=== PATIENT | female | born 1955 ===

== ENCOUNTER 2016-12-07 18:32 | Inpatient (IN) | payer MEDICAID ==
[2016-12-07 18:40] VITALS: BMI 22.6
--- NOTE | 2016-12-07 19:23 | ED PDOC ---
Arrival/HPI - General Historian: Patient - History of Present Illness Time/Duration: 24 hours Symptom Onset: Gradual Symptom Course: Unchanged Context: Home - General Time Seen by Provider: 12/07/16 18:38 - History of Present Illness Narrative History of Present Illness (Text): 12/07/16 19:23 61 yo female with PMH of HTN presents with hemoptysis. Patient states that last night she started cough up blood with sputum. She also reports fever of 105, for which she took Tylenol. Patient states that she was treated for pneumonia about 1 month ago, however she continued to have cough. She states that this has never happened before. 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 She denies any recent travel, or sick contacts. She denies weight loss, chest pain, abd pain, n/v. PMD: Ren (Eulalia Moore) Past Medical History - Provider Review Nursing Documentation Reviewed: Yes - Infectious Disease Hx of Infectious Diseases: None - Cardiac Hx Hypertension: Yes Hx Pacemaker: No - Pulmonary Hx Asthma: Yes Hx Pneumonia: Yes - Neurological Hx Paralysis: No - HEENT Hx Epistaxis: Yes - Hematological/Oncological Hx Blood Transfusions: No Hx Blood Transfusion Reaction: No - Musculoskeletal/Rheumatological Hx Musculoskeletal Disorders: Yes (OSTEOPENIA) - Gastrointestinal Hx Gastrointestinal Ulcer: Yes Other/Comment: inflammation of intestine - Psychiatric Hx Emotional Abuse: No Hx Physical Abuse: No Hx Substance Use: No - Anesthesia Hx Anesthesia: Yes Hx Anesthesia Reactions: No Hx Malignant Hyperthermia: No - Suicidal Assessment Feels Threatened In Home Enviroment: No Family/Social History - Physician Review Nursing Documentation Reviewed: Yes Family/Social History: No Known Family HX Smoking Status: Never Smoked Hx Alcohol Use: No Hx Substance Use: No Allergies/Home Meds Allergies/Adverse Reactions: Allergies EGG Allergy (Verified 11/16/15 12:32) RASH gluten Allergy (Verified 12/07/16 18:40) VOMITING Home Medications: Home Meds Medication Instructions Recorded Confirmed Acetaminophen [Tylenol Extra 500 mg PO Q6H PRN 11/16/15 12/07/16 Strength] Albuterol HFA [Ventolin HFA 90 2 puff IH Q6H PRN 11/16/15 12/07/16 mcg/actuation (8 g)] Lisinopril/Hydrochlorothiazide 1 tab PO DAILY 11/16/15 12/07/16 [Lisinopril-Hydrochlorothiazide 25 mg-20 mg] Polyethylene Glycol 3350 17 gm PO DAILY 11/16/15 12/07/16 [Polyethylene Glycol] Ranitidine HCl [Zantac] 1 tab PO BID 12/07/16 12/07/16 Review of Systems - Review of Systems Constitutional: Fevers. absent: Weight Change Eyes: Normal. absent: Vision Changes ENT: Normal. absent: Sore Throat, Rhinorrhea, Sinus Congestion Respiratory: SOB, Cough, Sputum, Other (hemoptysis ) Cardiovascular: Normal. absent: Chest Pain, Palpitations, Edema, Syncope Gastrointestinal: Normal. absent: Abdominal Pain, Constipation, Diarrhea, Nausea, Vomiting Genitourinary Female: Normal. absent: Dysuria, Frequency, Hematuria Musculoskeletal: Normal. absent: Arthralgias, Myalgias Skin: Normal. absent: Rash, Pruritis Neurological: Normal. absent: Headache, Dizziness Endocrine: Normal. absent: Diaphoresis Hemo/Lymphatic: Normal Psychiatric: Normal Physical Exam Vital Signs Reviewed: Yes Temperature: Febrile Blood Pressure: Normal Pulse: Tachycardic Respiratory Rate: Normal Appearance: Positive for: Non-Toxic, Comfortable Pain Distress: None Mental Status: Positive for: Alert and Oriented X 3 - Systems Exam Head: Present: Atraumatic, Normocephalic Pupils: Present: PERRL. No: Pinpoint Extroacular Muscles: Present: EOMI Conjunctiva: Present: Normal Mouth: Present: Moist Mucous Membranes Neck: Present: Normal Range of Motion Respiratory/Chest: Present: Good Air Exchange, Rhonchi (upper right lobe). No: Respiratory Distress, Accessory Muscle Use, Wheezes, Tachypneic Cardiovascular: Present: Regular Rate and Rhythm, Normal S1, S2. No: Murmurs Abdomen: Present: Normal Bowel Sounds. No: Tenderness, Distention, Peritoneal Signs Back: Present: Normal Inspection Upper Extremity: Present: Normal Inspection. No: Cyanosis, Edema Lower Extremity: Present: Normal Inspection. No: Edema Neurological: Present: GCS=15, CN II-XII Intact, Speech Normal Skin: Present: Warm, Dry, Normal Color. No: Rashes Psychiatric: Present: Alert, Oriented x 3, Normal Insight, Normal Concentration Medical Decision Making ED Course and Treatment: 12/07/16 19:31 Impression: 61 yo female with PMH of HTN presents with hemoptysis. Differential diagnoses includes but not limited to: - Pneumonia, TB Plan: - placed in isolation precautions - CBC, CMP - PT, PTT - cardiac iso - CXR - blood and urine cultures - VBG with lactate progress: 12/07/16 20:05 - CXR showed cavitary lesion of the right upper lobe. - Will give zosyn and vanco 12/07/16 20:56 - Dr. Mcclure called, she requested patient be admitted under hospitalist service. - Night doctor was called, agreed for admission to hospitalist service. (Eulalia Moore) Patient Seen With Resident: In agreement with resident note. Patient was seen and evaluated with resident, came up with plan and treatment together. (Donnie Pritchett) - Lab Interpretations Microbiology Results: Microbiology Results 12/07/16 20:15 Blood Blood Culture - Final NO GROWTH AFTER 5 DAYS 12/07/16 20:15 Blood Gram Stain - Final TEST NOT PERFORMED 12/07/16 19:45 Blood Blood Culture - Final NO GROWTH AFTER 5 DAYS 12/07/16 19:45 Blood Gram Stain - Final TEST NOT PERFORMED Lab Results: 12/07/16 19:45 12/07/16 19:45 Lab Results 12/07/16 19:45: Sodium 135, Chloride 96 L, Potassium 3.6, Carbon Dioxide 29, Anion Gap 14, BUN 10, Creatinine 0.7, Est GFR ( Amer) > 60, Est GFR (Non- Af Amer) > 60, Random Glucose 106, Calcium 9.1, Magnesium 2.0, Total Bilirubin 0.5, AST 32, ALT 23, Alkaline Phosphatase 92, Lactate Dehydrogenase 393, Total Creatine Kinase 48, Troponin I < 0.01, Total Protein 7.6, Albumin 3.9, Globulin 3.7, Albumin/Globulin Ratio 1.1 12/07/16 19:45: PT 12.5 H, INR 1.16 H, APTT 31.7 H 12/07/16 19:45: WBC 6.9, RBC 3.71, Hgb 10.0 L, Hct 31.1 L, MCV 83.8, MCH 27.0, MCHC 32.2, RDW 15.6 H, Plt Count 439, MPV 9.2, Gran % 73.8 H, Lymph % (Auto) 16.3 L, [place] % (Auto) 9.5 H, Eos % (Auto) 0.1 L, Baso % (Auto) 0.3, Gran # 5.10 , Lymph # 1.1 L, [place] # 0.7 H, Eos # 0.0, Baso # 0.02 12/07/16 19:45: pO2 31, VBG pH 7.42, VBG pCO2 48.0, VBG HCO3 31.1 H, VBG Total CO2 32.6 H, VBG O2 Sat (Calc) 63.9, VBG Base Excess 5.5 H, VBG Potassium 3.7, Sodium 136.0, Chloride 99.0, Glucose 109 H, Lactate 1.0, FiO2 21.0, Venous Blood Potassium 3.7 - RAD Interpretation Radiology Orders: 12/07/16 19:24 CHEST PORTABLE [RAD] Stat 12/07/16 20:52 CHEST W/CONTRAST [CT] Stat - Medication Orders Current Medication Orders: Albuterol Sulfate (Albuterol 0.083% Inhal Megan (2.5 Mg/3 Ml) Ud) 2.5 mg IH [id number] PRN PRN Reason: Cough and congestion Ethambutol HCl (Myambutol) 800 mg PO DAILY [facility] Last Admin: 12/13/16 09:50 Dose: 800 mg Hydrochlorothiazide (Hydrodiuril) 25 mg PO DAILY [facility] Last Admin: 12/13/16 09:51 Dose: 25 mg Ceftriaxone Sodium (Rocephin 1 Gram Ivpb) 1 gm in 100 mls @ 100 mls/hr IVPB DAILY [facility] PRN Reason: Protocol Last Admin: 12/12/16 10:30 Dose: 100 mls/hr Isoniazid (Niazid) 300 mg PO DAILY [facility] PRN Reason: Protocol Last Admin: 12/13/16 09:51 Dose: 300 mg Lisinopril (Zestril) 20 mg PO DAILY [facility] Last Admin: 12/13/16 09:52 Dose: 20 mg Pantoprazole Sodium (Protonix Ec Tab) 40 mg PO 0600 [facility] Last Admin: 12/13/16 05:44 Dose: 40 mg Polyethylene Glycol (Miralax) 17 gm PO BID [facility] Last Admin: 12/13/16 09:50 Dose: 17 gm Polysaccharide Iron Complex (Ferrex-150) 300 mg PO BID [facility] Last Admin: 12/13/16 09:51 Dose: 300 mg Prednisone (Prednisone Tab) 10 mg PO DAILY [facility] Last Admin: 12/13/16 09:51 Dose: 10 mg Pyrazinamide (Pyrazinamide) 1,000 mg PO DAILY [facility] Last Admin: 12/13/16 09:50 Dose: 1,000 mg Pyridoxine HCl (Vitamin B6 50 Mg Tab) 50 mg PO DAILY [facility] Last Admin: 12/13/16 09:50 Dose: 50 mg Rifampin (Rifampin Cap) 300 mg PO 0700 [facility] PRN Reason: Protocol Last Admin: 12/13/16 08:28 Dose: 300 mg Discontinued Medications Acetaminophen (Tylenol 325mg Tab) 975 mg PO STAT STA Stop: 12/07/16 19:26 Last Admin: 12/07/16 20:05 Dose: 975 mg Re-Assess: CANDIDA Pain/Vitals Document 12/07/16 21:05 JOHANNA (Rec: 12/07/16 21:18 JOHANNA [id number]) Pain Reassessment Is This A Pain ReAssessment? No Sleep Is patient sleeping during reassessment? No Presence of Pain Presence of Pain No Acetaminophen (Tylenol 325mg Tab) Confirm Administered Dose 650 mg .ROUTE .STK- MED ONE Stop: 12/08/16 15:14 Sodium Chloride (Sodium Chloride 0.9%) 1,000 mls @ 999 mls/hr IV .Q1H1M STA Stop: 12/07/16 20:25 Last Admin: 12/07/16 20:05 Dose: 999 mls/hr Vancomycin HCl (Vancomycin 1gm) 1 gm in 250 mls @ 167 mls/hr IVPB STAT STA PRN Reason: Protocol Stop: 12/07/16 21:10 Last Admin: 12/07/16 20:14 Dose: 167 mls/hr Piperacillin Sod/Tazobactam Sod (Zosyn 3.375 In Ns 100ml) 100 mls @ 200 mls/hr IVPB STAT STA PRN Reason: Protocol Stop: 12/07/16 20:10 Last Admin: 12/07/16 20:13 Dose: 200 mls/hr Ceftriaxone Sodium (Rocephin 1 Gram Ivpb) 1 gm in 100 mls @ 100 mls/hr IVPB DAILY [facility] PRN Reason: Protocol Last Admin: 12/08/16 09:07 Dose: 100 mls/hr Vancomycin HCl (Vancomycin 1gm) 1 gm in 250 mls @ 167 mls/hr IVPB Q12H [facility] PRN Reason: Protocol Last Admin: 12/08/16 10:43 Dose: Iohexol (Omnipaque 350 100 Ml) Confirm Administered Dose 350 mg .ROUTE .STK-MED ONE Stop: 12/07/16 21:15 Methylprednisolone (Solu-Medrol) 40 mg IVP Q8 [facility] Last Admin: 12/09/16 21:30 Dose: 40 mg Methylprednisolone (Solu-Medrol) 20 mg IVP Q8 [facility] Last Admin: 12/10/16 13:05 Dose: 20 mg Methylprednisolone (Solu-Medrol) 20 mg IVP Q12 [facility] Last Admin: 12/11/16 10:40 Dose: 20 mg Pantoprazole Sodium (Protonix Inj) 40 mg IVP DAILY [facility] Last Admin: 12/09/16 11:03 Dose: 40 mg Polyethylene Glycol (Miralax) 17 gm PO DAILY [facility] Last Admin: 12/12/16 10:30 Dose: 17 gm Polysaccharide Iron Complex (Ferrex-150) 150 mg PO DAILY [facility] Polysaccharide Iron Complex (Ferrex-150) 375 mg PO BID [facility] Potassium Chloride (K-Dur 20 Meq Er Tab) 40 meq PO BID ONE Stop: 12/09/16 08:44 Last Admin: 12/09/16 11:11 Dose: 40 meq Potassium Chloride (K-Dur 20 Meq Er Tab) 40 meq PO ONCE ONE Stop: 12/09/16 13:46 Last Admin: 12/09/16 14:21 Dose: 40 meq Disposition/Present on Arrival - Present on Arrival Any Indicators Present on Arrival: No History of DVT/PE: No History of Uncontrolled Diabetes: No Urinary Catheter: No History of Decub. Ulcer: No History Surgical Site Infection Following: None - Disposition Have Diagnosis and Disposition been Completed?: Yes Disposition Time: 20:53 Patient Plan: Admission - Disposition Diagnosis: Hemoptysis Disposition: HOSPITALIZED Patient Problems: Current Active Problems Problem Status Onset Asthma Acute Cavitary lesion of lung Acute Hemoptysis Acute Pneumonia Acute Condition: FAIR
[2016-12-07] MEDS ORDERED: Sodium Chloride 0.9% 1,000 ML IV STA (19:25)
[2016-12-07] MEDS ORDERED: Piperacillin/Tazobact 3.375 gm 100 ML IVPB STA (19:41)
[2016-12-07] MEDS ORDERED: Vancomycin 1gm in NS 250ml 1 GM/250 ML BAG IVPB STA (19:41)
[2016-12-07 20:18] LABS: VENOUS BLOOD GAS BASE EXCESS 5.5 mmol/L (0.0-2.0); VENOUS BLOOD GAS PO2 31 mm/Hg (30-55); VENOUS BLOOD PH 7.42 (7.32-7.43)
[2016-12-07 20:21] LABS: BASO # 0.02 K/mm3 (0.0-2.0); BASO % 0.3 % (0.0-3.0); EOS % 0.1 % (1.5-5.0); GRAN % 73.8 % (50.0-68.0); LYMPH # 1.1 (1.2-3.4); LYMPH % 16.3 % (22.0-35.0); MEAN CELL VOLUME 83.8 fL (80.0-105.0); MEAN CORPUSCULAR HGB CONC 32.2 g/dl (31.0-37.0); MEAN PLATELET VOLUME 9.2 fl (7.0-11.0); MONO # 0.7 (0.1-0.6); MONO % 9.5 % (1.0-6.0); PLATELET COUNT 439 10^3/uL (120.0-450.0); RBC 3.71 10^6/uL (3.5-6.1); RED CELL DISTRIBUTION WIDTH 15.6 % (11.5-14.5); WHITE BLOOD COUNT 6.9 10^3/ul (4.5-11.0)
[2016-12-07 20:22] LABS: ALB/GLOB RATIO 1.1 (1.1-1.8); ALBUMIN 3.9 g/dL (3.0-4.8); ALT/SGPT 23 U/L (7-56); AST/SGOT 32 U/L (15-39); BLOOD UREA NITROGEN 10 mg/dL (7-21); CALCIUM 9.1 mg/dL (8.4-10.5); GFR AFRICAN-AMERICAN > 60; GFR NON-AFRICAN AMERICAN > 60
[2016-12-07 20:26] LABS: INR 1.16 (0.93-1.08); PARTIAL THROMBOPLASTIN TIME 31.7 Seconds (23.7-30.8); PROTHROMBIN TIME 12.5 Seconds (9.9-11.8)
[2016-12-07 20:34] LABS: TROPONIN I < 0.01 ng/mL
[2016-12-07] MEDS ORDERED: Albuterol HFA 90 mcg/actuation (8 g) IH PRN (21:13)
[2016-12-07] MEDS ORDERED: Iohexol 350 MG/100 ML VIAL ONE (21:14)
[2016-12-07] MEDS ORDERED: Albuterol 0.083% Inhal Sol (2.5 mg/3 mL) UD IH PRN (21:24)
[2016-12-07] MEDS: Vancomycin 1gm in NS 250ml 1 GM/250 ML BAG IVPB SCH (22:05)
--- NOTE | 2016-12-07 22:38 | CP.PCM.HP ---
<Hector Domínguez - Last Filed: 12/08/16 03:23> History of Present Illness - History of Present Illness History of Present Illness: cc: hemoptysis HPI: Patient is a 61yo female with past medical history of hypertension, asthma , gastric ulcer, esophagitis that presents c/o hemoptysis. Patient reports that she began coughing up bright red blood yesterday. She stated that she has had a productive cough with white phlegm for the last 2 months for which she saw her PMD and was prescribed antibiotics. She reported that the cough persisted and was associated with fevers and chills. She took tylenol with moderate relief of her fevers. Her daughter noted that she has lost at least 5 pounds in the last month. Patient is from the [place] and immig[place] to the [place] 30 years ago. She reports having visited for several months approximately 2 yrs ago. She also reported having had a prior positive PPD for which she had a CXR done and was given some medications that she does not recall the names of. She denies sick contacts, night sweats, chest pain, palpitations, abdominal pain, nausea, vomiting, focal weakness, numbness, tingling. 12 point ROS as per HPI above, otherwise negative PMHx: see above PSHx: hernia repair Allergies: egg, gluten Family Hx: Mother: Hypertension; Father: Alzheimer's; Brother: Brain Ca Social Hx: Denies tobacco, alcohol and illicit drug use; homemaker PMD: Dr. Mcclure Present on Admission - Present on Admission Any Indicators Present on Admission: No Past Patient History - Infectious Disease Hx of Infectious Diseases: None - Past Social History Smoking Status: Never Smoked - CARDIAC Hx Hypertension: Yes Hx Pacemaker: No - PULMONARY Hx Asthma: Yes Hx Pneumonia: Yes - NEUROLOGICAL Hx Paralysis: No - HEENT Hx Epistaxis: Yes - HEMATOLOGICAL/ONCOLOGICAL Hx Blood Transfusions: No Hx Blood Transfusion Reaction: No - MUSCULOSKELETAL/RHEUMATOLOGICAL Hx Musculoskeletal Disorders: Yes (OSTEOPENIA) - GASTROINTESTINAL Other/Comment: inflammation of intestine - PSYCHIATRIC Hx Emotional Abuse: No Hx Physical Abuse: No Hx Substance Use: No - SURGICAL HISTORY Hx Surgeries: Yes Hx Herniorrhaphy: Yes (inguinal hernia) - ANESTHESIA Hx Anesthesia: Yes Hx Anesthesia Reactions: No Hx Malignant Hyperthermia: No Meds Allergies/Adverse Reactions: Allergies Allergy/AdvReac Type Severity Reaction Status Date / Time EGG Allergy RASH Verified 11/16/15 12:32 gluten Allergy VOMITING Verified 12/07/16 18:40 Physical Exam - Constitutional Appears: No Acute Distress - Head Exam Head Exam: ATRAUMATIC, NORMAL INSPECTION, NORMOCEPHALIC - Eye Exam Eye Exam: EOMI, PERRL. absent: Conjunctival injection, Scleral icterus - ENT Exam ENT Exam: Mucous Membranes Moist - Neck Exam Neck exam: Positive for: Normal Inspection. Negative for: Lymphadenopathy, Tenderness, Thyromegaly - Respiratory Exam Respiratory Exam: Rhonchi (ronchi audible in the RUL). absent: Clear to Auscultation Bilateral, Rales, Wheezes - Cardiovascular Exam Cardiovascular Exam: RRR, +S1, +S2. absent: Gallop, JVD, Rubs, Systolic Murmur - GI/Abdominal Exam GI & Abdominal Exam: Soft. absent: Distended, Firm, Guarding, Rebound, Tenderness - Extremities Exam Extremities exam: Positive for: normal inspection, pedal pulses present. Negative for: calf tenderness, pedal edema, tenderness - Neurological Exam Neurological exam: Alert, CN II-XII Intact, Oriented x3 - Psychiatric Exam Psychiatric exam: Normal Affect, Normal Mood - Skin Skin Exam: Dry, Intact, Normal Color, Warm Results - Vital Signs Recent Vital Signs: Last Vital Signs Temp 101.1 F H 12/07/16 18:47 Pulse 106 H 12/07/16 18:47 Resp 18 12/07/16 18:47 BP 125/83 12/07/16 18:47 Pulse Ox 96 12/07/16 18:47 - Labs Result Diagrams: 12/07/16 19:45 12/07/16 19:45 Labs: Laboratory Results - last 24 hr 12/07/16 12/07/16 12/07/16 19:45 19:45 19:45 WBC 6.9 RBC 3.71 Hgb 10.0 L Hct 31.1 L MCV 83.8 MCH 27.0 MCHC 32.2 RDW 15.6 H Plt Count 439 MPV 9.2 Gran % 73.8 H Lymph % (Auto) 16.3 L [place] % (Auto) 9.5 H Eos % (Auto) 0.1 L Baso % (Auto) 0.3 Gran # 5.10 Lymph # 1.1 L [place] # 0.7 H Eos # 0.0 Baso # 0.02 PT 12.5 H INR 1.16 H APTT 31.7 H pO2 31 VBG pH 7.42 VBG pCO2 48.0 VBG HCO3 31.1 H VBG Total CO2 32.6 H VBG O2 Sat (Calc) 63.9 VBG Base Excess 5.5 H VBG Potassium 3.7 Sodium 136.0 Chloride 99.0 Glucose 109 H Lactate 1.0 FiO2 21.0 Potassium Carbon Dioxide Anion Gap BUN Creatinine Est GFR ( Amer) Est GFR (Non-Af Amer) Random Glucose Calcium Magnesium Total Bilirubin AST ALT Alkaline Phosphatase Lactate Dehydrogenase Total Creatine Kinase Troponin I Total Protein Albumin Globulin Albumin/Globulin Ratio Venous Blood Potassium 3.7 12/07/16 19:45 WBC RBC Hgb Hct MCV MCH MCHC RDW Plt Count MPV Gran % Lymph % (Auto) [place] % (Auto) Eos % (Auto) Baso % (Auto) Gran # Lymph # [place] # Eos # Baso # PT INR APTT pO2 VBG pH VBG pCO2 VBG HCO3 VBG Total CO2 VBG O2 Sat (Calc) VBG Base Excess VBG Potassium Sodium 135 Chloride 96 L Glucose Lactate FiO2 Potassium 3.6 Carbon Dioxide 29 Anion Gap 14 BUN 10 Creatinine 0.7 Est GFR ( Amer) > 60 Est GFR (Non-Af Amer) > 60 Random Glucose 106 Calcium 9.1 Magnesium 2.0 Total Bilirubin 0.5 AST 32 ALT 23 Alkaline Phosphatase 92 Lactate Dehydrogenase 393 Total Creatine Kinase 48 Troponin I < 0.01 Total Protein 7.6 Albumin 3.9 Globulin 3.7 Albumin/Globulin Ratio 1.1 Venous Blood Potassium Assessment & Plan - Assessment and Plan (Free Text) Plan: 61yo female with past medical history of hypertension, asthma, gastric ulcer, esophagitis presents c/o hemoptysis associated with weight loss, fevers and chills 1. Cavitary lesion r/o TB -CXR revealed right upper lobe cavitary lesion suspicious for granulomatous diseases such as TB -Patient was placed on airborne isolation with negative room pressure -Chest CT revealed RUL scarring and volume loss; small RUL cavitary lesion with adjacent nodular opacities; large RLL cavitary lesion with interstitial and airspace disease; active TB could not be excluded -AFB/Sputum cultures were ordered -Quantiferon pending -Patient given a dose of zosyn and vancomycin in the ED; Continue rocephin and vancomycin pending results of further studies per attending recommendations -HIV Ab pending -Blood/urine cultures pending; procalcitonin pending -ID consulted - Dr. Mcghee -Pulmonology consulted - Dr. Paige 2. Anemia -Anemia workup is pending: Iron, Ferritin, TIBC, Folate, B12, reticulocyte count 3. Hypertension -Continue home lisinopril and HCTZ 4. Asthma -Continue home albuterol PRN 5. GI/DVT Prophlaxis -Protonix/SCD's Patient seen, examined and case reviewed with attending, Dr. Waters - Date & Time Date: 12/07/16 Time: 23:09 <Kevin Waters - Last Filed: 12/08/16 23:08> Results - Vital Signs Recent Vital Signs: Last Vital Signs Temp 98.4 F 12/08/16 05:59 Pulse 90 12/08/16 09:16 Resp 18 12/08/16 09:00 BP 134/78 12/08/16 09:16 Pulse Ox 98 12/08/16 09:00 - Labs Result Diagrams: 12/08/16 06:30 12/08/16 06:30 Labs: Laboratory Results - last 24 hr 12/08/16 12/08/16 12/08/16 06:30 06:30 07:00 WBC 5.5 D RBC 3.90 Hgb 10.2 L Hct 32.7 L MCV 83.8 MCH 26.2 MCHC 31.2 RDW 15.9 H Plt Count 384 MPV 9.2 Gran % 69.3 H Lymph % (Auto) 19.1 L [place] % (Auto) 9.2 H Eos % (Auto) 1.8 Baso % (Auto) 0.6 Gran # 3.78 Lymph # 1.0 L [place] # 0.5 Eos # 0.1 Baso # 0.03 Retic Count 1.13 Sodium 138 Potassium 3.2 L Chloride 103 Carbon Dioxide 25 Anion Gap 13 BUN 8 Creatinine 0.6 Est GFR ( Amer) > 60 Est GFR (Non-Af Amer) > 60 Random Glucose 84 Calcium 8.9 Iron 16 L TIBC 305 % Saturation 5 L Ferritin Total Bilirubin 0.5 AST 23 ALT 26 Alkaline Phosphatase 93 Troponin I Total Protein 7.5 Albumin 3.7 Globulin 3.8 Albumin/Globulin Ratio 1.0 L Vitamin B12 Folate Procalcitonin 12/08/16 12/08/16 12/08/16 07:00 07:00 10:50 WBC RBC Hgb Hct MCV MCH MCHC RDW Plt Count MPV Gran % Lymph % (Auto) [place] % (Auto) Eos % (Auto) Baso % (Auto) Gran # Lymph # [place] # Eos # Baso # Retic Count Sodium Potassium Chloride Carbon Dioxide Anion Gap BUN Creatinine Est GFR ( Amer) Est GFR (Non-Af Amer) Random Glucose Calcium Iron TIBC % Saturation Ferritin 67.6 Total Bilirubin AST ALT Alkaline Phosphatase Troponin I < 0.01 Total Protein Albumin Globulin Albumin/Globulin Ratio Vitamin B12 336 Folate 12.5 Procalcitonin 0.11 L 12/08/16 20:50 WBC RBC Hgb Hct MCV MCH MCHC RDW Plt Count MPV Gran % Lymph % (Auto) [place] % (Auto) Eos % (Auto) Baso % (Auto) Gran # Lymph # [place] # Eos # Baso # Retic Count Sodium Potassium Chloride Carbon Dioxide Anion Gap BUN Creatinine Est GFR ( Amer) Est GFR (Non-Af Amer) Random Glucose Calcium Iron TIBC % Saturation Ferritin Total Bilirubin AST ALT Alkaline Phosphatase Troponin I < 0.01 Total Protein Albumin Globulin Albumin/Globulin Ratio Vitamin B12 Folate Procalcitonin Attending/Attestation - Attestation I have personally seen and examined this patient.: Yes I have fully participated in the care of the patient.: Yes I have reviewed all pertinent clinical information: Yes
--- NOTE | 2016-12-07 23:17 | CT ---
EXAM: CT Chest With Intravenous Contrast CLINICAL HISTORY: 61 years old, female; Signs and symptoms; Cough; Cough with hemorrhage; Additional info: Cough possible abscess vs cavitary lesion; history of positive PPD TECHNIQUE: Axial computed tomography images of the chest with intravenous contrast. This CT exam was performed using one or more of the following dose reduction techniques: automated exposure control, adjustment of the mA and/or kV according to patient size, and/or use of iterative reconstruction technique. MIP reconstructed images were created and reviewed. Coronal and sagittal reformatted images were created and reviewed. CONTRAST: 100 mL of omni 350 administered intravenously. EXAM DATE/TIME: 12/07/2016 8:52 PM COMPARISON: DX - CHEST PORTABLE 12/07/2016 7:28:54 PM FINDINGS: Lungs: Trachea and main bronchi are patent. There is interstitial and alveolar disease in the right upper lobe. There is right upper lobe volume loss with elevation of the fissure. There is upper lobe bronchiectasis. There is a 1.2 x 1.4 x 1.2 cm walled cavitary lesion in the right upper lobe. There are multiple additional nodular opacities in the right upper lobe. There is a 3.5 x 3.8 x 3.1 cm thick walled cavitary lesions superior segment right lower lobe. There are multiple small adjacent nodular opacities in the superior segment of the right lower lobe. There are interstitial nodular opacities in the inferior portion right lower lobe. There is medial right lower lobe infrahilar airspace disease. Right middle lobe is clear. Left lung is well inflated and clear. Pleural space: There are no effusions Heart and vasculature: Heart size is normal. There is no pericardial effusion.Aorta and main pulmonary artery are normal in caliber. Thyroid: Thyroid is unremarkable Bones/joints: There are degenerative changes in the osseus structures. Upper abdomen:There are no acute abnormalities in the visualized portion of the abdomen. Soft tissues: unremarkable Mediastinum There is shotty middle mediastinal nodes. Parenchymal disease limits evaluation of the right hilum. Adenopathy is suspected.: Esophagus is not optimally evaluated. IMPRESSION: Right upper lobe scarring and volume loss; small right upper lobe cavitary lesion with adjacent nodular opacities; large right lower lobe cavitary lesion with interstitial and airspace disease, active tuberculosis cannot be excluded Additional findings as described above.
[2016-12-08 06:52] LABS: BASO # 0.03 K/mm3 (0.0-2.0); BASO % 0.6 % (0.0-3.0); EOS # 0.1 (0.0-0.7); EOS % 1.8 % (1.5-5.0); GRAN # 3.78 (1.4-6.5); GRAN % 69.3 % (50.0-68.0); HEMOGLOBIN 10.2 gm/dL (12.0-16.0); LYMPH % 19.1 % (22.0-35.0); MEAN CELL VOLUME 83.8 fL (80.0-105.0); MEAN CORPUSCULAR HEMOGLOBIN 26.2 pg (25.0-35.0); MEAN CORPUSCULAR HGB CONC 31.2 g/dl (31.0-37.0); MEAN PLATELET VOLUME 9.2 fl (7.0-11.0); MONO # 0.5 (0.1-0.6); MONO % 9.2 % (1.0-6.0); PLATELET COUNT 384 10^3/uL (120.0-450.0); RED CELL DISTRIBUTION WIDTH 15.9 % (11.5-14.5); WHITE BLOOD COUNT 5.5 10^3/ul (4.5-11.0)
[2016-12-08 07:02] LABS: ALBUMIN 3.7 g/dL (3.0-4.8); ALT/SGPT 26 U/L (7-56); AST/SGOT 23 U/L (15-39); BLOOD UREA NITROGEN 8 mg/dL (7-21); CALCIUM 8.9 mg/dL (8.4-10.5); GFR AFRICAN-AMERICAN > 60; GFR NON-AFRICAN AMERICAN > 60
--- NOTE | 2016-12-08 08:53 | CP.PCM.PN ---
<David Mahmood - Last Filed: 12/08/16 08:50> Subjective - Date & Time of Evaluation Date of Evaluation: 12/08/16 Time of Evaluation: 08:50 - Subjective Subjective: Patient seen and examined. NO acute events overnight. Patient c/o productive sputum with jamal color. She is afebrile. Denies fever, chills. NO n/v/d. Airborne precautions are in place. Objective - Vital Signs/Intake and Output Vital Signs (last 24 hours): Temp Pulse Resp BP Pulse Ox 98.4 F 86 22 133/82 98 12/08/16 05:59 12/08/16 05:59 12/08/16 05:59 12/08/16 05:59 12/08/16 05:59 Intake and Output: 12/08/16 12/08/16 06:59 18:59 Intake Total 240 Balance 240 - Medications Medications: Current Medications Albuterol Sulfate (Albuterol 0.083% Inhal Megan (2.5 Mg/3 Ml) Ud) 2.5 mg IH [id number] PRN PRN Reason: Cough and congestion Hydrochlorothiazide (Hydrodiuril) 25 mg PO DAILY [facility] Ceftriaxone Sodium (Rocephin 1 Gram Ivpb) 1 gm in 100 mls @ 100 mls/hr IVPB DAILY [facility] PRN Reason: Protocol Vancomycin HCl (Vancomycin 1gm) 1 gm in 250 mls @ 167 mls/hr IVPB Q12H [facility] PRN Reason: Protocol Last Admin: 12/07/16 22:05 Dose: Not Given Lisinopril (Zestril) 20 mg PO DAILY [facility] Pantoprazole Sodium (Protonix Inj) 40 mg IVP DAILY [facility] - Labs Labs: 12/08/16 06:30 12/08/16 06:30 PT 12.5 Seconds (9.9-11.8) H 12/07/16 19:45 INR 1.16 (0.93-1.08) H 12/07/16 19:45 APTT 31.7 Seconds (23.7-30.8) H 12/07/16 19:45 - Constitutional Appears: Non-toxic, No Acute Distress - Head Exam Head Exam: ATRAUMATIC, NORMOCEPHALIC - Eye Exam Eye Exam: EOMI, PERRL - ENT Exam ENT Exam: Mucous Membranes Moist - Neck Exam Neck Exam: Full ROM, Normal Inspection - Respiratory Exam Respiratory Exam: Rhonchi. absent: Clear to Ausculation Bilateral, Wheezes Additional comments: right middle lobe - Cardiovascular Exam Cardiovascular Exam: REGULAR RHYTHM, +S1, +S2 - GI/Abdominal Exam GI & Abdominal Exam: Soft, Normal Bowel Sounds. absent: Tenderness - Extremities Exam Extremities Exam: Full ROM. absent: Calf Tenderness - Neurological Exam Neurological Exam: Alert, Awake, Oriented x3 - Psychiatric Exam Psychiatric exam: Normal Affect, Normal Mood - Skin Skin Exam: Dry, Warm Assessment and Plan - Assessment and Plan (Free Text) Assessment: 61yo female with past medical history of hypertension, asthma, gastric ulcer, esophagitis presents c/o hemoptysis associated with weight loss, fevers and chills Cavitary lesion r/o TB -CXR revealed right upper lobe cavitary lesion suspicious for granulomatous diseases such as TB -Patient was placed on airborne isolation with negative room pressure -Chest CT revealed RUL scarring and volume loss; small RUL cavitary lesion with adjacent nodular opacities; large RLL cavitary lesion with interstitial and airspace disease; active TB could not be excluded -AFB/Sputum cultures were ordered -Quantiferon pending -Patient given a dose of zosyn and vancomycin in the ED; Continue rocephin and vancomycin pending results of further studies per attending recommendations -HIV Ab pending -Blood/urine cultures pending; procalcitonin pending -ID consulted - Dr. Mcghee -Pulmonology consulted - Dr. Paige Anemia -Anemia workup is pending: Iron, Ferritin, TIBC, Folate, B12, reticulocyte count Hypertension -Continue home lisinopril and HCTZ Asthma -Continue home albuterol PRN GI/DVT Prophlaxis -Protonix/SCD's <Jaiden Holden - Last Filed: 12/08/16 22:51> Objective - Vital Signs/Intake and Output Vital Signs (last 24 hours): Temp Pulse Resp BP Pulse Ox 98.4 F 90 18 134/78 98 12/08/16 05:59 12/08/16 09:16 12/08/16 09:00 12/08/16 09:16 12/08/16 09:00 - Medications Medications: Current Medications Albuterol Sulfate (Albuterol 0.083% Inhal Megan (2.5 Mg/3 Ml) Ud) 2.5 mg IH [id number] PRN PRN Reason: Cough and congestion Hydrochlorothiazide (Hydrodiuril) 25 mg PO DAILY [facility] Last Admin: 12/08/16 09:17 Dose: 25 mg Lisinopril (Zestril) 20 mg PO DAILY [facility] Last Admin: 12/08/16 09:16 Dose: 20 mg Pantoprazole Sodium (Protonix Inj) 40 mg IVP DAILY [facility] Last Admin: 12/08/16 09:06 Dose: 40 mg - Labs Labs: 12/08/16 06:30 12/08/16 06:30 PT 12.5 Seconds (9.9-11.8) H 12/07/16 19:45 INR 1.16 (0.93-1.08) H 12/07/16 19:45 APTT 31.7 Seconds (23.7-30.8) H 12/07/16 19:45 Attending/Attestation - Attestation I have personally seen and examined this patient.: Yes I have fully participated in the care of the patient.: Yes I have reviewed all pertinent clinical information, including history, physical exam and plan: Yes Notes (Text): 12/08/16 22:50 Patient seen and examined at bedside. No new complaints. Continue droplet precautions and negative pressure environment. ID consult appreciated. Agree with the plan of care outlined by the resident.
[2016-12-08 08:54] LABS: % IRON SATURATION 5 % (20-55); IRON 16 ug/dL (45-180); TOTAL IRON BINDING CAPACITY 305 ug/dL (265-497)
[2016-12-08] MEDS ORDERED: cefTRIAXone 1 gm 1 GM/100 ML BAG IVPB SCH (10:00)
--- NOTE | 2016-12-08 10:17 | RAD ---
HISTORY: cough COMPARISON: 10/17/2016. Two-view chest. December 07, 2016. CT thorax is FINDINGS: LUNGS: Roseanne cavitary mass right upper lobe. Persistent consolidative and nodular changes right upper lobe. PLEURA: No significant pleural effusion identified, no pneumothorax apparent. CARDIOVASCULAR: Normal. OSSEOUS STRUCTURES: No significant abnormalities. VISUALIZED UPPER ABDOMEN: Normal. OTHER FINDINGS: None. IMPRESSION: Cavitary mass which is decreased in size compared to the prior chest x-ray. The overall findings in the right upper lobe likely reflect granulomatous disease. Fungal etiologies should also be considered.
[2016-12-08] MEDS: Vancomycin 1gm in NS 250ml 1 GM/250 ML BAG IVPB SCH (10:43)
[2016-12-08 12:47] LABS: FERRITIN 67.6 ng/mL
[2016-12-08 13:18] LABS: FOLATE 12.5 ng/mL
--- NOTE | 2016-12-08 20:15 | CARD ---
APPROVED REPORT EKG Measurement Heart [id number] DC [id number] [id number] <Conclusion> Normal sinus rhythm Normal ECG
--- NOTE | 2016-12-08 23:41 | CP.PCM.CON ---
History of Present Illness - History of Present Illness History of Present Illness: Infectious Disease Consultation: December 08, 2016 61 yo female with cough and bright red blood in sputum starting yesterday. The patient complains of persistent cough for the past 2 months without improvement. The patient placed on isolation and respiratory precautions at this time. Supportive care. Rule out TB. 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 Patient did have BCG vaccine in the past as a child. Patient was born in the [place] but moved to the [facility] [address] chest showed either abscess or cavitary lesion. The patient does complain of subjective fevers and chills. Fever of 101.1 F in ER. PMHx: hypertension, asthma, gastric ulcer, esophagitis PSHx: Hernia repair Allergies: EGGs, Gluten Social Hx: No tobacco, EtOH, or illicit drug use Active Medications Albuterol Sulfate (Albuterol 0.083% Inhal Megan (2.5 Mg/3 Ml) Ud) 2.5 mg IH [id number] PRN PRN Reason: Cough and congestion Hydrochlorothiazide (Hydrodiuril) 25 mg PO DAILY [facility] Last Admin: 12/08/16 09:17 Dose: 25 mg Lisinopril (Zestril) 20 mg PO DAILY [facility] Last Admin: 12/08/16 09:16 Dose: 20 mg Pantoprazole Sodium (Protonix Inj) 40 mg IVP DAILY [facility] Last Admin: 12/08/16 09:06 Dose: 40 mg Family Hx: Father: Alzheimer Mother: Hypertension Brother: Brain Cancer ROS: Hemoptysis, cough, weakness. Fevers, Chills. No hematuria, hematemesis, hematochezia, depression, anxiety, diarrhea, headaches, dizziness, chest pain, abdominal pain, loss of consciousness. Past Patient History - Infectious Disease Hx of Infectious Diseases: None - Past Social History Smoking Status: Never Smoked - CARDIAC Hx Hypertension: Yes Hx Pacemaker: No - PULMONARY Hx Asthma: Yes Hx Pneumonia: Yes - NEUROLOGICAL Hx Paralysis: No - HEENT Hx Epistaxis: Yes - RENAL Hx Chronic Kidney Disease: No - ENDOCRINE/METABOLIC Hx Endocrine Disorders: No - HEMATOLOGICAL/ONCOLOGICAL Hx Blood Transfusions: No Hx Blood Transfusion Reaction: No - INTEGUMENTARY Hx Dermatological Problems: No - MUSCULOSKELETAL/RHEUMATOLOGICAL Hx Musculoskeletal Disorders: Yes (OSTEOPENIA) - GASTROINTESTINAL Other/Comment: inflammation of intestine - PSYCHIATRIC Hx Emotional Abuse: No Hx Physical Abuse: No Hx Substance Use: No - SURGICAL HISTORY Hx Surgeries: Yes Hx Herniorrhaphy: Yes (inguinal hernia) - ANESTHESIA Hx Anesthesia: Yes Hx Anesthesia Reactions: No Hx Malignant Hyperthermia: No Meds Allergies/Adverse Reactions: Allergies Allergy/AdvReac Type Severity Reaction Status Date / Time EGG Allergy RASH Verified 11/16/15 12:32 gluten Allergy VOMITING Verified 12/07/16 18:40 - Medications Medications: Current Medications Albuterol Sulfate (Albuterol 0.083% Inhal Megan (2.5 Mg/3 Ml) Ud) 2.5 mg IH [id number] PRN PRN Reason: Cough and congestion Hydrochlorothiazide (Hydrodiuril) 25 mg PO DAILY [facility] Last Admin: 12/08/16 09:17 Dose: 25 mg Lisinopril (Zestril) 20 mg PO DAILY [facility] Last Admin: 12/08/16 09:16 Dose: 20 mg Pantoprazole Sodium (Protonix Inj) 40 mg IVP DAILY [facility] Last Admin: 12/08/16 09:06 Dose: 40 mg Physical Exam - Constitutional Appears: Non-toxic, No Acute Distress, Chronically Ill - Head Exam Head Exam: ATRAUMATIC, NORMOCEPHALIC - Eye Exam Eye Exam: EOMI, PERRL Pupil Exam: NORMAL ACCOMODATION, PERRL - ENT Exam ENT Exam: Mucous Membranes Moist, Normal External Ear Exam, TM's Normal Bilaterally - Neck Exam Neck exam: Positive for: Full Rom, Normal Inspection - Respiratory Exam Respiratory Exam: Decreased Breath Sounds, Rhonchi. absent: Wheezes, Respiratory Distress - Cardiovascular Exam Cardiovascular Exam: REGULAR RHYTHM, RRR, +S1, +S2 - GI/Abdominal Exam GI & Abdominal Exam: Normal Bowel Sounds, Soft. absent: Distended, Tenderness - Extremities Exam Extremities exam: Positive for: full ROM, normal inspection - Neurological Exam Neurological exam: Alert, CN II-XII Intact, Oriented x3 - Psychiatric Exam Psychiatric exam: Normal Affect, Normal Mood - Skin Skin Exam: Intact, Normal Color Results - Vital Signs Recent Vital Signs: Last Vital Signs Temp 98.4 F 12/08/16 05:59 Pulse 90 12/08/16 09:16 Resp 18 12/08/16 09:00 BP 134/78 12/08/16 09:16 Pulse Ox 98 12/08/16 09:00 - Labs Result Diagrams: 12/08/16 06:30 12/08/16 06:30 Labs: Laboratory Results - last 24 hr 12/08/16 12/08/16 12/08/16 06:30 06:30 07:00 WBC 5.5 D RBC 3.90 Hgb 10.2 L Hct 32.7 L MCV 83.8 MCH 26.2 MCHC 31.2 RDW 15.9 H Plt Count 384 MPV 9.2 Gran % 69.3 H Lymph % (Auto) 19.1 L [place] % (Auto) 9.2 H Eos % (Auto) 1.8 Baso % (Auto) 0.6 Gran # 3.78 Lymph # 1.0 L [place] # 0.5 Eos # 0.1 Baso # 0.03 Retic Count 1.13 Sodium 138 Potassium 3.2 L Chloride 103 Carbon Dioxide 25 Anion Gap 13 BUN 8 Creatinine 0.6 Est GFR ( Amer) > 60 Est GFR (Non-Af Amer) > 60 Random Glucose 84 Calcium 8.9 Iron 16 L TIBC 305 % Saturation 5 L Ferritin Total Bilirubin 0.5 AST 23 ALT 26 Alkaline Phosphatase 93 Troponin I Total Protein 7.5 Albumin 3.7 Globulin 3.8 Albumin/Globulin Ratio 1.0 L Vitamin B12 Folate Procalcitonin 12/08/16 12/08/16 12/08/16 07:00 07:00 10:50 WBC RBC Hgb Hct MCV MCH MCHC RDW Plt Count MPV Gran % Lymph % (Auto) [place] % (Auto) Eos % (Auto) Baso % (Auto) Gran # Lymph # [place] # Eos # Baso # Retic Count Sodium Potassium Chloride Carbon Dioxide Anion Gap BUN Creatinine Est GFR ( Amer) Est GFR (Non-Af Amer) Random Glucose Calcium Iron TIBC % Saturation Ferritin 67.6 Total Bilirubin AST ALT Alkaline Phosphatase Troponin I < 0.01 Total Protein Albumin Globulin Albumin/Globulin Ratio Vitamin B12 336 Folate 12.5 Procalcitonin 0.11 L 12/08/16 20:50 WBC RBC Hgb Hct MCV MCH MCHC RDW Plt Count MPV Gran % Lymph % (Auto) [place] % (Auto) Eos % (Auto) Baso % (Auto) Gran # Lymph # [place] # Eos # Baso # Retic Count Sodium Potassium Chloride Carbon Dioxide Anion Gap BUN Creatinine Est GFR ( Amer) Est GFR (Non-Af Amer) Random Glucose Calcium Iron TIBC % Saturation Ferritin Total Bilirubin AST ALT Alkaline Phosphatase Troponin I < 0.01 Total Protein Albumin Globulin Albumin/Globulin Ratio Vitamin B12 Folate Procalcitonin Assessment & Plan - Assessment and Plan (Free Text) Assessment: 61 yo female with prolonged cough for over 2 months with no improvement on antibiotics. The patient with known positive PPD. Cannot rule out tuberculosis at this point. Must also consider infections such as Staph Aureus and other acid-fast positive organisms. Start Rocephin for antibiotic coverage. [place] cultures. Obtain Acid-Fast stains and studies of sputum x 3. Patient had hemoptysis. Repeating PPD and Quantiferon will not yield additional data (both tests only show potential exposure of patient to tuberculosis during lifetime and cannot denote active disease. Maintain isolation. Supportive care. Thank you for allowing me to participate in the care of the patient, we will follow with you.
--- NOTE | 2016-12-09 00:41 | CP.PCM.CON ---
History of Present Illness - History of Present Illness History of Present Illness: 61 yo female with PMH of HTN presents with hemoptysis. Patient states that last night she started cough up blood with sputum. She also reports fever of 105, for which she took Tylenol. Patient states that she was treated for pneumonia about 1 month ago, however she continued to have cough. She states that this has never happened before. 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 She denies any recent travel, or sick contacts. She denies weight loss, chest pain, abd pain, n/v. Review of Systems - Constitutional Constitutional: Fatigue, Fever, Weight Loss. absent: Night Sweats - EENT Nose/Mouth/Throat: absent: Nasal Congestion, Nasal Discharge - Cardiovascular Cardiovascular: Dyspnea, Orthopnea - Respiratory Respiratory: Cough, Dyspnea, Hemoptysis, Wheezing - Gastrointestinal Gastrointestinal: absent: Belching, Bloating, Change in Bowel Habits, Cramping, Diarrhea, Dyspepsia - Genitourinary Genitourinary: absent: Difficulty Urinating, Dysuria, Hematuria - Musculoskeletal Musculoskeletal: absent: Atrophy, Back Pain - Neurological Neurological: absent: Behavioral Changes, Confusion, Dizziness, Numbness - Psychiatric Psychiatric: absent: Behavioral Changes - Hematologic/Lymphatic Hematologic: absent: Easy Bleeding, Easy Bruising Past Patient History - Infectious Disease Hx of Infectious Diseases: None - Past Social History Smoking Status: Never Smoked - CARDIAC Hx Hypertension: Yes Hx Pacemaker: No - PULMONARY Hx Asthma: Yes Hx Pneumonia: Yes - NEUROLOGICAL Hx Paralysis: No - HEENT Hx Epistaxis: Yes - RENAL Hx Chronic Kidney Disease: No - ENDOCRINE/METABOLIC Hx Endocrine Disorders: No - HEMATOLOGICAL/ONCOLOGICAL Hx Blood Transfusions: No Hx Blood Transfusion Reaction: No - INTEGUMENTARY Hx Dermatological Problems: No - MUSCULOSKELETAL/RHEUMATOLOGICAL Hx Musculoskeletal Disorders: Yes (OSTEOPENIA) - GASTROINTESTINAL Other/Comment: inflammation of intestine - PSYCHIATRIC Hx Emotional Abuse: No Hx Physical Abuse: No Hx Substance Use: No - SURGICAL HISTORY Hx Surgeries: Yes Hx Herniorrhaphy: Yes (inguinal hernia) - ANESTHESIA Hx Anesthesia: Yes Hx Anesthesia Reactions: No Hx Malignant Hyperthermia: No Meds Allergies/Adverse Reactions: Allergies Allergy/AdvReac Type Severity Reaction Status Date / Time EGG Allergy RASH Verified 11/16/15 12:32 gluten Allergy VOMITING Verified 12/07/16 18:40 - Medications Medications: Current Medications Albuterol Sulfate (Albuterol 0.083% Inhal Megan (2.5 Mg/3 Ml) Ud) 2.5 mg IH [id number] PRN PRN Reason: Cough and congestion Hydrochlorothiazide (Hydrodiuril) 25 mg PO DAILY [facility] Last Admin: 12/08/16 09:17 Dose: 25 mg Ceftriaxone Sodium (Rocephin 1 Gram Ivpb) 1 gm in 100 mls @ 100 mls/hr IVPB DAILY [facility] PRN Reason: Protocol Lisinopril (Zestril) 20 mg PO DAILY [facility] Last Admin: 12/08/16 09:16 Dose: 20 mg Pantoprazole Sodium (Protonix Inj) 40 mg IVP DAILY [facility] Last Admin: 12/08/16 09:06 Dose: 40 mg Physical Exam - Constitutional Appears: Chronically Ill - Head Exam Head Exam: ATRAUMATIC, NORMAL INSPECTION, NORMOCEPHALIC - Eye Exam Eye Exam: EOMI, Normal appearance, PERRL Pupil Exam: NORMAL ACCOMODATION, PERRL - ENT Exam ENT Exam: Mucous Membranes Moist, Normal Exam - Neck Exam Neck exam: Positive for: Normal Inspection - Respiratory Exam Respiratory Exam: Rales, Wheezes - Cardiovascular Exam Cardiovascular Exam: REGULAR RHYTHM - GI/Abdominal Exam GI & Abdominal Exam: Normal Bowel Sounds, Soft. absent: Tenderness - Neurological Exam Neurological exam: Alert, CN II-XII Intact, Normal Gait, Oriented x3, Reflexes Normal Results - Vital Signs Recent Vital Signs: Last Vital Signs Temp 98.4 F 12/08/16 05:59 Pulse 90 12/08/16 09:16 Resp 18 12/08/16 09:00 BP 134/78 12/08/16 09:16 Pulse Ox 98 12/08/16 09:00 - Labs Result Diagrams: 12/08/16 06:30 12/08/16 06:30 Labs: Laboratory Results - last 24 hr 12/08/16 12/08/16 12/08/16 06:30 06:30 07:00 WBC 5.5 D RBC 3.90 Hgb 10.2 L Hct 32.7 L MCV 83.8 MCH 26.2 MCHC 31.2 RDW 15.9 H Plt Count 384 MPV 9.2 Gran % 69.3 H Lymph % (Auto) 19.1 L [place] % (Auto) 9.2 H Eos % (Auto) 1.8 Baso % (Auto) 0.6 Gran # 3.78 Lymph # 1.0 L [place] # 0.5 Eos # 0.1 Baso # 0.03 Retic Count 1.13 Sodium 138 Potassium 3.2 L Chloride 103 Carbon Dioxide 25 Anion Gap 13 BUN 8 Creatinine 0.6 Est GFR ( Amer) > 60 Est GFR (Non-Af Amer) > 60 Random Glucose 84 Calcium 8.9 Iron 16 L TIBC 305 % Saturation 5 L Ferritin Total Bilirubin 0.5 AST 23 ALT 26 Alkaline Phosphatase 93 Troponin I Total Protein 7.5 Albumin 3.7 Globulin 3.8 Albumin/Globulin Ratio 1.0 L Vitamin B12 Folate Procalcitonin 12/08/16 12/08/16 12/08/16 07:00 07:00 10:50 WBC RBC Hgb Hct MCV MCH MCHC RDW Plt Count MPV Gran % Lymph % (Auto) [place] % (Auto) Eos % (Auto) Baso % (Auto) Gran # Lymph # [place] # Eos # Baso # Retic Count Sodium Potassium Chloride Carbon Dioxide Anion Gap BUN Creatinine Est GFR ( Amer) Est GFR (Non-Af Amer) Random Glucose Calcium Iron TIBC % Saturation Ferritin 67.6 Total Bilirubin AST ALT Alkaline Phosphatase Troponin I < 0.01 Total Protein Albumin Globulin Albumin/Globulin Ratio Vitamin B12 336 Folate 12.5 Procalcitonin 0.11 L 12/08/16 20:50 WBC RBC Hgb Hct MCV MCH MCHC RDW Plt Count MPV Gran % Lymph % (Auto) [place] % (Auto) Eos % (Auto) Baso % (Auto) Gran # Lymph # [place] # Eos # Baso # Retic Count Sodium Potassium Chloride Carbon Dioxide Anion Gap BUN Creatinine Est GFR ( Amer) Est GFR (Non-Af Amer) Random Glucose Calcium Iron TIBC % Saturation Ferritin Total Bilirubin AST ALT Alkaline Phosphatase Troponin I < 0.01 Total Protein Albumin Globulin Albumin/Globulin Ratio Vitamin B12 Folate Procalcitonin - Imaging and Cardiology CT scan - chest Additional comment: reviewed Assessment & Plan (1) Asthma Assessment and Plan: iv and inhale broncho dilators Status: Acute (2) Cavitary lesion of lung Assessment and Plan: anti biotics, isolated, sputum for afb being sent, TB gold test Status: Acute (3) Pneumonia Status: Acute
[2016-12-09] MEDS: MethylPREDNISolone 40 mg Vial IVP SCH ×3 (07:38→21:30)
[2016-12-09 07:47] LABS: ALBUMIN 3.6 g/dL (3.0-4.8); ALT/SGPT 20 U/L (7-56); AST/SGOT 28 U/L (15-39); BLOOD UREA NITROGEN 8 mg/dL (7-21); CALCIUM 8.9 mg/dL (8.4-10.5); GFR AFRICAN-AMERICAN > 60; GFR NON-AFRICAN AMERICAN > 60
[2016-12-09 07:51] LABS: BASO # 0.02 K/mm3 (0.0-2.0); BASO % 0.3 % (0.0-3.0); EOS # 0.1 (0.0-0.7); EOS % 1.3 % (1.5-5.0); GRAN # 4.75 (1.4-6.5); GRAN % 69.1 % (50.0-68.0); HEMOGLOBIN 9.7 gm/dL (12.0-16.0); LYMPH # 1.3 (1.2-3.4); LYMPH % 19.5 % (22.0-35.0); MEAN CELL VOLUME 82.6 fL (80.0-105.0); MEAN CORPUSCULAR HEMOGLOBIN 26.7 pg (25.0-35.0); MEAN CORPUSCULAR HGB CONC 32.3 g/dl (31.0-37.0); MEAN PLATELET VOLUME 9.2 fl (7.0-11.0); MONO # 0.7 (0.1-0.6); MONO % 9.8 % (1.0-6.0); PLATELET COUNT 417 10^3/uL (120.0-450.0); RBC 3.63 10^6/uL (3.5-6.1); RED CELL DISTRIBUTION WIDTH 15.6 % (11.5-14.5); WHITE BLOOD COUNT 6.9 10^3/ul (4.5-11.0)
[2016-12-09] MEDS ORDERED: Potassium Chloride 20 mEq ER Tab PO ONE ×2 (08:43→13:45)
--- NOTE | 2016-12-09 08:58 | CP.PCM.PN ---
<David Mahmood - Last Filed: 12/09/16 08:54> Subjective - Date & Time of Evaluation Date of Evaluation: 12/09/16 Time of Evaluation: 08:54 - Subjective Subjective: Patient seen and examined. No acute events overnight. Patient is afebrile. Airborne precautions in place. AFB x2 sent. Patient with mild productive cough. Denies shortness of breath, chills, chest pain. Objective - Vital Signs/Intake and Output Vital Signs (last 24 hours): Temp Pulse Resp BP Pulse Ox 98.4 F 90 18 134/78 98 12/08/16 05:59 12/08/16 09:16 12/08/16 09:00 12/08/16 09:16 12/08/16 09:00 Intake and Output: 12/09/16 12/09/16 06:59 18:59 Intake Total 180 Balance 180 - Medications Medications: Current Medications Albuterol Sulfate (Albuterol 0.083% Inhal Megan (2.5 Mg/3 Ml) Ud) 2.5 mg IH [id number] PRN PRN Reason: Cough and congestion Hydrochlorothiazide (Hydrodiuril) 25 mg PO DAILY [facility] Last Admin: 12/08/16 09:17 Dose: 25 mg Ceftriaxone Sodium (Rocephin 1 Gram Ivpb) 1 gm in 100 mls @ 100 mls/hr IVPB DAILY [facility] PRN Reason: Protocol Lisinopril (Zestril) 20 mg PO DAILY [facility] Last Admin: 12/08/16 09:16 Dose: 20 mg Methylprednisolone (Solu-Medrol) 40 mg IVP Q8 [facility] Last Admin: 12/09/16 07:38 Dose: 40 mg Pantoprazole Sodium (Protonix Inj) 40 mg IVP DAILY [facility] Last Admin: 12/08/16 09:06 Dose: 40 mg - Labs Labs: 12/09/16 07:00 12/09/16 07:00 PT 12.5 Seconds (9.9-11.8) H 12/07/16 19:45 INR 1.16 (0.93-1.08) H 12/07/16 19:45 APTT 31.7 Seconds (23.7-30.8) H 12/07/16 19:45 - Constitutional Appears: Non-toxic, No Acute Distress - Head Exam Head Exam: ATRAUMATIC, NORMOCEPHALIC - Eye Exam Eye Exam: EOMI, PERRL - ENT Exam ENT Exam: Mucous Membranes Moist - Neck Exam Neck Exam: Full ROM, Normal Inspection - Respiratory Exam Respiratory Exam: Clear to Ausculation Bilateral. absent: Accessory Muscle Use , Rales, Rhonchi, Respiratory Distress - Cardiovascular Exam Cardiovascular Exam: REGULAR RHYTHM, +S1, +S2 - GI/Abdominal Exam GI & Abdominal Exam: Soft, Normal Bowel Sounds. absent: Tenderness - Neurological Exam Neurological Exam: Alert, Awake, Oriented x3 - Psychiatric Exam Psychiatric exam: Normal Affect, Normal Mood - Skin Skin Exam: Dry, Warm Assessment and Plan - Assessment and Plan (Free Text) Assessment: 61yo female with past medical history of hypertension, asthma, gastric ulcer, esophagitis presents c/o hemoptysis associated with weight loss, fevers and chills. Found to have cavitary lung lesions. TB cannot be ruled out. AFB x2 pending. Cavitary lesion r/o TB -CXR revealed right upper lobe cavitary lesion suspicious for granulomatous diseases such as TB -Patient was placed on airborne isolation with negative room pressure -Chest CT revealed RUL scarring and volume loss; small RUL cavitary lesion with adjacent nodular opacities; large RLL cavitary lesion with interstitial and airspace disease; active TB could not be excluded -HIV Ab pending -Blood/urine cultures pending -ID consulted - Dr. Mcghee - recommends repeat PPD. - continue with Rocephin -Pulmonology consulted - Dr. Paige who is following. Continue current management. Anemia -Anemia workup is pending: Iron, Ferritin, TIBC, Folate, B12, reticulocyte count Hypertension -Continue home lisinopril and HCTZ Asthma -Continue home albuterol PRN GI/DVT Prophlaxis -Protonix/SCD's <Jaiden Holden - Last Filed: 12/09/16 18:29> Objective - Vital Signs/Intake and Output Vital Signs (last 24 hours): Temp Pulse Resp BP Pulse Ox 98.2 F 66 18 102/70 100 12/09/16 16:13 12/09/16 16:13 12/09/16 16:13 12/09/16 16:13 12/09/16 16:13 Intake and Output: 12/09/16 12/09/16 06:59 18:59 Intake Total 180 Balance 180 - Medications Medications: Current Medications Albuterol Sulfate (Albuterol 0.083% Inhal Megan (2.5 Mg/3 Ml) Ud) 2.5 mg IH [id number] PRN PRN Reason: Cough and congestion Ethambutol HCl (Myambutol) 800 mg PO DAILY [facility] Hydrochlorothiazide (Hydrodiuril) 25 mg PO DAILY [facility] Last Admin: 12/09/16 11:06 Dose: 25 mg Ceftriaxone Sodium (Rocephin 1 Gram Ivpb) 1 gm in 100 mls @ 100 mls/hr IVPB DAILY [facility] PRN Reason: Protocol Last Admin: 12/09/16 11:03 Dose: 100 mls/hr Isoniazid (Niazid) 300 mg PO DAILY [facility] PRN Reason: Protocol Lisinopril (Zestril) 20 mg PO DAILY [facility] Last Admin: 12/09/16 11:05 Dose: 20 mg Methylprednisolone (Solu-Medrol) 40 mg IVP Q8 [facility] Last Admin: 12/09/16 14:21 Dose: 40 mg Pantoprazole Sodium (Protonix Inj) 40 mg IVP DAILY [facility] Last Admin: 12/09/16 11:03 Dose: 40 mg Polysaccharide Iron Complex (Ferrex-150) 300 mg PO BID [facility] Last Admin: 12/09/16 18:02 Dose: 300 mg Pyrazinamide (Pyrazinamide) 1,000 mg PO DAILY [facility] Pyridoxine HCl (Vitamin B6 50 Mg Tab) 50 mg PO DAILY [facility] Rifampin (Rifampin Cap) 300 mg PO DAILY [facility] PRN Reason: Protocol - Labs Labs: 12/09/16 07:00 12/09/16 07:00 PT 12.5 Seconds (9.9-11.8) H 12/07/16 19:45 INR 1.16 (0.93-1.08) H 12/07/16 19:45 APTT 31.7 Seconds (23.7-30.8) H 12/07/16 19:45 Attending/Attestation - Attestation I have personally seen and examined this patient.: Yes I have fully participated in the care of the patient.: Yes I have reviewed all pertinent clinical information, including history, physical exam and plan: Yes Notes (Text): 12/09/16 18:27 Patient seen and examined at bedside. She remains under isolation precautions. Vitals stable, afebrile. She denies any new complaints and actually feels better with improvement in her symptoms. Pulmonary and ID follow up ongoing. Less likely TB and index of suspicion high for chronic and untreated consolidative process, low dose steroid added to her regimen. Agree with the plan outlined above by the resident.
[2016-12-09] MEDS: cefTRIAXone 1 gm 1 GM/100 ML BAG IVPB SCH (11:03)
[2016-12-09] MEDS ORDERED: Iron Complex Polysacch 150mg Cap PO SCH ×2 (14:00→18:00)
[2016-12-09] MEDS: Iron Complex Polysacch 150mg Cap PO SCH (18:02)
--- NOTE | 2016-12-09 18:26 | CP.PCM.PN ---
Subjective - Date & Time of Evaluation Date of Evaluation: 12/09/16 Time of Evaluation: 17:00 - Subjective Subjective: Infectious Disease Follow Up: December 09, 2016 61 yo female with cough and bright red blood in sputum starting yesterday. The patient complains of persistent cough for the past 2 months without improvement. The patient placed on isolation and respiratory precautions at this time. Supportive care. Rule out TB. 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 Patient did have BCG vaccine in the past as a child. Patient was [place] in the [place] but moved to the [facility] [address] chest showed either abscess or cavitary lesion. The patient does complain of subjective fevers and chills. Fever of 101.1 F in ER. Acid-fast stain was positive. Starting treatment for tuberculosis. Objective - Vital Signs/Intake and Output Vital Signs (last 24 hours): Temp Pulse Resp BP Pulse Ox 98.2 F 66 18 102/70 100 12/09/16 16:13 12/09/16 16:13 12/09/16 16:13 12/09/16 16:13 12/09/16 16:13 Intake and Output: 12/09/16 12/09/16 06:59 18:59 Intake Total 180 Balance 180 - Medications Medications: Current Medications Albuterol Sulfate (Albuterol 0.083% Inhal Megan (2.5 Mg/3 Ml) Ud) 2.5 mg IH [id number] PRN PRN Reason: Cough and congestion Hydrochlorothiazide (Hydrodiuril) 25 mg PO DAILY [facility] Last Admin: 12/09/16 11:06 Dose: 25 mg Ceftriaxone Sodium (Rocephin 1 Gram Ivpb) 1 gm in 100 mls @ 100 mls/hr IVPB DAILY [facility] PRN Reason: Protocol Last Admin: 12/09/16 11:03 Dose: 100 mls/hr Lisinopril (Zestril) 20 mg PO DAILY [facility] Last Admin: 12/09/16 11:05 Dose: 20 mg Methylprednisolone (Solu-Medrol) 40 mg IVP Q8 [facility] Last Admin: 12/09/16 14:21 Dose: 40 mg Pantoprazole Sodium (Protonix Inj) 40 mg IVP DAILY [facility] Last Admin: 12/09/16 11:03 Dose: 40 mg Polysaccharide Iron Complex (Ferrex-150) 300 mg PO BID [facility] Last Admin: 12/09/16 18:02 Dose: 300 mg - Labs Labs: 12/09/16 07:00 12/09/16 07:00 PT 12.5 Seconds (9.9-11.8) H 12/07/16 19:45 INR 1.16 (0.93-1.08) H 12/07/16 19:45 APTT 31.7 Seconds (23.7-30.8) H 12/07/16 19:45 - Constitutional Appears: Non-toxic, No Acute Distress, Chronically Ill - Head Exam Head Exam: ATRAUMATIC, NORMOCEPHALIC - Eye Exam Eye Exam: EOMI, PERRL Pupil Exam: NORMAL ACCOMODATION, PERRL - ENT Exam ENT Exam: Mucous Membranes Moist, Normal External Ear Exam, TM's Normal Bilaterally - Neck Exam Neck Exam: Full ROM, Normal Inspection - Respiratory Exam Respiratory Exam: Decreased Breath Sounds, Rhonchi. absent: Rales, Wheezes - Cardiovascular Exam Cardiovascular Exam: REGULAR RHYTHM, RRR, +S1, +S2 - GI/Abdominal Exam GI & Abdominal Exam: Soft, Normal Bowel Sounds. absent: Distended, Tenderness - Extremities Exam Extremities Exam: Full ROM, Normal Inspection - Neurological Exam Neurological Exam: Alert, Awake, CN II-XII Intact, Oriented x3 - Psychiatric Exam Psychiatric exam: Normal Affect, Normal Mood - Skin Skin Exam: Intact, Normal Color Assessment and Plan - Assessment and Plan (Free Text) Assessment: 61 yo female with prolonged cough for over 2 months with no improvement on antibiotics. The patient with known positive PPD. Cannot rule out tuberculosis at this point. Must also consider infections such as Staph Aureus and other acid-fast positive organisms. Start Rocephin for antibiotic coverage. Larson cultures. Obtain Acid-Fast stains and studies of sputum x 3. Patient had hemoptysis. Repeating PPD and Quantiferon will not yield additional data (both tests only show potential exposure of patient to tuberculosis during lifetime and cannot denote active disease). Await Acid- Fast stains and sputum culture results. Maintain isolation. Acid-Fast stain positive from sputum. Will start treatment for tuberculosis as other tests return. Start Isoniazid, Rifampin, Pyrazinamide, and ethambutol. Start Vitamin B6 as well. Await PCR for identification of tuberculous strain and cultures. Supportive care. Awaiting HIV test results. Thank you for allowing me to participate in the care of the patient, we will follow with you.
--- NOTE | 2016-12-09 23:13 | CP.PCM.PN ---
Subjective - Date & Time of Evaluation Date of Evaluation: 12/09/16 Time of Evaluation: 11:00 - Subjective Subjective: 61 yo female with PMH of HTN presents with hemoptysis. Patient states that last night she started cough up blood with sputum. She also reports fever of 105, for which she took Tylenol. Patient states that she was treated for pneumonia about 1 month ago, however she continued to have cough. She states that this has never happened before. 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 She denies any recent travel, or sick contacts. She denies weight loss, chest pain, abd pain, n/v sputum AFB smeer is positive Objective - Vital Signs/Intake and Output Vital Signs (last 24 hours): Temp Pulse Resp BP Pulse Ox 98.2 F 66 18 102/70 100 12/09/16 16:13 12/09/16 16:13 12/09/16 16:13 12/09/16 16:13 12/09/16 16:13 Intake and Output: 12/09/16 12/10/16 18:59 06:59 Intake Total 1200 Balance 1200 - Medications Medications: Current Medications Albuterol Sulfate (Albuterol 0.083% Inhal Megan (2.5 Mg/3 Ml) Ud) 2.5 mg IH [id number] PRN PRN Reason: Cough and congestion Ethambutol HCl (Myambutol) 800 mg PO DAILY [facility] Hydrochlorothiazide (Hydrodiuril) 25 mg PO DAILY [facility] Last Admin: 12/09/16 11:06 Dose: 25 mg Ceftriaxone Sodium (Rocephin 1 Gram Ivpb) 1 gm in 100 mls @ 100 mls/hr IVPB DAILY [facility] PRN Reason: Protocol Last Admin: 12/09/16 11:03 Dose: 100 mls/hr Isoniazid (Niazid) 300 mg PO DAILY [facility] PRN Reason: Protocol Lisinopril (Zestril) 20 mg PO DAILY [facility] Last Admin: 12/09/16 11:05 Dose: 20 mg Methylprednisolone (Solu-Medrol) 40 mg IVP Q8 [facility] Last Admin: 12/09/16 21:30 Dose: 40 mg Pantoprazole Sodium (Protonix Inj) 40 mg IVP DAILY [facility] Last Admin: 12/09/16 11:03 Dose: 40 mg Polysaccharide Iron Complex (Ferrex-150) 300 mg PO BID [facility] Last Admin: 12/09/16 18:02 Dose: 300 mg Pyrazinamide (Pyrazinamide) 1,000 mg PO DAILY [facility] Pyridoxine HCl (Vitamin B6 50 Mg Tab) 50 mg PO DAILY [facility] Rifampin (Rifampin Cap) 300 mg PO 0700 [facility] PRN Reason: Protocol - Labs Labs: 12/09/16 07:00 12/09/16 07:00 PT 12.5 Seconds (9.9-11.8) H 12/07/16 19:45 INR 1.16 (0.93-1.08) H 12/07/16 19:45 APTT 31.7 Seconds (23.7-30.8) H 12/07/16 19:45 Assessment and Plan (1) Asthma Assessment & Plan: better, decrease steroids Status: Acute (2) Cavitary lesion of lung Assessment & Plan: AFB smeer is positive Status: Acute (3) Pneumonia Assessment & Plan: continue antibiotics Status: Acute
[2016-12-10] MEDS: MethylPREDNISolone 40 mg Vial IVP SCH ×3 (06:57→22:08)
[2016-12-10] MEDS: Pantoprazole 40 mg EC Tab PO SCH (06:57)
[2016-12-10 07:41] LABS: GRAN # 5.01 (1.4-6.5); GRAN % 80.9 % (50.0-68.0); HEMOGLOBIN 10.1 gm/dL (12.0-16.0); LYMPH # 0.9 (1.2-3.4); LYMPH % 14.1 % (22.0-35.0); MEAN CELL VOLUME 82.7 fL (80.0-105.0); MEAN CORPUSCULAR HEMOGLOBIN 26.5 pg (25.0-35.0); MEAN CORPUSCULAR HGB CONC 32.1 g/dl (31.0-37.0); MEAN PLATELET VOLUME 9.2 fl (7.0-11.0); MONO # 0.3 (0.1-0.6); PLATELET COUNT 450 10^3/uL (120.0-450.0); RBC 3.81 10^6/uL (3.5-6.1); RED CELL DISTRIBUTION WIDTH 15.4 % (11.5-14.5); WHITE BLOOD COUNT 6.2 10^3/ul (4.5-11.0)
[2016-12-10 08:08] LABS: ALBUMIN 3.8 g/dL (3.0-4.8); ALT/SGPT 20 U/L (7-56); AST/SGOT 23 U/L (15-39); BLOOD UREA NITROGEN 15 mg/dL (7-21); CALCIUM 9.9 mg/dL (8.4-10.5); GFR AFRICAN-AMERICAN > 60; GFR NON-AFRICAN AMERICAN > 60
[2016-12-10] MEDS: cefTRIAXone 1 gm 1 GM/100 ML BAG IVPB SCH (09:10)
[2016-12-10] MEDS: Iron Complex Polysacch 150mg Cap PO SCH ×2 (09:10→17:57)
--- NOTE | 2016-12-10 15:28 | CP.PCM.PN ---
<JAY HERRERA - Last Filed: 12/10/16 15:12> Subjective - Date & Time of Evaluation Date of Evaluation: 12/10/16 Time of Evaluation: 12:55 - Subjective Subjective: Medicine progress note: Pt was seen and examined at bedside. Patient stated that her cough has improved but that she is refusing to take the recommended RIPE therapy at this time. Pt denies headache, dizziness, fever, chills, worsening cough, dyspnea, chest pain, nausea/vomiting or abdominal pain. Objective - Vital Signs/Intake and Output Vital Signs (last 24 hours): Temp Pulse Resp BP Pulse Ox 98.0 F 75 20 117/79 98 12/10/16 07:30 12/10/16 07:30 12/10/16 07:30 12/10/16 07:30 12/10/16 07:30 Intake and Output: 12/10/16 12/10/16 06:59 18:59 Intake Total 1440 600 Balance 1440 600 - Medications Medications: Current Medications Albuterol Sulfate (Albuterol 0.083% Inhal Megan (2.5 Mg/3 Ml) Ud) 2.5 mg IH [id number] PRN PRN Reason: Cough and congestion Ethambutol HCl (Myambutol) [address] [facility] Last Admin: 12/10/16 09:10 Dose: Not Given Hydrochlorothiazide (Hydrodiuril) [address] [facility] Last Admin: 12/10/16 09:10 Dose: Not Given Ceftriaxone Sodium (Rocephin 1 Gram Ivpb) 1 gm in 100 mls @ 100 mls/hr IVPB DAILY [facility] PRN Reason: Protocol Last Admin: 12/10/16 09:10 Dose: 100 mls/hr Isoniazid (Niazid) 300 mg PO DAILY [facility] PRN Reason: Protocol Last Admin: 12/10/16 09:10 Dose: Not Given Lisinopril (Zestril) [address] [facility] Last Admin: 12/10/16 09:10 Dose: Not Given Methylprednisolone (Solu-Medrol) [address] [facility] Last Admin: 12/10/16 13:05 Dose: 20 mg Pantoprazole Sodium (Protonix Ec Tab) [address] [facility] Last Admin: 12/10/16 06:57 Dose: 40 mg Polysaccharide Iron Complex (Ferrex-150) 300 mg PO BID [facility] Last Admin: 12/10/16 09:10 Dose: Not Given Pyrazinamide (Pyrazinamide) 1,[address] [facility] Last Admin: 12/10/16 09:10 Dose: Not Given Pyridoxine HCl (Vitamin B6 50 Mg Tab) [address] [facility] Last Admin: 12/10/16 09:10 Dose: Not Given Rifampin (Rifampin Cap) [address] [facility] PRN Reason: Protocol Last Admin: 12/10/16 09:10 Dose: Not Given - Labs Labs: 12/10/16 07:15 12/10/16 07:15 PT 12.5 Seconds (9.9-11.8) H 12/07/16 19:45 INR 1.16 (0.93-1.08) H 12/07/16 19:45 APTT 31.7 Seconds (23.7-30.8) H 12/07/16 19:45 - Constitutional Appears: No Acute Distress - Head Exam Head Exam: ATRAUMATIC, NORMAL INSPECTION, NORMOCEPHALIC - Eye Exam Eye Exam: EOMI, Normal appearance Pupil Exam: PERRL - Neck Exam Neck Exam: Full ROM, Normal Inspection. absent: Lymphadenopathy - Respiratory Exam Respiratory Exam: Clear to Ausculation Bilateral. absent: Rales, Wheezes - Cardiovascular Exam Cardiovascular Exam: REGULAR RHYTHM, RRR, +S1, +S2 - GI/Abdominal Exam GI & Abdominal Exam: Soft, Normal Bowel Sounds. absent: Distended, Tenderness - Extremities Exam Extremities Exam: Full ROM, Normal Capillary Refill, Normal Inspection. absent : Calf Tenderness, Joint Swelling, Pedal Edema - Neurological Exam Neurological Exam: Alert, Awake, Oriented x3 - Psychiatric Exam Psychiatric exam: Normal Affect, Normal Mood - Skin Skin Exam: Dry, Intact, Normal Color, Warm Assessment and Plan - Assessment and Plan (Free Text) Assessment: 61 yo female with history of positive ppd and cavitary lesions on CT scan presents with hemoptysis found to have positive sputum AFB smear. 1. Cavitary lesion of lung -preliminary AFB stain positive for rare(+1) acid fast bacilli -awaiting final mycobacterial culture -RIPE therapy prescribed but refused by patient at this time 2. Asthma -no complaints at this time -continue scheduled solu-medrol and albuterol PRN 3. Pneumonia -continue rocephin <John Gillette - Last Filed: 12/11/16 07:47> Objective - Vital Signs/Intake and Output Vital Signs (last 24 hours): Temp Pulse Resp BP Pulse Ox 97.8 F 63 20 125/78 100 12/10/16 16:52 12/10/16 16:52 12/10/16 16:52 12/10/16 16:52 12/10/16 16:52 Intake and Output: 12/11/16 12/11/16 06:59 18:59 Intake Total 300 Balance 300 - Medications Medications: Current Medications Albuterol Sulfate (Albuterol 0.083% Inhal Megan (2.5 Mg/3 Ml) Ud) 2.5 mg IH [id number] PRN PRN Reason: Cough and congestion Ethambutol HCl (Myambutol) [address] [facility] Last Admin: 12/10/16 09:10 Dose: Not Given Hydrochlorothiazide (Hydrodiuril) [address] [facility] Last Admin: 12/10/16 09:10 Dose: Not Given Ceftriaxone Sodium (Rocephin 1 Gram Ivpb) 1 gm in 100 mls @ 100 mls/hr IVPB DAILY [facility] PRN Reason: Protocol Last Admin: 12/10/16 09:10 Dose: 100 mls/hr Isoniazid (Niazid) 300 mg PO DAILY [facility] PRN Reason: Protocol Last Admin: 12/10/16 09:10 Dose: Not Given Lisinopril (Zestril) [address] [facility] Last Admin: 12/10/16 09:10 Dose: Not Given Methylprednisolone (Solu-Medrol) 20 mg IVP Q12 [facility] Last Admin: 12/10/16 22:08 Dose: 20 mg Pantoprazole Sodium (Protonix Ec Tab) 40 mg PO 0600 [facility] Last Admin: 12/11/16 06:01 Dose: 40 mg Polysaccharide Iron Complex (Ferrex-150) [address] [facility] Last Admin: 12/10/16 17:57 Dose: Not Given Pyrazinamide (Pyrazinamide) 1,[address] [facility] Last Admin: 12/10/16 09:10 Dose: Not Given Pyridoxine HCl (Vitamin B6 50 Mg Tab) [address] [facility] Last Admin: 12/10/16 09:10 Dose: Not Given Rifampin (Rifampin Cap) 300 mg PO 0700 [facility] PRN Reason: Protocol Last Admin: 12/10/16 09:10 Dose: Not Given - Labs Labs: 12/10/16 07:15 12/10/16 07:15 PT 12.5 Seconds (9.9-11.8) H 12/07/16 19:45 INR 1.16 (0.93-1.08) H 12/07/16 19:45 APTT 31.7 Seconds (23.7-30.8) H 12/07/16 19:45 Attending/Attestation - Attestation I have personally seen and examined this patient.: Yes I have fully participated in the care of the patient.: Yes I have reviewed all pertinent clinical information, including history, physical exam and plan: Yes Notes (Text): 12/10/16 61 year old female with history of asthma and positive PPD who presented with complaint of cough and hemoptysis. She was found to have cavitary lesion on CT chest. She is also found to have +AFB. She is on iv steroids and antibiotics. She was also started RIPE therapy by ID. This morning she has refused her medications. I did discuss with her her positive AFB findings but she states she needs to talk to her other physicians first before starting treatment. Will discuss with ID. John Gillette MD Hospitalist.
--- NOTE | 2016-12-10 17:57 | CP.PCM.PN ---
Subjective - Date & Time of Evaluation Date of Evaluation: 12/10/16 Time of Evaluation: 17:00 - Subjective Subjective: Infectious Disease Follow Up: December 10, 2016 61 yo female with cough and bright red blood in sputum starting yesterday. The patient complains of persistent cough for the past 2 months without improvement. The patient placed on isolation and respiratory precautions at this time. Supportive care. Rule out TB. 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 Patient did have BCG vaccine in the past as a child. Patient was born [place] the [place] but moved to the [facility] [address] chest showed either abscess or cavitary lesion. The patient does complain of subjective fevers and chills. Fever of 101.1 F in ER. Acid-fast stain was positive. Starting treatment for tuberculosis. Noted patient refusing TB meds stating that another doctor told her she does not need them. At this point, the patient has two positive acid-fast stains from the sputum. Objective - Vital Signs/Intake and Output Vital Signs (last 24 hours): Temp Pulse Resp BP Pulse Ox 97.8 F 63 20 125/78 100 12/10/16 16:52 12/10/16 16:52 12/10/16 16:52 12/10/16 16:52 12/10/16 16:52 Intake and Output: 12/10/16 12/10/16 06:59 18:59 Intake Total 1440 600 Balance 1440 600 - Medications Medications: Current Medications Albuterol Sulfate (Albuterol 0.083% Inhal Megan (2.5 Mg/3 Ml) Ud) 2.5 mg IH [id number] PRN PRN Reason: Cough and congestion Ethambutol HCl (Myambutol) 800 mg PO DAILY [facility] Last Admin: 12/10/16 09:10 Dose: Not Given Hydrochlorothiazide (Hydrodiuril) 25 mg PO DAILY [facility] Last Admin: 12/10/16 09:10 Dose: Not Given Ceftriaxone Sodium (Rocephin 1 Gram Ivpb) 1 gm in 100 mls @ 100 mls/hr IVPB DAILY [facility] PRN Reason: Protocol Last Admin: 12/10/16 09:10 Dose: 100 mls/hr Isoniazid (Niazid) 300 mg PO DAILY [facility] PRN Reason: Protocol Last Admin: 12/10/16 09:10 Dose: Not Given Lisinopril (Zestril) 20 mg PO DAILY [facility] Last Admin: 12/10/16 09:10 Dose: Not Given Methylprednisolone (Solu-Medrol) 20 mg IVP Q8 [facility] Last Admin: 12/10/16 13:05 Dose: 20 mg Pantoprazole Sodium (Protonix Ec Tab) 40 mg PO 0600 [facility] Last Admin: 12/10/16 06:57 Dose: 40 mg Polysaccharide Iron Complex (Ferrex-150) 300 mg PO BID [facility] Last Admin: 12/10/16 09:10 Dose: Not Given Pyrazinamide (Pyrazinamide) 1,000 mg PO DAILY [facility] Last Admin: 12/10/16 09:10 Dose: Not Given Pyridoxine HCl (Vitamin B6 50 Mg Tab) 50 mg PO DAILY [facility] Last Admin: 12/10/16 09:10 Dose: Not Given Rifampin (Rifampin Cap) 300 mg PO 0700 [facility] PRN Reason: Protocol Last Admin: 12/10/16 09:10 Dose: Not Given - Labs Labs: 12/10/16 07:15 12/10/16 07:15 PT 12.5 Seconds (9.9-11.8) H 12/07/16 19:45 INR 1.16 (0.93-1.08) H 12/07/16 19:45 APTT 31.7 Seconds (23.7-30.8) H 12/07/16 19:45 - Constitutional Appears: Non-toxic, No Acute Distress, Chronically Ill - Head Exam Head Exam: ATRAUMATIC, NORMOCEPHALIC - Eye Exam Eye Exam: EOMI, PERRL Pupil Exam: NORMAL ACCOMODATION, PERRL - ENT Exam ENT Exam: Mucous Membranes Moist, Normal External Ear Exam, TM's Normal Bilaterally - Neck Exam Neck Exam: Full ROM, Normal Inspection - Respiratory Exam Respiratory Exam: Decreased Breath Sounds, NORMAL BREATHING PATTERN. absent: Rales, Rhonchi, Wheezes - Cardiovascular Exam Cardiovascular Exam: REGULAR RHYTHM, RRR, +S1, +S2 - GI/Abdominal Exam GI & Abdominal Exam: Soft, Normal Bowel Sounds. absent: Distended, Tenderness - Extremities Exam Extremities Exam: Full ROM, Normal Inspection - Neurological Exam Neurological Exam: Alert, Awake, CN II-XII Intact, Oriented x3 - Psychiatric Exam Psychiatric exam: Normal Affect, Normal Mood - Skin Skin Exam: Intact, Normal Color Assessment and Plan - Assessment and Plan (Free Text) Assessment: 61 yo female with prolonged cough for over 2 months with no improvement on antibiotics. The patient with known positive PPD. Cannot rule out tuberculosis at this point. Must also consider infections such as Staph Aureus and other acid-fast positive organisms. Start Rocephin for antibiotic coverage. Larson cultures. Obtain Acid-Fast stains and studies of sputum x 3. Patient had hemoptysis. Repeating PPD and Quantiferon will not yield additional data (both tests only show potential exposure of patient to tuberculosis during lifetime and cannot denote active disease). Await Acid- Fast stains and sputum culture results. Maintain isolation. Acid-Fast stain positive from sputum x 2. Will start treatment for tuberculosis as other tests return. Start Isoniazid, Rifampin, Pyrazinamide, and ethambutol. Start Vitamin B6 as well. Await PCR for identification of tuberculous strain and cultures. Supportive care. HIV test results are negative. Thank you for allowing me to participate in the care of the patient, we will follow with you.
--- NOTE | 2016-12-10 18:51 | CP.PCM.PN ---
Subjective - Date & Time of Evaluation Date of Evaluation: 12/10/16 Time of Evaluation: 16:00 - Subjective Subjective: 61 yo female with PMH of HTN presents with hemoptysis. Patient states that last night she started cough up blood with sputum. She also reports fever of 105, for which she took Tylenol. Patient states that she was treated for pneumonia about 1 month ago, however she continued to have cough. She states that this has never happened before. 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 She denies any recent travel, or sick contacts. She denies weight loss, chest pain, abd pain, n/v sputum AFB smeer is positive cough is now much better, no more hemoptosis Objective - Vital Signs/Intake and Output Vital Signs (last 24 hours): Temp Pulse Resp BP Pulse Ox 97.8 F 63 20 125/78 100 12/10/16 16:52 12/10/16 16:52 12/10/16 16:52 12/10/16 16:52 12/10/16 16:52 Intake and Output: 12/10/16 12/10/16 06:59 18:59 Intake Total 1440 600 Balance 1440 600 - Medications Medications: Current Medications Albuterol Sulfate (Albuterol 0.083% Inhal Megan (2.5 Mg/3 Ml) Ud) 2.5 mg IH [id number] PRN PRN Reason: Cough and congestion Ethambutol HCl (Myambutol) 800 mg PO DAILY [facility] Last Admin: 12/10/16 09:10 Dose: Not Given Hydrochlorothiazide (Hydrodiuril) 25 mg PO DAILY [facility] Last Admin: 12/10/16 09:10 Dose: Not Given Ceftriaxone Sodium (Rocephin 1 Gram Ivpb) 1 gm in 100 mls @ 100 mls/hr IVPB DAILY [facility] PRN Reason: Protocol Last Admin: 12/10/16 09:10 Dose: 100 mls/hr Isoniazid (Niazid) 300 mg PO DAILY [facility] PRN Reason: Protocol Last Admin: 12/10/16 09:10 Dose: Not Given Lisinopril (Zestril) 20 mg PO DAILY [facility] Last Admin: 12/10/16 09:10 Dose: Not Given Methylprednisolone (Solu-Medrol) 20 mg IVP Q8 [facility] Last Admin: 12/10/16 13:05 Dose: 20 mg Pantoprazole Sodium (Protonix Ec Tab) 40 mg PO 0600 [facility] Last Admin: 12/10/16 06:57 Dose: 40 mg Polysaccharide Iron Complex (Ferrex-150) 300 mg PO BID [facility] Last Admin: 12/10/16 17:57 Dose: Not Given Pyrazinamide (Pyrazinamide) 1,000 mg PO DAILY [facility] Last Admin: 12/10/16 09:10 Dose: Not Given Pyridoxine HCl (Vitamin B6 50 Mg Tab) 50 mg PO DAILY [facility] Last Admin: 12/10/16 09:10 Dose: Not Given Rifampin (Rifampin Cap) 300 mg PO 0700 [facility] PRN Reason: Protocol Last Admin: 12/10/16 09:10 Dose: Not Given - Labs Labs: 12/10/16 07:15 12/10/16 07:15 PT 12.5 Seconds (9.9-11.8) H 12/07/16 19:45 INR 1.16 (0.93-1.08) H 12/07/16 19:45 APTT 31.7 Seconds (23.7-30.8) H 12/07/16 19:45 - Constitutional Appears: No Acute Distress - Head Exam Head Exam: ATRAUMATIC, NORMAL INSPECTION, NORMOCEPHALIC - ENT Exam ENT Exam: Mucous Membranes Moist, Normal Exam - Neck Exam Neck Exam: Full ROM, Normal Inspection. absent: Lymphadenopathy - Respiratory Exam Respiratory Exam: Clear to Ausculation Bilateral, Rhonchi, NORMAL BREATHING PATTERN - Cardiovascular Exam Cardiovascular Exam: REGULAR RHYTHM, +S1, +S2. absent: Murmur - GI/Abdominal Exam GI & Abdominal Exam: Soft, Normal Bowel Sounds. absent: Tenderness - Extremities Exam Extremities Exam: Full ROM, Normal Capillary Refill, Normal Inspection. absent : Joint Swelling, Pedal Edema - Neurological Exam Neurological Exam: Alert, Awake, CN II-XII Intact, Normal Gait, Oriented x3 - Psychiatric Exam Psychiatric exam: Flat Affect - Skin Skin Exam: Dry, Intact, Normal Color, Warm Assessment and Plan (1) Asthma Assessment & Plan: decrease in solumedrole Status: Acute (2) Cavitary lesion of lung Assessment & Plan: MTB vs MELINA, continue tx for naw Status: Acute (3) Pneumonia Assessment & Plan: anti biotics Status: Acute
[2016-12-11] MEDS: Pantoprazole 40 mg EC Tab PO SCH (06:01)
[2016-12-11 08:12] LABS: BASO # 0.01 K/mm3 (0.0-2.0); BASO % 0.1 % (0.0-3.0); GRAN # 7.01 (1.4-6.5); HEMOGLOBIN 10.3 gm/dL (12.0-16.0); LYMPH # 1.2 (1.2-3.4); LYMPH % 13.2 % (22.0-35.0); MEAN CELL VOLUME 82.2 fL (80.0-105.0); MEAN CORPUSCULAR HEMOGLOBIN 26.5 pg (25.0-35.0); MEAN CORPUSCULAR HGB CONC 32.3 g/dl (31.0-37.0); MEAN PLATELET VOLUME 9.4 fl (7.0-11.0); MONO # 0.8 (0.1-0.6); MONO % 8.7 % (1.0-6.0); PLATELET COUNT 471 10^3/uL (120.0-450.0); RBC 3.88 10^6/uL (3.5-6.1); RED CELL DISTRIBUTION WIDTH 15.5 % (11.5-14.5)
[2016-12-11 08:31] LABS: ALBUMIN 3.5 g/dL (3.0-4.8); ALT/SGPT 24 U/L (7-56); AST/SGOT 21 U/L (15-39); BLOOD UREA NITROGEN 18 mg/dL (7-21); CALCIUM 9.1 mg/dL (8.4-10.5); GFR AFRICAN-AMERICAN > 60; GFR NON-AFRICAN AMERICAN > 60
[2016-12-11] MEDS: Iron Complex Polysacch 150mg Cap PO SCH ×2 (10:40→17:37)
[2016-12-11] MEDS: MethylPREDNISolone 40 mg Vial IVP SCH (10:40)
[2016-12-11] MEDS: POLYETHYLENE GLYCOL 3350 17 GM/Dose PACKET PO SCH (10:40)
[2016-12-11] MEDS: cefTRIAXone 1 gm 1 GM/100 ML BAG IVPB SCH (14:45)
--- NOTE | 2016-12-11 14:57 | CP.PCM.PN ---
<JAY HERRERA - Last Filed: 12/11/16 17:34> Subjective - Date & Time of Evaluation Date of Evaluation: 12/11/16 Time of Evaluation: 11:15 - Subjective Subjective: Medicine Progress Note: Pt seen and examined at bedside. After initially refusing, pt ultimately agreed to comply with RIPE therapy. Pt denied hemoptysis, cough, chest pain, fever, headache and abdominal pain. Objective - Vital Signs/Intake and Output Vital Signs (last 24 hours): Temp Pulse Resp BP Pulse Ox 98.2 F 59 L 18 135/85 97 12/11/16 08:08 12/11/16 14:46 12/11/16 08:08 12/11/16 14:46 12/11/16 08:08 Intake and Output: 12/11/16 12/11/16 06:59 18:59 Intake Total 300 760 Balance 300 760 - Medications Medications: Current Medications Albuterol Sulfate (Albuterol 0.083% Inhal Megan (2.5 Mg/3 Ml) Ud) 2.5 mg IH [id number] PRN PRN Reason: Cough and congestion Ethambutol HCl (Myambutol) 800 mg PO DAILY [facility] Last Admin: 12/10/16 09:10 Dose: Not Given Hydrochlorothiazide (Hydrodiuril) 25 mg PO DAILY [facility] Last Admin: 12/11/16 14:45 Dose: 25 mg Ceftriaxone Sodium (Rocephin 1 Gram Ivpb) 1 gm in 100 mls @ 100 mls/hr IVPB DAILY [facility] PRN Reason: Protocol Last Admin: 12/11/16 14:45 Dose: 100 mls/hr Isoniazid (Niazid) 300 mg PO DAILY [facility] PRN Reason: Protocol Last Admin: 12/10/16 09:10 Dose: Not Given Lisinopril (Zestril) 20 mg PO DAILY [facility] Last Admin: 12/11/16 14:46 Dose: 20 mg Methylprednisolone (Solu-Medrol) 20 mg IVP Q12 [facility] Last Admin: 12/11/16 14:46 Dose: 20 mg Pantoprazole Sodium (Protonix Ec Tab) 40 mg PO 0600 [facility] Last Admin: 12/11/16 06:01 Dose: 40 mg Polyethylene Glycol (Miralax) 17 gm PO DAILY [facility] Last Admin: 12/11/16 14:45 Dose: 17 gm Polysaccharide Iron Complex (Ferrex-150) 300 mg PO BID [facility] Last Admin: 12/11/16 14:45 Dose: 300 mg Pyrazinamide (Pyrazinamide) 1,000 mg PO DAILY [facility] Last Admin: 12/10/16 09:10 Dose: Not Given Pyridoxine HCl (Vitamin B6 50 Mg Tab) 50 mg PO DAILY [facility] Last Admin: 12/11/16 14:46 Dose: 50 mg Rifampin (Rifampin Cap) 300 mg PO 0700 [facility] PRN Reason: Protocol Last Admin: 12/10/16 09:10 Dose: Not Given - Labs Labs: 12/11/16 08:05 12/11/16 08:05 PT 12.5 Seconds (9.9-11.8) H 12/07/16 19:45 INR 1.16 (0.93-1.08) H 12/07/16 19:45 APTT 31.7 Seconds (23.7-30.8) H 12/07/16 19:45 - Constitutional Appears: No Acute Distress - Head Exam Head Exam: ATRAUMATIC, NORMAL INSPECTION - Eye Exam Eye Exam: EOMI, Normal appearance - ENT Exam ENT Exam: Mucous Membranes Moist, Normal Exam - Neck Exam Neck Exam: Full ROM - Respiratory Exam Respiratory Exam: Clear to Ausculation Bilateral, NORMAL BREATHING PATTERN. absent: Rales, Rhonchi, Wheezes - Cardiovascular Exam Cardiovascular Exam: REGULAR RHYTHM, +S1, +S2. absent: Murmur - GI/Abdominal Exam GI & Abdominal Exam: absent: Distended, Guarding - Extremities Exam Extremities Exam: absent: Calf Tenderness, Pedal Edema - Neurological Exam Neurological Exam: Alert, Awake, Oriented x3 - Psychiatric Exam Psychiatric exam: Normal Affect, Normal Mood - Skin Skin Exam: Dry, Intact, Normal Color, Warm Assessment and Plan - Assessment and Plan (Free Text) Assessment: 61 yo female with history of positive ppd and cavitary lesions on CT scan presents with hemoptysis found to have positive sputum AFB smear. 1. Cavitary lesion of lung -Started RIPE therapy and ordered PCR as recommended by ID -preliminary AFB stain positive for rare(+1) acid fast bacilli -awaiting final mycobacterial culture - all CDC notifications will be done by system already in place, per ID -Recommended all visitors wore proper isolation masks 2. Asthma -no complaints at this time -Solu-medrol from Q8 to Q12 per pulmonology -continue scheduled solu-medrol and albuterol PRN 3. Pneumonia -continue rocephin 4. HTN -Continue lisinopril and HCTZ 5. GI/DVT prophylaxis -protonix/scd's Patient seen and case discussed with attending physician, Dr. Gillette. <John Gillette - Last Filed: 12/12/16 06:48> Objective - Vital Signs/Intake and Output Vital Signs (last 24 hours): Temp Pulse Resp BP Pulse Ox 98.2 F 59 L 18 135/85 97 12/11/16 08:08 12/11/16 10:40 12/11/16 08:08 12/11/16 10:40 12/11/16 08:08 Intake and Output: 12/11/16 12/12/16 18:59 06:59 Intake Total 760 300 Balance 760 300 - Medications Medications: Current Medications Albuterol Sulfate (Albuterol 0.083% Inhal Megan (2.5 Mg/3 Ml) Ud) 2.5 mg IH [id number] PRN PRN Reason: Cough and congestion Ethambutol HCl (Myambutol) 800 mg PO DAILY [facility] Last Admin: 12/11/16 14:47 Dose: 800 mg Hydrochlorothiazide (Hydrodiuril) 25 mg PO DAILY [facility] Last Admin: 12/11/16 10:40 Dose: 25 mg Ceftriaxone Sodium (Rocephin 1 Gram Ivpb) 1 gm in 100 mls @ 100 mls/hr IVPB DAILY [facility] PRN Reason: Protocol Last Admin: 12/11/16 14:45 Dose: 100 mls/hr Isoniazid (Niazid) 300 mg PO DAILY [facility] PRN Reason: Protocol Last Admin: 12/11/16 14:47 Dose: 300 mg Lisinopril (Zestril) 20 mg PO DAILY [facility] Last Admin: 12/11/16 10:40 Dose: 20 mg Pantoprazole Sodium (Protonix Ec Tab) 40 mg PO 0600 [facility] Last Admin: 12/12/16 05:26 Dose: 40 mg Polyethylene Glycol (Miralax) 17 gm PO DAILY [facility] Last Admin: 12/11/16 10:40 Dose: 17 gm Polysaccharide Iron Complex (Ferrex-150) 300 mg PO BID [facility] Last Admin: 12/11/16 17:37 Dose: 300 mg Prednisone (Prednisone Tab) 10 mg PO DAILY [facility] Pyrazinamide (Pyrazinamide) 1,000 mg PO DAILY [facility] Last Admin: 12/11/16 14:47 Dose: 1,000 mg Pyridoxine HCl (Vitamin B6 50 Mg Tab) 50 mg PO DAILY [facility] Last Admin: 12/11/16 10:40 Dose: 50 mg Rifampin (Rifampin Cap) 300 mg PO 0700 [facility] PRN Reason: Protocol Last Admin: 12/11/16 17:37 Dose: Not Given - Labs Labs: 12/11/16 08:05 12/11/16 08:05 PT 12.5 Seconds (9.9-11.8) H 12/07/16 19:45 INR 1.16 (0.93-1.08) H 12/07/16 19:45 APTT 31.7 Seconds (23.7-30.8) H 12/07/16 19:45 Attending/Attestation - Attestation I have personally seen and examined this patient.: Yes I have fully participated in the care of the patient.: Yes I have reviewed all pertinent clinical information, including history, physical exam and plan: Yes Notes (Text): 12/11/16 61 year old female with history of asthma and positive PPD who presented with complaint of cough and hemoptysis. She was found to have cavitary lesion on CT chest. She is also found to have +AFB. She was initially refusing RIPE therapy but today after extensive conversation with different attendings, consultants, daughter and aid of food cart attendant she is agreeable to therapy. Continue with iv antibiotics as per ID and steroids taper as per pulmonary. John Gillette MD Hospitalist.
--- NOTE | 2016-12-11 16:36 | CP.PCM.PN ---
Subjective - Date & Time of Evaluation Date of Evaluation: 12/11/16 Time of Evaluation: 15:45 - Subjective Subjective: Infectious Disease Follow Up: December 11, 2016 61 yo female with cough and bright red blood in sputum starting yesterday. The patient complains of persistent cough for the past 2 months without improvement. The patient placed on isolation and respiratory precautions at this time. Supportive care. Rule out TB. 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 Patient did have BCG vaccine in the past as a child. Patient was born in the [place] but moved to the [facility] [address] chest showed either abscess or cavitary lesion. The patient does complain of subjective fevers and chills. Fever of 101.1 F in ER. Acid-fast stain was positive. Starting treatment for tuberculosis. Noted patient refusing TB meds stating that another doctor told her she does not need them. At this point, the patient has two positive acid-fast stains from the sputum. Issues with the patient not believing her diagnosis. Multiple doctors have explained to her and she finally started taking the anti-TB medications. However, question remain whether she would continue to take medications when she is cleared for discharge. No further AFB until the patient has had at least one week of anti-TB medications. Objective - Vital Signs/Intake and Output Vital Signs (last 24 hours): Temp Pulse Resp BP Pulse Ox 98.2 F 59 L 18 135/85 97 12/11/16 08:08 12/11/16 10:40 12/11/16 08:08 12/11/16 10:40 12/11/16 08:08 Intake and Output: 12/11/16 12/11/16 06:59 18:59 Intake Total 300 760 Balance 300 760 - Medications Medications: Current Medications Albuterol Sulfate (Albuterol 0.083% Inhal Megan (2.5 Mg/3 Ml) Ud) 2.5 mg IH [id number] PRN PRN Reason: Cough and congestion Ethambutol HCl (Myambutol) 800 mg PO DAILY [facility] Last Admin: 12/11/16 14:47 Dose: 800 mg Hydrochlorothiazide (Hydrodiuril) 25 mg PO DAILY [facility] Last Admin: 12/11/16 10:40 Dose: 25 mg Ceftriaxone Sodium (Rocephin 1 Gram Ivpb) 1 gm in 100 mls @ 100 mls/hr IVPB DAILY [facility] PRN Reason: Protocol Last Admin: 12/11/16 14:45 Dose: 100 mls/hr Isoniazid (Niazid) 300 mg PO DAILY [facility] PRN Reason: Protocol Last Admin: 12/11/16 14:47 Dose: 300 mg Lisinopril (Zestril) 20 mg PO DAILY [facility] Last Admin: 12/11/16 10:40 Dose: 20 mg Methylprednisolone (Solu-Medrol) 20 mg IVP Q12 [facility] Last Admin: 12/11/16 10:40 Dose: 20 mg Pantoprazole Sodium (Protonix Ec Tab) 40 mg PO 0600 [facility] Last Admin: 12/11/16 06:01 Dose: 40 mg Polyethylene Glycol (Miralax) 17 gm PO DAILY [facility] Last Admin: 12/11/16 10:40 Dose: 17 gm Polysaccharide Iron Complex (Ferrex-150) 300 mg PO BID [facility] Last Admin: 12/11/16 10:40 Dose: 300 mg Pyrazinamide (Pyrazinamide) 1,000 mg PO DAILY [facility] Last Admin: 12/11/16 14:47 Dose: 1,000 mg Pyridoxine HCl (Vitamin B6 50 Mg Tab) 50 mg PO DAILY [facility] Last Admin: 12/11/16 10:40 Dose: 50 mg Rifampin (Rifampin Cap) 300 mg PO 0700 [facility] PRN Reason: Protocol Last Admin: 12/10/16 09:10 Dose: Not Given - Labs Labs: 12/11/16 08:05 12/11/16 08:05 PT 12.5 Seconds (9.9-11.8) H 12/07/16 19:45 INR 1.16 (0.93-1.08) H 12/07/16 19:45 APTT 31.7 Seconds (23.7-30.8) H 12/07/16 19:45 - Constitutional Appears: Non-toxic, No Acute Distress, Chronically Ill - Head Exam Head Exam: ATRAUMATIC, NORMOCEPHALIC - Eye Exam Eye Exam: EOMI, PERRL Pupil Exam: NORMAL ACCOMODATION, PERRL - ENT Exam ENT Exam: Mucous Membranes Moist, Normal External Ear Exam, TM's Normal Bilaterally - Neck Exam Neck Exam: Full ROM, Normal Inspection - Respiratory Exam Respiratory Exam: Decreased Breath Sounds. absent: Rales, Rhonchi, Wheezes - Cardiovascular Exam Cardiovascular Exam: REGULAR RHYTHM, RRR, +S1, +S2 - GI/Abdominal Exam GI & Abdominal Exam: Soft, Normal Bowel Sounds. absent: Distended, Tenderness - Extremities Exam Extremities Exam: Full ROM, Normal Inspection - Neurological Exam Neurological Exam: Alert, Awake, CN II-XII Intact, Oriented x3 - Psychiatric Exam Psychiatric exam: Normal Affect, Normal Mood - Skin Skin Exam: Intact, Normal Color Assessment and Plan - Assessment and Plan (Free Text) Assessment: 61 yo female with prolonged cough for over 2 months with no improvement on antibiotics. The patient with known positive PPD. Cannot rule out tuberculosis at this point. Must also consider infections such as Staph Aureus and other acid-fast positive organisms. Start Rocephin for antibiotic coverage. Larson cultures. Obtain Acid-Fast stains and studies of sputum x 3. Patient had hemoptysis. Repeating PPD and Quantiferon will not yield additional data (both tests only show potential exposure of patient to tuberculosis during lifetime and cannot denote active disease). Await Acid- Fast stains and sputum culture results. Maintain isolation. Acid-Fast stain positive from sputum x 2. Continue treatment for tuberculosis as other tests return. Start Isoniazid, Rifampin, Pyrazinamide, and ethambutol. Start Vitamin B6 as well. Await PCR for identification of tuberculous strain and cultures. Supportive care. HIV test results are negative. No further AFB until patient has taken one week of anti-TB meds. Thank you for allowing me to participate in the care of the patient, we will follow with you.
--- NOTE | 2016-12-11 17:17 | CP.PCM.PN ---
Subjective - Date & Time of Evaluation Date of Evaluation: 12/11/16 Time of Evaluation: 15:00 - Subjective Subjective: 61 yo female with PMH of HTN presents with hemoptysis. Patient states that last night she started cough up blood with sputum. She also reports fever of 105, for which she took Tylenol. Patient states that she was treated for pneumonia about 1 month ago, however she continued to have cough. She states that this has never happened before. 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 She denies any recent travel, or sick contacts. She denies weight loss, chest pain, abd pain, n/v sputum AFB smeer is positive cough is now much better, no more hemoptosis, has multiple question about positive AFB Objective - Vital Signs/Intake and Output Vital Signs (last 24 hours): Temp Pulse Resp BP Pulse Ox 98.2 F 59 L 18 135/85 97 12/11/16 08:08 12/11/16 10:40 12/11/16 08:08 12/11/16 10:40 12/11/16 08:08 Intake and Output: 12/11/16 12/11/16 06:59 18:59 Intake Total 300 760 Balance 300 760 - Medications Medications: Current Medications Albuterol Sulfate (Albuterol 0.083% Inhal Megan (2.5 Mg/3 Ml) Ud) 2.5 mg IH [id number] PRN PRN Reason: Cough and congestion Ethambutol HCl (Myambutol) 800 mg PO DAILY [facility] Last Admin: 12/11/16 14:47 Dose: 800 mg Hydrochlorothiazide (Hydrodiuril) 25 mg PO DAILY [facility] Last Admin: 12/11/16 10:40 Dose: 25 mg Ceftriaxone Sodium (Rocephin 1 Gram Ivpb) 1 gm in 100 mls @ 100 mls/hr IVPB DAILY [facility] PRN Reason: Protocol Last Admin: 12/11/16 14:45 Dose: 100 mls/hr Isoniazid (Niazid) 300 mg PO DAILY [facility] PRN Reason: Protocol Last Admin: 12/11/16 14:47 Dose: 300 mg Lisinopril (Zestril) 20 mg PO DAILY [facility] Last Admin: 12/11/16 10:40 Dose: 20 mg Methylprednisolone (Solu-Medrol) 20 mg IVP Q12 [facility] Last Admin: 12/11/16 10:40 Dose: 20 mg Pantoprazole Sodium (Protonix Ec Tab) 40 mg PO 0600 [facility] Last Admin: 12/11/16 06:01 Dose: 40 mg Polyethylene Glycol (Miralax) 17 gm PO DAILY [facility] Last Admin: 12/11/16 10:40 Dose: 17 gm Polysaccharide Iron Complex (Ferrex-150) 300 mg PO BID [facility] Last Admin: 12/11/16 10:40 Dose: 300 mg Pyrazinamide (Pyrazinamide) 1,000 mg PO DAILY [facility] Last Admin: 12/11/16 14:47 Dose: 1,000 mg Pyridoxine HCl (Vitamin B6 50 Mg Tab) 50 mg PO DAILY [facility] Last Admin: 12/11/16 10:40 Dose: 50 mg Rifampin (Rifampin Cap) 300 mg PO 0700 [facility] PRN Reason: Protocol Last Admin: 12/10/16 09:10 Dose: Not Given - Labs Labs: 12/11/16 08:05 12/11/16 08:05 PT 12.5 Seconds (9.9-11.8) H 12/07/16 19:45 INR 1.16 (0.93-1.08) H 12/07/16 19:45 APTT 31.7 Seconds (23.7-30.8) H 12/07/16 19:45 - Constitutional Appears: No Acute Distress - Head Exam Head Exam: ATRAUMATIC, NORMAL INSPECTION, NORMOCEPHALIC - Neck Exam Neck Exam: Full ROM, Normal Inspection. absent: Lymphadenopathy - Respiratory Exam Respiratory Exam: Clear to Ausculation Bilateral, NORMAL BREATHING PATTERN - Cardiovascular Exam Cardiovascular Exam: REGULAR RHYTHM, +S1, +S2. absent: Murmur - GI/Abdominal Exam GI & Abdominal Exam: Soft, Normal Bowel Sounds. absent: Tenderness - Extremities Exam Extremities Exam: Full ROM, Normal Capillary Refill, Normal Inspection. absent : Joint Swelling, Pedal Edema - Psychiatric Exam Psychiatric exam: Normal Affect, Normal Mood - Skin Skin Exam: Dry, Intact, Normal Color, Warm Assessment and Plan (1) Asthma Assessment & Plan: d/c solumedrole and start taper prednison Status: Acute (2) Cavitary lesion of lung Assessment & Plan: MTB vs atypical Status: Acute (3) Pneumonia Assessment & Plan: on antibiotics Status: Acute
[2016-12-12] MEDS: Pantoprazole 40 mg EC Tab PO SCH (05:26)
[2016-12-12 10:08] LABS: BASO # 0.01 K/mm3 (0.0-2.0); BASO % 0.1 % (0.0-3.0); EOS % 0.5 % (1.5-5.0); GRAN # 5.22 (1.4-6.5); GRAN % 65.7 % (50.0-68.0); HEMOGLOBIN 10.4 gm/dL (12.0-16.0); LYMPH # 1.9 (1.2-3.4); LYMPH % 24.1 % (22.0-35.0); MEAN CELL VOLUME 83.7 fL (80.0-105.0); MEAN CORPUSCULAR HEMOGLOBIN 26.9 pg (25.0-35.0); MEAN CORPUSCULAR HGB CONC 32.1 g/dl (31.0-37.0); MONO # 0.8 (0.1-0.6); MONO % 9.6 % (1.0-6.0); PLATELET COUNT 469 10^3/uL (120.0-450.0); RBC 3.87 10^6/uL (3.5-6.1); RED CELL DISTRIBUTION WIDTH 15.7 % (11.5-14.5); WHITE BLOOD COUNT 7.9 10^3/ul (4.5-11.0)
[2016-12-12 10:18] LABS: ALB/GLOB RATIO 1.1 (1.1-1.8); ALBUMIN 3.6 g/dL (3.0-4.8); ALT/SGPT 20 U/L (7-56); AST/SGOT 21 U/L (15-39); BLOOD UREA NITROGEN 17 mg/dL (7-21); CALCIUM 9.2 mg/dL (8.4-10.5); GFR AFRICAN-AMERICAN > 60; GFR NON-AFRICAN AMERICAN > 60
[2016-12-12] MEDS: Iron Complex Polysacch 150mg Cap PO SCH ×2 (10:30→18:45)
[2016-12-12] MEDS: POLYETHYLENE GLYCOL 3350 17 GM/Dose PACKET PO SCH ×2 (10:30→20:16)
[2016-12-12] MEDS: cefTRIAXone 1 gm 1 GM/100 ML BAG IVPB SCH (10:30)
--- NOTE | 2016-12-12 12:43 | CP.PCM.PN ---
Subjective - Date & Time of Evaluation Date of Evaluation: 12/12/16 Time of Evaluation: 12:00 - Subjective Subjective: 61 yo female with PMH of HTN presents with hemoptysis. Patient states that last night she started cough up blood with sputum. She also reports fever of 105, for which she took Tylenol. Patient states that she was treated for pneumonia about 1 month ago, however she continued to have cough. She states that this has never happened before. 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 She denies any recent travel, or sick contacts. She denies weight loss, chest pain, abd pain, n/v sputum AFB smeer is positive cough is now much better, no more hemoptosis,spoke to Nain Matute Objective - Vital Signs/Intake and Output Vital Signs (last 24 hours): Temp Pulse Resp BP Pulse Ox 98.2 F 59 L 18 135/85 97 12/11/16 08:08 12/11/16 10:40 12/11/16 08:08 12/11/16 10:40 12/11/16 08:08 Intake and Output: 12/12/16 12/12/16 06:59 18:59 Intake Total 300 Balance 300 - Medications Medications: Current Medications Albuterol Sulfate (Albuterol 0.083% Inhal Megan (2.5 Mg/3 Ml) Ud) 2.5 mg IH [id number] PRN PRN Reason: Cough and congestion Ethambutol HCl (Myambutol) 800 mg PO DAILY [facility] Last Admin: 12/11/16 14:47 Dose: 800 mg Hydrochlorothiazide (Hydrodiuril) 25 mg PO DAILY [facility] Last Admin: 12/11/16 10:40 Dose: 25 mg Ceftriaxone Sodium (Rocephin 1 Gram Ivpb) 1 gm in 100 mls @ 100 mls/hr IVPB DAILY [facility] PRN Reason: Protocol Last Admin: 12/11/16 14:45 Dose: 100 mls/hr Isoniazid (Niazid) 300 mg PO DAILY [facility] PRN Reason: Protocol Last Admin: 12/11/16 14:47 Dose: 300 mg Lisinopril (Zestril) 20 mg PO DAILY [facility] Last Admin: 12/11/16 10:40 Dose: 20 mg Pantoprazole Sodium (Protonix Ec Tab) 40 mg PO 0600 [facility] Last Admin: 12/12/16 05:26 Dose: 40 mg Polyethylene Glycol (Miralax) 17 gm PO DAILY [facility] Last Admin: 12/11/16 10:40 Dose: 17 gm Polysaccharide Iron Complex (Ferrex-150) 300 mg PO BID [facility] Last Admin: 12/11/16 17:37 Dose: 300 mg Prednisone (Prednisone Tab) 10 mg PO DAILY [facility] Pyrazinamide (Pyrazinamide) 1,000 mg PO DAILY [facility] Last Admin: 12/11/16 14:47 Dose: 1,000 mg Pyridoxine HCl (Vitamin B6 50 Mg Tab) 50 mg PO DAILY [facility] Last Admin: 12/11/16 10:40 Dose: 50 mg Rifampin (Rifampin Cap) 300 mg PO 0700 [facility] PRN Reason: Protocol Last Admin: 12/12/16 08:29 Dose: 300 mg - Labs Labs: 12/12/16 09:45 12/12/16 09:45 PT 12.5 Seconds (9.9-11.8) H 12/07/16 19:45 INR 1.16 (0.93-1.08) H 12/07/16 19:45 APTT 31.7 Seconds (23.7-30.8) H 12/07/16 19:45 - Constitutional Appears: No Acute Distress - Head Exam Head Exam: ATRAUMATIC, NORMAL INSPECTION, NORMOCEPHALIC - Neck Exam Neck Exam: Full ROM, Normal Inspection. absent: Lymphadenopathy - Respiratory Exam Respiratory Exam: Clear to Ausculation Bilateral, NORMAL BREATHING PATTERN - Cardiovascular Exam Cardiovascular Exam: REGULAR RHYTHM, +S1, +S2. absent: Murmur - GI/Abdominal Exam GI & Abdominal Exam: Soft, Normal Bowel Sounds. absent: Tenderness - Back Exam Back Exam: NORMAL INSPECTION - Psychiatric Exam Psychiatric exam: Normal Affect - Skin Skin Exam: Dry, Intact, Normal Color, Warm Assessment and Plan (1) Asthma Assessment & Plan: taper dose prednisone, inhale bronchodilators Status: Acute (2) Cavitary lesion of lung Assessment & Plan: AFB positive, on meds, awaiting for ID or onganism Status: Acute (3) Pneumonia Assessment & Plan: on anti biotics Status: Acute
--- NOTE | 2016-12-12 17:14 | CP.PCM.PN ---
Subjective - Date & Time of Evaluation Date of Evaluation: 12/12/16 Time of Evaluation: 15:45 - Subjective Subjective: Infectious Disease Follow Up: December 12, 2016 61 yo female with cough and bright red blood in sputum starting yesterday. The patient complains of persistent cough for the past 2 months without improvement. The patient placed on isolation and respiratory precautions at this time. Supportive care. Rule out TB. 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 Patient did have BCG vaccine in the past as a child. Patient was born in the [place] but moved to the [facility] [address] chest showed either abscess or cavitary lesion. The patient does complain of subjective fevers and chills. Fever of 101.1 F in ER. Acid-fast stain was positive. Starting treatment for tuberculosis. Noted patient refusing TB meds stating that another doctor told her she does not need them. At this point, the patient has two positive acid-fast stains from the sputum. Issues with the patient not believing her diagnosis. Multiple doctors have explained to her and she finally started taking the anti-TB medications. However, question remain whether she would continue to take medications when she is cleared for discharge. The patient still has not said that she accepts the diagnosis that she has a lung infection. No further AFB until the patient has had at least one week of anti-TB medications. She has shown improvement to hemopytsis and cough compared to admission. Objective - Vital Signs/Intake and Output Vital Signs (last 24 hours): Temp Pulse Resp BP Pulse Ox 97.9 F 72 18 101/68 97 12/12/16 16:31 12/12/16 16:31 12/12/16 16:31 12/12/16 16:31 12/12/16 16:31 Intake and Output: 12/12/16 12/12/16 06:59 18:59 Intake Total 300 640 Balance 300 640 - Medications Medications: Current Medications Albuterol Sulfate (Albuterol 0.083% Inhal Megan (2.5 Mg/3 Ml) Ud) 2.5 mg IH [id number] PRN PRN Reason: Cough and congestion Ethambutol HCl (Myambutol) 800 mg PO DAILY [facility] Last Admin: 12/11/16 14:47 Dose: 800 mg Hydrochlorothiazide (Hydrodiuril) 25 mg PO DAILY [facility] Last Admin: 12/11/16 10:40 Dose: 25 mg Ceftriaxone Sodium (Rocephin 1 Gram Ivpb) 1 gm in 100 mls @ 100 mls/hr IVPB DAILY [facility] PRN Reason: Protocol Last Admin: 12/11/16 14:45 Dose: 100 mls/hr Isoniazid (Niazid) 300 mg PO DAILY [facility] PRN Reason: Protocol Last Admin: 12/11/16 14:47 Dose: 300 mg Lisinopril (Zestril) 20 mg PO DAILY [facility] Last Admin: 12/11/16 10:40 Dose: 20 mg Pantoprazole Sodium (Protonix Ec Tab) 40 mg PO 0600 [facility] Last Admin: 12/12/16 05:26 Dose: 40 mg Polyethylene Glycol (Miralax) 17 gm PO DAILY [facility] Last Admin: 12/11/16 10:40 Dose: 17 gm Polysaccharide Iron Complex (Ferrex-150) 300 mg PO BID [facility] Last Admin: 12/11/16 17:37 Dose: 300 mg Prednisone (Prednisone Tab) 10 mg PO DAILY [facility] Pyrazinamide (Pyrazinamide) 1,000 mg PO DAILY [facility] Last Admin: 12/11/16 14:47 Dose: 1,000 mg Pyridoxine HCl (Vitamin B6 50 Mg Tab) 50 mg PO DAILY [facility] Last Admin: 12/11/16 10:40 Dose: 50 mg Rifampin (Rifampin Cap) 300 mg PO 0700 [facility] PRN Reason: Protocol Last Admin: 12/12/16 08:29 Dose: 300 mg - Labs Labs: 12/12/16 09:45 12/12/16 09:45 PT 12.5 Seconds (9.9-11.8) H 12/07/16 19:45 INR 1.16 (0.93-1.08) H 12/07/16 19:45 APTT 31.7 Seconds (23.7-30.8) H 12/07/16 19:45 - Constitutional Appears: Non-toxic, No Acute Distress - Head Exam Head Exam: ATRAUMATIC, NORMOCEPHALIC - Eye Exam Eye Exam: EOMI, PERRL Pupil Exam: NORMAL ACCOMODATION, PERRL - ENT Exam ENT Exam: Mucous Membranes Moist, Normal External Ear Exam, TM's Normal Bilaterally - Neck Exam Neck Exam: Full ROM, Normal Inspection - Respiratory Exam Respiratory Exam: Decreased Breath Sounds, NORMAL BREATHING PATTERN. absent: Rales, Rhonchi, Wheezes - Cardiovascular Exam Cardiovascular Exam: REGULAR RHYTHM, RRR, +S1, +S2 - GI/Abdominal Exam GI & Abdominal Exam: Soft, Normal Bowel Sounds. absent: Distended, Tenderness - Extremities Exam Extremities Exam: Full ROM, Normal Inspection - Neurological Exam Neurological Exam: Alert, Awake, CN II-XII Intact, Oriented x3 - Psychiatric Exam Psychiatric exam: Normal Affect, Normal Mood - Skin Skin Exam: Intact, Normal Color Assessment and Plan - Assessment and Plan (Free Text) Assessment: 61 yo female with prolonged cough for over 2 months with no improvement on antibiotics. The patient with known positive PPD. Cannot rule out tuberculosis at this point. Must also consider infections such as Staph Aureus and other acid-fast positive organisms. Start Rocephin for antibiotic coverage. Larson cultures. Obtain Acid-Fast stains and studies of sputum x 3. Patient had hemoptysis. Repeating PPD and Quantiferon will not yield additional data (both tests only show potential exposure of patient to tuberculosis during lifetime and cannot denote active disease). Await Acid- Fast stains and sputum culture results. Maintain isolation. Acid-Fast stain positive from sputum x 2. Continue treatment for tuberculosis as other tests return. Start Isoniazid, Rifampin, Pyrazinamide, and ethambutol. Start Vitamin B6 as well. Await PCR for identification of tuberculous strain and cultures. Supportive care. HIV test results are negative. No further AFB until patient has taken one week of anti-TB meds. Cough and hemopytsis improved. Thank you for allowing me to participate in the care of the patient, we will follow with you.
--- NOTE | 2016-12-12 17:54 | CP.PCM.PN ---
<JAY HERRERA - Last Filed: 12/12/16 17:51> Subjective - Date & Time of Evaluation Date of Evaluation: 12/12/16 Time of Evaluation: 09:40 - Subjective Subjective: Medicine Progress Note: Pt seen and examined at bedside. Pt currently on RIPE therapy but remains skeptical of TB diagnosis. Pt has no new complaints. Pt denied fever, cough, hemoptysis, chest pain, headache and abdominal pain. Objective - Vital Signs/Intake and Output Vital Signs (last 24 hours): Temp Pulse Resp BP Pulse Ox 97.9 F 72 18 101/68 97 12/12/16 16:31 12/12/16 16:31 12/12/16 16:31 12/12/16 16:31 12/12/16 16:31 Intake and Output: 12/12/16 12/12/16 06:59 18:59 Intake Total 300 640 Balance 300 640 - Medications Medications: Current Medications Albuterol Sulfate (Albuterol 0.083% Inhal Megan (2.5 Mg/3 Ml) Ud) 2.5 mg IH [id number] PRN PRN Reason: Cough and congestion Ethambutol HCl (Myambutol) 800 mg PO DAILY [facility] Last Admin: 12/11/16 14:47 Dose: 800 mg Hydrochlorothiazide (Hydrodiuril) 25 mg PO DAILY [facility] Last Admin: 12/11/16 10:40 Dose: 25 mg Ceftriaxone Sodium (Rocephin 1 Gram Ivpb) 1 gm in 100 mls @ 100 mls/hr IVPB DAILY [facility] PRN Reason: Protocol Last Admin: 12/11/16 14:45 Dose: 100 mls/hr Isoniazid (Niazid) 300 mg PO DAILY [facility] PRN Reason: Protocol Last Admin: 12/11/16 14:47 Dose: 300 mg Lisinopril (Zestril) 20 mg PO DAILY [facility] Last Admin: 12/11/16 10:40 Dose: 20 mg Pantoprazole Sodium (Protonix Ec Tab) 40 mg PO 0600 [facility] Last Admin: 12/12/16 05:26 Dose: 40 mg Polyethylene Glycol (Miralax) 17 gm PO DAILY [facility] Last Admin: 12/11/16 10:40 Dose: 17 gm Polysaccharide Iron Complex (Ferrex-150) 300 mg PO BID [facility] Last Admin: 12/11/16 17:37 Dose: 300 mg Prednisone (Prednisone Tab) 10 mg PO DAILY [facility] Pyrazinamide (Pyrazinamide) 1,000 mg PO DAILY [facility] Last Admin: 12/11/16 14:47 Dose: 1,000 mg Pyridoxine HCl (Vitamin B6 50 Mg Tab) 50 mg PO DAILY [facility] Last Admin: 12/11/16 10:40 Dose: 50 mg Rifampin (Rifampin Cap) 300 mg PO 0700 [facility] PRN Reason: Protocol Last Admin: 12/12/16 08:29 Dose: 300 mg - Labs Labs: 12/12/16 09:45 12/12/16 09:45 PT 12.5 Seconds (9.9-11.8) H 12/07/16 19:45 INR 1.16 (0.93-1.08) H 12/07/16 19:45 APTT 31.7 Seconds (23.7-30.8) H 12/07/16 19:45 - Constitutional Appears: No Acute Distress - Head Exam Head Exam: NORMAL INSPECTION - Eye Exam Eye Exam: EOMI, Normal appearance - ENT Exam ENT Exam: Mucous Membranes Moist, Normal Exam - Neck Exam Neck Exam: Full ROM - Respiratory Exam Respiratory Exam: Clear to Ausculation Bilateral, NORMAL BREATHING PATTERN. absent: Rales, Rhonchi, Wheezes - Cardiovascular Exam Cardiovascular Exam: REGULAR RHYTHM, +S1, +S2. absent: Murmur - Extremities Exam Extremities Exam: absent: Calf Tenderness, Pedal Edema - Neurological Exam Neurological Exam: Alert, Awake, Oriented x3 - Psychiatric Exam Psychiatric exam: Normal Affect, Normal Mood - Skin Skin Exam: Dry, Intact, Normal Color, Warm Assessment and Plan - Assessment and Plan (Free Text) Assessment: 61 yo female with history of positive ppd and cavitary lesions on CT scan presents with hemoptysis found to have positive sputum AFB smear. 1. Cavitary lesion of lung -continue RIPE therapy -awaiting PCR -will order AFB stain after one week of RIPE therapy, per ID -awaiting final mycobacterial culture -Recommended all visitors wore proper isolation masks 2. Asthma -no complaints at this time -Solu-medrol discontinued -pulmonology started prednisone 10mg PO qd, will taper per note -continue albuterol PRN 3. Pneumonia -continue rocephin 4. HTN -Continue lisinopril and HCTZ 5. GI/DVT prophylaxis -protonix/scd's Patient seen and case discussed with attending physician, Dr. Gillette. <John Gillette - Last Filed: 12/13/16 07:03> Objective - Vital Signs/Intake and Output Vital Signs (last 24 hours): Temp Pulse Resp BP Pulse Ox 97.9 F 72 18 101/68 97 12/12/16 16:31 12/12/16 16:31 12/12/16 16:31 12/12/16 16:31 12/12/16 16:31 Intake and Output: 12/13/16 12/13/16 06:59 18:59 Intake Total 480 Balance 480 - Medications Medications: Current Medications Albuterol Sulfate (Albuterol 0.083% Inhal Megan (2.5 Mg/3 Ml) Ud) 2.5 mg IH [id number] PRN PRN Reason: Cough and congestion Ethambutol HCl (Myambutol) 800 mg PO DAILY [facility] Last Admin: 12/12/16 10:30 Dose: 800 mg Hydrochlorothiazide (Hydrodiuril) 25 mg PO DAILY [facility] Last Admin: 12/12/16 10:30 Dose: 25 mg Ceftriaxone Sodium (Rocephin 1 Gram Ivpb) 1 gm in 100 mls @ 100 mls/hr IVPB DAILY [facility] PRN Reason: Protocol Last Admin: 12/12/16 10:30 Dose: 100 mls/hr Isoniazid (Niazid) 300 mg PO DAILY [facility] PRN Reason: Protocol Last Admin: 12/12/16 10:30 Dose: 300 mg Lisinopril (Zestril) 20 mg PO DAILY [facility] Last Admin: 12/12/16 10:30 Dose: 20 mg Pantoprazole Sodium (Protonix Ec Tab) 40 mg PO 0600 [facility] Last Admin: 12/13/16 05:44 Dose: 40 mg Polyethylene Glycol (Miralax) 17 gm PO BID [facility] Last Admin: 12/12/16 20:16 Dose: 17 gm Polysaccharide Iron Complex (Ferrex-150) 300 mg PO BID [facility] Last Admin: 12/12/16 18:45 Dose: 300 mg Prednisone (Prednisone Tab) 10 mg PO DAILY [facility] Last Admin: 12/12/16 10:30 Dose: 10 mg Pyrazinamide (Pyrazinamide) 1,000 mg PO DAILY [facility] Last Admin: 12/12/16 10:30 Dose: 1,000 mg Pyridoxine HCl (Vitamin B6 50 Mg Tab) 50 mg PO DAILY [facility] Last Admin: 12/12/16 10:30 Dose: 50 mg Rifampin (Rifampin Cap) 300 mg PO 0700 [facility] PRN Reason: Protocol Last Admin: 12/12/16 08:29 Dose: 300 mg - Labs Labs: 12/12/16 09:45 12/12/16 09:45 PT 12.5 Seconds (9.9-11.8) H 12/07/16 19:45 INR 1.16 (0.93-1.08) H 12/07/16 19:45 APTT 31.7 Seconds (23.7-30.8) H 12/07/16 19:45 Attending/Attestation - Attestation I have personally seen and examined this patient.: Yes I have fully participated in the care of the patient.: Yes I have reviewed all pertinent clinical information, including history, physical exam and plan: Yes Notes (Text): 12/12/16 61 year old female with history of asthma and positive PPD who presented with complaint of cough and hemoptysis. She was found to have cavitary lesion on CT chest. She is also found to have +AFB. She is started on RIPE therapy. Continue with iv antibiotics as per ID and steroids taper as per pulmonary. Patient is on HCTZ and lisinopril for hypertension. John Gillette MD Hospitalist.
[2016-12-12 18:49] LABS: TB ANTIGEN MINUS NIL 2.43 IU/mL
[2016-12-13] MEDS: Pantoprazole 40 mg EC Tab PO SCH (05:44)
[2016-12-13 07:39] LABS: BASO # 0.01 K/mm3 (0.0-2.0); BASO % 0.1 % (0.0-3.0); EOS # 0.2 (0.0-0.7); EOS % 1.6 % (1.5-5.0); GRAN # 6.72 (1.4-6.5); GRAN % 67.1 % (50.0-68.0); HEMOGLOBIN 10.2 gm/dL (12.0-16.0); LYMPH % 20.4 % (22.0-35.0); MEAN CORPUSCULAR HEMOGLOBIN 26.6 pg (25.0-35.0); MEAN CORPUSCULAR HGB CONC 32.1 g/dl (31.0-37.0); MEAN PLATELET VOLUME 9.1 fl (7.0-11.0); MONO # 1.1 (0.1-0.6); MONO % 10.8 % (1.0-6.0); PLATELET COUNT 475 10^3/uL (120.0-450.0); RBC 3.83 10^6/uL (3.5-6.1); RED CELL DISTRIBUTION WIDTH 15.5 % (11.5-14.5)
[2016-12-13 08:02] LABS: ALB/GLOB RATIO 1.1 (1.1-1.8); ALBUMIN 3.6 g/dL (3.0-4.8); ALT/SGPT 25 U/L (7-56); AST/SGOT 22 U/L (15-39); BLOOD UREA NITROGEN 18 mg/dL (7-21); CALCIUM 9.2 mg/dL (8.4-10.5); GFR AFRICAN-AMERICAN > 60; GFR NON-AFRICAN AMERICAN > 60
[2016-12-13] MEDS: POLYETHYLENE GLYCOL 3350 17 GM/Dose PACKET PO SCH ×2 (09:50→20:47)
[2016-12-13] MEDS: Iron Complex Polysacch 150mg Cap PO SCH ×2 (09:51→20:47)
[2016-12-13] MEDS: cefTRIAXone 1 gm 1 GM/100 ML BAG IVPB SCH (11:29)
--- NOTE | 2016-12-13 16:34 | CP.PCM.PN ---
<JAY HERRERA - Last Filed: 12/13/16 18:11> Subjective - Date & Time of Evaluation Date of Evaluation: 12/13/16 Time of Evaluation: 12:55 - Subjective Subjective: Medicine Progress Note: Pt seen and examined at bedside. Pt has no new complaints this morning but did report constipation overnight that has since resolved. Pt denied fever, night sweats, cough, hemoptysis, chest pain, headache, nausea, vomiting and abdominal pain. Objective - Vital Signs/Intake and Output Vital Signs (last 24 hours): Temp Pulse Resp BP Pulse Ox 98 F 70 20 110/72 96 12/13/16 07:44 12/13/16 09:52 12/13/16 07:44 12/13/16 09:52 12/13/16 07:44 Intake and Output: 12/13/16 12/13/16 06:59 18:59 Intake Total 480 Balance 480 - Medications Medications: Current Medications Albuterol Sulfate (Albuterol 0.083% Inhal Megan (2.5 Mg/3 Ml) Ud) 2.5 mg IH [id number] PRN PRN Reason: Cough and congestion Ethambutol HCl (Myambutol) 800 mg PO DAILY [facility] Last Admin: 12/13/16 09:50 Dose: 800 mg Hydrochlorothiazide (Hydrodiuril) 25 mg PO DAILY [facility] Last Admin: 12/13/16 09:51 Dose: 25 mg Ceftriaxone Sodium (Rocephin 1 Gram Ivpb) 1 gm in 100 mls @ 100 mls/hr IVPB DAILY [facility] PRN Reason: Protocol Last Admin: 12/13/16 11:29 Dose: 100 mls/hr Isoniazid (Niazid) 300 mg PO DAILY [facility] PRN Reason: Protocol Last Admin: 12/13/16 09:51 Dose: 300 mg Lisinopril (Zestril) 20 mg PO DAILY [facility] Last Admin: 12/13/16 09:52 Dose: 20 mg Pantoprazole Sodium (Protonix Ec Tab) 40 mg PO 0600 [facility] Last Admin: 12/13/16 05:44 Dose: 40 mg Polyethylene Glycol (Miralax) 17 gm PO BID [facility] Last Admin: 12/13/16 09:50 Dose: 17 gm Polysaccharide Iron Complex (Ferrex-150) 300 mg PO BID [facility] Last Admin: 12/13/16 09:51 Dose: 300 mg Prednisone (Prednisone Tab) 10 mg PO DAILY [facility] Last Admin: 12/13/16 09:51 Dose: 10 mg Pyrazinamide (Pyrazinamide) 1,000 mg PO DAILY [facility] Last Admin: 12/13/16 09:50 Dose: 1,000 mg Pyridoxine HCl (Vitamin B6 50 Mg Tab) 50 mg PO DAILY [facility] Last Admin: 12/13/16 09:50 Dose: 50 mg Rifampin (Rifampin Cap) 300 mg PO BID [facility] PRN Reason: Protocol - Labs Labs: 12/13/16 07:00 12/13/16 07:00 PT 12.5 Seconds (9.9-11.8) H 12/07/16 19:45 INR 1.16 (0.93-1.08) H 12/07/16 19:45 APTT 31.7 Seconds (23.7-30.8) H 12/07/16 19:45 - Constitutional Appears: No Acute Distress - Head Exam Head Exam: ATRAUMATIC, NORMAL INSPECTION - Eye Exam Eye Exam: EOMI, Normal appearance - ENT Exam ENT Exam: Mucous Membranes Moist, Normal Exam - Neck Exam Neck Exam: Full ROM - Respiratory Exam Respiratory Exam: Clear to Ausculation Bilateral, NORMAL BREATHING PATTERN. absent: Rales, Rhonchi, Wheezes - Cardiovascular Exam Cardiovascular Exam: REGULAR RHYTHM, RRR, +S1, +S2 - GI/Abdominal Exam GI & Abdominal Exam: absent: Distended, Tenderness - Extremities Exam Extremities Exam: absent: Calf Tenderness, Pedal Edema - Neurological Exam Neurological Exam: Alert, Awake - Psychiatric Exam Psychiatric exam: Normal Affect, Normal Mood - Skin Skin Exam: Dry, Intact, Normal Color, Warm Assessment and Plan - Assessment and Plan (Free Text) Assessment: 61 yo female with history of positive ppd and cavitary lesions on CT scan presents with hemoptysis found to have positive sputum AFB smear. 1. Cavitary lesion of lung -continue RIPE therapy -awaiting PCR -TB (QFT) was positive (12/13) -Changed Rifampin from 300mg/day to 600mg/day (300mg BID), per infection control -will order AFB stain after one week of RIPE therapy, per ID -awaiting final mycobacterial culture -Recommended all visitors wore proper isolation masks 2. Asthma -no complaints at this time -Solu-medrol discontinued (12/12) -prednisone 10mg PO qd, will taper per pulm note -continue albuterol PRN 3. Pneumonia -continue rocephin 4. HTN -Continue lisinopril and HCTZ 5. Constipation -increased miralax from once a day to twice a day 6. GI/DVT prophylaxis -protonix/scd's Patient seen and case discussed with attending physician, Dr. Gillette. <John Gillette - Last Filed: 12/14/16 07:27> Objective - Vital Signs/Intake and Output Vital Signs (last 24 hours): Temp Pulse Resp BP Pulse Ox 97.9 F 72 20 105/72 98 12/13/16 17:46 12/13/16 17:46 12/13/16 17:46 12/13/16 17:46 12/13/16 17:46 Intake and Output: 12/14/16 12/14/16 06:59 18:59 Intake Total 900 Balance 900 - Medications Medications: Current Medications Albuterol Sulfate (Albuterol 0.083% Inhal Megan (2.5 Mg/3 Ml) Ud) 2.5 mg IH [id number] PRN PRN Reason: Cough and congestion Ethambutol HCl (Myambutol) 800 mg PO DAILY [facility] Last Admin: 12/13/16 09:50 Dose: 800 mg Hydrochlorothiazide (Hydrodiuril) 25 mg PO DAILY [facility] Last Admin: 12/13/16 09:51 Dose: 25 mg Ceftriaxone Sodium (Rocephin 1 Gram Ivpb) 1 gm in 100 mls @ 100 mls/hr IVPB DAILY [facility] PRN Reason: Protocol Last Admin: 12/13/16 11:29 Dose: 100 mls/hr Isoniazid (Niazid) 300 mg PO DAILY [facility] PRN Reason: Protocol Last Admin: 12/13/16 09:51 Dose: 300 mg Lisinopril (Zestril) 20 mg PO DAILY [facility] Last Admin: 12/13/16 09:52 Dose: 20 mg Pantoprazole Sodium (Protonix Ec Tab) 40 mg PO 0600 [facility] Last Admin: 12/14/16 06:01 Dose: 40 mg Polyethylene Glycol (Miralax) 17 gm PO BID [facility] Last Admin: 12/13/16 20:47 Dose: 17 gm Polysaccharide Iron Complex (Ferrex-150) 300 mg PO BID [facility] Last Admin: 12/13/16 20:47 Dose: 300 mg Pyrazinamide (Pyrazinamide) 1,000 mg PO DAILY [facility] Last Admin: 12/13/16 09:50 Dose: 1,000 mg Pyridoxine HCl (Vitamin B6 50 Mg Tab) 50 mg PO DAILY [facility] Last Admin: 12/13/16 09:50 Dose: 50 mg Rifampin (Rifampin Cap) 300 mg PO BID [facility] PRN Reason: Protocol Last Admin: 12/13/16 20:47 Dose: 300 mg - Labs Labs: 12/14/16 06:10 12/13/16 07:00 PT 12.5 Seconds (9.9-11.8) H 12/07/16 19:45 INR 1.16 (0.93-1.08) H 12/07/16 19:45 APTT 31.7 Seconds (23.7-30.8) H 12/07/16 19:45 Attending/Attestation - Attestation I have personally seen and examined this patient.: Yes I have fully participated in the care of the patient.: Yes I have reviewed all pertinent clinical information, including history, physical exam and plan: Yes Notes (Text): 12/13/16 61 year old female with history of asthma and positive PPD who presented with complaint of cough and hemoptysis. She was found to have cavitary lesion on CT chest and +AFB. She is started on RIPE therapy. She is also on iv ceftriaxone as per ID and tapering steroids as per pulmonary. Patient is on HCTZ and lisinopril for hypertension and miralax for constipation. John Gillette MD Hospitalist.
--- NOTE | 2016-12-13 19:36 | CP.PCM.PN ---
Subjective - Date & Time of Evaluation Date of Evaluation: 12/13/16 Time of Evaluation: 18:30 - Subjective Subjective: Infectious Disease Follow Up: December 13, 2016 61 yo female with cough and bright red blood in sputum starting yesterday. The patient complains of persistent cough for the past 2 months without improvement. The patient placed on isolation and respiratory precautions at this time. Supportive care. Rule out TB. 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 Patient did have BCG vaccine in the past as a child. Patient was born in the [place] but moved to the [facility] [address] chest showed either abscess or cavitary lesion. The patient does complain of subjective fevers and chills. Fever of 101.1 F in ER. Acid-fast stain was positive. Starting treatment for tuberculosis. Noted patient refusing TB meds stating that another doctor told her she does not need them. At this point, the patient has two positive acid-fast stains from the sputum. Issues with the patient not believing her diagnosis. Multiple doctors have explained to her and she finally started taking the anti-TB medications. However, question remain whether she would continue to take medications when she is cleared for discharge. The patient still has not said that she accepts the diagnosis that she has a lung infection. No further AFB until the patient has had at least one week of anti-TB medications. She has shown improvement to hemopytsis and cough compared to admission. On discussions with the patient, the patient does not believe the diagnosis of potential tuberculosis. Objective - Vital Signs/Intake and Output Vital Signs (last 24 hours): Temp Pulse Resp BP Pulse Ox 97.9 F 72 20 105/72 98 12/13/16 17:46 12/13/16 17:46 12/13/16 17:46 12/13/16 17:46 12/13/16 17:46 - Medications Medications: Current Medications Albuterol Sulfate (Albuterol 0.083% Inhal Megan (2.5 Mg/3 Ml) Ud) 2.5 mg IH [id number] PRN PRN Reason: Cough and congestion Ethambutol HCl (Myambutol) 800 mg PO DAILY [facility] Last Admin: 12/13/16 09:50 Dose: 800 mg Hydrochlorothiazide (Hydrodiuril) 25 mg PO DAILY [facility] Last Admin: 12/13/16 09:51 Dose: 25 mg Ceftriaxone Sodium (Rocephin 1 Gram Ivpb) 1 gm in 100 mls @ 100 mls/hr IVPB DAILY [facility] PRN Reason: Protocol Last Admin: 12/13/16 11:29 Dose: 100 mls/hr Isoniazid (Niazid) 300 mg PO DAILY [facility] PRN Reason: Protocol Last Admin: 12/13/16 09:51 Dose: 300 mg Lisinopril (Zestril) 20 mg PO DAILY [facility] Last Admin: 12/13/16 09:52 Dose: 20 mg Pantoprazole Sodium (Protonix Ec Tab) 40 mg PO 0600 [facility] Last Admin: 12/13/16 05:44 Dose: 40 mg Polyethylene Glycol (Miralax) 17 gm PO BID [facility] Last Admin: 12/13/16 09:50 Dose: 17 gm Polysaccharide Iron Complex (Ferrex-150) 300 mg PO BID [facility] Last Admin: 12/13/16 09:51 Dose: 300 mg Prednisone (Prednisone Tab) 10 mg PO DAILY [facility] Last Admin: 12/13/16 09:51 Dose: 10 mg Pyrazinamide (Pyrazinamide) 1,000 mg PO DAILY [facility] Last Admin: 12/13/16 09:50 Dose: 1,000 mg Pyridoxine HCl (Vitamin B6 50 Mg Tab) 50 mg PO DAILY [facility] Last Admin: 12/13/16 09:50 Dose: 50 mg Rifampin (Rifampin Cap) 300 mg PO BID [facility] PRN Reason: Protocol - Labs Labs: 12/13/16 07:00 12/13/16 07:00 PT 12.5 Seconds (9.9-11.8) H 12/07/16 19:45 INR 1.16 (0.93-1.08) H 12/07/16 19:45 APTT 31.7 Seconds (23.7-30.8) H 12/07/16 19:45 - Constitutional Appears: Non-toxic, No Acute Distress - Head Exam Head Exam: ATRAUMATIC, NORMOCEPHALIC - Eye Exam Eye Exam: EOMI, PERRL Pupil Exam: NORMAL ACCOMODATION, PERRL - ENT Exam ENT Exam: Mucous Membranes Moist, Normal External Ear Exam, TM's Normal Bilaterally - Neck Exam Neck Exam: Full ROM, Normal Inspection - Respiratory Exam Respiratory Exam: Decreased Breath Sounds, NORMAL BREATHING PATTERN. absent: Rales, Rhonchi, Wheezes - Cardiovascular Exam Cardiovascular Exam: REGULAR RHYTHM, RRR, +S1, +S2 - GI/Abdominal Exam GI & Abdominal Exam: Soft, Normal Bowel Sounds. absent: Distended, Tenderness - Extremities Exam Extremities Exam: Full ROM, Normal Inspection - Neurological Exam Neurological Exam: Alert, Awake, CN II-XII Intact, Oriented x3 - Psychiatric Exam Psychiatric exam: Normal Affect, Normal Mood - Skin Skin Exam: Intact, Normal Color Assessment and Plan - Assessment and Plan (Free Text) Assessment: 61 yo female with prolonged cough for over 2 months with no improvement on antibiotics. The patient with known positive PPD. Cannot rule out tuberculosis at this point. Must also consider infections such as Staph Aureus and other acid-fast positive organisms. Start Rocephin for antibiotic coverage. Larson cultures. Obtain Acid-Fast stains and studies of sputum x 3. Patient had hemoptysis. Repeating PPD and Quantiferon will not yield additional data (both tests only show potential exposure of patient to tuberculosis during lifetime and cannot denote active disease). Await Acid- Fast stains and sputum culture results. Maintain isolation. Acid-Fast stain positive from sputum x 2. Continue treatment for tuberculosis as other tests return. Start Isoniazid, Rifampin, Pyrazinamide, and ethambutol. Start Vitamin B6 as well. Await PCR for identification of tuberculous strain and cultures. Supportive care. HIV test results are negative. No further AFB until patient has taken one week of anti-TB meds. Cough and hemopytsis improved. Thank you for allowing me to participate in the care of the patient, we will follow with you. 61 yo female with prolonged cough for over 2 months with no improvement on antibiotics. The patient with known positive PPD. Cannot rule out tuberculosis at this point. Must also consider infections such as Staph Aureus and other acid-fast positive organisms. Start Rocephin for antibiotic coverage. Larson cultures. Obtain Acid-Fast stains and studies of sputum x 3. Patient had hemoptysis. Repeating PPD and Quantiferon will not yield additional data (both tests only show potential exposure of patient to tuberculosis during lifetime and cannot denote active disease). Await Acid- Fast stains and sputum culture results. Maintain isolation. Acid-Fast stain positive from sputum x 2. Continue treatment for tuberculosis as other tests return. Start Isoniazid, Rifampin, Pyrazinamide, and ethambutol. Start Vitamin B6 as well. Await PCR for identification of tuberculous strain and cultures. Supportive care. HIV test results are negative. No further AFB until patient has taken one week of anti-TB meds. Cough and hemopytsis improved. Thank you for allowing me to participate in the care of the patient, we will follow with you.
--- NOTE | 2016-12-13 20:17 | CP.PCM.PN ---
Subjective - Date & Time of Evaluation Date of Evaluation: 12/13/16 Time of Evaluation: 16:00 - Subjective Subjective: 61 yo female with PMH of HTN presents with hemoptysis. Patient states that last night she started cough up blood with sputum. She also reports fever of 105, for which she took Tylenol. Patient states that she was treated for pneumonia about 1 month ago, however she continued to have cough. She states that this has never happened before. 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 She denies any recent travel, or sick contacts. She denies weight loss, chest pain, abd pain, n/v sputum AFB smeer is positive cough is now much better, no more hemoptosis Objective - Vital Signs/Intake and Output Vital Signs (last 24 hours): Temp Pulse Resp BP Pulse Ox 97.9 F 72 20 105/72 98 12/13/16 17:46 12/13/16 17:46 12/13/16 17:46 12/13/16 17:46 12/13/16 17:46 - Medications Medications: Current Medications Albuterol Sulfate (Albuterol 0.083% Inhal Megan (2.5 Mg/3 Ml) Ud) 2.5 mg IH [id number] PRN PRN Reason: Cough and congestion Ethambutol HCl (Myambutol) 800 mg PO DAILY [facility] Last Admin: 12/13/16 09:50 Dose: 800 mg Hydrochlorothiazide (Hydrodiuril) 25 mg PO DAILY [facility] Last Admin: 12/13/16 09:51 Dose: 25 mg Ceftriaxone Sodium (Rocephin 1 Gram Ivpb) 1 gm in 100 mls @ 100 mls/hr IVPB DAILY [facility] PRN Reason: Protocol Last Admin: 12/13/16 11:29 Dose: 100 mls/hr Isoniazid (Niazid) 300 mg PO DAILY [facility] PRN Reason: Protocol Last Admin: 12/13/16 09:51 Dose: 300 mg Lisinopril (Zestril) 20 mg PO DAILY [facility] Last Admin: 12/13/16 09:52 Dose: 20 mg Pantoprazole Sodium (Protonix Ec Tab) 40 mg PO 0600 [facility] Last Admin: 12/13/16 05:44 Dose: 40 mg Polyethylene Glycol (Miralax) 17 gm PO BID [facility] Last Admin: 12/13/16 09:50 Dose: 17 gm Polysaccharide Iron Complex (Ferrex-150) 300 mg PO BID [facility] Last Admin: 12/13/16 09:51 Dose: 300 mg Prednisone (Prednisone Tab) 10 mg PO DAILY [facility] Last Admin: 12/13/16 09:51 Dose: 10 mg Pyrazinamide (Pyrazinamide) 1,000 mg PO DAILY [facility] Last Admin: 12/13/16 09:50 Dose: 1,000 mg Pyridoxine HCl (Vitamin B6 50 Mg Tab) 50 mg PO DAILY [facility] Last Admin: 12/13/16 09:50 Dose: 50 mg Rifampin (Rifampin Cap) 300 mg PO BID [facility] PRN Reason: Protocol - Labs Labs: 12/13/16 07:00 12/13/16 07:00 PT 12.5 Seconds (9.9-11.8) H 12/07/16 19:45 INR 1.16 (0.93-1.08) H 12/07/16 19:45 APTT 31.7 Seconds (23.7-30.8) H 12/07/16 19:45 - Constitutional Appears: No Acute Distress - Head Exam Head Exam: ATRAUMATIC, NORMAL INSPECTION, NORMOCEPHALIC - ENT Exam ENT Exam: Mucous Membranes Moist, Normal Exam - Neck Exam Neck Exam: Full ROM, Normal Inspection. absent: Lymphadenopathy - Respiratory Exam Respiratory Exam: Clear to Ausculation Bilateral, Rhonchi, NORMAL BREATHING PATTERN - Cardiovascular Exam Cardiovascular Exam: REGULAR RHYTHM, +S1, +S2. absent: Murmur - GI/Abdominal Exam GI & Abdominal Exam: Soft, Normal Bowel Sounds. absent: Tenderness - Extremities Exam Extremities Exam: Full ROM, Normal Capillary Refill, Normal Inspection. absent : Joint Swelling, Pedal Edema - Neurological Exam Neurological Exam: Alert, Awake, CN II-XII Intact, Normal Gait, Oriented x3 - Psychiatric Exam Psychiatric exam: Normal Affect, Normal Mood Assessment and Plan (1) Asthma Assessment & Plan: taper off steroids, continue inhale bronchodilators Status: Acute (2) Cavitary lesion of lung Assessment & Plan: afb smeer positive, PCR pending Status: Acute (3) Pneumonia Assessment & Plan: on antibiotics Status: Acute
[2016-12-14] MEDS: Pantoprazole 40 mg EC Tab PO SCH (06:01)
[2016-12-14 07:09] LABS: BASO # 0.01 K/mm3 (0.0-2.0); BASO % 0.1 % (0.0-3.0); EOS # 0.3 (0.0-0.7); EOS % 2.4 % (1.5-5.0); GRAN # 7.13 (1.4-6.5); GRAN % 66.2 % (50.0-68.0); HEMOGLOBIN 9.9 gm/dL (12.0-16.0); LYMPH # 2.3 (1.2-3.4); LYMPH % 21.5 % (22.0-35.0); MEAN CELL VOLUME 83.3 fL (80.0-105.0); MEAN CORPUSCULAR HEMOGLOBIN 26.7 pg (25.0-35.0); MONO # 1.1 (0.1-0.6); MONO % 9.8 % (1.0-6.0); PLATELET COUNT 454 10^3/uL (120.0-450.0); RBC 3.71 10^6/uL (3.5-6.1); RED CELL DISTRIBUTION WIDTH 15.9 % (11.5-14.5); WHITE BLOOD COUNT 10.8 10^3/ul (4.5-11.0)
[2016-12-14 07:12] LABS: ALBUMIN 3.4 g/dL (3.0-4.8); ALT/SGPT 24 U/L (7-56); AST/SGOT 21 U/L (15-39); BLOOD UREA NITROGEN 20 mg/dL (7-21); CALCIUM 8.9 mg/dL (8.4-10.5); GFR AFRICAN-AMERICAN > 60; GFR NON-AFRICAN AMERICAN > 60
[2016-12-14] MEDS: Iron Complex Polysacch 150mg Cap PO SCH ×2 (10:49→17:53)
[2016-12-14] MEDS: POLYETHYLENE GLYCOL 3350 17 GM/Dose PACKET PO SCH ×2 (10:50→17:53)
[2016-12-14] MEDS: cefTRIAXone 1 gm 1 GM/100 ML BAG IVPB SCH (12:14)
--- NOTE | 2016-12-14 14:32 | CP.PCM.PN ---
<JAY HERRERA - Last Filed: 12/14/16 16:59> Subjective - Date & Time of Evaluation Date of Evaluation: 12/14/16 Time of Evaluation: 08:40 - Subjective Subjective: Medicine Progress Note: Pt was seen and assessed at bedside. Pt had an episode of R sided rib pain along the midaxillary line overnight that was determined to be of musculoskeletal etiology. Pt was given Flexeril, which relieved her pain, and is currently not experiencing any pain. Pt denies cough, hemoptysis, dyspnea, chest pain, headache, changes in vision or abdominal pain. Objective - Vital Signs/Intake and Output Vital Signs (last 24 hours): Temp Pulse Resp BP Pulse Ox 98.5 F 90 20 97/63 L 97 12/14/16 07:55 12/14/16 10:56 12/14/16 07:55 12/14/16 10:56 12/14/16 07:55 Intake and Output: 12/14/16 12/14/16 06:59 18:59 Intake Total 900 Balance 900 - Medications Medications: Current Medications Albuterol Sulfate (Albuterol 0.083% Inhal Megan (2.5 Mg/3 Ml) Ud) 2.5 mg IH [id number] PRN PRN Reason: Cough and congestion Cyclobenzaprine HCl (Flexeril) 5 mg PO TID PRN PRN Reason: Pain, severe (8-10) Last Admin: 12/14/16 12:16 Dose: 5 mg Ethambutol HCl (Myambutol) 800 mg PO DAILY [facility] Last Admin: 12/14/16 10:54 Dose: 800 mg Hydrochlorothiazide (Hydrodiuril) 25 mg PO DAILY [facility] Last Admin: 12/14/16 10:50 Dose: Not Given Ceftriaxone Sodium (Rocephin 1 Gram Ivpb) 1 gm in 100 mls @ 100 mls/hr IVPB DAILY [facility] PRN Reason: Protocol Last Admin: 12/14/16 12:14 Dose: 100 mls/hr Isoniazid (Niazid) 300 mg PO DAILY [facility] PRN Reason: Protocol Last Admin: 12/14/16 10:55 Dose: 300 mg Lisinopril (Zestril) 20 mg PO DAILY [facility] Last Admin: 12/14/16 10:56 Dose: Not Given Pantoprazole Sodium (Protonix Ec Tab) 40 mg PO 0600 [facility] Last Admin: 12/14/16 06:01 Dose: 40 mg Polyethylene Glycol (Miralax) 17 gm PO BID [facility] Last Admin: 12/14/16 10:50 Dose: 17 gm Polysaccharide Iron Complex (Ferrex-150) 300 mg PO BID [facility] Last Admin: 12/14/16 10:49 Dose: 300 mg Pyrazinamide (Pyrazinamide) 1,000 mg PO DAILY [facility] Last Admin: 12/14/16 10:55 Dose: 1,000 mg Pyridoxine HCl (Vitamin B6 50 Mg Tab) 50 mg PO DAILY [facility] Last Admin: 12/14/16 10:55 Dose: 50 mg Rifampin (Rifampin Cap) 300 mg PO BID [facility] PRN Reason: Protocol Last Admin: 12/14/16 10:55 Dose: 300 mg - Labs Labs: 12/14/16 06:10 12/14/16 06:10 PT 12.5 Seconds (9.9-11.8) H 12/07/16 19:45 INR 1.16 (0.93-1.08) H 12/07/16 19:45 APTT 31.7 Seconds (23.7-30.8) H 12/07/16 19:45 - Constitutional Appears: No Acute Distress - Head Exam Head Exam: NORMAL INSPECTION, NORMOCEPHALIC - Eye Exam Eye Exam: EOMI, Normal appearance - ENT Exam ENT Exam: Mucous Membranes Moist, Normal Exam - Neck Exam Neck Exam: Full ROM - Respiratory Exam Respiratory Exam: Clear to Ausculation Bilateral, NORMAL BREATHING PATTERN. absent: Rales, Rhonchi, Wheezes - Cardiovascular Exam Cardiovascular Exam: REGULAR RHYTHM, +S1, +S2. absent: Murmur - GI/Abdominal Exam GI & Abdominal Exam: absent: Distended, Tenderness - Extremities Exam Extremities Exam: absent: Calf Tenderness, Tenderness - Neurological Exam Neurological Exam: Alert, Awake, Oriented x3 - Psychiatric Exam Psychiatric exam: Normal Affect, Normal Mood - Skin Skin Exam: Dry, Intact, Normal Color, Warm Assessment and Plan - Assessment and Plan (Free Text) Assessment: 61 yo female with history of positive ppd and cavitary lesions on CT scan presents with hemoptysis found to have positive sputum AFB smear. 1. Cavitary lesion of lung -continue RIPE therapy -TB (QFT) was positive (12/13) -will order AFB stain after one week of RIPE therapy, per ID -Recommended all visitors wore proper isolation masks 2. Asthma -no complaints at this time -Solu-medrol discontinued (12/12) -prednisone discontinued (12/13) -continue albuterol PRN 3. Pneumonia -continue rocephin 4. HTN -Continue lisinopril and HCTZ 5. Constipation -increased miralax from once a day to twice a day (12/13) 6. Rib pain -started flexeril 5mg TID PRN 7. GI/DVT prophylaxis -protonix/scd's Patient seen and case discussed with attending physician, Dr. Gillette. <John Gillette - Last Filed: 12/15/16 06:53> Objective - Vital Signs/Intake and Output Vital Signs (last 24 hours): Temp Pulse Resp BP Pulse Ox 98.1 F 77 20 94/64 L 98 12/14/16 16:14 12/14/16 16:14 12/14/16 16:14 12/14/16 16:14 12/14/16 16:14 Intake and Output: 12/14/16 12/15/16 18:59 06:59 Intake Total 900 Output Total 0 Balance 900 - Medications Medications: Current Medications Albuterol Sulfate (Albuterol 0.083% Inhal Megan (2.5 Mg/3 Ml) Ud) 2.5 mg IH [id number] PRN PRN Reason: Cough and congestion Cyclobenzaprine HCl (Flexeril) 5 mg PO TID PRN PRN Reason: Pain, severe (8-10) Last Admin: 12/15/16 02:38 Dose: 5 mg Ethambutol HCl (Myambutol) 800 mg PO DAILY [facility] Last Admin: 12/14/16 10:54 Dose: 800 mg Hydrochlorothiazide (Hydrodiuril) 25 mg PO DAILY [facility] Last Admin: 12/14/16 10:50 Dose: Not Given Ceftriaxone Sodium (Rocephin 1 Gram Ivpb) 1 gm in 100 mls @ 100 mls/hr IVPB DAILY [facility] PRN Reason: Protocol Last Admin: 12/14/16 12:14 Dose: 100 mls/hr Isoniazid (Niazid) 300 mg PO DAILY [facility] PRN Reason: Protocol Last Admin: 12/14/16 10:55 Dose: 300 mg Lisinopril (Zestril) 20 mg PO DAILY [facility] Last Admin: 12/14/16 10:56 Dose: Not Given Pantoprazole Sodium (Protonix Ec Tab) 40 mg PO 0600 [facility] Last Admin: 12/15/16 05:13 Dose: 40 mg Polyethylene Glycol (Miralax) 17 gm PO BID [facility] Last Admin: 12/14/16 17:53 Dose: 17 gm Polysaccharide Iron Complex (Ferrex-150) 300 mg PO BID [facility] Last Admin: 12/14/16 17:53 Dose: 300 mg Pyrazinamide (Pyrazinamide) 1,000 mg PO DAILY [facility] Last Admin: 12/14/16 10:55 Dose: 1,000 mg Pyridoxine HCl (Vitamin B6 50 Mg Tab) 50 mg PO DAILY [facility] Last Admin: 12/14/16 10:55 Dose: 50 mg Rifampin (Rifampin Cap) 300 mg PO BID [facility] PRN Reason: Protocol Last Admin: 12/14/16 17:53 Dose: 300 mg - Labs Labs: 12/14/16 06:10 12/14/16 06:10 PT 12.5 Seconds (9.9-11.8) H 12/07/16 19:45 INR 1.16 (0.93-1.08) H 12/07/16 19:45 APTT 31.7 Seconds (23.7-30.8) H 12/07/16 19:45 Attending/Attestation - Attestation I have personally seen and examined this patient.: Yes I have fully participated in the care of the patient.: Yes I have reviewed all pertinent clinical information, including history, physical exam and plan: Yes Notes (Text): 12/14/16 61 year old female with history of asthma and positive PPD who presented with complaint of cough and hemoptysis. She was found to have cavitary lesion on CT chest and +AFB. She is started on RIPE therapy. She is also on iv ceftriaxone as per ID and tapering steroids as per pulmonary. She complained of right sided chest wall tenderness last night for which she was started on flexeril prn. Patient is on HCTZ and lisinopril for hypertension. She is on miralax for constipation. John Gillette MD Hospitalist.
--- NOTE | 2016-12-14 16:51 | CP.PCM.PN ---
Subjective - Date & Time of Evaluation Date of Evaluation: 12/14/16 Time of Evaluation: 16:00 - Subjective Subjective: Infectious Disease Follow Up: December 14, 2016 61 yo female with cough and bright red blood in sputum starting yesterday. The patient complains of persistent cough for the past 2 months without improvement. The patient placed on isolation and respiratory precautions at this time. Supportive care. Rule out TB. 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 Patient did have BCG vaccine in the past as a child. Patient was born in the [place] but moved to the [facility] [address] chest showed either abscess or cavitary lesion. The patient does complain of subjective fevers and chills. Fever of 101.1 F in ER. Acid-fast stain was positive. Starting treatment for tuberculosis. Noted patient refusing TB meds stating that another doctor told her she does not need them. At this point, the patient has two positive acid-fast stains from the sputum. Issues with the patient not believing her diagnosis. Multiple doctors have explained to her and she finally started taking the anti-TB medications. However, question remain whether she would continue to take medications when she is cleared for discharge. The patient still has not said that she accepts the diagnosis that she has a lung infection. No further AFB until the patient has had at least one week of anti-TB medications. She has shown improvement to hemopytsis and cough compared to admission. On discussions with the patient, the patient does not believe the diagnosis of potential tuberculosis. Objective - Vital Signs/Intake and Output Vital Signs (last 24 hours): Temp Pulse Resp BP Pulse Ox 98.1 F 77 20 94/64 L 98 12/14/16 16:14 12/14/16 16:14 12/14/16 16:14 12/14/16 16:14 12/14/16 16:14 Intake and Output: 12/14/16 12/14/16 06:59 18:59 Intake Total 900 Balance 900 - Medications Medications: Current Medications Albuterol Sulfate (Albuterol 0.083% Inhal Megan (2.5 Mg/3 Ml) Ud) 2.5 mg IH [id number] PRN PRN Reason: Cough and congestion Cyclobenzaprine HCl (Flexeril) 5 mg PO TID PRN PRN Reason: Pain, severe (8-10) Last Admin: 12/14/16 12:16 Dose: 5 mg Ethambutol HCl (Myambutol) 800 mg PO DAILY [facility] Last Admin: 12/14/16 10:54 Dose: 800 mg Hydrochlorothiazide (Hydrodiuril) 25 mg PO DAILY [facility] Last Admin: 12/14/16 10:50 Dose: Not Given Ceftriaxone Sodium (Rocephin 1 Gram Ivpb) 1 gm in 100 mls @ 100 mls/hr IVPB DAILY [facility] PRN Reason: Protocol Last Admin: 12/14/16 12:14 Dose: 100 mls/hr Isoniazid (Niazid) 300 mg PO DAILY [facility] PRN Reason: Protocol Last Admin: 12/14/16 10:55 Dose: 300 mg Lisinopril (Zestril) 20 mg PO DAILY [facility] Last Admin: 12/14/16 10:56 Dose: Not Given Pantoprazole Sodium (Protonix Ec Tab) 40 mg PO 0600 [facility] Last Admin: 12/14/16 06:01 Dose: 40 mg Polyethylene Glycol (Miralax) 17 gm PO BID [facility] Last Admin: 12/14/16 10:50 Dose: 17 gm Polysaccharide Iron Complex (Ferrex-150) 300 mg PO BID [facility] Last Admin: 12/14/16 10:49 Dose: 300 mg Pyrazinamide (Pyrazinamide) 1,000 mg PO DAILY [facility] Last Admin: 12/14/16 10:55 Dose: 1,000 mg Pyridoxine HCl (Vitamin B6 50 Mg Tab) 50 mg PO DAILY [facility] Last Admin: 12/14/16 10:55 Dose: 50 mg Rifampin (Rifampin Cap) 300 mg PO BID [facility] PRN Reason: Protocol Last Admin: 12/14/16 10:55 Dose: 300 mg - Labs Labs: 12/14/16 06:10 12/14/16 06:10 PT 12.5 Seconds (9.9-11.8) H 12/07/16 19:45 INR 1.16 (0.93-1.08) H 12/07/16 19:45 APTT 31.7 Seconds (23.7-30.8) H 12/07/16 19:45 - Constitutional Appears: Non-toxic, No Acute Distress - Head Exam Head Exam: ATRAUMATIC, NORMOCEPHALIC - Eye Exam Eye Exam: EOMI, PERRL Pupil Exam: NORMAL ACCOMODATION, PERRL - ENT Exam ENT Exam: Mucous Membranes Moist, Normal External Ear Exam, TM's Normal Bilaterally - Neck Exam Neck Exam: Full ROM, Normal Inspection - Respiratory Exam Respiratory Exam: Clear to Ausculation Bilateral, NORMAL BREATHING PATTERN. absent: Rales, Rhonchi, Wheezes - Cardiovascular Exam Cardiovascular Exam: REGULAR RHYTHM, RRR, +S1, +S2 - GI/Abdominal Exam GI & Abdominal Exam: Soft, Normal Bowel Sounds. absent: Distended, Tenderness - Extremities Exam Extremities Exam: Full ROM, Normal Inspection - Neurological Exam Neurological Exam: Alert, Awake, CN II-XII Intact, Oriented x3 - Psychiatric Exam Psychiatric exam: Normal Affect, Normal Mood - Skin Skin Exam: Intact, Normal Color Assessment and Plan - Assessment and Plan (Free Text) Assessment: 61 yo female with prolonged cough for over 2 months with no improvement on antibiotics. The patient with known positive PPD. Cannot rule out tuberculosis at this point. Must also consider infections such as Staph Aureus and other acid-fast positive organisms. Start Rocephin for antibiotic coverage. Larson cultures. Obtain Acid-Fast stains and studies of sputum x 3. Patient had hemoptysis. Repeating PPD and Quantiferon will not yield additional data (both tests only show potential exposure of patient to tuberculosis during lifetime and cannot denote active disease). Await Acid- Fast stains and sputum culture results. Maintain isolation. Acid-Fast stain positive from sputum x 2. Continue treatment for tuberculosis as other tests return. Start Isoniazid, Rifampin, Pyrazinamide, and ethambutol. Start Vitamin B6 as well. Await PCR for identification of tuberculous strain and cultures. Supportive care. HIV test results are negative. No further AFB until patient has taken one week of anti-TB meds. Cough and hemopytsis improved. Patient does not believe her diagnosis of potential TB. Thank you for allowing me to participate in the care of the patient, we will follow with you.
[2016-12-15] MEDS: Pantoprazole 40 mg EC Tab PO SCH (05:13)
[2016-12-15 07:17] LABS: BASO # 0.03 K/mm3 (0.0-2.0); BASO % 0.4 % (0.0-3.0); EOS # 0.4 (0.0-0.7); EOS % 4.4 % (1.5-5.0); GRAN # 5.14 (1.4-6.5); GRAN % 62.8 % (50.0-68.0); HEMOGLOBIN 9.8 gm/dL (12.0-16.0); LYMPH # 1.9 (1.2-3.4); LYMPH % 22.8 % (22.0-35.0); MEAN CELL VOLUME 83.6 fL (80.0-105.0); MEAN CORPUSCULAR HEMOGLOBIN 26.4 pg (25.0-35.0); MEAN CORPUSCULAR HGB CONC 31.6 g/dl (31.0-37.0); MONO # 0.8 (0.1-0.6); MONO % 9.6 % (1.0-6.0); PLATELET COUNT 451 10^3/uL (120.0-450.0); RBC 3.71 10^6/uL (3.5-6.1); WHITE BLOOD COUNT 8.2 10^3/ul (4.5-11.0)
[2016-12-15 07:24] LABS: ALB/GLOB RATIO 1.1 (1.1-1.8); ALBUMIN 3.3 g/dL (3.0-4.8); ALT/SGPT 27 U/L (7-56); AST/SGOT 24 U/L (15-39); BLOOD UREA NITROGEN 13 mg/dL (7-21); CALCIUM 8.8 mg/dL (8.4-10.5); GFR AFRICAN-AMERICAN > 60; GFR NON-AFRICAN AMERICAN > 60
[2016-12-15] MEDS: Iron Complex Polysacch 150mg Cap PO SCH ×2 (10:48→18:23)
[2016-12-15] MEDS: POLYETHYLENE GLYCOL 3350 17 GM/Dose PACKET PO SCH ×2 (10:49→18:24)
--- NOTE | 2016-12-15 11:27 | CP.PCM.PN ---
<Hugo Nunez - Last Filed: 12/15/16 11:52> Subjective - Date & Time of Evaluation Date of Evaluation: 12/15/16 Time of Evaluation: 10:40 - Subjective Subjective: Patient seen and examined bedside. No acute overnight events. Patient seen ambulating without overt difficultly. Complains of baseline right sided rib discomfort. Denies fever, chills, chest pain, SOB. Objective - Vital Signs/Intake and Output Vital Signs (last 24 hours): Temp Pulse Resp BP Pulse Ox 98.1 F 74 18 99/67 L 97 12/15/16 08:00 12/15/16 08:00 12/15/16 08:00 12/15/16 08:00 12/15/16 08:00 Intake and Output: 12/15/16 12/15/16 06:59 18:59 Intake Total 900 Output Total 0 Balance 900 - Medications Medications: Current Medications Albuterol Sulfate (Albuterol 0.083% Inhal Megan (2.5 Mg/3 Ml) Ud) 2.5 mg IH [id number] PRN PRN Reason: Cough and congestion Ethambutol HCl (Myambutol) 800 mg PO DAILY [facility] Last Admin: 12/15/16 10:49 Dose: 800 mg Hydrochlorothiazide (Hydrodiuril) 25 mg PO DAILY [facility] Last Admin: 12/15/16 10:49 Dose: Not Given Ibuprofen (Motrin Tab) 600 mg PO Q6H PRN PRN Reason: Pain, moderate (4-7) Isoniazid (Niazid) 300 mg PO DAILY [facility] PRN Reason: Protocol Last Admin: 12/15/16 10:51 Dose: 300 mg Lisinopril (Zestril) 20 mg PO DAILY [facility] Last Admin: 12/15/16 10:55 Dose: Not Given Pantoprazole Sodium (Protonix Ec Tab) 40 mg PO 0600 [facility] Last Admin: 12/15/16 05:13 Dose: 40 mg Polyethylene Glycol (Miralax) 17 gm PO BID [facility] Last Admin: 12/15/16 10:49 Dose: 17 gm Polysaccharide Iron Complex (Ferrex-150) 300 mg PO BID [facility] Last Admin: 12/15/16 10:48 Dose: 300 mg Pyrazinamide (Pyrazinamide) 1,000 mg PO DAILY [facility] Last Admin: 12/15/16 10:51 Dose: 1,000 mg Pyridoxine HCl (Vitamin B6 50 Mg Tab) 50 mg PO DAILY [facility] Last Admin: 12/15/16 10:52 Dose: 50 mg Rifampin (Rifampin Cap) 300 mg PO BID [facility] PRN Reason: Protocol Last Admin: 12/15/16 10:52 Dose: 300 mg - Labs Labs: 12/15/16 06:30 12/15/16 06:30 PT 12.5 Seconds (9.9-11.8) H 12/07/16 19:45 INR 1.16 (0.93-1.08) H 12/07/16 19:45 APTT 31.7 Seconds (23.7-30.8) H 12/07/16 19:45 - Additional Findings Additional findings: - Constitutional Appears: No Acute Distress - Head Exam Head Exam: NORMAL INSPECTION, NORMOCEPHALIC - Eye Exam Eye Exam: EOMI, Normal appearance - ENT Exam ENT Exam: Mucous Membranes Moist, Normal Exam - Neck Exam Neck Exam: Full ROM - Respiratory Exam Respiratory Exam: Clear to Ausculation Bilateral, NORMAL BREATHING PATTERN. absent: Rales, Rhonchi, Wheezes - Cardiovascular Exam Cardiovascular Exam: REGULAR RHYTHM, +S1, +S2. absent: Murmur - GI/Abdominal Exam GI & Abdominal Exam: absent: Distended, Tenderness - Extremities Exam Extremities Exam: absent: Calf Tenderness, Tenderness - Neurological Exam Neurological Exam: Alert, Awake, Oriented x3; patient is awake, alert, responds to verbal stimuli, and moves extremities past midline - Psychiatric Exam Psychiatric exam: Normal Affect, Normal Mood - Skin Skin Exam: Dry, Intact, Normal Color, Warm Assessment and Plan - Assessment and Plan (Free Text) Assessment: Pt is a 61 yo female with a past medical history of htn, asthma, gastric ulcer, esophagitis who is admitted for evaluation and treatment of a positive ppd, cavitary lesions on CT scan, and positive sputum AFB smear. Plan: 1. Cavitary lesion of lung -continue RIPE therapy as per ID -TB (QFT) was positive (12/13) -will order AFB stain after one week of RIPE therapy, per ID -Recommended all visitors wore proper isolation masks 2. Asthma -no complaints at this time -Solu-medrol discontinued (12/12) -prednisone discontinued (12/13) -continue albuterol PRN 3. Pneumonia - monitor clincial symptoms, continue antibiotic regiment as per ID 4. HTN -Continue lisinopril and HCTZ 5. Constipation -increased miralax from once a day to twice a day (12/13) 6. Rib pain -discontinued flexeril secondary to low normal BP - started patient on ibprofen PRN pain 7. GI/DVT prophylaxis -protonix/scd's Patient seen and case discussed with attending physician, Dr. Gillette. <John Gillette - Last Filed: 12/15/16 13:09> Objective - Vital Signs/Intake and Output Vital Signs (last 24 hours): Temp Pulse Resp BP Pulse Ox 98.1 F 74 18 99/67 L 97 12/15/16 08:00 12/15/16 08:00 12/15/16 08:00 12/15/16 08:00 12/15/16 08:00 Intake and Output: 12/15/16 12/15/16 06:59 18:59 Intake Total 900 Output Total 0 Balance 900 - Medications Medications: Current Medications Albuterol Sulfate (Albuterol 0.083% Inhal Megan (2.5 Mg/3 Ml) Ud) 2.5 mg IH [id number] PRN PRN Reason: Cough and congestion Ethambutol HCl (Myambutol) 800 mg PO DAILY [facility] Last Admin: 12/15/16 10:49 Dose: 800 mg Hydrochlorothiazide (Hydrodiuril) 25 mg PO DAILY [facility] Last Admin: 12/15/16 10:49 Dose: Not Given Ibuprofen (Motrin Tab) 600 mg PO Q6H PRN PRN Reason: Pain, moderate (4-7) Isoniazid (Niazid) 300 mg PO DAILY [facility] PRN Reason: Protocol Last Admin: 12/15/16 10:51 Dose: 300 mg Lisinopril (Zestril) 20 mg PO DAILY [facility] Last Admin: 12/15/16 10:55 Dose: Not Given Pantoprazole Sodium (Protonix Ec Tab) 40 mg PO 0600 [facility] Last Admin: 12/15/16 05:13 Dose: 40 mg Polyethylene Glycol (Miralax) 17 gm PO BID [facility] Last Admin: 12/15/16 10:49 Dose: 17 gm Polysaccharide Iron Complex (Ferrex-150) 300 mg PO BID [facility] Last Admin: 12/15/16 10:48 Dose: 300 mg Pyrazinamide (Pyrazinamide) 1,000 mg PO DAILY [facility] Last Admin: 12/15/16 10:51 Dose: 1,000 mg Pyridoxine HCl (Vitamin B6 50 Mg Tab) 50 mg PO DAILY [facility] Last Admin: 12/15/16 10:52 Dose: 50 mg Rifampin (Rifampin Cap) 300 mg PO BID [facility] PRN Reason: Protocol Last Admin: 12/15/16 10:52 Dose: 300 mg - Labs Labs: 12/15/16 06:30 12/15/16 06:30 PT 12.5 Seconds (9.9-11.8) H 12/07/16 19:45 INR 1.16 (0.93-1.08) H 12/07/16 19:45 APTT 31.7 Seconds (23.7-30.8) H 12/07/16 19:45 Attending/Attestation - Attestation I have personally seen and examined this patient.: Yes I have fully participated in the care of the patient.: Yes I have reviewed all pertinent clinical information, including history, physical exam and plan: Yes Notes (Text): 12/15/16 13:07 61 year old female with history of asthma and positive PPD who presented with complaint of cough and hemoptysis. She was found to have cavitary lesion on CT chest and +AFB. She is started on RIPE therapy. She is also on iv ceftriaxone as per ID and her steroids have been tapered off by pulmonary. Will switch her flexerir to motrin for right chest wall / rib pain as she has low normal pressure. She is on HCTZ and lisinopril for hypertension which were held today. Will monitor her blood pressure and adjust her medications accordingly. She is on miralax for constipation. John Gillette MD Hospitalist.
[2016-12-15] MEDS: cefTRIAXone 1 gm 1 GM/100 ML BAG IVPB SCH (11:49)
--- NOTE | 2016-12-15 16:49 | CP.PCM.PN ---
Subjective - Date & Time of Evaluation Date of Evaluation: 12/15/16 Time of Evaluation: 15:45 - Subjective Subjective: Infectious Disease Follow Up: December 15, 2016 61 yo female with cough and bright red blood in sputum starting yesterday. The patient complains of persistent cough for the past 2 months without improvement. The patient placed on isolation and respiratory precautions at this time. Supportive care. Rule out TB. 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 Patient did have BCG vaccine in the past as a child. Patient was born in the [place] but moved to the [facility] [address] chest showed either abscess or cavitary lesion. The patient does complain of subjective fevers and chills. Fever of 101.1 F in ER. Acid-fast stain was positive. Starting treatment for tuberculosis. Noted patient refusing TB meds stating that another doctor told her she does not need them. At this point, the patient has two positive acid-fast stains from the sputum. Issues with the patient not believing her diagnosis. Multiple doctors have explained to her and she finally started taking the anti-TB medications. However, question remain whether she would continue to take medications when she is cleared for discharge. The patient still has not said that she accepts the diagnosis that she has a lung infection. No further AFB until the patient has had at least one week of anti-TB medications. The patient's daughter apparently was treated for active tuberculosis and the patient given treatment for latent infection. [facility] chest clinic was apparently here and spoke to the patient today. The patient cannot leave the hospital until three consecutive sputums are AFB negative one week after starting RIPE therapy as she is a public health risk due to potential tuberculosis. Objective - Vital Signs/Intake and Output Vital Signs (last 24 hours): Temp Pulse Resp BP Pulse Ox 98.1 F 74 18 99/67 L 97 12/15/16 08:00 12/15/16 08:00 12/15/16 08:00 12/15/16 08:00 12/15/16 08:00 Intake and Output: 12/15/16 12/15/16 06:59 18:59 Intake Total 900 720 Output Total 0 Balance 900 720 - Medications Medications: Current Medications Albuterol Sulfate (Albuterol 0.083% Inhal Megan (2.5 Mg/3 Ml) Ud) 2.5 mg IH [id number] PRN PRN Reason: Cough and congestion Ethambutol HCl (Myambutol) 800 mg PO DAILY [facility] Last Admin: 12/15/16 10:49 Dose: 800 mg Hydrochlorothiazide (Hydrodiuril) 25 mg PO DAILY [facility] Last Admin: 12/15/16 10:49 Dose: Not Given Ibuprofen (Motrin Tab) 600 mg PO Q6H PRN PRN Reason: Pain, moderate (4-7) Last Admin: 12/15/16 13:19 Dose: 600 mg Isoniazid (Niazid) 300 mg PO DAILY [facility] PRN Reason: Protocol Last Admin: 12/15/16 10:51 Dose: 300 mg Lisinopril (Zestril) 20 mg PO DAILY [facility] Last Admin: 12/15/16 10:55 Dose: Not Given Pantoprazole Sodium (Protonix Ec Tab) 40 mg PO 0600 [facility] Last Admin: 12/15/16 05:13 Dose: 40 mg Polyethylene Glycol (Miralax) 17 gm PO BID [facility] Last Admin: 12/15/16 10:49 Dose: 17 gm Polysaccharide Iron Complex (Ferrex-150) 300 mg PO BID [facility] Last Admin: 12/15/16 10:48 Dose: 300 mg Pyrazinamide (Pyrazinamide) 1,000 mg PO DAILY [facility] Last Admin: 12/15/16 10:51 Dose: 1,000 mg Pyridoxine HCl (Vitamin B6 50 Mg Tab) 50 mg PO DAILY [facility] [place] Last Admin: 12/15/16 10:52 Dose: 50 mg Rifampin (Rifampin Cap) 300 mg PO BID [facility] PRN Reason: Protocol Last Admin: 12/15/16 10:52 Dose: 300 mg - Labs Labs: 12/15/16 06:30 12/15/16 06:30 PT 12.5 Seconds (9.9-11.8) H 12/07/16 19:45 INR 1.16 (0.93-1.08) H 12/07/16 19:45 APTT 31.7 Seconds (23.7-30.8) H 12/07/16 19:45 - Constitutional Appears: Non-toxic, No Acute Distress - Head Exam Head Exam: ATRAUMATIC, NORMOCEPHALIC - Eye Exam Eye Exam: EOMI, PERRL Pupil Exam: NORMAL ACCOMODATION, PERRL - ENT Exam ENT Exam: Mucous Membranes Moist, Normal External Ear Exam, TM's Normal Bilaterally - Neck Exam Neck Exam: Full ROM, Normal Inspection - Respiratory Exam Respiratory Exam: Clear to Ausculation Bilateral, NORMAL BREATHING PATTERN. absent: Rales, Rhonchi, Wheezes - Cardiovascular Exam Cardiovascular Exam: REGULAR RHYTHM, RRR, +S1, +S2 - GI/Abdominal Exam GI & Abdominal Exam: Soft, Normal Bowel Sounds. absent: Distended, Tenderness - Extremities Exam Extremities Exam: Full ROM, Normal Inspection - Neurological Exam Neurological Exam: Alert, Awake, CN II-XII Intact, Oriented x3 - Psychiatric Exam Psychiatric exam: Normal Affect, Normal Mood - Skin Skin Exam: Intact, Normal Color Assessment and Plan - Assessment and Plan (Free Text) Assessment: 61 yo female with prolonged cough for over 2 months with no improvement on antibiotics. The patient with known positive PPD. Cannot rule out tuberculosis at this point. Must also consider infections such as Staph Aureus and other acid-fast positive organisms. Start Rocephin for antibiotic coverage. Larson cultures. Obtain Acid-Fast stains and studies of sputum x 3. Patient had hemoptysis. Repeating PPD and Quantiferon will not yield additional data (both tests only show potential exposure of patient to tuberculosis during lifetime and cannot denote active disease). Await Acid- Fast stains and sputum culture results. Maintain isolation. Acid-Fast stain positive from sputum x 2. Continue treatment for tuberculosis as other tests return. Continue on Isoniazid, Rifampin, Pyrazinamide, and ethambutol. Start Vitamin B6 as well. Await PCR for identification of tuberculous strain and cultures. Supportive care. HIV test results are negative. No further AFB until patient has taken one week of anti-TB meds. Cough and hemopytsis improved. Patient does not believe her diagnosis of potential TB. Thank you for allowing me to participate in the care of the patient, we will follow with you.
[2016-12-16] MEDS: Pantoprazole 40 mg EC Tab PO SCH (05:33)
[2016-12-16 07:24] LABS: BASO # 0.03 K/mm3 (0.0-2.0); BASO % 0.5 % (0.0-3.0); EOS # 0.4 (0.0-0.7); EOS % 6.9 % (1.5-5.0); GRAN # 3.95 (1.4-6.5); GRAN % 61.6 % (50.0-68.0); HEMOGLOBIN 9.5 gm/dL (12.0-16.0); LYMPH # 1.4 (1.2-3.4); LYMPH % 21.9 % (22.0-35.0); MEAN CELL VOLUME 84.7 fL (80.0-105.0); MEAN CORPUSCULAR HEMOGLOBIN 26.4 pg (25.0-35.0); MEAN CORPUSCULAR HGB CONC 31.1 g/dl (31.0-37.0); MONO # 0.6 (0.1-0.6); MONO % 9.1 % (1.0-6.0); PLATELET COUNT 499 10^3/uL (120.0-450.0); WHITE BLOOD COUNT 6.4 10^3/ul (4.5-11.0)
[2016-12-16 07:27] LABS: ALBUMIN 3.4 g/dL (3.0-4.8); ALT/SGPT 30 U/L (7-56); AST/SGOT 23 U/L (15-39); BLOOD UREA NITROGEN 12 mg/dL (7-21); GFR AFRICAN-AMERICAN > 60; GFR NON-AFRICAN AMERICAN > 60
[2016-12-16] MEDS: Iron Complex Polysacch 150mg Cap PO SCH ×2 (11:50→17:12)
[2016-12-16] MEDS: POLYETHYLENE GLYCOL 3350 17 GM/Dose PACKET PO SCH ×2 (11:51→17:12)
--- NOTE | 2016-12-16 13:08 | CP.PCM.PN ---
<EnriqueHugo - Last Filed: 12/16/16 13:04> Subjective - Date & Time of Evaluation Date of Evaluation: 12/16/16 Time of Evaluation: 11:00 - Subjective Subjective: Patient seen and examined bedside. No acute overnight events. Patient seen ambulating without overt difficultly. States that her anterior chest wall pain has improved. Denies fever, chills, dizzniess, chest pain, SOB. abdominal pain, and N/V. Objective - Vital Signs/Intake and Output Vital Signs (last 24 hours): Temp Pulse Resp BP Pulse Ox 97.6 F 87 20 143/98 H 96 12/16/16 08:09 12/16/16 08:09 12/16/16 08:09 12/16/16 08:09 12/16/16 08:09 Intake and Output: 12/16/16 12/16/16 06:59 18:59 Intake Total 1060 Balance 1060 - Medications Medications: Current Medications Albuterol Sulfate (Albuterol 0.083% Inhal Megan (2.5 Mg/3 Ml) Ud) 2.5 mg IH [id number] PRN PRN Reason: Cough and congestion Ethambutol HCl (Myambutol) 800 mg PO DAILY [facility] Last Admin: 12/16/16 11:49 Dose: 800 mg Hydrochlorothiazide (Hydrodiuril) 25 mg PO DAILY [facility] Last Admin: 12/16/16 11:50 Dose: 25 mg Ibuprofen (Motrin Tab) 600 mg PO Q6H PRN PRN Reason: Pain, moderate (4-7) Last Admin: 12/15/16 13:19 Dose: 600 mg Isoniazid (Niazid) 300 mg PO DAILY [facility] PRN Reason: Protocol Last Admin: 12/16/16 11:49 Dose: 300 mg Lisinopril (Zestril) 20 mg PO DAILY [facility] Last Admin: 12/16/16 11:50 Dose: 20 mg Pantoprazole Sodium (Protonix Ec Tab) 40 mg PO 0600 [facility] Last Admin: 12/16/16 05:33 Dose: 40 mg Polyethylene Glycol (Miralax) 17 gm PO BID [facility] Last Admin: 12/16/16 11:51 Dose: 17 gm Polysaccharide Iron Complex (Ferrex-150) 300 mg PO BID [facility] Last Admin: 12/16/16 11:50 Dose: 300 mg Pyrazinamide (Pyrazinamide) 1,000 mg PO DAILY [facility] Last Admin: 12/16/16 11:50 Dose: 1,000 mg Pyridoxine HCl (Vitamin B6 50 Mg Tab) 50 mg PO DAILY [facility] Last Admin: 12/16/16 11:50 Dose: 50 mg Rifampin (Rifampin Cap) 300 mg PO BID [facility] PRN Reason: Protocol Last Admin: 12/16/16 11:50 Dose: 300 mg - Labs Labs: 12/16/16 06:50 12/16/16 06:50 PT 12.5 Seconds (9.9-11.8) H 12/07/16 19:45 INR 1.16 (0.93-1.08) H 12/07/16 19:45 APTT 31.7 Seconds (23.7-30.8) H 12/07/16 19:45 - Additional Findings Additional findings: - Constitutional Appears: No Acute Distress - Head Exam Head Exam: NORMAL INSPECTION, NORMOCEPHALIC - Eye Exam Eye Exam: EOMI, Normal appearance - ENT Exam ENT Exam: Mucous Membranes Moist, Normal Exam - Neck Exam Neck Exam: Full ROM - Respiratory Exam Respiratory Exam: Clear to Ausculation Bilateral, NORMAL BREATHING PATTERN. absent: Rales, Rhonchi, Wheezes - Cardiovascular Exam Cardiovascular Exam: REGULAR RHYTHM, +S1, +S2. absent: Murmur - GI/Abdominal Exam GI & Abdominal Exam: absent: Distended, Tenderness - Extremities Exam Extremities Exam: absent: Calf Tenderness, Tenderness - Neurological Exam Neurological Exam: Alert, Awake, Oriented x3; patient is awake, alert, responds to verbal stimuli, and moves extremities past midline - Psychiatric Exam Psychiatric exam: Normal Affect, Normal Mood - Skin Skin Exam: Dry, Intact, Normal Color, Warm Assessment and Plan - Assessment and Plan (Free Text) Assessment: Pt is a 61 yo female with a past medical history of htn, asthma, gastric ulcer, esophagitis who is admitted for evaluation and treatment of a positive ppd, cavitary lesions on CT scan, and positive sputum AFB smear. Plan: 1. Cavitary lesion of lung -continue RIPE therapy as per ID - patient cannot leave the hospital until three consecutive sputums are AFB negative one week after starting RIPE therapy due to her currently being a public health risk -TB (QFT) was positive (12/13) - Isolation precautions -Recommended all visitors wear proper isolation masks -will order AFB stain after one week of RIPE therapy, per ID 2. Asthma -no complaints at this time -Solu-medrol discontinued (12/12) -prednisone discontinued (12/13) -continue albuterol PRN 3. Pneumonia - monitor clincial symptoms, continue antibiotic regiment as per ID 4. HTN -Continue lisinopril and HCTZ 5. Constipation -increased miralax from once a day to twice a day (12/13) 6. Rib pain -discontinued flexeril secondary to low normal BP, rechecked this AM and BP has elevated - continue patient on ibprofen PRN pain 7. GI/DVT prophylaxis -protonix/scd's Patient seen and case discussed with attending physician, Dr. Gillette. <John Gillette - Last Filed: 12/16/16 13:53> Objective - Vital Signs/Intake and Output Vital Signs (last 24 hours): Temp Pulse Resp BP Pulse Ox 97.6 F 87 20 143/98 H 96 12/16/16 08:09 12/16/16 08:09 12/16/16 08:09 12/16/16 08:09 12/16/16 08:09 Intake and Output: 12/16/16 12/16/16 06:59 18:59 Intake Total 1060 Balance 1060 - Medications Medications: Current Medications Albuterol Sulfate (Albuterol 0.083% Inhal Megan (2.5 Mg/3 Ml) Ud) 2.5 mg IH [id number] PRN PRN Reason: Cough and congestion Ethambutol HCl (Myambutol) 800 mg PO DAILY [facility] Last Admin: 12/16/16 11:49 Dose: 800 mg Hydrochlorothiazide (Hydrodiuril) 25 mg PO DAILY [facility] Last Admin: 12/16/16 11:50 Dose: 25 mg Ibuprofen (Motrin Tab) 600 mg PO Q6H PRN PRN Reason: Pain, moderate (4-7) Last Admin: 12/15/16 13:19 Dose: 600 mg Isoniazid (Niazid) 300 mg PO DAILY [facility] PRN Reason: Protocol Last Admin: 12/16/16 11:49 Dose: 300 mg Lisinopril (Zestril) 20 mg PO DAILY [facility] Last Admin: 12/16/16 11:50 Dose: 20 mg Pantoprazole Sodium (Protonix Ec Tab) 40 mg PO 0600 [facility] Last Admin: 12/16/16 05:33 Dose: 40 mg Polyethylene Glycol (Miralax) 17 gm PO BID [facility] Last Admin: 12/16/16 11:51 Dose: 17 gm Polysaccharide Iron Complex (Ferrex-150) 300 mg PO BID [facility] Last Admin: 12/16/16 11:50 Dose: 300 mg Pyrazinamide (Pyrazinamide) 1,000 mg PO DAILY [facility] Last Admin: 12/16/16 11:50 Dose: 1,000 mg Pyridoxine HCl (Vitamin B6 50 Mg Tab) 50 mg PO DAILY [facility] Last Admin: 12/16/16 11:50 Dose: 50 mg Rifampin (Rifampin Cap) 300 mg PO BID [facility] PRN Reason: Protocol Last Admin: 12/16/16 11:50 Dose: 300 mg - Labs Labs: 12/16/16 06:50 12/16/16 06:50 PT 12.5 Seconds (9.9-11.8) H 12/07/16 19:45 INR 1.16 (0.93-1.08) H 12/07/16 19:45 APTT 31.7 Seconds (23.7-30.8) H 12/07/16 19:45 Attending/Attestation - Attestation I have personally seen and examined this patient.: Yes I have fully participated in the care of the patient.: Yes I have reviewed all pertinent clinical information, including history, physical exam and plan: Yes Notes (Text): 12/16/16 13:50 61 year old female with history of asthma and positive PPD who presented with complaint of cough and hemoptysis. She was found to have cavitary lesion on CT chest and +AFB. She is started on RIPE therapy. She is s/p antibiotics and steroids therapy. Chest wall pain has improved on motrin. She is on HCTZ and lisinopril for hypertension. She is on miralax for constipation. John Gillette MD Hospitalist.
--- NOTE | 2016-12-16 15:41 | CP.PCM.PN ---
Subjective - Date & Time of Evaluation Date of Evaluation: 12/16/16 Time of Evaluation: 14:45 - Subjective Subjective: Infectious Disease Follow Up: December 16, 2016 61 yo female with cough and bright red blood in sputum starting yesterday. The patient complains of persistent cough for the past 2 months without improvement. The patient placed on isolation and respiratory precautions at this time. Supportive care. Rule out TB. 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 Patient did have BCG vaccine in the past as a child. Patient was born in the [place] but moved to the [facility] [address] chest showed either abscess or cavitary lesion. The patient does complain of subjective fevers and chills. Fever of 101.1 F in ER. Acid-fast stain was positive. Starting treatment for tuberculosis. Noted patient refusing TB meds stating that another doctor told her she does not need them. At this point, the patient has two positive acid-fast stains from the sputum. Issues with the patient not believing her diagnosis. Multiple doctors have explained to her and she finally started taking the anti-TB medications. However, question remain whether she would continue to take medications when she is cleared for discharge. The patient still has not said that she accepts the diagnosis that she has a lung infection. No further AFB until the patient has had at least one week of anti-TB medications. The patient's daughter apparently was treated for active tuberculosis and the patient given treatment for latent infection. [facility] chest clinic was apparently here and spoke to the patient today. The patient cannot leave the hospital until three consecutive sputums are AFB negative one week after starting RIPE therapy as she is a public health risk due to potential tuberculosis. AFB culture negative at one week... note that mycobacterium are slow growing organisms and that the results are NOT finalized until 6 weeks of incubation. This amount of time must pass for incubation before one can state/read the culture is negative. Objective - Vital Signs/Intake and Output Vital Signs (last 24 hours): Temp Pulse Resp BP Pulse Ox 97.6 F 87 20 143/98 H 96 12/16/16 08:09 12/16/16 08:09 12/16/16 08:09 12/16/16 08:09 12/16/16 08:09 Intake and Output: 12/16/16 12/16/16 06:59 18:59 Intake Total 1060 480 Balance 1060 480 - Medications Medications: Current Medications Albuterol Sulfate (Albuterol 0.083% Inhal Megan (2.5 Mg/3 Ml) Ud) 2.5 mg IH [id number] PRN PRN Reason: Cough and congestion Ethambutol HCl (Myambutol) 800 mg PO DAILY [facility] Last Admin: 12/16/16 11:49 Dose: 800 mg Hydrochlorothiazide (Hydrodiuril) 25 mg PO DAILY [facility] Last Admin: 12/16/16 11:50 Dose: 25 mg Ibuprofen (Motrin Tab) 600 mg PO Q6H PRN PRN Reason: Pain, moderate (4-7) Last Admin: 12/15/16 13:19 Dose: 600 mg Isoniazid (Niazid) 300 mg PO DAILY [facility] PRN Reason: Protocol Last Admin: 12/16/16 11:49 Dose: 300 mg Lisinopril (Zestril) 20 mg PO DAILY [facility] Last Admin: 12/16/16 11:50 Dose: 20 mg Pantoprazole Sodium (Protonix Ec Tab) 40 mg PO 0600 [facility] Last Admin: 12/16/16 05:33 Dose: 40 mg Polyethylene Glycol (Miralax) 17 gm PO BID [facility] Last Admin: 12/16/16 11:51 Dose: 17 gm Polysaccharide Iron Complex (Ferrex-150) 300 mg PO BID [facility] Last Admin: 12/16/16 11:50 Dose: 300 mg Pyrazinamide (Pyrazinamide) 1,000 mg PO DAILY [facility] Last Admin: 12/16/16 11:50 Dose: 1,000 mg Pyridoxine HCl (Vitamin B6 50 Mg Tab) 50 mg PO DAILY [facility] Last Admin: 12/16/16 11:50 Dose: 50 mg Rifampin (Rifampin Cap) 300 mg PO BID [facility] PRN Reason: Protocol Last Admin: 12/16/16 11:50 Dose: 300 mg - Labs Labs: 12/16/16 06:50 12/16/16 06:50 PT 12.5 Seconds (9.9-11.8) H 12/07/16 19:45 INR 1.16 (0.93-1.08) H 12/07/16 19:45 APTT 31.7 Seconds (23.7-30.8) H 12/07/16 19:45 - Constitutional Appears: Non-toxic, No Acute Distress - Head Exam Head Exam: ATRAUMATIC, NORMOCEPHALIC - Eye Exam Eye Exam: EOMI, PERRL Pupil Exam: NORMAL ACCOMODATION, PERRL - ENT Exam ENT Exam: Mucous Membranes Moist, Normal External Ear Exam, TM's Normal Bilaterally - Neck Exam Neck Exam: Full ROM, Normal Inspection - Respiratory Exam Respiratory Exam: Clear to Ausculation Bilateral, NORMAL BREATHING PATTERN. absent: Rales, Rhonchi, Wheezes - Cardiovascular Exam Cardiovascular Exam: REGULAR RHYTHM, RRR, +S1, +S2 - GI/Abdominal Exam GI & Abdominal Exam: Soft, Normal Bowel Sounds. absent: Distended, Tenderness - Extremities Exam Extremities Exam: Full ROM, Normal Inspection - Neurological Exam Neurological Exam: Alert, Awake, CN II-XII Intact, Oriented x3 - Psychiatric Exam Psychiatric exam: Normal Affect, Normal Mood - Skin Skin Exam: Intact, Normal Color Assessment and Plan - Assessment and Plan (Free Text) Assessment: 61 yo female with prolonged cough for over 2 months with no improvement on antibiotics. The patient with known positive PPD. Cannot rule out tuberculosis at this point. Must also consider infections such as Staph Aureus and other acid-fast positive organisms. Start Rocephin for antibiotic coverage. Larson cultures. Obtain Acid-Fast stains and studies of sputum x 3. Patient had hemoptysis. Repeating PPD and Quantiferon will not yield additional data (both tests only show potential exposure of patient to tuberculosis during lifetime and cannot denote active disease). Await Acid- Fast stains and sputum culture results. Maintain isolation. Acid-Fast stain positive from sputum x 2. Continue treatment for tuberculosis as other tests return. Continue on Isoniazid, Rifampin, Pyrazinamide, and ethambutol. Start Vitamin B6 as well. Await PCR for identification of tuberculous strain and cultures. Supportive care. HIV test results are negative. No further AFB until patient has taken one week of anti-TB meds. Cough and hemopytsis improved. Patient does not believe her diagnosis of potential TB. First AFB cultures read currently as negative at one week of incubation. Results are finalized after 6 weeks of incubation. Thank you for allowing me to participate in the care of the patient, we will follow with you.
[2016-12-17] MEDS: Iron Complex Polysacch 150mg Cap PO SCH ×2 (10:03→17:28)
[2016-12-17] MEDS: POLYETHYLENE GLYCOL 3350 17 GM/Dose PACKET PO SCH ×2 (10:03→17:28)
--- NOTE | 2016-12-17 15:51 | CP.PCM.PN ---
<JAY HERRERA - Last Filed: 12/17/16 15:44> Subjective - Date & Time of Evaluation Date of Evaluation: 12/17/16 Time of Evaluation: 10:20 - Subjective Subjective: Medicine Progress Note: Patient seen and examined bedside. Patient has no new complaints at this time. Denies fever, chills, dizzniess, chest pain, SOB, cough, wheezing, abdominal pain, and N/V. Objective - Vital Signs/Intake and Output Vital Signs (last 24 hours): Temp Pulse Resp BP Pulse Ox 98.4 F 84 20 114/76 97 12/16/16 16:55 12/17/16 10:04 12/16/16 16:55 12/17/16 10:04 12/16/16 16:55 Intake and Output: 12/17/16 12/17/16 06:59 18:59 Intake Total 600 Balance 600 - Medications Medications: Current Medications Albuterol Sulfate (Albuterol 0.083% Inhal Megan (2.5 Mg/3 Ml) Ud) 2.5 mg IH [id number] PRN PRN Reason: Cough and congestion Ethambutol HCl (Myambutol) 800 mg PO DAILY [facility] Last Admin: 12/17/16 10:03 Dose: 800 mg Hydrochlorothiazide (Hydrodiuril) 25 mg PO DAILY [facility] Last Admin: 12/17/16 10:03 Dose: 25 mg Ibuprofen (Motrin Tab) 600 mg PO Q6H PRN PRN Reason: Pain, moderate (4-7) Last Admin: 12/15/16 13:19 Dose: 600 mg Isoniazid (Niazid) 300 mg PO DAILY [facility] PRN Reason: Protocol Last Admin: 12/17/16 10:04 Dose: 300 mg Lisinopril (Zestril) 20 mg PO DAILY [facility] Last Admin: 12/17/16 10:04 Dose: 20 mg Pantoprazole Sodium (Protonix Ec Tab) 40 mg PO 0600 [facility] Last Admin: 12/16/16 05:33 Dose: 40 mg Polyethylene Glycol (Miralax) 17 gm PO BID [facility] Last Admin: 12/17/16 10:03 Dose: 17 gm Polysaccharide Iron Complex (Ferrex-150) 300 mg PO BID [facility] Last Admin: 12/17/16 10:03 Dose: 300 mg Pyrazinamide (Pyrazinamide) 1,000 mg PO DAILY [facility] Last Admin: 12/17/16 10:04 Dose: 1,000 mg Pyridoxine HCl (Vitamin B6 50 Mg Tab) 50 mg PO DAILY [facility] Last Admin: 12/17/16 10:04 Dose: 50 mg Rifampin (Rifampin Cap) 300 mg PO BID [facility] PRN Reason: Protocol Last Admin: 12/17/16 10:04 Dose: 300 mg - Labs Labs: 12/16/16 06:50 12/16/16 06:50 PT 12.5 Seconds (9.9-11.8) H 12/07/16 19:45 INR 1.16 (0.93-1.08) H 12/07/16 19:45 APTT 31.7 Seconds (23.7-30.8) H 12/07/16 19:45 - Constitutional Appears: No Acute Distress - Head Exam Head Exam: NORMAL INSPECTION, NORMOCEPHALIC - Eye Exam Eye Exam: EOMI, Normal appearance - ENT Exam ENT Exam: Mucous Membranes Moist, Normal Exam - Neck Exam Neck Exam: Full ROM. absent: Lymphadenopathy - Respiratory Exam Respiratory Exam: Clear to Ausculation Bilateral, NORMAL BREATHING PATTERN. absent: Rales, Rhonchi, Wheezes - Cardiovascular Exam Cardiovascular Exam: REGULAR RHYTHM, +S1, +S2. absent: Murmur - GI/Abdominal Exam GI & Abdominal Exam: Normal Bowel Sounds. absent: Tenderness - Extremities Exam Extremities Exam: absent: Calf Tenderness, Pedal Edema - Neurological Exam Neurological Exam: Alert, Awake, Oriented x3 - Psychiatric Exam Psychiatric exam: Normal Affect, Normal Mood - Skin Skin Exam: Dry, Intact, Normal Color, Warm Assessment and Plan - Assessment and Plan (Free Text) Assessment: Pt is a 61 yo female with a past medical history of htn, asthma, gastric ulcer, esophagitis who is admitted for evaluation and treatment of a positive ppd, cavitary lesions on CT scan, and positive sputum AFB smear. 1. Cavitary lesion of lung -continue RIPE therapy as per ID - patient cannot leave the hospital until three consecutive sputums are AFB negative one week after starting RIPE therapy due to her currently being a public health risk - Isolation precautions -Recommended all visitors wear proper isolation masks -will order first of three AFB stains one week after starting RIPE therapy on , per ID -will need to consult with Department of Health before discharge 2. Asthma -no complaints at this time -continue albuterol PRN 3. Pneumonia - monitor clincial symptoms, continue antibiotic regiment as per ID 4. HTN -Continue lisinopril and HCTZ 5. Constipation -increased miralax from once a day to twice a day (12/13) 6. Rib pain - continue patient on ibprofen PRN pain 7. GI/DVT prophylaxis -protonix/scd's Patient seen and case discussed with attending physician, Dr. Gillette. <John Gillette - Last Filed: 12/17/16 16:11> Objective - Vital Signs/Intake and Output Vital Signs (last 24 hours): Temp Pulse Resp BP Pulse Ox 98.7 F 98 H 98 H 109/76 20 L 12/17/16 15:47 12/17/16 15:47 12/17/16 15:47 12/17/16 15:47 12/17/16 15:47 Intake and Output: 12/17/16 12/17/16 06:59 18:59 Intake Total 600 Balance 600 - Medications Medications: Current Medications Albuterol Sulfate (Albuterol 0.083% Inhal Megan (2.5 Mg/3 Ml) Ud) 2.5 mg IH [id number] PRN PRN Reason: Cough and congestion Ethambutol HCl (Myambutol) 800 mg PO DAILY [facility] Last Admin: 12/17/16 10:03 Dose: 800 mg Hydrochlorothiazide (Hydrodiuril) 25 mg PO DAILY [facility] Last Admin: 12/17/16 10:03 Dose: 25 mg Ibuprofen (Motrin Tab) 600 mg PO Q6H PRN PRN Reason: Pain, moderate (4-7) Last Admin: 12/15/16 13:19 Dose: 600 mg Isoniazid (Niazid) 300 mg PO DAILY [facility] PRN Reason: Protocol Last Admin: 12/17/16 10:04 Dose: 300 mg Lisinopril (Zestril) 20 mg PO DAILY [facility] Last Admin: 12/17/16 10:04 Dose: 20 mg Pantoprazole Sodium (Protonix Ec Tab) 40 mg PO 0600 [facility] Last Admin: 12/16/16 05:33 Dose: 40 mg Polyethylene Glycol (Miralax) 17 gm PO BID [facility] Last Admin: 12/17/16 10:03 Dose: 17 gm Polysaccharide Iron Complex (Ferrex-150) 300 mg PO BID [facility] Last Admin: 12/17/16 10:03 Dose: 300 mg Pyrazinamide (Pyrazinamide) 1,000 mg PO DAILY [facility] Last Admin: 12/17/16 10:04 Dose: 1,000 mg Pyridoxine HCl (Vitamin B6 50 Mg Tab) 50 mg PO DAILY [facility] Last Admin: 12/17/16 10:04 Dose: 50 mg Rifampin (Rifampin Cap) 300 mg PO BID [facility] PRN Reason: Protocol Last Admin: 12/17/16 10:04 Dose: 300 mg - Labs Labs: 12/16/16 06:50 12/16/16 06:50 PT 12.5 Seconds (9.9-11.8) H 12/07/16 19:45 INR 1.16 (0.93-1.08) H 12/07/16 19:45 APTT 31.7 Seconds (23.7-30.8) H 12/07/16 19:45 Attending/Attestation - Attestation I have personally seen and examined this patient.: Yes I have fully participated in the care of the patient.: Yes I have reviewed all pertinent clinical information, including history, physical exam and plan: Yes Notes (Text): 12/17/16 16:08 61 year old female with history of asthma and positive PPD who presented with complaint of cough and hemoptysis. She was found to have cavitary lesion on CT chest and +AFB and started on RIPE therapy. She is s/p antibiotics and steroids therapy and being followed by ID and pulmonary. Will repeat AFB early this week, one week after when she started RIPE therapy. Chest wall pain has improved on motrin prn. She is on HCTZ and lisinopril for hypertension. She is on miralax for constipation. John Gillette MD Hospitalist.
--- NOTE | 2016-12-17 15:59 | CP.PCM.PN ---
Subjective - Date & Time of Evaluation Date of Evaluation: 12/17/16 Time of Evaluation: 15:00 - Subjective Subjective: Infectious Disease Follow Up: December 17, 2016 61 yo female with cough and bright red blood in sputum starting yesterday. The patient complains of persistent cough for the past 2 months without improvement. The patient placed on isolation and respiratory precautions at this time. Supportive care. Rule out TB. 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 Patient did have BCG vaccine in the past as a child. Patient was born in the [place] but moved to the [facility] [address] chest showed either abscess or cavitary lesion. The patient does complain of subjective fevers and chills. Fever of 101.1 F in ER. Acid-fast stain was positive. Starting treatment for tuberculosis. Noted patient refusing TB meds stating that another doctor told her she does not need them. At this point, the patient has two positive acid-fast stains from the sputum. Issues with the patient not believing her diagnosis. Multiple doctors have explained to her and she finally started taking the anti-TB medications. However, question remain whether she would continue to take medications when she is cleared for discharge. The patient still has not said that she accepts the diagnosis that she has a lung infection. No further AFB until the patient has had at least one week of anti-TB medications. The patient's daughter apparently was treated for active tuberculosis and the patient given treatment for latent infection. [facility] chest clinic was apparently here and spoke to the patient today. The patient cannot leave the hospital until three consecutive sputums are AFB negative one week after starting RIPE therapy as she is a public health risk due to potential tuberculosis. AFB culture negative at one week... note that mycobacterium are slow growing organisms and that the results are NOT finalized until 6 weeks of incubation. This amount of time must pass for incubation before one can state/read the culture is negative. Objective - Vital Signs/Intake and Output Vital Signs (last 24 hours): Temp Pulse Resp BP Pulse Ox 98.7 F 98 H 98 H 109/76 20 L 12/17/16 15:47 12/17/16 15:47 12/17/16 15:47 12/17/16 15:47 12/17/16 15:47 Intake and Output: 12/17/16 12/17/16 06:59 18:59 Intake Total 600 Balance 600 - Medications Medications: Current Medications Albuterol Sulfate (Albuterol 0.083% Inhal Megan (2.5 Mg/3 Ml) Ud) 2.5 mg IH [id number] PRN PRN Reason: Cough and congestion Ethambutol HCl (Myambutol) 800 mg PO DAILY [facility] Last Admin: 12/17/16 10:03 Dose: 800 mg Hydrochlorothiazide (Hydrodiuril) 25 mg PO DAILY [facility] Last Admin: 12/17/16 10:03 Dose: 25 mg Ibuprofen (Motrin Tab) 600 mg PO Q6H PRN PRN Reason: Pain, moderate (4-7) Last Admin: 12/15/16 13:19 Dose: 600 mg Isoniazid (Niazid) 300 mg PO DAILY [facility] PRN Reason: Protocol Last Admin: 12/17/16 10:04 Dose: 300 mg Lisinopril (Zestril) 20 mg PO DAILY [facility] Last Admin: 12/17/16 10:04 Dose: 20 mg Pantoprazole Sodium (Protonix Ec Tab) 40 mg PO 0600 [facility] Last Admin: 12/16/16 05:33 Dose: 40 mg Polyethylene Glycol (Miralax) 17 gm PO BID [facility] Last Admin: 12/17/16 10:03 Dose: 17 gm Polysaccharide Iron Complex (Ferrex-150) 300 mg PO BID [facility] Last Admin: 12/17/16 10:03 Dose: 300 mg Pyrazinamide (Pyrazinamide) 1,000 mg PO DAILY [facility] Last Admin: 12/17/16 10:04 Dose: 1,000 mg Pyridoxine HCl (Vitamin B6 50 Mg Tab) 50 mg PO DAILY [facility] Last Admin: 12/17/16 10:04 Dose: 50 mg Rifampin (Rifampin Cap) 300 mg PO BID [facility] PRN Reason: Protocol Last Admin: 12/17/16 10:04 Dose: 300 mg - Labs Labs: 12/16/16 06:50 12/16/16 06:50 PT 12.5 Seconds (9.9-11.8) H 12/07/16 19:45 INR 1.16 (0.93-1.08) H 12/07/16 19:45 APTT 31.7 Seconds (23.7-30.8) H 12/07/16 19:45 - Constitutional Appears: Non-toxic, No Acute Distress - Head Exam Head Exam: ATRAUMATIC, NORMOCEPHALIC - Eye Exam Eye Exam: EOMI, PERRL Pupil Exam: NORMAL ACCOMODATION, PERRL - ENT Exam ENT Exam: Mucous Membranes Moist, Normal External Ear Exam, TM's Normal Bilaterally - Neck Exam Neck Exam: Full ROM, Normal Inspection - Respiratory Exam Respiratory Exam: Clear to Ausculation Bilateral, NORMAL BREATHING PATTERN. absent: Rales, Rhonchi, Wheezes - Cardiovascular Exam Cardiovascular Exam: REGULAR RHYTHM, RRR, +S1, +S2 - GI/Abdominal Exam GI & Abdominal Exam: Soft, Normal Bowel Sounds. absent: Distended, Tenderness - Extremities Exam Extremities Exam: Full ROM, Normal Inspection - Neurological Exam Neurological Exam: Alert, Awake, CN II-XII Intact, Normal Gait, Oriented x3 - Psychiatric Exam Psychiatric exam: Normal Affect, Normal Mood - Skin Skin Exam: Intact, Normal Color Assessment and Plan - Assessment and Plan (Free Text) Assessment: 61 yo female with prolonged cough for over 2 months with no improvement on antibiotics. The patient with known positive PPD. Cannot rule out tuberculosis at this point. Must also consider infections such as Staph Aureus and other acid-fast positive organisms. Start Rocephin for antibiotic coverage. Larson cultures. Obtain Acid-Fast stains and studies of sputum x 3. Patient had hemoptysis. Repeating PPD and Quantiferon will not yield additional data (both tests only show potential exposure of patient to tuberculosis during lifetime and cannot denote active disease). Await Acid- Fast stains and sputum culture results. Maintain isolation. Acid-Fast stain positive from sputum x 2. Continue treatment for tuberculosis as other tests return. Continue on Isoniazid, Rifampin, Pyrazinamide, and ethambutol. Start Vitamin B6 as well. Await PCR for identification of tuberculous strain and cultures. Supportive care. HIV test results are negative. No further AFB until patient has taken one week of anti-TB meds. Cough and hemopytsis improved. Patient does not believe her diagnosis of potential TB. First AFB cultures read currently as negative at one week of incubation. Results are finalized after 6 weeks of incubation. Thank you for allowing me to participate in the care of the patient, we will follow with you.
--- NOTE | 2016-12-17 21:03 | CP.PCM.PN ---
Subjective - Date & Time of Evaluation Date of Evaluation: 12/17/16 Time of Evaluation: 16:00 - Subjective Subjective: 61 yo female with PMH of HTN presents with hemoptysis. Patient states that last night she started cough up blood with sputum. She also reports fever of 105, for which she took Tylenol. Patient states that she was treated for pneumonia about 1 month ago, however she continued to have cough. She states that this has never happened before. 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 She denies any recent travel, or sick contacts. She denies weight loss, chest pain, abd pain, n/v sputum AFB smeer is positive, so far no AFB grouth, final culture stile of course pending cough is now much better, no more hemoptosis Objective - Vital Signs/Intake and Output Vital Signs (last 24 hours): Temp Pulse Resp BP Pulse Ox 98.7 F 98 H 98 H 109/76 20 L 12/17/16 15:47 12/17/16 15:47 12/17/16 15:47 12/17/16 15:47 12/17/16 15:47 Intake and Output: 12/17/16 12/18/16 18:59 06:59 Intake Total 600 Balance 600 - Medications Medications: Current Medications Albuterol Sulfate (Albuterol 0.083% Inhal Megan (2.5 Mg/3 Ml) Ud) 2.5 mg IH [id number] PRN PRN Reason: Cough and congestion Ethambutol HCl (Myambutol) 800 mg PO DAILY [facility] Last Admin: 12/17/16 10:03 Dose: 800 mg Hydrochlorothiazide (Hydrodiuril) 25 mg PO DAILY [facility] Last Admin: 12/17/16 10:03 Dose: 25 mg Ibuprofen (Motrin Tab) 600 mg PO Q6H PRN PRN Reason: Pain, moderate (4-7) Last Admin: 12/17/16 19:03 Dose: 600 mg Isoniazid (Niazid) 300 mg PO DAILY [facility] PRN Reason: Protocol Last Admin: 12/17/16 10:04 Dose: 300 mg Lisinopril (Zestril) 20 mg PO DAILY [facility] Last Admin: 12/17/16 10:04 Dose: 20 mg Pantoprazole Sodium (Protonix Ec Tab) 40 mg PO 0600 [facility] Last Admin: 12/16/16 05:33 Dose: 40 mg Polyethylene Glycol (Miralax) 17 gm PO BID [facility] Last Admin: 12/17/16 17:28 Dose: 17 gm Polysaccharide Iron Complex (Ferrex-150) 300 mg PO BID [facility] Last Admin: 12/17/16 17:28 Dose: 300 mg Pyrazinamide (Pyrazinamide) 1,000 mg PO DAILY [facility] Last Admin: 12/17/16 10:04 Dose: 1,000 mg Pyridoxine HCl (Vitamin B6 50 Mg Tab) 50 mg PO DAILY [facility] Last Admin: 12/17/16 10:04 Dose: 50 mg Rifampin (Rifampin Cap) 300 mg PO BID [facility] PRN Reason: Protocol Last Admin: 12/17/16 17:28 Dose: 300 mg - Labs Labs: 12/16/16 06:50 12/16/16 06:50 PT 12.5 Seconds (9.9-11.8) H 12/07/16 19:45 INR 1.16 (0.93-1.08) H 12/07/16 19:45 APTT 31.7 Seconds (23.7-30.8) H 12/07/16 19:45 - Constitutional Appears: No Acute Distress - Head Exam Head Exam: ATRAUMATIC, NORMAL INSPECTION, NORMOCEPHALIC - ENT Exam ENT Exam: Mucous Membranes Moist, Normal Exam - Neck Exam Neck Exam: Full ROM, Normal Inspection. absent: Lymphadenopathy - Respiratory Exam Respiratory Exam: Clear to Ausculation Bilateral, Rhonchi, NORMAL BREATHING PATTERN - Cardiovascular Exam Cardiovascular Exam: REGULAR RHYTHM, +S1, +S2. absent: Murmur - GI/Abdominal Exam GI & Abdominal Exam: Soft, Normal Bowel Sounds. absent: Tenderness - Extremities Exam Extremities Exam: Full ROM, Normal Capillary Refill, Normal Inspection. absent : Joint Swelling, Pedal Edema - Neurological Exam Neurological Exam: Alert, Awake, CN II-XII Intact, Normal Gait, Oriented x3 - Psychiatric Exam Psychiatric exam: Flat Affect - Skin Skin Exam: Dry, Intact, Normal Color, Warm Assessment and Plan (1) Asthma Status: Resolved (2) Cavitary lesion of lung Status: Acute (3) Pneumonia Status: Acute (4) Acid fast bacillus Status: Acute - Assessment and Plan (Free Text) Assessment: on anti TB meds, tolerating well, final cultures are pending, repeat sputum for AFB, if smear is negative may d/c home, on TB meds, she has no more cough
[2016-12-18] MEDS: Pantoprazole 40 mg EC Tab PO SCH (05:47)
[2016-12-18] MEDS: POLYETHYLENE GLYCOL 3350 17 GM/Dose PACKET PO SCH ×2 (09:36→17:21)
[2016-12-18] MEDS: Iron Complex Polysacch 150mg Cap PO SCH ×2 (09:37→17:22)
--- NOTE | 2016-12-18 13:18 | CP.PCM.PN ---
<JAY HERRERA - Last Filed: 12/18/16 13:14> Subjective - Date & Time of Evaluation Date of Evaluation: 12/18/16 Time of Evaluation: 08:45 - Subjective Subjective: Medicine Progress Note: Pt was seen and assessed at bedside. Pt has no new complaints. Pt denies fever, chills, night sweats, cough, hemoptysis, chest pain, abdominal pain and N/V. Objective - Vital Signs/Intake and Output Vital Signs (last 24 hours): Temp Pulse Resp BP Pulse Ox 98.2 F 75 16 110/72 100 12/18/16 07:30 12/18/16 09:38 12/18/16 07:30 12/18/16 09:38 12/18/16 07:30 Intake and Output: 12/18/16 12/18/16 06:59 18:59 Intake Total 660 Balance 660 - Medications Medications: Current Medications Albuterol Sulfate (Albuterol 0.083% Inhal Megan (2.5 Mg/3 Ml) Ud) 2.5 mg IH [id number] PRN PRN Reason: Cough and congestion Ethambutol HCl (Myambutol) 800 mg PO DAILY [facility] Last Admin: 12/18/16 09:37 Dose: 800 mg Hydrochlorothiazide (Hydrodiuril) 25 mg PO DAILY [facility] Last Admin: 12/18/16 09:38 Dose: 25 mg Ibuprofen (Motrin Tab) 600 mg PO Q6H PRN PRN Reason: Pain, moderate (4-7) Last Admin: 12/17/16 19:03 Dose: 600 mg Isoniazid (Niazid) 300 mg PO DAILY [facility] PRN Reason: Protocol Last Admin: 12/18/16 09:39 Dose: 300 mg Lisinopril (Zestril) 20 mg PO DAILY [facility] Last Admin: 12/18/16 09:38 Dose: 20 mg Pantoprazole Sodium (Protonix Ec Tab) 40 mg PO 0600 [facility] Last Admin: 12/18/16 05:47 Dose: 40 mg Polyethylene Glycol (Miralax) 17 gm PO BID [facility] Last Admin: 12/18/16 09:36 Dose: 17 gm Polysaccharide Iron Complex (Ferrex-150) 300 mg PO BID [facility] Last Admin: 12/18/16 09:37 Dose: 300 mg Pyrazinamide (Pyrazinamide) 1,000 mg PO DAILY [facility] Last Admin: 12/18/16 09:37 Dose: 1,000 mg Pyridoxine HCl (Vitamin B6 50 Mg Tab) 50 mg PO DAILY [facility] Last Admin: 12/18/16 09:37 Dose: 50 mg Rifampin (Rifampin Cap) 300 mg PO BID [facility] PRN Reason: Protocol Last Admin: 12/18/16 09:36 Dose: 300 mg - Labs Labs: 12/16/16 06:50 12/16/16 06:50 PT 12.5 Seconds (9.9-11.8) H 12/07/16 19:45 INR 1.16 (0.93-1.08) H 12/07/16 19:45 APTT 31.7 Seconds (23.7-30.8) H 12/07/16 19:45 - Constitutional Appears: No Acute Distress - Head Exam Head Exam: NORMAL INSPECTION - Eye Exam Eye Exam: EOMI, Normal appearance - ENT Exam ENT Exam: Mucous Membranes Moist, Normal Exam - Neck Exam Neck Exam: Full ROM - Respiratory Exam Respiratory Exam: Clear to Ausculation Bilateral, NORMAL BREATHING PATTERN. absent: Rales, Rhonchi, Wheezes - Cardiovascular Exam Cardiovascular Exam: REGULAR RHYTHM, +S1, +S2. absent: Murmur - GI/Abdominal Exam GI & Abdominal Exam: Normal Bowel Sounds. absent: Tenderness - Extremities Exam Extremities Exam: absent: Calf Tenderness, Pedal Edema - Neurological Exam Neurological Exam: Alert, Awake, Normal Gait, Oriented x3 - Psychiatric Exam Psychiatric exam: Normal Affect, Normal Mood - Skin Skin Exam: Dry, Intact, Normal Color, Warm Assessment and Plan - Assessment and Plan (Free Text) Assessment: Pt is a 61 yo female with a past medical history of htn, asthma, gastric ulcer, esophagitis who is admitted for evaluation and treatment of a positive ppd, cavitary lesions on CT scan, and positive sputum AFB smear. Plan: 1. Cavitary lesion of lung -AFB stain post one week of RIPE therapy in the morning (12/19) -continue RIPE therapy as per ID -patient cannot leave the hospital until three consecutive sputums are AFB negative one week after starting RIPE therapy due to her currently being a public health risk -Isolation precautions -Recommended all visitors wear proper isolation masks -will need to consult with Department of Health before discharge 2. Asthma -no complaints at this time -continue albuterol PRN -pulmonology following 3. Pneumonia - monitor clincial symptoms -continue antibiotic regiment as per ID 4. HTN -Continue lisinopril and HCTZ 5. Constipation -continue miralax 6. Rib pain - continue on ibprofen PRN pain 7. GI/DVT prophylaxis -protonix/scd's Patient seen and case discussed with attending physician, Dr. Gillette. <Clifford Shoemaker - Last Filed: 12/18/16 17:53> Objective - Vital Signs/Intake and Output Vital Signs (last 24 hours): Temp Pulse Resp BP Pulse Ox 98.2 F 75 16 110/72 100 12/18/16 07:30 12/18/16 09:38 12/18/16 07:30 12/18/16 09:38 12/18/16 07:30 Intake and Output: 12/18/16 12/18/16 06:59 18:59 Intake Total 660 720 Balance 660 720 - Medications Medications: Current Medications Albuterol Sulfate (Albuterol 0.083% Inhal Megan (2.5 Mg/3 Ml) Ud) 2.5 mg IH [id number] PRN PRN Reason: Cough and congestion Ethambutol HCl (Myambutol) 800 mg PO DAILY [facility] Last Admin: 12/18/16 09:37 Dose: 800 mg Hydrochlorothiazide (Hydrodiuril) 25 mg PO DAILY [facility] Last Admin: 12/18/16 09:38 Dose: 25 mg Ibuprofen (Motrin Tab) 600 mg PO Q6H PRN PRN Reason: Pain, moderate (4-7) Last Admin: 12/17/16 19:03 Dose: 600 mg Isoniazid (Niazid) 300 mg PO DAILY [facility] PRN Reason: Protocol Last Admin: 12/18/16 09:39 Dose: 300 mg Lisinopril (Zestril) 20 mg PO DAILY [facility] Last Admin: 12/18/16 09:38 Dose: 20 mg Pantoprazole Sodium (Protonix Ec Tab) 40 mg PO 0600 [facility] Last Admin: 12/18/16 05:47 Dose: 40 mg Polyethylene Glycol (Miralax) 17 gm PO BID [facility] Last Admin: 12/18/16 17:21 Dose: 17 gm Polysaccharide Iron Complex (Ferrex-150) 300 mg PO BID [facility] Last Admin: 12/18/16 17:22 Dose: 300 mg Pyrazinamide (Pyrazinamide) 1,000 mg PO DAILY [facility] Last Admin: 12/18/16 09:37 Dose: 1,000 mg Pyridoxine HCl (Vitamin B6 50 Mg Tab) 50 mg PO DAILY [facility] Last Admin: 12/18/16 09:37 Dose: 50 mg Rifampin (Rifampin Cap) 300 mg PO BID [facility] PRN Reason: Protocol Last Admin: 12/18/16 17:22 Dose: 300 mg - Labs Labs: 12/16/16 06:50 12/16/16 06:50 PT 12.5 Seconds (9.9-11.8) H 12/07/16 19:45 INR 1.16 (0.93-1.08) H 12/07/16 19:45 APTT 31.7 Seconds (23.7-30.8) H 12/07/16 19:45 Attending/Attestation - Attestation I have personally seen and examined this patient.: Yes I have fully participated in the care of the patient.: Yes I have reviewed all pertinent clinical information, including history, physical exam and plan: Yes Notes (Text): 12/18/16 17:48 Attending note; Patient seen and examined with resident. The patient is a 61-year-old female with history of asthma and positive PPD who presented with complaint of cough and hemoptysis. She was found to have cavitary lesion on CT chest and +AFB and started on RIPE therapy. repeat AFB ordered for today. Chest wall pain has improved on motrin prn. She is on HCTZ and lisinopril for hypertension. She is on miralax for constipation. Case discussed with infectious disease specialist/ ID nurse in detail. The patient will follow up with chest clinic upon discharge. Also patient will have directly observed therapy. Upon discharge the patient will follow-up with PMD DR. Mcclure.
--- NOTE | 2016-12-18 18:33 | CP.PCM.PN ---
Subjective - Date & Time of Evaluation Date of Evaluation: 12/18/16 Time of Evaluation: 17:30 - Subjective Subjective: Infectious Disease Follow Up: December 18, 2016 61 yo female with cough and bright red blood in sputum starting yesterday. The patient complains of persistent cough for the past 2 months without improvement. The patient placed on isolation and respiratory precautions at this time. Supportive care. Rule out TB. 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 Patient did have BCG vaccine in the past as a child. Patient was born in the [place] but moved to the [facility] [address] chest showed either abscess or cavitary lesion. The patient does complain of subjective fevers and chills. Fever of 101.1 F in ER. Acid-fast stain was positive. Starting treatment for tuberculosis. Noted patient refusing TB meds stating that another doctor told her she does not need them. At this point, the patient has two positive acid-fast stains from the sputum. Issues with the patient not believing her diagnosis. Multiple doctors have explained to her and she finally started taking the anti-TB medications. However, question remain whether she would continue to take medications when she is cleared for discharge. The patient still has not said that she accepts the diagnosis that she has a lung infection. No further AFB until the patient has had at least one week of anti-TB medications. The patient's daughter apparently was treated for active tuberculosis and the patient given treatment for latent infection. [facility] chest clinic was apparently here and spoke to the patient today. The patient cannot leave the hospital until three consecutive sputums are AFB negative one week after starting RIPE therapy as she is a public health risk due to potential tuberculosis. AFB culture negative at one week... note that mycobacterium are slow growing organisms and that the results are NOT finalized until 6 weeks of incubation. This amount of time must pass for incubation before one can state/read the culture is negative. Objective - Vital Signs/Intake and Output Vital Signs (last 24 hours): Temp Pulse Resp BP Pulse Ox 98.2 F 75 16 110/72 100 12/18/16 07:30 12/18/16 09:38 12/18/16 07:30 12/18/16 09:38 12/18/16 07:30 Intake and Output: 12/18/16 12/18/16 06:59 18:59 Intake Total 660 720 Balance 660 720 - Medications Medications: Current Medications Albuterol Sulfate (Albuterol 0.083% Inhal Megan (2.5 Mg/3 Ml) Ud) 2.5 mg IH [id number] PRN PRN Reason: Cough and congestion Ethambutol HCl (Myambutol) 800 mg PO DAILY [facility] Last Admin: 12/18/16 09:37 Dose: 800 mg Hydrochlorothiazide (Hydrodiuril) 25 mg PO DAILY [facility] Last Admin: 12/18/16 09:38 Dose: 25 mg Ibuprofen (Motrin Tab) 600 mg PO Q6H PRN PRN Reason: Pain, moderate (4-7) Last Admin: 12/17/16 19:03 Dose: 600 mg Isoniazid (Niazid) 300 mg PO DAILY [facility] PRN Reason: Protocol Last Admin: 12/18/16 09:39 Dose: 300 mg Lisinopril (Zestril) 20 mg PO DAILY [facility] Last Admin: 12/18/16 09:38 Dose: 20 mg Pantoprazole Sodium (Protonix Ec Tab) 40 mg PO 0600 [facility] Last Admin: 12/18/16 05:47 Dose: 40 mg Polyethylene Glycol (Miralax) 17 gm PO BID [facility] Last Admin: 12/18/16 17:21 Dose: 17 gm Polysaccharide Iron Complex (Ferrex-150) 300 mg PO BID [facility] Last Admin: 12/18/16 17:22 Dose: 300 mg Pyrazinamide (Pyrazinamide) 1,000 mg PO DAILY [facility] Last Admin: 12/18/16 09:37 Dose: 1,000 mg Pyridoxine HCl (Vitamin B6 50 Mg Tab) 50 mg PO DAILY [facility] Last Admin: 12/18/16 09:37 Dose: 50 mg Rifampin (Rifampin Cap) 300 mg PO BID [facility] PRN Reason: Protocol Last Admin: 12/18/16 17:22 Dose: 300 mg - Labs Labs: 12/16/16 06:50 12/16/16 06:50 PT 12.5 Seconds (9.9-11.8) H 12/07/16 19:45 INR 1.16 (0.93-1.08) H 12/07/16 19:45 APTT 31.7 Seconds (23.7-30.8) H 12/07/16 19:45 - Constitutional Appears: Non-toxic, No Acute Distress - Head Exam Head Exam: ATRAUMATIC, NORMOCEPHALIC - Eye Exam Eye Exam: EOMI, PERRL Pupil Exam: NORMAL ACCOMODATION, PERRL - ENT Exam ENT Exam: Mucous Membranes Moist, Normal External Ear Exam, TM's Normal Bilaterally - Neck Exam Neck Exam: Full ROM, Normal Inspection - Respiratory Exam Respiratory Exam: Clear to Ausculation Bilateral, NORMAL BREATHING PATTERN. absent: Rales, Rhonchi, Wheezes - Cardiovascular Exam Cardiovascular Exam: REGULAR RHYTHM, RRR, +S1, +S2 - GI/Abdominal Exam GI & Abdominal Exam: Soft, Normal Bowel Sounds. absent: Distended, Tenderness - Extremities Exam Extremities Exam: Full ROM, Normal Inspection - Neurological Exam Neurological Exam: Alert, Awake, CN II-XII Intact, Oriented x3 - Psychiatric Exam Psychiatric exam: Normal Affect, Normal Mood - Skin Skin Exam: Intact, Normal Color Assessment and Plan - Assessment and Plan (Free Text) Assessment: 61 yo female with prolonged cough for over 2 months with no improvement on antibiotics. The patient with known positive PPD. Cannot rule out tuberculosis at this point. Must also consider infections such as Staph Aureus and other acid-fast positive organisms. Start Rocephin for antibiotic coverage. [place] cultures. Obtain Acid-Fast stains and studies of sputum x 3. Patient had hemoptysis. Repeating PPD and Quantiferon will not yield additional data (both tests only show potential exposure of patient to tuberculosis during lifetime and cannot denote active disease). Await Acid- Fast stains and sputum culture results. Maintain isolation. Acid-Fast stain positive from sputum x 2. Continue treatment for tuberculosis as other tests return. Continue on Isoniazid, Rifampin, Pyrazinamide, and ethambutol. Start Vitamin B6 as well. Await PCR for identification of tuberculous strain and cultures. Supportive care. HIV test results are negative. No further AFB until patient has taken one week of anti-TB meds. Cough and hemopytsis improved. Patient does not believe her diagnosis of potential TB. First AFB cultures read currently as negative at one week of incubation. Results are finalized after 6 weeks of incubation. We can restart obtaining AFB samples for evaluation. Thank you for allowing me to participate in the care of the patient, we will follow with you.
--- NOTE | 2016-12-18 23:24 | CP.PCM.PN ---
Subjective - Date & Time of Evaluation Date of Evaluation: 12/18/16 Time of Evaluation: 17:00 - Subjective Subjective: 61 yo female with PMH of HTN presents with hemoptysis. Patient states that last night she started cough up blood with sputum. She also reports fever of 105, for which she took Tylenol. Patient states that she was treated for pneumonia about 1 month ago, however she continued to have cough. She states that this has never happened before. 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 She denies any recent travel, or sick contacts. She denies weight loss, chest pain, abd pain, n/v sputum AFB smeer is positive, so far no AFB grouth, final culture stile of course pending no more cough, no more hemoptosis Objective - Vital Signs/Intake and Output Vital Signs (last 24 hours): Temp Pulse Resp BP Pulse Ox 98.2 F 75 16 110/72 100 12/18/16 07:30 12/18/16 19:24 12/18/16 07:30 12/18/16 09:38 12/18/16 07:30 Intake and Output: 12/18/16 12/19/16 18:59 06:59 Intake Total 720 Balance 720 - Medications Medications: Current Medications Albuterol Sulfate (Albuterol 0.083% Inhal Megan (2.5 Mg/3 Ml) Ud) 2.5 mg IH [id number] PRN PRN Reason: Cough and congestion Ethambutol HCl (Myambutol) 800 mg PO DAILY [facility] Last Admin: 12/18/16 09:37 Dose: 800 mg Hydrochlorothiazide (Hydrodiuril) 25 mg PO DAILY [facility] Last Admin: 12/18/16 09:38 Dose: 25 mg Ibuprofen (Motrin Tab) 600 mg PO Q6H PRN PRN Reason: Pain, moderate (4-7) Last Admin: 12/17/16 19:03 Dose: 600 mg Isoniazid (Niazid) 300 mg PO DAILY [facility] PRN Reason: Protocol Last Admin: 12/18/16 09:39 Dose: 300 mg Lisinopril (Zestril) 20 mg PO DAILY [facility] Last Admin: 12/18/16 09:38 Dose: 20 mg Pantoprazole Sodium (Protonix Ec Tab) 40 mg PO 0600 [facility] Last Admin: 12/18/16 05:47 Dose: 40 mg Polyethylene Glycol (Miralax) 17 gm PO BID [facility] Last Admin: 12/18/16 17:21 Dose: 17 gm Polysaccharide Iron Complex (Ferrex-150) 300 mg PO BID [facility] Last Admin: 12/18/16 17:22 Dose: 300 mg Pyrazinamide (Pyrazinamide) 1,000 mg PO DAILY [facility] Last Admin: 12/18/16 09:37 Dose: 1,000 mg Pyridoxine HCl (Vitamin B6 50 Mg Tab) 50 mg PO DAILY [facility] Last Admin: 12/18/16 09:37 Dose: 50 mg Rifampin (Rifampin Cap) 300 mg PO BID [facility] PRN Reason: Protocol Last Admin: 12/18/16 17:22 Dose: 300 mg - Labs Labs: 12/16/16 06:50 12/16/16 06:50 PT 12.5 Seconds (9.9-11.8) H 12/07/16 19:45 INR 1.16 (0.93-1.08) H 12/07/16 19:45 APTT 31.7 Seconds (23.7-30.8) H 12/07/16 19:45 - Constitutional Appears: No Acute Distress - Head Exam Head Exam: ATRAUMATIC, NORMAL INSPECTION, NORMOCEPHALIC - Respiratory Exam Respiratory Exam: Clear to Ausculation Bilateral, NORMAL BREATHING PATTERN - Cardiovascular Exam Cardiovascular Exam: REGULAR RHYTHM, +S1, +S2. absent: Murmur - GI/Abdominal Exam GI & Abdominal Exam: Soft, Normal Bowel Sounds. absent: Tenderness - Extremities Exam Extremities Exam: Full ROM, Normal Capillary Refill, Normal Inspection. absent : Joint Swelling, Pedal Edema - Neurological Exam Neurological Exam: Alert, Awake, CN II-XII Intact, Normal Gait, Oriented x3 - Psychiatric Exam Psychiatric exam: Anxious Assessment and Plan (1) Asthma Assessment & Plan: improve, prn inhale bronchodilators Status: Resolved (2) Cavitary lesion of lung Assessment & Plan: pending final AFB report Status: Acute (3) Pneumonia Assessment & Plan: improve Status: Acute (4) Acid fast bacillus Status: Acute - Assessment and Plan (Free Text) Assessment: no more cough, patient should be off isolation?
[2016-12-19] MEDS: Pantoprazole 40 mg EC Tab PO SCH (05:41)
[2016-12-19] MEDS: POLYETHYLENE GLYCOL 3350 17 GM/Dose PACKET PO SCH ×2 (09:33→17:28)
[2016-12-19] MEDS: Iron Complex Polysacch 150mg Cap PO SCH ×2 (09:35→17:28)
--- NOTE | 2016-12-19 14:55 | CP.PCM.PN ---
Subjective - Date & Time of Evaluation Date of Evaluation: 12/19/16 Time of Evaluation: 14:45 - Subjective Subjective: Infectious Disease Follow Up: December 19, 2016 61 yo female with cough and bright red blood in sputum starting yesterday. The patient complains of persistent cough for the past 2 months without improvement. The patient placed on isolation and respiratory precautions at this time. Supportive care. Rule out TB. 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 Patient did have BCG vaccine in the past as a child. Patient was born in the [place] but moved to the [facility] [address] chest showed either abscess or cavitary lesion. The patient does complain of subjective fevers and chills. Fever of 101.1 F in ER. Acid-fast stain was positive. Starting treatment for tuberculosis. Noted patient refusing TB meds stating that another doctor told her she does not need them. At this point, the patient has two positive acid-fast stains from the sputum. Issues with the patient not believing her diagnosis. Multiple doctors have explained to her and she finally started taking the anti-TB medications. However, question remain whether she would continue to take medications when she is cleared for discharge. The patient still has not said that she accepts the diagnosis that she has a lung infection. No further AFB until the patient has had at least one week of anti-TB medications. The patient's daughter apparently was treated for active tuberculosis and the patient given treatment for latent infection. [facility] chest clinic was apparently here and spoke to the patient today. The patient cannot leave the hospital until three consecutive sputums are AFB negative one week after starting RIPE therapy as she is a public health risk due to potential tuberculosis. AFB culture negative at one week... note that mycobacterium are slow growing organisms and that the results are NOT finalized until 6 weeks of incubation. This amount of time must pass for incubation before one can state/read the culture is negative. Objective - Vital Signs/Intake and Output Vital Signs (last 24 hours): Temp Pulse Resp BP Pulse Ox 98.6 F 71 18 107/80 99 12/19/16 07:30 12/19/16 09:35 12/19/16 07:30 12/19/16 09:35 12/19/16 07:30 Intake and Output: 12/19/16 12/19/16 06:59 18:59 Intake Total 180 900 Balance 180 900 - Medications Medications: Current Medications Albuterol Sulfate (Albuterol 0.083% Inhal Megan (2.5 Mg/3 Ml) Ud) 2.5 mg IH [id number] PRN PRN Reason: Cough and congestion Ethambutol HCl (Myambutol) 800 mg PO DAILY [facility] Last Admin: 12/19/16 09:34 Dose: 800 mg Hydrochlorothiazide (Hydrodiuril) 25 mg PO DAILY [facility] Last Admin: 12/19/16 09:35 Dose: 25 mg Ibuprofen (Motrin Tab) 600 mg PO Q6H PRN PRN Reason: Pain, moderate (4-7) Last Admin: 12/17/16 19:03 Dose: 600 mg Isoniazid (Niazid) 300 mg PO DAILY [facility] PRN Reason: Protocol Last Admin: 12/19/16 09:35 Dose: 300 mg Lisinopril (Zestril) 20 mg PO DAILY [facility] Last Admin: 12/19/16 09:35 Dose: 20 mg Pantoprazole Sodium (Protonix Ec Tab) 40 mg PO 0600 [facility] Last Admin: 12/19/16 05:41 Dose: 40 mg Polyethylene Glycol (Miralax) 17 gm PO BID [facility] Last Admin: 12/19/16 09:33 Dose: 17 gm Polysaccharide Iron Complex (Ferrex-150) 300 mg PO BID [facility] Last Admin: 12/19/16 09:35 Dose: 300 mg Pyrazinamide (Pyrazinamide) 1,000 mg PO DAILY [facility] Last Admin: 12/19/16 09:34 Dose: 1,000 mg Pyridoxine HCl (Vitamin B6 50 Mg Tab) 50 mg PO DAILY [facility] Last Admin: 12/19/16 09:35 Dose: 50 mg Rifampin (Rifampin Cap) 300 mg PO BID [facility] PRN Reason: Protocol Last Admin: 12/19/16 09:34 Dose: 300 mg - Labs Labs: 12/16/16 06:50 12/16/16 06:50 PT 12.5 Seconds (9.9-11.8) H 12/07/16 19:45 INR 1.16 (0.93-1.08) H 12/07/16 19:45 APTT 31.7 Seconds (23.7-30.8) H 12/07/16 19:45 - Constitutional Appears: Non-toxic, No Acute Distress, Chronically Ill - Head Exam Head Exam: ATRAUMATIC, NORMOCEPHALIC - Eye Exam Eye Exam: EOMI, PERRL Pupil Exam: NORMAL ACCOMODATION, PERRL - ENT Exam ENT Exam: Mucous Membranes Moist, Normal External Ear Exam, TM's Normal Bilaterally - Neck Exam Neck Exam: Full ROM, Normal Inspection - Respiratory Exam Respiratory Exam: Clear to Ausculation Bilateral, NORMAL BREATHING PATTERN. absent: Rales, Rhonchi, Wheezes - Cardiovascular Exam Cardiovascular Exam: REGULAR RHYTHM, RRR, +S1, +S2 - GI/Abdominal Exam GI & Abdominal Exam: Soft, Normal Bowel Sounds. absent: Distended, Tenderness - Extremities Exam Extremities Exam: Full ROM, Normal Inspection - Neurological Exam Neurological Exam: Alert, Awake, CN II-XII Intact, Oriented x3 - Psychiatric Exam Psychiatric exam: Normal Affect, Normal Mood - Skin Skin Exam: Intact, Normal Color Assessment and Plan - Assessment and Plan (Free Text) Assessment: 61 yo female with prolonged cough for over 2 months with no improvement on antibiotics. The patient with known positive PPD. Cannot rule out tuberculosis at this point. Must also consider infections such as Staph Aureus and other acid-fast positive organisms. Start Rocephin for antibiotic coverage. Larson cultures. Obtain Acid-Fast stains and studies of sputum x 3. Patient had hemoptysis. Repeating PPD and Quantiferon will not yield additional data (both tests only show potential exposure of patient to tuberculosis during lifetime and cannot denote active disease). Await Acid- Fast stains and sputum culture results. Maintain isolation. Acid-Fast stain positive from sputum x 2. Continue treatment for tuberculosis as other tests return. Continue on Isoniazid, Rifampin, Pyrazinamide, and ethambutol. Start Vitamin B6 as well. Await PCR for identification of tuberculous strain and cultures. Supportive care. HIV test results are negative. No further AFB until patient has taken one week of anti-TB meds. Cough and hemopytsis improved. Patient does not believe her diagnosis of potential TB. First AFB cultures read currently as negative at one week of incubation. Results are finalized after 6 weeks of incubation. We can restart obtaining AFB samples for evaluation. Noted that the patient is not coughing. Thank you for allowing me to participate in the care of the patient, we will follow with you.
--- NOTE | 2016-12-19 14:55 | CP.PCM.PN ---
Subjective - Date & Time of Evaluation Date of Evaluation: 12/19/16 Time of Evaluation: 13:00 - Subjective Subjective: 61 yo female with PMH of HTN presents with hemoptysis. Patient states that last night she started cough up blood with sputum. She also reports fever of 105, for which she took Tylenol. Patient states that she was treated for pneumonia about 1 month ago, however she continued to have cough. She states that this has never happened before. 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 She denies any recent travel, or sick contacts. She denies weight loss, chest pain, abd pain, n/v sputum AFB smeer is positive, so far no AFB grouth, final culture stile of course pending no more cough, no more hemoptosis 12/19/2016: mild abdominal pain and frequent BM Objective - Vital Signs/Intake and Output Vital Signs (last 24 hours): Temp Pulse Resp BP Pulse Ox 98.6 F 71 18 107/80 99 12/19/16 07:30 12/19/16 09:35 12/19/16 07:30 12/19/16 09:35 12/19/16 07:30 Intake and Output: 12/19/16 12/19/16 06:59 18:59 Intake Total 180 900 Balance 180 900 - Medications Medications: Current Medications Albuterol Sulfate (Albuterol 0.083% Inhal Megan (2.5 Mg/3 Ml) Ud) 2.5 mg IH [id number] PRN PRN Reason: Cough and congestion Ethambutol HCl (Myambutol) 800 mg PO DAILY [facility] Last Admin: 12/19/16 09:34 Dose: 800 mg Hydrochlorothiazide (Hydrodiuril) 25 mg PO DAILY [facility] Last Admin: 12/19/16 09:35 Dose: 25 mg Ibuprofen (Motrin Tab) 600 mg PO Q6H PRN PRN Reason: Pain, moderate (4-7) Last Admin: 12/17/16 19:03 Dose: 600 mg Isoniazid (Niazid) 300 mg PO DAILY [facility] PRN Reason: Protocol Last Admin: 12/19/16 09:35 Dose: 300 mg Lisinopril (Zestril) 20 mg PO DAILY [facility] Last Admin: 12/19/16 09:35 Dose: 20 mg Pantoprazole Sodium (Protonix Ec Tab) 40 mg PO 0600 [facility] Last Admin: 12/19/16 05:41 Dose: 40 mg Polyethylene Glycol (Miralax) 17 gm PO BID [facility] Last Admin: 12/19/16 09:33 Dose: 17 gm Polysaccharide Iron Complex (Ferrex-150) 300 mg PO BID [facility] Last Admin: 12/19/16 09:35 Dose: 300 mg Pyrazinamide (Pyrazinamide) 1,000 mg PO DAILY [facility] Last Admin: 12/19/16 09:34 Dose: 1,000 mg Pyridoxine HCl (Vitamin B6 50 Mg Tab) 50 mg PO DAILY [facility] Last Admin: 12/19/16 09:35 Dose: 50 mg Rifampin (Rifampin Cap) 300 mg PO BID [facility] PRN Reason: Protocol Last Admin: 12/19/16 09:34 Dose: 300 mg - Labs Labs: 12/16/16 06:50 12/16/16 06:50 PT 12.5 Seconds (9.9-11.8) H 12/07/16 19:45 INR 1.16 (0.93-1.08) H 12/07/16 19:45 APTT 31.7 Seconds (23.7-30.8) H 12/07/16 19:45 - Constitutional Appears: No Acute Distress - Head Exam Head Exam: ATRAUMATIC, NORMAL INSPECTION, NORMOCEPHALIC - ENT Exam ENT Exam: Mucous Membranes Moist, Normal Exam - Respiratory Exam Respiratory Exam: Clear to Ausculation Bilateral, Rhonchi, NORMAL BREATHING PATTERN - Cardiovascular Exam Cardiovascular Exam: REGULAR RHYTHM, +S1, +S2. absent: Murmur - GI/Abdominal Exam GI & Abdominal Exam: Soft, Normal Bowel Sounds. absent: Tenderness - Extremities Exam Extremities Exam: Full ROM, Normal Capillary Refill, Normal Inspection. absent : Joint Swelling, Pedal Edema - Neurological Exam Neurological Exam: Alert, Awake, CN II-XII Intact, Normal Gait, Oriented x3 - Psychiatric Exam Psychiatric exam: Anxious Assessment and Plan (1) Asthma Assessment & Plan: prn bronchodilators Status: Resolved (2) Cavitary lesion of lung Assessment & Plan: on TB meds, follow up x rays Status: Acute (3) Pneumonia Assessment & Plan: better Status: Acute (4) Acid fast bacillus Assessment & Plan: final culture pending, follow up LFT Status: Acute
--- NOTE | 2016-12-19 14:57 | CP.PCM.PN ---
<JAY HERRERA - Last Filed: 12/19/16 14:54> Subjective - Date & Time of Evaluation Date of Evaluation: 12/19/16 Time of Evaluation: 07:15 - Subjective Subjective: Medicine Progress Note: Pt was seen and assessed at bedside. Pt had no new complaints this morning. Pt was able to produce sputum for morning sputum sample but states that she may not be able to do so later this evening. Pt denies fever, headache, chills, chest pain, shortness of breath, N/V or abdominal pain. Objective - Vital Signs/Intake and Output Vital Signs (last 24 hours): Temp Pulse Resp BP Pulse Ox 98.6 F 71 18 107/80 99 12/19/16 07:30 12/19/16 09:35 12/19/16 07:30 12/19/16 09:35 12/19/16 07:30 Intake and Output: 12/19/16 12/19/16 06:59 18:59 Intake Total 180 900 Balance 180 900 - Medications Medications: Current Medications Albuterol Sulfate (Albuterol 0.083% Inhal Megan (2.5 Mg/3 Ml) Ud) 2.5 mg IH [id number] PRN PRN Reason: Cough and congestion Ethambutol HCl (Myambutol) 800 mg PO DAILY [facility] Last Admin: 12/19/16 09:34 Dose: 800 mg Hydrochlorothiazide (Hydrodiuril) 25 mg PO DAILY [facility] Last Admin: 12/19/16 09:35 Dose: 25 mg Ibuprofen (Motrin Tab) 600 mg PO Q6H PRN PRN Reason: Pain, moderate (4-7) Last Admin: 12/17/16 19:03 Dose: 600 mg Isoniazid (Niazid) 300 mg PO DAILY [facility] PRN Reason: Protocol Last Admin: 12/19/16 09:35 Dose: 300 mg Lisinopril (Zestril) 20 mg PO DAILY [facility] Last Admin: 12/19/16 09:35 Dose: 20 mg Pantoprazole Sodium (Protonix Ec Tab) 40 mg PO 0600 [facility] Last Admin: 12/19/16 05:41 Dose: 40 mg Polyethylene Glycol (Miralax) 17 gm PO BID [facility] Last Admin: 12/19/16 09:33 Dose: 17 gm Polysaccharide Iron Complex (Ferrex-150) 300 mg PO BID [facility] Last Admin: 12/19/16 09:35 Dose: 300 mg Pyrazinamide (Pyrazinamide) 1,000 mg PO DAILY [facility] Last Admin: 12/19/16 09:34 Dose: 1,000 mg Pyridoxine HCl (Vitamin B6 50 Mg Tab) 50 mg PO DAILY [facility] Last Admin: 12/19/16 09:35 Dose: 50 mg Rifampin (Rifampin Cap) 300 mg PO BID [facility] PRN Reason: Protocol Last Admin: 12/19/16 09:34 Dose: 300 mg - Labs Labs: 12/16/16 06:50 12/16/16 06:50 PT 12.5 Seconds (9.9-11.8) H 12/07/16 19:45 INR 1.16 (0.93-1.08) H 12/07/16 19:45 APTT 31.7 Seconds (23.7-30.8) H 12/07/16 19:45 - Constitutional Appears: No Acute Distress - Head Exam Head Exam: NORMAL INSPECTION, NORMOCEPHALIC - Eye Exam Eye Exam: EOMI, Normal appearance - ENT Exam ENT Exam: Mucous Membranes Moist, Normal Exam - Neck Exam Neck Exam: Full ROM - Respiratory Exam Respiratory Exam: Clear to Ausculation Bilateral, NORMAL BREATHING PATTERN. absent: Rales, Rhonchi, Wheezes, Respiratory Distress - Cardiovascular Exam Cardiovascular Exam: REGULAR RHYTHM, +S1, +S2. absent: Murmur - GI/Abdominal Exam GI & Abdominal Exam: absent: Distended, Guarding, Tenderness - Extremities Exam Extremities Exam: absent: Calf Tenderness, Pedal Edema - Neurological Exam Neurological Exam: Alert, Awake, Normal Gait, Oriented x3 - Psychiatric Exam Psychiatric exam: Normal Affect, Normal Mood - Skin Skin Exam: Dry, Intact, Normal Color, Warm Assessment and Plan - Assessment and Plan (Free Text) Assessment: Pt is a 61 yo female with a past medical history of htn, asthma, gastric ulcer, esophagitis who is admitted for evaluation and treatment of a positive ppd, cavitary lesions on CT scan, and positive sputum AFB smear. Plan: 1. Cavitary lesion of lung -AFB stain post one week of RIPE therapy collected and awaiting result -will collect another sputum sample at 2000 today (12/19); nursing given orders to call RT for sputum induction if patient is unable to produce -continue RIPE therapy as per ID -awaiting three negative AFB stains before patient can be discharged from medical center -Isolation precautions -Recommended all visitors wear proper isolation masks 2. Asthma -no complaints at this time -continue albuterol PRN -pulmonology following 3. Pneumonia -monitor clincial symptoms -continue antibiotic regiment as per ID 4. HTN -Continue lisinopril and HCTZ 5. Constipation -continue miralax 6. Rib pain - continue on ibprofen PRN for pain 7. GI/DVT prophylaxis -protonix/scd's Patient seen and case discussed with attending physician, Dr. Shoemaker. <Clifford Shoemaker - Last Filed: 12/19/16 16:51> Objective - Vital Signs/Intake and Output Vital Signs (last 24 hours): Temp Pulse Resp BP Pulse Ox 98.6 F 71 18 107/80 99 12/19/16 07:30 12/19/16 09:35 12/19/16 07:30 12/19/16 09:35 12/19/16 07:30 Intake and Output: 12/19/16 12/19/16 06:59 18:59 Intake Total 180 900 Balance 180 900 - Medications Medications: Current Medications Albuterol Sulfate (Albuterol 0.083% Inhal Megan (2.5 Mg/3 Ml) Ud) 2.5 mg IH [id number] PRN PRN Reason: Cough and congestion Ethambutol HCl (Myambutol) 800 mg PO DAILY [facility] Last Admin: 12/19/16 09:34 Dose: 800 mg Hydrochlorothiazide (Hydrodiuril) 25 mg PO DAILY [facility] Last Admin: 12/19/16 09:35 Dose: 25 mg Ibuprofen (Motrin Tab) 600 mg PO Q6H PRN PRN Reason: Pain, moderate (4-7) Last Admin: 12/17/16 19:03 Dose: 600 mg Isoniazid (Niazid) 300 mg PO DAILY [facility] PRN Reason: Protocol Last Admin: 12/19/16 09:35 Dose: 300 mg Lisinopril (Zestril) 20 mg PO DAILY [facility] Last Admin: 12/19/16 09:35 Dose: 20 mg Pantoprazole Sodium (Protonix Ec Tab) 40 mg PO 0600 [facility] Last Admin: 12/19/16 05:41 Dose: 40 mg Polyethylene Glycol (Miralax) 17 gm PO BID [facility] Last Admin: 12/19/16 09:33 Dose: 17 gm Polysaccharide Iron Complex (Ferrex-150) 300 mg PO BID [facility] Last Admin: 12/19/16 09:35 Dose: 300 mg Pyrazinamide (Pyrazinamide) 1,000 mg PO DAILY [facility] Last Admin: 12/19/16 09:34 Dose: 1,000 mg Pyridoxine HCl (Vitamin B6 50 Mg Tab) 50 mg PO DAILY [facility] Last Admin: 12/19/16 09:35 Dose: 50 mg Rifampin (Rifampin Cap) 300 mg PO BID [facility] PRN Reason: Protocol Last Admin: 12/19/16 09:34 Dose: 300 mg - Labs Labs: 12/16/16 06:50 12/16/16 06:50 PT 12.5 Seconds (9.9-11.8) H 12/07/16 19:45 INR 1.16 (0.93-1.08) H 12/07/16 19:45 APTT 31.7 Seconds (23.7-30.8) H 12/07/16 19:45 Attending/Attestation - Attestation I have personally seen and examined this patient.: Yes I have fully participated in the care of the patient.: Yes I have reviewed all pertinent clinical information, including history, physical exam and plan: Yes Notes (Text): 12/19/16 16:50 Attending note; Patient seen and examined with resident. The patient is a 61-year-old female with history of asthma and positive PPD who presented with complaint of cough and hemoptysis. She was found to have cavitary lesion on CT chest and +AFB and started on RIPE therapy. repeat AFB ordered for today. Case discussed with infectious disease specialist/ ID nurse in detail. The patient will follow up with chest clinic upon discharge. Also patient will have directly observed therapy. Upon discharge the patient will follow-up with PMD DR. Mcclure.
[2016-12-20] MEDS: Pantoprazole 40 mg EC Tab PO SCH (06:49)
[2016-12-20 08:55] LABS: ALB/GLOB RATIO 1.1 (1.1-1.8); ALBUMIN 3.8 g/dL (3.0-4.8); ALT/SGPT 33 U/L (7-56); AST/SGOT 43 U/L (15-39); BLOOD UREA NITROGEN 14 mg/dL (7-21); GFR AFRICAN-AMERICAN > 60; GFR NON-AFRICAN AMERICAN > 60
[2016-12-20] MEDS: POLYETHYLENE GLYCOL 3350 17 GM/Dose PACKET PO SCH ×2 (09:46→19:08)
[2016-12-20] MEDS: Iron Complex Polysacch 150mg Cap PO SCH ×2 (09:46→19:05)
--- NOTE | 2016-12-20 13:51 | CP.PCM.PN ---
<JAY HERRERA - Last Filed: 12/20/16 13:48> Subjective - Date & Time of Evaluation Date of Evaluation: 12/20/16 Time of Evaluation: 07:30 - Subjective Subjective: Medicine Progress Note: Pt seen and assessed at bedside. Pt had no new complaints or acute events overnight. Pt denied fever, headache, chills, night sweats, chest pain, cough, shortness of breath or abdominal pain. Objective - Vital Signs/Intake and Output Vital Signs (last 24 hours): Temp Pulse Resp BP Pulse Ox 98 F 68 18 101/61 97 12/20/16 08:01 12/20/16 08:01 12/20/16 08:01 12/20/16 08:01 12/20/16 08:01 Intake and Output: 12/20/16 12/20/16 06:59 18:59 Intake Total 540 Output Total 3 Balance 537 - Medications Medications: Current Medications Albuterol Sulfate (Albuterol 0.083% Inhal Megan (2.5 Mg/3 Ml) Ud) 2.5 mg IH [id number] PRN PRN Reason: Cough and congestion Ethambutol HCl (Myambutol) 800 mg PO DAILY [facility] Last Admin: 12/20/16 09:46 Dose: 800 mg Hydrochlorothiazide (Hydrodiuril) 25 mg PO DAILY [facility] Last Admin: 12/20/16 09:46 Dose: Not Given Ibuprofen (Motrin Tab) 600 mg PO Q6H PRN PRN Reason: Pain, moderate (4-7) Last Admin: 12/17/16 19:03 Dose: 600 mg Isoniazid (Niazid) 300 mg PO DAILY [facility] PRN Reason: Protocol Last Admin: 12/20/16 09:46 Dose: 300 mg Lisinopril (Zestril) 20 mg PO DAILY [facility] Last Admin: 12/20/16 09:47 Dose: Not Given Ondansetron HCl (Zofran Inj) 4 mg IVP Q4H PRN PRN Reason: Nausea/Vomiting Last Admin: 12/19/16 18:02 Dose: 4 mg Pantoprazole Sodium (Protonix Ec Tab) 40 mg PO 0600 [facility] Last Admin: 12/20/16 06:49 Dose: 40 mg Polyethylene Glycol (Miralax) 17 gm PO BID [facility] Last Admin: 12/20/16 09:46 Dose: 17 gm Polysaccharide Iron Complex (Ferrex-150) 300 mg PO BID [facility] Last Admin: 12/20/16 09:46 Dose: 300 mg Pyrazinamide (Pyrazinamide) 1,000 mg PO DAILY [facility] Last Admin: 12/20/16 09:47 Dose: 1,000 mg Pyridoxine HCl (Vitamin B6 50 Mg Tab) 50 mg PO DAILY [facility] Last Admin: 12/20/16 09:47 Dose: 50 mg Rifampin (Rifampin Cap) 300 mg PO BID [facility] PRN Reason: Protocol Last Admin: 12/20/16 09:47 Dose: 300 mg Sucralfate (Carafate Oral Susp) 1 gm PO 0600,1600 [facility] - Labs Labs: 12/16/16 06:50 12/20/16 08:00 PT 12.5 Seconds (9.9-11.8) H 12/07/16 19:45 INR 1.16 (0.93-1.08) H 12/07/16 19:45 APTT 31.7 Seconds (23.7-30.8) H 12/07/16 19:45 - Constitutional Appears: No Acute Distress - Head Exam Head Exam: NORMAL INSPECTION - Eye Exam Eye Exam: EOMI, Normal appearance - ENT Exam ENT Exam: Mucous Membranes Moist, Normal Exam - Neck Exam Neck Exam: Full ROM - Respiratory Exam Respiratory Exam: Clear to Ausculation Bilateral, NORMAL BREATHING PATTERN. absent: Rales, Rhonchi, Wheezes, Respiratory Distress - Cardiovascular Exam Cardiovascular Exam: REGULAR RHYTHM, +S1, +S2. absent: Murmur - GI/Abdominal Exam GI & Abdominal Exam: Normal Bowel Sounds. absent: Distended, Guarding - Extremities Exam Extremities Exam: absent: Calf Tenderness, Pedal Edema - Back Exam Back Exam: NORMAL INSPECTION - Neurological Exam Neurological Exam: Alert, Awake, Oriented x3 - Psychiatric Exam Psychiatric exam: Normal Affect, Normal Mood - Skin Skin Exam: Dry, Intact, Normal Color, Warm Assessment and Plan - Assessment and Plan (Free Text) Assessment: Pt is a 61 yo female with a past medical history of htn, asthma, gastric ulcer, esophagitis who is admitted for evaluation and treatment of a positive ppd, cavitary lesions on CT scan, and positive sputum AFB smear. Plan: 1. Cavitary lesion of lung -AFB stain post one week of RIPE therapy collected positive for AFB (+1); will await results from todays (12/20) AFB stain -nursing given orders to call RT for sputum induction if patient is unable to produce -continue RIPE therapy as per ID -awaiting three negative AFB stains before patient can be discharged from medical center -Isolation precautions -spoke with and arranged follow-up with chest clinic for post discharge TB monitoring -Recommended all visitors wear proper isolation masks 2. Asthma -no complaints at this time -continue albuterol PRN -pulmonology following 3. Pneumonia -monitor clincial symptoms 4. HTN -Continue lisinopril and HCTZ 5. Constipation -continue miralax 6. Rib pain - continue on ibprofen PRN for pain 7. GI/DVT prophylaxis -protonix/scd's Patient seen and case discussed with attending physician, Dr. Shoemaker. <Clifford Shoemaker - Last Filed: 12/20/16 17:08> Objective - Vital Signs/Intake and Output Vital Signs (last 24 hours): Temp Pulse Resp BP Pulse Ox 98 F 68 18 101/61 97 12/20/16 08:01 12/20/16 08:01 12/20/16 08:01 12/20/16 08:01 12/20/16 08:01 Intake and Output: 12/20/16 12/20/16 06:59 18:59 Intake Total 540 480 Output Total 3 Balance 537 480 - Medications Medications: Current Medications Albuterol Sulfate (Albuterol 0.083% Inhal Megan (2.5 Mg/3 Ml) Ud) 2.5 mg IH [id number] PRN PRN Reason: Cough and congestion Ethambutol HCl (Myambutol) 800 mg PO DAILY [facility] Last Admin: 12/20/16 09:46 Dose: 800 mg Hydrochlorothiazide (Hydrodiuril) 25 mg PO DAILY [facility] Last Admin: 12/20/16 09:46 Dose: Not Given Sodium Chloride (Sodium Chloride 0.9%) 1,000 mls @ 100 mls/hr IV .Q10H [facility] Ibuprofen (Motrin Tab) 600 mg PO Q6H PRN PRN Reason: Pain, moderate (4-7) Last Admin: 12/17/16 19:03 Dose: 600 mg Isoniazid (Niazid) 300 mg PO DAILY [facility] PRN Reason: Protocol Last Admin: 12/20/16 09:46 Dose: 300 mg Lisinopril (Zestril) 20 mg PO DAILY [facility] Last Admin: 12/20/16 09:47 Dose: Not Given Ondansetron HCl (Zofran Inj) 4 mg IVP Q4H PRN PRN Reason: Nausea/Vomiting Last Admin: 12/19/16 18:02 Dose: 4 mg Pantoprazole Sodium (Protonix Ec Tab) 40 mg PO 0600 [facility] Last Admin: 12/20/16 06:49 Dose: 40 mg Polyethylene Glycol (Miralax) 17 gm PO BID [facility] Last Admin: 12/20/16 09:46 Dose: 17 gm Polysaccharide Iron Complex (Ferrex-150) 300 mg PO BID [facility] Last Admin: 12/20/16 09:46 Dose: 300 mg Pyrazinamide (Pyrazinamide) 1,000 mg PO DAILY [facility] Last Admin: 12/20/16 09:47 Dose: 1,000 mg Pyridoxine HCl (Vitamin B6 50 Mg Tab) 50 mg PO DAILY [facility] Last Admin: 12/20/16 09:47 Dose: 50 mg Rifampin (Rifampin Cap) 600 mg PO DAILY [facility] PRN Reason: Protocol Sucralfate (Carafate Oral Susp) 1 gm PO 0600,1600 [facility] Last Admin: 12/20/16 16:29 Dose: 1 gm - Labs Labs: 12/16/16 06:50 12/20/16 08:00 PT 12.5 Seconds (9.9-11.8) H 12/07/16 19:45 INR 1.16 (0.93-1.08) H 12/07/16 19:45 APTT 31.7 Seconds (23.7-30.8) H 12/07/16 19:45 Attending/Attestation - Attestation I have personally seen and examined this patient.: Yes I have fully participated in the care of the patient.: Yes I have reviewed all pertinent clinical information, including history, physical exam and plan: Yes Notes (Text): 12/20/16 17:04 Attending note; Patient seen and examined with resident. The patient is a 61-year-old female with history of asthma and positive PPD who presented with complaint of cough and hemoptysis. She was found to have cavitary lesion on CT chest and +AFB and started on RIPE therapy. repeat AFB is positive on 12/19/16. Case discussed with nurse from chest clinic. Patient needs 3 negative AFB for discharge. patient will have directly observed therapy at home daily upon discharge. Patient's family is currently getting PPD to evaluate their TB exposure status. Abdominal discomfort; secondary to antituberculosis therapy. Patient with a history of H. pylori treated in the past. Continue Zofran and Protonix. Continue Carafate. GI evaluation requested. Case discussed with infectious disease specialist/ ID nurse in detail. Upon discharge the patient will follow-up with PMD DR. Mcclure.
--- NOTE | 2016-12-20 15:00 | CP.PCM.PN ---
Subjective - Date & Time of Evaluation Date of Evaluation: 12/20/16 Time of Evaluation: 14:30 - Subjective Subjective: Infectious Disease Follow Up: December 20, 2016 61 yo female with cough and bright red blood in sputum starting yesterday. The patient complains of persistent cough for the past 2 months without improvement. The patient placed on isolation and respiratory precautions at this time. Supportive care. Rule out TB. 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 Patient did have BCG vaccine in the past as a child. Patient was born in the [place] but moved to the [facility] [address] chest showed either abscess or cavitary lesion. The patient does complain of subjective fevers and chills. Fever of 101.1 F in ER. Acid-fast stain was positive. Starting treatment for tuberculosis. Noted patient refusing TB meds stating that another doctor told her she does not need them. At this point, the patient has two positive acid-fast stains from the sputum. Issues with the patient not believing her diagnosis. Multiple doctors have explained to her and she finally started taking the anti-TB medications. However, question remain whether she would continue to take medications when she is cleared for discharge. The patient still has not said that she accepts the diagnosis that she has a lung infection. No further AFB until the patient has had at least one week of anti-TB medications. The patient's daughter apparently was treated for active tuberculosis and the patient given treatment for latent infection. [facility] chest clinic was apparently here and spoke to the patient today. The patient cannot leave the hospital until three consecutive sputums are AFB negative one week after starting RIPE therapy as she is a public health risk due to potential tuberculosis. AFB culture negative at one week... note that mycobacterium are slow growing organisms and that the results are NOT finalized until 6 weeks of incubation. This amount of time must pass for incubation before one can state/read the culture is negative. 12/19/2016 AFB sputums are still positive. Objective - Vital Signs/Intake and Output Vital Signs (last 24 hours): Temp Pulse Resp BP Pulse Ox 98 F 68 18 101/61 97 12/20/16 08:01 12/20/16 08:01 12/20/16 08:01 12/20/16 08:01 12/20/16 08:01 Intake and Output: 12/20/16 12/20/16 06:59 18:59 Intake Total 540 480 Output Total 3 Balance 537 480 - Medications Medications: Current Medications Albuterol Sulfate (Albuterol 0.083% Inhal Megan (2.5 Mg/3 Ml) Ud) 2.5 mg IH [id number] PRN PRN Reason: Cough and congestion Ethambutol HCl (Myambutol) 800 mg PO DAILY [facility] Last Admin: 12/20/16 09:46 Dose: 800 mg Hydrochlorothiazide (Hydrodiuril) 25 mg PO DAILY [facility] Last Admin: 12/20/16 09:46 Dose: Not Given Ibuprofen (Motrin Tab) 600 mg PO Q6H PRN PRN Reason: Pain, moderate (4-7) Last Admin: 12/17/16 19:03 Dose: 600 mg Isoniazid (Niazid) 300 mg PO DAILY [facility] PRN Reason: Protocol Last Admin: 12/20/16 09:46 Dose: 300 mg Lisinopril (Zestril) 20 mg PO DAILY [facility] Last Admin: 12/20/16 09:47 Dose: Not Given Ondansetron HCl (Zofran Inj) 4 mg IVP Q4H PRN PRN Reason: Nausea/Vomiting Last Admin: 12/19/16 18:02 Dose: 4 mg Pantoprazole Sodium (Protonix Ec Tab) 40 mg PO 0600 [facility] Last Admin: 12/20/16 06:49 Dose: 40 mg Polyethylene Glycol (Miralax) 17 gm PO BID [facility] Last Admin: 12/20/16 09:46 Dose: 17 gm Polysaccharide Iron Complex (Ferrex-150) 300 mg PO BID [facility] Last Admin: 12/20/16 09:46 Dose: 300 mg Pyrazinamide (Pyrazinamide) 1,000 mg PO DAILY [facility] Last Admin: 12/20/16 09:47 Dose: 1,000 mg Pyridoxine HCl (Vitamin B6 50 Mg Tab) 50 mg PO DAILY [facility] Last Admin: 12/20/16 09:47 Dose: 50 mg Rifampin (Rifampin Cap) 300 mg PO BID [facility] PRN Reason: Protocol Last Admin: 12/20/16 09:47 Dose: 300 mg Sucralfate (Carafate Oral Susp) 1 gm PO 0600,1600 [facility] - Labs Labs: 12/16/16 06:50 12/20/16 08:00 PT 12.5 Seconds (9.9-11.8) H 12/07/16 19:45 INR 1.16 (0.93-1.08) H 12/07/16 19:45 APTT 31.7 Seconds (23.7-30.8) H 12/07/16 19:45 - Constitutional Appears: Non-toxic, No Acute Distress, Chronically Ill - Head Exam Head Exam: ATRAUMATIC, NORMOCEPHALIC - Eye Exam Eye Exam: EOMI, PERRL Pupil Exam: NORMAL ACCOMODATION, PERRL - ENT Exam ENT Exam: Mucous Membranes Moist, Normal External Ear Exam, TM's Normal Bilaterally - Neck Exam Neck Exam: Full ROM, Normal Inspection - Respiratory Exam Respiratory Exam: Decreased Breath Sounds, NORMAL BREATHING PATTERN. absent: Rales, Rhonchi, Wheezes - Cardiovascular Exam Cardiovascular Exam: REGULAR RHYTHM, RRR, +S1, +S2 - GI/Abdominal Exam GI & Abdominal Exam: Soft, Tenderness, Normal Bowel Sounds. absent: Distended - Extremities Exam Extremities Exam: Full ROM, Normal Inspection - Neurological Exam Neurological Exam: Alert, Awake, CN II-XII Intact, Oriented x3 - Psychiatric Exam Psychiatric exam: Normal Affect, Normal Mood - Skin Skin Exam: Intact, Normal Color Assessment and Plan - Assessment and Plan (Free Text) Assessment: 61 yo female with prolonged cough for over 2 months with no improvement on antibiotics. The patient with known positive PPD. Cannot rule out tuberculosis at this point. Must also consider infections such as Staph Aureus and other acid-fast positive organisms. Start Rocephin for antibiotic coverage. Larson cultures. Obtain Acid-Fast stains and studies of sputum x 3. Patient had hemoptysis. Repeating PPD and Quantiferon will not yield additional data (both tests only show potential exposure of patient to tuberculosis during lifetime and cannot denote active disease). Await Acid- Fast stains and sputum culture results. Maintain isolation. Acid-Fast stain positive from sputum x 2. Continue treatment for tuberculosis as other tests return. Continue on Isoniazid, Rifampin, Pyrazinamide, and ethambutol. Start Vitamin B6 as well. Await PCR for identification of tuberculous strain and cultures. Supportive care. HIV test results are negative. No further AFB until patient has taken one week of anti-TB meds. Cough and hemopytsis improved. Patient does not believe her diagnosis of potential TB. First AFB cultures read currently as negative at one week of incubation. Results are finalized after 6 weeks of incubation. With the 12/19/2016 AFB sputum being positive, would await another week before taking another AFB sputum. Thank you for allowing me to participate in the care of the patient, we will follow with you.
[2016-12-20] MEDS: Sucralfate 1 gm/10 ml Oral Susp UD PO SCH (16:29)
[2016-12-20] MEDS: Sodium Chloride 0.9% 1,000 ML IV SCH (19:05)
[2016-12-21] MEDS: Sodium Chloride 0.9% 1,000 ML IV SCH ×3 (02:00→23:25)
[2016-12-21] MEDS: Sucralfate 1 gm/10 ml Oral Susp UD PO SCH ×2 (05:45→18:05)
[2016-12-21] MEDS: Pantoprazole 40 mg EC Tab PO SCH (05:45)
[2016-12-21] MEDS: Iron Complex Polysacch 150mg Cap PO SCH ×2 (10:42→18:05)
[2016-12-21] MEDS: POLYETHYLENE GLYCOL 3350 17 GM/Dose PACKET PO SCH (10:46)
--- NOTE | 2016-12-21 12:07 | CP.PCM.PN ---
<Marcia Ramirez - Last Filed: 12/21/16 12:04> Subjective - Date & Time of Evaluation Date of Evaluation: 12/21/16 Time of Evaluation: 09:45 - Subjective Subjective: S&E at bedside, chart reviewed. Remains on airborne precaution. Patient report that she had 1 loose stool this am, no blood, last night she had alot of reflux , describes that it felt like " something coming up from her stomach to her mouth, she got nausea and threw up, it appear dark brown, no bright red blood. No abdominal pain, still get nausea, Carafate and PPI helping. No SOB, CP. Objective - Vital Signs/Intake and Output Vital Signs (last 24 hours): Temp Pulse Resp BP Pulse Ox 97.9 F 80 18 102/62 97 12/21/16 07:30 12/21/16 10:44 12/21/16 07:30 12/21/16 10:44 12/21/16 07:30 Intake and Output: 12/21/16 12/21/16 06:59 18:59 Intake Total 420 Balance 420 - Medications Medications: Current Medications Albuterol Sulfate (Albuterol 0.083% Inhal Megan (2.5 Mg/3 Ml) Ud) 2.5 mg IH [id number] PRN PRN Reason: Cough and congestion Ethambutol HCl (Myambutol) 800 mg PO DAILY [facility] Last Admin: 12/21/16 10:43 Dose: 800 mg Hydrochlorothiazide (Hydrodiuril) 25 mg PO DAILY [facility] Last Admin: 12/21/16 10:43 Dose: 25 mg Sodium Chloride (Sodium Chloride 0.9%) 1,000 mls @ 100 mls/hr IV .Q10H [facility] Last Admin: 12/21/16 02:00 Dose: 100 mls/hr Ibuprofen (Motrin Tab) 600 mg PO Q6H PRN PRN Reason: Pain, moderate (4-7) Last Admin: 12/20/16 23:51 Dose: 600 mg Isoniazid (Niazid) 300 mg PO DAILY [facility] PRN Reason: Protocol Last Admin: 12/21/16 10:43 Dose: 300 mg Lisinopril (Zestril) 20 mg PO DAILY [facility] Last Admin: 12/21/16 10:44 Dose: 20 mg Ondansetron HCl (Zofran Inj) 4 mg IVP Q4H PRN PRN Reason: Nausea/Vomiting Last Admin: 12/20/16 23:05 Dose: 4 mg Pantoprazole Sodium (Protonix Ec Tab) 40 mg PO 0600 [facility] Last Admin: 12/21/16 05:45 Dose: 40 mg Polyethylene Glycol (Miralax) 17 gm PO BID [facility] Last Admin: 12/21/16 10:46 Dose: 17 gm Polysaccharide Iron Complex (Ferrex-150) 300 mg PO BID [facility] Last Admin: 12/21/16 10:42 Dose: 300 mg Pyrazinamide (Pyrazinamide) 1,000 mg PO DAILY [facility] Last Admin: 12/21/16 10:44 Dose: 1,000 mg Pyridoxine HCl (Vitamin B6 50 Mg Tab) 50 mg PO DAILY [facility] Last Admin: 12/21/16 10:44 Dose: 50 mg Rifampin (Rifampin Cap) 600 mg PO DAILY [facility] PRN Reason: Protocol Last Admin: 12/21/16 10:45 Dose: 600 mg Sucralfate (Carafate Oral Susp) 1 gm PO 0600,1600 [facility] Last Admin: 12/21/16 05:45 Dose: 1 gm - Labs Labs: 12/16/16 06:50 12/20/16 08:00 PT 12.5 Seconds (9.9-11.8) H 12/07/16 19:45 INR 1.16 (0.93-1.08) H 12/07/16 19:45 APTT 31.7 Seconds (23.7-30.8) H 12/07/16 19:45 - Constitutional Appears: No Acute Distress - Head Exam Head Exam: NORMOCEPHALIC - Eye Exam Eye Exam: Normal appearance. absent: Scleral icterus - ENT Exam ENT Exam: Mucous Membranes Moist - Neck Exam Neck Exam: Normal Inspection - Respiratory Exam Respiratory Exam: NORMAL BREATHING PATTERN. absent: Respiratory Distress - Cardiovascular Exam Cardiovascular Exam: +S1, +S2 - GI/Abdominal Exam GI & Abdominal Exam: Soft, Normal Bowel Sounds. absent: Guarding, Tenderness, Rebound - Extremities Exam Extremities Exam: absent: Calf Tenderness, Pedal Edema - Neurological Exam Neurological Exam: Alert, Awake, Oriented x3 - Skin Skin Exam: Dry, Warm Assessment and Plan - Assessment and Plan (Free Text) Assessment: ASSESSMENT: Cavitary Lesion, (+) AFB Nausea, maybe likley be secondary to multiple antibiotics treatment Pneumonia H/O PUD H/O H pylori Constipation, now diarrhea? r/o cdiff, or maybe from laxative HTN PLAN: continue PPI continue Carafate On Iron on Rifampin,Niazid,Pyrazinamide,Myambutol decrease Miralax from bid to daily check stool cdiff Seen and discussed w/ Dr. Oleary. <Lulu Oleary V - Last Filed: 12/21/16 23:51> Objective - Vital Signs/Intake and Output Vital Signs (last 24 hours): Temp Pulse Resp BP Pulse Ox 97.7 F 83 15 131/87 99 12/21/16 16:21 12/21/16 16:21 12/21/16 16:21 12/21/16 16:21 12/21/16 16:21 Intake and Output: 12/21/16 12/22/16 18:59 06:59 Intake Total 480 480 Balance 480 480 - Medications Medications: Current Medications Acetaminophen (Tylenol 325mg Tab) 650 mg PO Q6H PRN PRN Reason: Pain, moderate (4-7) Last Admin: 12/21/16 23:36 Dose: 650 mg Albuterol Sulfate (Albuterol 0.083% Inhal Megan (2.5 Mg/3 Ml) Ud) 2.5 mg IH [id number] PRN PRN Reason: Cough and congestion Ethambutol HCl (Myambutol) 800 mg PO DAILY [facility] Last Admin: 12/21/16 10:43 Dose: 800 mg Hydrochlorothiazide (Hydrodiuril) 25 mg PO DAILY [facility] Last Admin: 12/21/16 10:43 Dose: 25 mg Sodium Chloride (Sodium Chloride 0.9%) 1,000 mls @ 100 mls/hr IV .Q10H [facility] Last Admin: 12/21/16 23:25 Dose: 100 mls/hr Isoniazid (Niazid) 300 mg PO DAILY [facility] PRN Reason: Protocol Last Admin: 12/21/16 10:43 Dose: 300 mg Lisinopril (Zestril) 20 mg PO DAILY [facility] Last Admin: 12/21/16 10:44 Dose: 20 mg Ondansetron HCl (Zofran Inj) 4 mg IVP Q4H PRN PRN Reason: Nausea/Vomiting Last Admin: 12/21/16 23:40 Dose: 4 mg Pantoprazole Sodium (Protonix Ec Tab) 40 mg PO 0600 [facility] Last Admin: 12/21/16 05:45 Dose: 40 mg Polyethylene Glycol (Miralax) 17 gm PO DAILY [facility] Polysaccharide Iron Complex (Ferrex-150) 300 mg PO BID [facility] Last Admin: 12/21/16 18:05 Dose: 300 mg Pyrazinamide (Pyrazinamide) 1,000 mg PO DAILY [facility] Last Admin: 12/21/16 10:44 Dose: 1,000 mg Pyridoxine HCl (Vitamin B6 50 Mg Tab) 50 mg PO DAILY [facility] Last Admin: 12/21/16 10:44 Dose: 50 mg Rifampin (Rifampin Cap) 600 mg PO DAILY [facility] PRN Reason: Protocol Last Admin: 12/21/16 10:45 Dose: 600 mg Sucralfate (Carafate Oral Susp) 1 gm PO 0600,1600 [facility] Last Admin: 12/21/16 18:05 Dose: 1 gm - Labs Labs: 12/16/16 06:50 12/20/16 08:00 PT 12.5 Seconds (9.9-11.8) H 12/07/16 19:45 INR 1.16 (0.93-1.08) H 12/07/16 19:45 APTT 31.7 Seconds (23.7-30.8) H 12/07/16 19:45 Attending/Attestation - Attestation I have personally seen and examined this patient.: Yes I have fully participated in the care of the patient.: Yes I have reviewed all pertinent clinical information, including history, physical exam and plan: Yes Notes (Text): this
--- NOTE | 2016-12-21 12:54 | CP.PCM.PN ---
Subjective - Date & Time of Evaluation Date of Evaluation: 12/21/16 Time of Evaluation: 11:45 - Subjective Subjective: Infectious Disease Follow Up: December 21, 2016 61 yo female with cough and bright red blood in sputum starting yesterday. The patient complains of persistent cough for the past 2 months without improvement. The patient placed on isolation and respiratory precautions at this time. Supportive care. Rule out TB. 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 Patient did have BCG vaccine in the past as a child. Patient was born in the [place] but moved to the [facility] [address] chest showed either abscess or cavitary lesion. The patient does complain of subjective fevers and chills. Fever of 101.1 F in ER. Acid-fast stain was positive. Starting treatment for tuberculosis. Noted patient refusing TB meds stating that another doctor told her she does not need them. At this point, the patient has two positive acid-fast stains from the sputum. Issues with the patient not believing her diagnosis. Multiple doctors have explained to her and she finally started taking the anti-TB medications. However, question remain whether she would continue to take medications when she is cleared for discharge. The patient still has not said that she accepts the diagnosis that she has a lung infection. No further AFB until the patient has had at least one week of anti-TB medications. The patient's daughter apparently was treated for active tuberculosis and the patient given treatment for latent infection. [facility] chest clinic was apparently here and spoke to the patient today. The patient cannot leave the hospital until three consecutive sputums are AFB negative one week after starting RIPE therapy as she is a public health risk due to potential tuberculosis. AFB culture negative at one week... note that mycobacterium are slow growing organisms and that the results are NOT finalized until 6 weeks of incubation. This amount of time must pass for incubation before one can state/read the culture is negative. 12/19/2016 AFB sputums are still positive. Objective - Vital Signs/Intake and Output Vital Signs (last 24 hours): Temp Pulse Resp BP Pulse Ox 97.9 F 80 18 102/62 97 12/21/16 07:30 12/21/16 10:44 12/21/16 07:30 12/21/16 10:44 12/21/16 07:30 Intake and Output: 12/21/16 12/21/16 06:59 18:59 Intake Total 420 Balance 420 - Medications Medications: Current Medications Albuterol Sulfate (Albuterol 0.083% Inhal Megan (2.5 Mg/3 Ml) Ud) 2.5 mg IH [id number] PRN PRN Reason: Cough and congestion Ethambutol HCl (Myambutol) 800 mg PO DAILY [facility] Last Admin: 12/21/16 10:43 Dose: 800 mg Hydrochlorothiazide (Hydrodiuril) 25 mg PO DAILY [facility] Last Admin: 12/21/16 10:43 Dose: 25 mg Sodium Chloride (Sodium Chloride 0.9%) 1,000 mls @ 100 mls/hr IV .Q10H [facility] Last Admin: 12/21/16 02:00 Dose: 100 mls/hr Ibuprofen (Motrin Tab) 600 mg PO Q6H PRN PRN Reason: Pain, moderate (4-7) Last Admin: 12/20/16 23:51 Dose: 600 mg Isoniazid (Niazid) 300 mg PO DAILY [facility] PRN Reason: Protocol Last Admin: 12/21/16 10:43 Dose: 300 mg Lisinopril (Zestril) 20 mg PO DAILY [facility] Last Admin: 12/21/16 10:44 Dose: 20 mg Ondansetron HCl (Zofran Inj) 4 mg IVP Q4H PRN PRN Reason: Nausea/Vomiting Last Admin: 12/20/16 23:05 Dose: 4 mg Pantoprazole Sodium (Protonix Ec Tab) 40 mg PO 0600 [facility] Last Admin: 12/21/16 05:45 Dose: 40 mg Polyethylene Glycol (Miralax) 17 gm PO BID [facility] Last Admin: 12/21/16 10:46 Dose: 17 gm Polysaccharide Iron Complex (Ferrex-150) 300 mg PO BID [facility] Last Admin: 12/21/16 10:42 Dose: 300 mg Pyrazinamide (Pyrazinamide) 1,000 mg PO DAILY [facility] Last Admin: 12/21/16 10:44 Dose: 1,000 mg Pyridoxine HCl (Vitamin B6 50 Mg Tab) 50 mg PO DAILY [facility] Last Admin: 12/21/16 10:44 Dose: 50 mg Rifampin (Rifampin Cap) 600 mg PO DAILY [facility] PRN Reason: Protocol Last Admin: 12/21/16 10:45 Dose: 600 mg Sucralfate (Carafate Oral Susp) 1 gm PO 0600,1600 [facility] Last Admin: 12/21/16 05:45 Dose: 1 gm - Labs Labs: 12/16/16 06:50 12/20/16 08:00 PT 12.5 Seconds (9.9-11.8) H 12/07/16 19:45 INR 1.16 (0.93-1.08) H 12/07/16 19:45 APTT 31.7 Seconds (23.7-30.8) H 12/07/16 19:45 - Constitutional Appears: Non-toxic, No Acute Distress, Chronically Ill - Head Exam Head Exam: ATRAUMATIC, NORMOCEPHALIC - Eye Exam Eye Exam: EOMI, PERRL Pupil Exam: NORMAL ACCOMODATION, PERRL - ENT Exam ENT Exam: Mucous Membranes Moist, Normal External Ear Exam, TM's Normal Bilaterally - Neck Exam Neck Exam: Full ROM, Normal Inspection - Respiratory Exam Respiratory Exam: Decreased Breath Sounds, NORMAL BREATHING PATTERN. absent: Rales, Rhonchi, Wheezes - Cardiovascular Exam Cardiovascular Exam: REGULAR RHYTHM, RRR, +S1, +S2 - GI/Abdominal Exam GI & Abdominal Exam: Soft, Normal Bowel Sounds. absent: Distended, Tenderness - Extremities Exam Extremities Exam: Full ROM, Normal Inspection - Neurological Exam Neurological Exam: Alert, Awake, CN II-XII Intact, Oriented x3 - Psychiatric Exam Psychiatric exam: Normal Affect, Normal Mood - Skin Skin Exam: Intact, Normal Color Assessment and Plan - Assessment and Plan (Free Text) Assessment: 61 yo female with prolonged cough for over 2 months with no improvement on antibiotics. The patient with known positive PPD. Cannot rule out tuberculosis at this point. Must also consider infections such as Staph Aureus and other acid-fast positive organisms. Start Rocephin for antibiotic coverage. Larson cultures. Obtain Acid-Fast stains and studies of sputum x 3. Patient had hemoptysis. Repeating PPD and Quantiferon will not yield additional data (both tests only show potential exposure of patient to tuberculosis during lifetime and cannot denote active disease). Await Acid- Fast stains and sputum culture results. Maintain isolation. Acid-Fast stain positive from sputum x 2. Continue treatment for tuberculosis as other tests return. Continue on Isoniazid, Rifampin, Pyrazinamide, and ethambutol. Start Vitamin B6 as well. Await PCR for identification of tuberculous strain and cultures. Supportive care. HIV test results are negative. No further AFB until patient has taken one week of anti-TB meds. Cough and hemopytsis improved. Patient does not believe her diagnosis of potential TB. First AFB cultures read currently as negative at one week of incubation. Results are finalized after 6 weeks of incubation. With the 12/19/2016 AFB sputum being positive, would await another week before taking another AFB sputum. When the patient is able to make sputum clear of AFB (3 consecutive times) she can be discharged with DOT supervised by Department of Health. Thank you for allowing me to participate in the care of the patient, we will follow with you.
--- NOTE | 2016-12-21 15:59 | CP.PCM.PN ---
<JAY HERRERA - Last Filed: 12/21/16 15:56> Subjective - Date & Time of Evaluation Date of Evaluation: 12/21/16 Time of Evaluation: 11:00 - Subjective Subjective: Medicine Progress Note: Pt seen and assessed at bedside. Pt had no new complaints this morning but did report an episode of "bad" nausea and vomiting overnight. She denies having N/V since receiving medication from her nurse last night. She denies headache, changes in vision, fever, chills, night sweats, cough, shortness of breath, hemoptysis, chest pain, abdominal pain or numbness/tingling/weakness in any of her extremities. Objective - Vital Signs/Intake and Output Vital Signs (last 24 hours): Temp Pulse Resp BP Pulse Ox 97.9 F 80 18 102/62 97 12/21/16 07:30 12/21/16 10:44 12/21/16 07:30 12/21/16 10:44 12/21/16 07:30 Intake and Output: 12/21/16 12/21/16 06:59 18:59 Intake Total 420 480 Balance 420 480 - Medications Medications: Current Medications Acetaminophen (Tylenol 325mg Tab) 650 mg PO Q6H PRN PRN Reason: Pain, moderate (4-7) Last Admin: 12/21/16 15:12 Dose: 650 mg Albuterol Sulfate (Albuterol 0.083% Inhal Megan (2.5 Mg/3 Ml) Ud) 2.5 mg IH [id number] PRN PRN Reason: Cough and congestion Ethambutol HCl (Myambutol) 800 mg PO DAILY [facility] Last Admin: 12/21/16 10:43 Dose: 800 mg Hydrochlorothiazide (Hydrodiuril) 25 mg PO DAILY [facility] Last Admin: 12/21/16 10:43 Dose: 25 mg Sodium Chloride (Sodium Chloride 0.9%) 1,000 mls @ 100 mls/hr IV .Q10H [facility] Last Admin: 12/21/16 13:48 Dose: 100 mls/hr Isoniazid (Niazid) 300 mg PO DAILY [facility] PRN Reason: Protocol Last Admin: 12/21/16 10:43 Dose: 300 mg Lisinopril (Zestril) 20 mg PO DAILY [facility] Last Admin: 12/21/16 10:44 Dose: 20 mg Ondansetron HCl (Zofran Inj) 4 mg IVP Q4H PRN PRN Reason: Nausea/Vomiting Last Admin: 12/20/16 23:05 Dose: 4 mg Pantoprazole Sodium (Protonix Ec Tab) 40 mg PO 0600 [facility] Last Admin: 12/21/16 05:45 Dose: 40 mg Polyethylene Glycol (Miralax) 17 gm PO DAILY [facility] Polysaccharide Iron Complex (Ferrex-150) 300 mg PO BID [facility] Last Admin: 12/21/16 10:42 Dose: 300 mg Pyrazinamide (Pyrazinamide) 1,000 mg PO DAILY [facility] Last Admin: 12/21/16 10:44 Dose: 1,000 mg Pyridoxine HCl (Vitamin B6 50 Mg Tab) 50 mg PO DAILY [facility] Last Admin: 12/21/16 10:44 Dose: 50 mg Rifampin (Rifampin Cap) 600 mg PO DAILY [facility] PRN Reason: Protocol Last Admin: 12/21/16 10:45 Dose: 600 mg Sucralfate (Carafate Oral Susp) 1 gm PO 0600,1600 [facility] Last Admin: 12/21/16 05:45 Dose: 1 gm - Labs Labs: 12/16/16 06:50 12/20/16 08:00 PT 12.5 Seconds (9.9-11.8) H 12/07/16 19:45 INR 1.16 (0.93-1.08) H 12/07/16 19:45 APTT 31.7 Seconds (23.7-30.8) H 12/07/16 19:45 - Constitutional Appears: No Acute Distress - Head Exam Head Exam: NORMAL INSPECTION, NORMOCEPHALIC - Eye Exam Eye Exam: EOMI, Normal appearance - ENT Exam ENT Exam: Mucous Membranes Moist, Normal Exam - Neck Exam Neck Exam: Full ROM - Respiratory Exam Respiratory Exam: Clear to Ausculation Bilateral, NORMAL BREATHING PATTERN. absent: Rales, Rhonchi, Wheezes, Respiratory Distress - Cardiovascular Exam Cardiovascular Exam: REGULAR RHYTHM, +S1, +S2. absent: Murmur - GI/Abdominal Exam GI & Abdominal Exam: Soft, Normal Bowel Sounds. absent: Distended, Guarding, Tenderness, Hernia, Organomegaly - Extremities Exam Extremities Exam: absent: Calf Tenderness, Pedal Edema - Neurological Exam Neurological Exam: Alert, Awake, Normal Gait, Oriented x3 - Psychiatric Exam Psychiatric exam: Normal Affect, Normal Mood - Skin Skin Exam: Dry, Intact, Normal Color, Warm Assessment and Plan - Assessment and Plan (Free Text) Assessment: Pt is a 61 yo female with a past medical history of htn, asthma, gastric ulcer, esophagitis who is admitted for evaluation and treatment of a positive ppd, cavitary lesions on CT scan, and positive sputum AFB smear. Plan: 1. Cavitary lesion of lung -ID following, all recs appreciated -AFB stain post one week of RIPE therapy collected positive for AFB (+1) -next AFB stain to be collected after one more week of RIPE therapy, per ID -continue RIPE therapy as per ID -awaiting three negative AFB stains before patient can be discharged from medical center -spoke with and arranged follow-up with chest clinic for post discharge TB monitoring -Recommended all visitors wear proper isolation masks -Isolation precautions 2. Nausea/Vomiting -GI consulted, all recs appreciated -likely secondary to antituberculosis therapy -history of H. pylori treated in the past -cont zofran, protonix, and carafate, per GI -stool sample for C. Diff. to be collected 3. Asthma -no complaints at this time -continue albuterol PRN -pulmonology following, all recs appreciated 4. Pneumonia -monitor clincial symptoms 5. HTN -Continue lisinopril and HCTZ 6. Constipation -miralax changed from BID to daily d/t abdominal discomfort, per GI 7. Rib pain - continue on ibprofen PRN for pain 8. GI/DVT prophylaxis -protonix/scd's Patient seen and case discussed with attending physician, Dr. Shoemaker. <Clifford Shoemaker - Last Filed: 12/21/16 17:26> Objective - Vital Signs/Intake and Output Vital Signs (last 24 hours): Temp Pulse Resp BP Pulse Ox 97.7 F 83 15 131/87 99 12/21/16 16:21 12/21/16 16:21 12/21/16 16:21 12/21/16 16:21 12/21/16 16:21 Intake and Output: 12/21/16 12/21/16 06:59 18:59 Intake Total 420 480 Balance 420 480 - Medications Medications: Current Medications Acetaminophen (Tylenol 325mg Tab) 650 mg PO Q6H PRN PRN Reason: Pain, moderate (4-7) Last Admin: 12/21/16 15:12 Dose: 650 mg Albuterol Sulfate (Albuterol 0.083% Inhal Megan (2.5 Mg/3 Ml) Ud) 2.5 mg IH [id number] PRN PRN Reason: Cough and congestion Ethambutol HCl (Myambutol) 800 mg PO DAILY [facility] Last Admin: 12/21/16 10:43 Dose: 800 mg Hydrochlorothiazide (Hydrodiuril) 25 mg PO DAILY [facility] Last Admin: 12/21/16 10:43 Dose: 25 mg Sodium Chloride (Sodium Chloride 0.9%) 1,000 mls @ 100 mls/hr IV .Q10H [facility] Last Admin: 12/21/16 13:48 Dose: 100 mls/hr Isoniazid (Niazid) 300 mg PO DAILY [facility] PRN Reason: Protocol Last Admin: 12/21/16 10:43 Dose: 300 mg Lisinopril (Zestril) 20 mg PO DAILY [facility] Last Admin: 12/21/16 10:44 Dose: 20 mg Ondansetron HCl (Zofran Inj) 4 mg IVP Q4H PRN PRN Reason: Nausea/Vomiting Last Admin: 12/20/16 23:05 Dose: 4 mg Pantoprazole Sodium (Protonix Ec Tab) 40 mg PO 0600 [facility] Last Admin: 12/21/16 05:45 Dose: 40 mg Polyethylene Glycol (Miralax) 17 gm PO DAILY [facility] Polysaccharide Iron Complex (Ferrex-150) 300 mg PO BID [facility] Last Admin: 12/21/16 10:42 Dose: 300 mg Pyrazinamide (Pyrazinamide) 1,000 mg PO DAILY [facility] Last Admin: 12/21/16 10:44 Dose: 1,000 mg Pyridoxine HCl (Vitamin B6 50 Mg Tab) 50 mg PO DAILY [facility] Last Admin: 12/21/16 10:44 Dose: 50 mg Rifampin (Rifampin Cap) 600 mg PO DAILY [facility] PRN Reason: Protocol Last Admin: 12/21/16 10:45 Dose: 600 mg Sucralfate (Carafate Oral Susp) 1 gm PO 0600,1600 [facility] Last Admin: 12/21/16 05:45 Dose: 1 gm - Labs Labs: 12/16/16 06:50 12/20/16 08:00 PT 12.5 Seconds (9.9-11.8) H 12/07/16 19:45 INR 1.16 (0.93-1.08) H 12/07/16 19:45 APTT 31.7 Seconds (23.7-30.8) H 12/07/16 19:45 Attending/Attestation - Attestation I have personally seen and examined this patient.: Yes I have fully participated in the care of the patient.: Yes I have reviewed all pertinent clinical information, including history, physical exam and plan: Yes Notes (Text): 12/21/16 17:22 Attending note; Patient seen and examined with resident. The patient is a 61-year-old female with history of asthma and positive PPD who presented with complaint of cough and hemoptysis. She was found to have cavitary lesion on CT chest and +AFB and started on RIPE therapy. repeat AFB is positive on 12/19/16. Case discussed with nurse from chest clinic. Patient needs 3 negative AFB for discharge. patient will have directly observed therapy at home daily upon discharge. Patient's family is currently getting PPD to evaluate their TB exposure status. Abdominal discomfort; secondary to antituberculosis therapy. Patient with a history of H. pylori treated in the past. Continue Zofran and Protonix. Continue Carafate. GI evaluation appreciated. Case discussed with infectious disease specialist/ ID nurse in detail. Will repeat AFB on Saturday. Upon discharge the patient will follow-up with PMD DR. Mcclure.
--- NOTE | 2016-12-21 19:21 | CON ---
Seen and examined at the bedside this afternoon. The chart was reviewed. Request for consult is for nausea/for abdominal pain. HISTORY OF PRESENT ILLNESS: This is a 61-year-old female with a past medical history of hypertension, gastric ulcers, esophagitis, and asthma, came to the hospital on 12/07/2016 with complaints of hemoptysis. The patient did complain of persistent cough with fever and chills as well as a 5-pound weight loss within a month's time. The patient was reported having a prior positive PPD, had chest x-ray done and was given medications for treatment. The patient was reported to be noncompliant with medications. She has history of being in [facility] [place] about 2 years ago for several months. The patient on admission had a chest CT and that showed some right upper lobe scarring as well as small right upper lobe cavitary lesions. The patient is positive for sputum of AFB smears. She is currently on respiratory isolation. Upon my visit, the patient denies any abdominal pain. She is complaining more of nausea especially after eating and vomiting. No current reports of hematemesis or hemoptysis. She does get constipation, but she is on MiraLax. She reported having 6 pasty stools yesterday. No reports of melena or bright red blood. She is currently on regular diet and reports that sometimes it is difficult to intake the food. The patient did have endoscopy and colonoscopy for about a year ago in 11/2015. On endoscopy, she was found to be positive H. pylori and she was treated with antibiotics. She was found to have also some superficial gastric ulcers and esophagitis. Colonoscopy, she was found to have internal hemorrhoids and some mild inflammation in the rectum. Biopsies taken to rule out microscopic colitis which were negative. PAST MEDICAL HISTORY: As stated above. Has hypertension, asthma, gastric ulcers, esophagitis, H. pylori that was treated, internal hemorrhoids. SURGICAL HISTORY: Hernia repair. ALLERGIES: EGGS AND GLUTEN. MEDICATIONS: Reviewed as per MAR. FAMILY HISTORY: Mother with hypertension, father with Alzheimer's disease, brother with brain cancer. SOCIAL HISTORY: Denies EtOH, smoking or drugs. REVIEW OF SYSTEMS: Systems reviewed with positive findings. See HPI. PHYSICAL EXAMINATION: VITAL SIGNS: Temperature is 98, blood pressure is 101/61, pulse 68, respirations 18, 97 on room air. HEENT: Sclera is anicteric. NECK: Supple. CARDIAC: S1, S2. LUNGS: Lung sounds with decreased breath sounds but clear. No rales or wheeze. ABDOMEN: With bowel sounds, soft, it is nondistended, nontender. No .rebound or guarding. EXTREMITIES: Positive pedal pulses. No edema. NEUROLOGIC: Awake, alert and oriented. PSYCH: The patient appears depressed, almost crying. LABORATORY DATA: From 12/16/2016, WBC is 6.4, H and H is 9.5 and 30.5, platelet is 499. Her last PT was from 12/07/2016 and the PT was 12.5, INR is 1.16, PTT is 31.7. CMP is from 12/20/2016; sodium 130, K is 4.3, BUN is 14, creatinine 0.4, total bilirubin is 0.6, AST 43, ALT 33, alk phos is 98. HIV-1 antibody screen negative. Her TB test QFT is positive. The CT scan of the chest was reviewed and chest x-ray on admission shows cavitary mass which is decreased in size compared to the prior chest x-ray. Overall findings in the right upper lobe likely reflect granulomatous disease, fungal etiology should be considered. ASSESSMENT: This is a 61-year-old female with past medical history of hypertension, gastric ulcer, esophagitis, positive Helicobacter pylori that has been treated and asthma, comes to the hospital with complaints of hemoptysis, coughing, found to have cavitary lesions of the lung, positive sputum for AFB smear and serology positive for TB, pneumonia, constipation, now with complaints of nausea, mostly looks like postprandial. No hematemesis. PLAN: The patient is on respiratory isolation. She is on multiple antibiotics, antitubercular treatment regimen, , pyrazinamide, rifampin. Agree with Protonix and Carafate likely b.i.d. She is also getting MiraLax for constipation. We will continue to follow closely. The patient is also being followed by ID and Pulmonology. Change the patient's diet to soft diet that is gluten and egg-free as she is allergic to these. Thank you for this consult and for allowing us to participate in your patient's care. We will make further recommendations based upon the patient's clinical course. The patient was seen and case discussed with Dr. Oleary. JOSUE Brown [facility] # [id number] EBENEZER
--- NOTE | 2016-12-21 19:34 | PN ---
DATE: 12/20/2016 PULMONARY PROGRESS NOTE REFERRING PHYSICIAN: Clifford Shoemaker MD SUBJECTIVE: She is lying in the bed at 45-degree; no headache; no rhinitis; no cough; no sputum production; has some abdominal discomfort. No diarrhea. No leg pain or leg swelling. OBJECTIVE: GENERAL: In no acute distress. VITAL SIGNS: Temperature is 98, heart rate is 86, respiratory rate is 18, blood pressure 105/73, and pulse ox 97% on room air. HEENT: Moist mucous membrane *------*. NECK: Supple. No JVD. LUNGS: *------* with rhonchi. HEART: S1 and S2. ABDOMEN: Mild epigastric tenderness. EXTREMITIES: There is no edema. NEUROLOGICAL: Awake, alert, follows simple commands. MEDICATIONS: She is on DuoNeb q.6 hours p.r.n., Carafate 1 g twice a day; iron supplement 300 mg twice a day; hydrochlorothiazide 25 mg daily, which is not given; MiraLax 17 g twice a day; Motrin 600 mg q.6 hours p.r.n., *------* 800 mg daily; INH 300 mg daily; Protonix 40 mg daily; PZA 1000 mg daily; rifampin 600 mg daily; IV fluid normal saline 100 mL per hour; vitamin B6 of 50 mg daily; Zestril 20 mg daily; Zofran p.r.n. basis. LABORATORY DATA: Reviewed. Sodium 130, potassium 4.3, chloride 93, bicarbonate 25, BUN is 14, creatinine is 0.7, glucose 85, calcium 9.0. AST 43, ALT 33, alk phos is 98, albumin is 3.8. Sputum from December 19 still shows rare 1+ acid fast bacilli. Still sending PCR for TB. IMPRESSION AND PLAN: Chronic obstructive lung disease, cavitary pulmonary lesion; AFB is positive in sputum. Has gastritis. Pulmonary point of view, she is doing okay. No more cough or shortness of breath. The nebulizer is only p.r.n. basis. She is getting antiTB medication, tolerating well; has abdominal pain. I am not sure why she is getting Motrin. It may be causing more gastritis. I will suggest to discontinue Motrin. Continue Carafate though, may give her TB medication with the food, being followed by Infectious Diseases. At present, there is no active cough, no fever. Thank you, and we will follow with you.
[2016-12-22] MEDS: Pantoprazole 40 mg EC Tab PO SCH (05:16)
[2016-12-22] MEDS: Sucralfate 1 gm/10 ml Oral Susp UD PO SCH ×2 (05:52→17:09)
[2016-12-22] MEDS: POLYETHYLENE GLYCOL 3350 17 GM/Dose PACKET PO SCH (11:12)
[2016-12-22] MEDS: Iron Complex Polysacch 150mg Cap PO SCH ×2 (11:13→17:09)
[2016-12-22] MEDS: Sodium Chloride 0.9% 1,000 ML IV SCH (11:17)
--- NOTE | 2016-12-22 14:18 | CP.PCM.PN ---
<JAY HERRERA - Last Filed: 12/22/16 14:15> Subjective - Date & Time of Evaluation Date of Evaluation: 12/22/16 Time of Evaluation: 07:00 - Subjective Subjective: Medicine Progress Note: Pt seen and assessed at bedside. Pt had no new complaints this morning. Pt reports that she gets nauseous when she takes her TB meds but that medications shes gotten for this have helped. She denies headache, changes in vision, fever , night sweats, cough, shortness of breath, hemoptysis, chest pain, abdominal pain or numbness/tingling/weakness in any of her extremities. Objective - Vital Signs/Intake and Output Vital Signs (last 24 hours): Temp Pulse Resp BP Pulse Ox 97.6 F 72 20 114/75 99 12/22/16 07:55 12/22/16 11:14 12/22/16 07:55 12/22/16 11:14 12/22/16 07:55 Intake and Output: 12/22/16 12/22/16 06:59 18:59 Intake Total 1920 Balance 1920 - Medications Medications: Current Medications Acetaminophen (Tylenol 325mg Tab) 650 mg PO Q6H PRN PRN Reason: Pain, moderate (4-7) Last Admin: 12/21/16 23:36 Dose: 650 mg Albuterol Sulfate (Albuterol 0.083% Inhal Megan (2.5 Mg/3 Ml) Ud) 2.5 mg IH [id number] PRN PRN Reason: Cough and congestion Ethambutol HCl (Myambutol) 800 mg PO DAILY [facility] Last Admin: 12/22/16 11:14 Dose: 800 mg Hydrochlorothiazide (Hydrodiuril) 25 mg PO DAILY [facility] Last Admin: 12/22/16 11:13 Dose: 25 mg Sodium Chloride (Sodium Chloride 0.9%) 1,000 mls @ 100 mls/hr IV .Q10H [facility] Last Admin: 12/22/16 11:17 Dose: 100 mls/hr Isoniazid (Niazid) 300 mg PO DAILY [facility] PRN Reason: Protocol Last Admin: 12/22/16 11:14 Dose: 300 mg Lisinopril (Zestril) 20 mg PO DAILY [facility] Last Admin: 12/22/16 11:14 Dose: 20 mg Ondansetron HCl (Zofran Inj) 4 mg IVP Q4H PRN PRN Reason: Nausea/Vomiting Last Admin: 12/22/16 11:33 Dose: 4 mg Pantoprazole Sodium (Protonix Ec Tab) 40 mg PO 0600 [facility] Last Admin: 12/22/16 05:16 Dose: 40 mg Polyethylene Glycol (Miralax) 17 gm PO DAILY [facility] Last Admin: 12/22/16 11:12 Dose: 17 gm Polysaccharide Iron Complex (Ferrex-150) 300 mg PO BID [facility] Last Admin: 12/22/16 11:13 Dose: 300 mg Pyrazinamide (Pyrazinamide) 1,000 mg PO DAILY [facility] Last Admin: 12/22/16 11:13 Dose: 1,000 mg Pyridoxine HCl (Vitamin B6 50 Mg Tab) 50 mg PO DAILY [facility] Last Admin: 12/22/16 11:12 Dose: 50 mg Rifampin (Rifampin Cap) 600 mg PO DAILY [facility] PRN Reason: Protocol Last Admin: 12/22/16 11:13 Dose: 600 mg Sucralfate (Carafate Oral Susp) 1 gm PO 0600,1600 [facility] Last Admin: 12/22/16 05:52 Dose: 1 gm - Labs Labs: 12/16/16 06:50 12/20/16 08:00 PT 12.5 Seconds (9.9-11.8) H 12/07/16 19:45 INR 1.16 (0.93-1.08) H 12/07/16 19:45 APTT 31.7 Seconds (23.7-30.8) H 12/07/16 19:45 - Constitutional Appears: No Acute Distress - Head Exam Head Exam: NORMAL INSPECTION, NORMOCEPHALIC - Eye Exam Eye Exam: EOMI, Normal appearance - ENT Exam ENT Exam: Mucous Membranes Moist, Normal Exam - Neck Exam Neck Exam: Full ROM - Respiratory Exam Respiratory Exam: Clear to Ausculation Bilateral, NORMAL BREATHING PATTERN. absent: Rales, Rhonchi, Wheezes, Respiratory Distress - Cardiovascular Exam Cardiovascular Exam: REGULAR RHYTHM, +S1, +S2. absent: Murmur - GI/Abdominal Exam GI & Abdominal Exam: Normal Bowel Sounds. absent: Distended, Tenderness - Extremities Exam Extremities Exam: absent: Calf Tenderness, Pedal Edema - Neurological Exam Neurological Exam: Alert, Awake, Normal Gait, Oriented x3 - Psychiatric Exam Psychiatric exam: Normal Affect, Normal Mood - Skin Skin Exam: Dry, Intact, Normal Color, Warm Assessment and Plan - Assessment and Plan (Free Text) Assessment: Pt is a 61 yo female with a past medical history of htn, asthma, gastric ulcer, esophagitis who is admitted for evaluation and treatment of a positive ppd, cavitary lesions on CT scan, and positive sputum AFB smear. Plan: 1. Cavitary lesion of lung -ID following, all recs appreciated -AFB stain post one week of RIPE therapy collected positive for AFB (+1) on -next AFB stain to be collected after one more week of RIPE therapy, per ID -continue RIPE therapy as per ID -awaiting three negative AFB stains before patient can be discharged from medical center -spoke with and arranged follow-up with chest clinic for post discharge TB monitoring -Recommended all visitors wear proper isolation masks -Isolation precautions 2. Nausea/Vomiting -GI consulted, all recs appreciated -likely secondary to antituberculosis therapy -history of H. pylori treated in the past noted -cont zofran, protonix, and carafate, per GI -awaiting result of stool sample sent for C. Diff. 3. Asthma -no complaints at this time -continue albuterol PRN -pulmonology following, all recs appreciated 4. Pneumonia -monitor clincial symptoms 5. HTN -Continue lisinopril and HCTZ 6. Constipation -miralax changed from BID to daily d/t abdominal discomfort, per GI on 12/21 -continue to monitor 7. Rib pain - continue on ibprofen PRN for pain 8. GI/DVT prophylaxis -protonix/scd's Patient seen and case discussed with attending physician, Dr. Shoemaker. <Karthik BARTH,Polo - Last Filed: 12/22/16 14:29> Objective - Vital Signs/Intake and Output Vital Signs (last 24 hours): Temp Pulse Resp BP Pulse Ox 97.6 F 72 20 114/75 99 12/22/16 07:55 12/22/16 11:14 12/22/16 07:55 12/22/16 11:14 12/22/16 07:55 Intake and Output: 12/22/16 12/22/16 06:59 18:59 Intake Total 1920 Balance 1920 - Medications Medications: Current Medications Acetaminophen (Tylenol 325mg Tab) 650 mg PO Q6H PRN PRN Reason: Pain, moderate (4-7) Last Admin: 12/21/16 23:36 Dose: 650 mg Albuterol Sulfate (Albuterol 0.083% Inhal Megan (2.5 Mg/3 Ml) Ud) 2.5 mg IH [id number] PRN PRN Reason: Cough and congestion Ethambutol HCl (Myambutol) 800 mg PO DAILY [facility] Last Admin: 12/22/16 11:14 Dose: 800 mg Hydrochlorothiazide (Hydrodiuril) 25 mg PO DAILY [facility] Last Admin: 12/22/16 11:13 Dose: 25 mg Sodium Chloride (Sodium Chloride 0.9%) 1,000 mls @ 100 mls/hr IV .Q10H [facility] Last Admin: 12/22/16 11:17 Dose: 100 mls/hr Isoniazid (Niazid) 300 mg PO DAILY [facility] PRN Reason: Protocol Last Admin: 12/22/16 11:14 Dose: 300 mg Lisinopril (Zestril) 20 mg PO DAILY [facility] Last Admin: 12/22/16 11:14 Dose: 20 mg Ondansetron HCl (Zofran Inj) 4 mg IVP Q4H PRN PRN Reason: Nausea/Vomiting Last Admin: 12/22/16 11:33 Dose: 4 mg Pantoprazole Sodium (Protonix Ec Tab) 40 mg PO 0600 [facility] Last Admin: 12/22/16 05:16 Dose: 40 mg Polyethylene Glycol (Miralax) 17 gm PO DAILY [facility] Last Admin: 12/22/16 11:12 Dose: 17 gm Polysaccharide Iron Complex (Ferrex-150) 300 mg PO BID [facility] Last Admin: 12/22/16 11:13 Dose: 300 mg Pyrazinamide (Pyrazinamide) 1,000 mg PO DAILY [facility] Last Admin: 12/22/16 11:13 Dose: 1,000 mg Pyridoxine HCl (Vitamin B6 50 Mg Tab) 50 mg PO DAILY [facility] Last Admin: 12/22/16 11:12 Dose: 50 mg Rifampin (Rifampin Cap) 600 mg PO DAILY [facility] PRN Reason: Protocol Last Admin: 12/22/16 11:13 Dose: 600 mg Sucralfate (Carafate Oral Susp) 1 gm PO 0600,1600 [facility] Last Admin: 12/22/16 05:52 Dose: 1 gm - Labs Labs: 12/16/16 06:50 12/20/16 08:00 PT 12.5 Seconds (9.9-11.8) H 12/07/16 19:45 INR 1.16 (0.93-1.08) H 12/07/16 19:45 APTT 31.7 Seconds (23.7-30.8) H 12/07/16 19:45 Attending/Attestation - Attestation I have personally seen and examined this patient.: Yes I have fully participated in the care of the patient.: Yes I have reviewed all pertinent clinical information, including history, physical exam and plan: Yes Notes (Text): 12/22/16 14:25 Patient seen and examined with resident. The patient is a 61-year-old female with history of asthma and positive PPD wit Pulmonary Tuberculosis (was admitted with cough and hemoptysis, cavitary lesion on CT chest and +AFB ), on RIPE therapy. Patient is on Respiratory isolation, awaiting for negative AFB cultures.repeat AFB is positive on 12/19/16. Patient needs 3 negative AFB for discharge. patient will have directly observed therapy at home daily upon discharge. Patient Nausea and vomiting is better.LFT are stable. Management plan was discussed in detail with patient Education was provided.
--- NOTE | 2016-12-22 17:35 | CP.PCM.PN ---
Subjective - Date & Time of Evaluation Date of Evaluation: 12/22/16 Time of Evaluation: 16:45 - Subjective Subjective: Infectious Disease Follow Up: December 22, 2016 61 yo female with cough and bright red blood in sputum starting yesterday. The patient complains of persistent cough for the past 2 months without improvement. The patient placed on isolation and respiratory precautions at this time. Supportive care. Rule out TB. 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 Patient did have BCG vaccine in the past as a child. Patient was born in the [place] but moved to the [facility] [address] chest showed either abscess or cavitary lesion. The patient does complain of subjective fevers and chills. Fever of 101.1 F in ER. Acid-fast stain was positive. Starting treatment for tuberculosis. Noted patient refusing TB meds stating that another doctor told her she does not need them. At this point, the patient has two positive acid-fast stains from the sputum. Issues with the patient not believing her diagnosis. Multiple doctors have explained to her and she finally started taking the anti-TB medications. However, question remain whether she would continue to take medications when she is cleared for discharge. The patient still has not said that she accepts the diagnosis that she has a lung infection. No further AFB until the patient has had at least one week of anti-TB medications. The patient's daughter apparently was treated for active tuberculosis and the patient given treatment for latent infection. [facility] chest clinic was apparently here and spoke to the patient today. The patient cannot leave the hospital until three consecutive sputums are AFB negative one week after starting RIPE therapy as she is a public health risk due to potential tuberculosis. AFB culture negative at one week... note that mycobacterium are slow growing organisms and that the results are NOT finalized until 6 weeks of incubation. This amount of time must pass for incubation before one can state/read the culture is negative. 12/19/2016, 12/20/2016, and 12/21/2016 AFB sputums are still positive. Must wait for 5-7 days before taking any further AFB sputums. Objective - Vital Signs/Intake and Output Vital Signs (last 24 hours): Temp Pulse Resp BP Pulse Ox 98.1 F 76 20 132/84 100 12/22/16 16:00 12/22/16 16:00 12/22/16 16:00 12/22/16 16:00 12/22/16 16:00 Intake and Output: 12/22/16 12/22/16 06:59 18:59 Intake Total 1920 240 Balance 1920 240 - Medications Medications: Current Medications Acetaminophen (Tylenol 325mg Tab) 650 mg PO Q6H PRN PRN Reason: Pain, moderate (4-7) Last Admin: 12/21/16 23:36 Dose: 650 mg Albuterol Sulfate (Albuterol 0.083% Inhal Megan (2.5 Mg/3 Ml) Ud) 2.5 mg IH [id number] PRN PRN Reason: Cough and congestion Ethambutol HCl (Myambutol) 800 mg PO DAILY [facility] Last Admin: 12/22/16 11:14 Dose: 800 mg Hydrochlorothiazide (Hydrodiuril) 25 mg PO DAILY [facility] Last Admin: 12/22/16 11:13 Dose: 25 mg Sodium Chloride (Sodium Chloride 0.9%) 1,000 mls @ 100 mls/hr IV .Q10H [facility] Last Admin: 12/22/16 11:17 Dose: 100 mls/hr Isoniazid (Niazid) 300 mg PO DAILY [facility] PRN Reason: Protocol Last Admin: 12/22/16 11:14 Dose: 300 mg Lisinopril (Zestril) 20 mg PO DAILY [facility] Last Admin: 12/22/16 11:14 Dose: 20 mg Ondansetron HCl (Zofran Inj) 4 mg IVP Q4H PRN PRN Reason: Nausea/Vomiting Last Admin: 12/22/16 17:09 Dose: 4 mg Pantoprazole Sodium (Protonix Ec Tab) 40 mg PO 0600 [facility] Last Admin: 12/22/16 05:16 Dose: 40 mg Polyethylene Glycol (Miralax) 17 gm PO DAILY [facility] Last Admin: 12/22/16 11:12 Dose: 17 gm Polysaccharide Iron Complex (Ferrex-150) 300 mg PO BID [facility] Last Admin: 12/22/16 17:09 Dose: 300 mg Pyrazinamide (Pyrazinamide) 1,000 mg PO DAILY [facility] Last Admin: 12/22/16 11:13 Dose: 1,000 mg Pyridoxine HCl (Vitamin B6 50 Mg Tab) 50 mg PO DAILY [facility] Last Admin: 12/22/16 11:12 Dose: 50 mg Rifampin (Rifampin Cap) 600 mg PO DAILY [facility] PRN Reason: Protocol Last Admin: 12/22/16 11:13 Dose: 600 mg Sucralfate (Carafate Oral Susp) 1 gm PO 0600,1600 [facility] Last Admin: 12/22/16 17:09 Dose: 1 gm - Labs Labs: 12/16/16 06:50 12/20/16 08:00 PT 12.5 Seconds (9.9-11.8) H 12/07/16 19:45 INR 1.16 (0.93-1.08) H 12/07/16 19:45 APTT 31.7 Seconds (23.7-30.8) H 12/07/16 19:45 - Constitutional Appears: Non-toxic, No Acute Distress, Chronically Ill - Head Exam Head Exam: ATRAUMATIC, NORMOCEPHALIC - Eye Exam Eye Exam: EOMI, PERRL Pupil Exam: NORMAL ACCOMODATION, PERRL - ENT Exam ENT Exam: Mucous Membranes Moist, Normal External Ear Exam, TM's Normal Bilaterally - Neck Exam Neck Exam: Full ROM, Normal Inspection - Respiratory Exam Respiratory Exam: Clear to Ausculation Bilateral, NORMAL BREATHING PATTERN. absent: Rales, Rhonchi, Wheezes - Cardiovascular Exam Cardiovascular Exam: REGULAR RHYTHM, RRR, +S1, +S2 - GI/Abdominal Exam GI & Abdominal Exam: Soft, Normal Bowel Sounds. absent: Distended, Tenderness - Extremities Exam Extremities Exam: Full ROM, Normal Inspection - Neurological Exam Neurological Exam: Alert, Awake, CN II-XII Intact, Oriented x3 - Psychiatric Exam Psychiatric exam: Normal Affect, Normal Mood - Skin Skin Exam: Intact, Normal Color Assessment and Plan - Assessment and Plan (Free Text) Assessment: 61 yo female with prolonged cough for over 2 months with no improvement on antibiotics. The patient with known positive PPD. Cannot rule out tuberculosis at this point. Must also consider infections such as Staph Aureus and other acid-fast positive organisms. Start Rocephin for antibiotic coverage. [place]arson cultures. Obtain Acid-Fast stains and studies of sputum x 3. Patient had hemoptysis. Repeating PPD and Quantiferon will not yield additional data (both tests only show potential exposure of patient to tuberculosis during lifetime and cannot denote active disease). Await Acid- Fast stains and sputum culture results. Maintain isolation. Acid-Fast stain positive from sputum x 2. Continue treatment for tuberculosis as other tests return. Continue on Isoniazid, Rifampin, Pyrazinamide, and ethambutol. Start Vitamin B6 as well. Await PCR for identification of tuberculous strain and cultures. Supportive care. HIV test results are negative. No further AFB until patient has taken one week of anti-TB meds. Cough and hemopytsis improved. Patient does not believe her diagnosis of potential TB. First AFB cultures read currently as negative at one week of incubation. Results are finalized after 6 weeks of incubation. With the 12/19/2016 and 12/20/2016 AFB sputums being positive for AFB, would await another 5-7 days before taking another AFB sputum. 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 [facility] will reevaluate the patient early this upcoming week and would consider earlier discharge if the patient met certain conditions. Will see their recommendations after they revisit the patient. As of now, the patient needs three consecutive negative AFB sputums before she can be discharged from [facility] as per national guidelines. Thank you for allowing me to participate in the care of the patient, we will follow with you.
[2016-12-22] MEDS ORDERED: Morphine 2 mg/ml ISec IVP STA (22:55)
[2016-12-22] MEDS ORDERED: Alum-Mag Hydrox-Simethicone Susp (30 mL) PO ONE (22:55)
--- NOTE | 2016-12-22 23:00 | CP.PCM.PCO ---
<Guido Joaquin - Last Filed: 12/22/16 23:01> Subjective - Physician Review Subjective (Free Text): Received page from RN to evaluate due to epigastric burning, worse after food, says zofran and carafate helps somewhat. Recently ate and states pain got worse again and very uncomfortable. Will give famotidine 20 IVP, 30ml of maalox, and 1mg of morphine STAT and re-evaluate. Discussed with patient how this is likely due to RIPE therapy. Patient verbalized understanding and agreement with plan. - Review of Systems Gastrointestinal: Positive for: Abdominal Pain (epigastric), Nausea. Negative for: Vomiting <Marli Mendez - Last Filed: 12/23/16 00:37> Attending/Attestation - Attestation I have personally seen and examined this patient.: No I have fully participated in the care of the patient.: Yes I have reviewed all pertinent clinical information: Yes
[2016-12-23] MEDS: Sucralfate 1 gm/10 ml Oral Susp UD PO SCH ×2 (05:44→16:40)
[2016-12-23] MEDS: Sodium Chloride 0.9% 1,000 ML IV SCH (05:45)
[2016-12-23] MEDS: Pantoprazole 40 mg EC Tab PO SCH ×2 (05:45→05:50)
[2016-12-23] MEDS: POLYETHYLENE GLYCOL 3350 17 GM/Dose PACKET PO SCH (10:33)
[2016-12-23] MEDS: Iron Complex Polysacch 150mg Cap PO SCH (10:35)
[2016-12-23] MEDS ORDERED: Morphine 2 mg/ml ISec IVP PRN (13:32)
[2016-12-23] MEDS ORDERED: Alum-Mag Hydrox-Simethicone Susp (30 mL) PO PRN (13:36)
[2016-12-23 13:57] LABS: BASO # 0.03 K/mm3 (0.0-2.0); BASO % 0.4 % (0.0-3.0); EOS # 0.1 (0.0-0.7); EOS % 0.8 % (1.5-5.0); GRAN # 5.77 (1.4-6.5); GRAN % 79.5 % (50.0-68.0); HEMOGLOBIN 9.8 gm/dL (12.0-16.0); LYMPH # 0.8 (1.2-3.4); LYMPH % 10.5 % (22.0-35.0); MEAN CELL VOLUME 82.7 fL (80.0-105.0); MEAN CORPUSCULAR HEMOGLOBIN 26.8 pg (25.0-35.0); MEAN CORPUSCULAR HGB CONC 32.5 g/dl (31.0-37.0); MEAN PLATELET VOLUME 8.4 fl (7.0-11.0); MONO # 0.6 (0.1-0.6); MONO % 8.8 % (1.0-6.0); PLATELET COUNT 439 10^3/uL (120.0-450.0); RBC 3.65 10^6/uL (3.5-6.1); RED CELL DISTRIBUTION WIDTH 15.6 % (11.5-14.5); WHITE BLOOD COUNT 7.3 10^3/ul (4.5-11.0)
[2016-12-23] MEDS: Vancomycin 25 MG/ML PO SCH ×3 (13:59→22:51)
[2016-12-23 14:17] LABS: ALBUMIN 3.3 g/dL (3.0-4.8); ALT/SGPT 305 U/L (7-56); AST/SGOT 747 U/L (15-39); BLOOD UREA NITROGEN 5 mg/dL (7-21); CALCIUM 8.4 mg/dL (8.4-10.5); GFR AFRICAN-AMERICAN > 60; GFR NON-AFRICAN AMERICAN > 60; LIPASE 285 U/L (23-300)
[2016-12-23] MEDS ORDERED: Potassium Chloride 20 mEq ER Tab PO STA (14:42)
--- NOTE | 2016-12-23 17:29 | CP.PCM.PN ---
Subjective - Date & Time of Evaluation Date of Evaluation: 12/23/16 Time of Evaluation: 17:00 - Subjective Subjective: Infectious Disease Follow Up: December 23, 2016 61 yo female with cough and bright red blood in sputum starting yesterday. The patient complains of persistent cough for the past 2 months without improvement. The patient placed on isolation and respiratory precautions at this time. Supportive care. Rule out TB. 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 Patient did have BCG vaccine in the past as a child. Patient was born in the [place] but moved to the [facility] [address] chest showed either abscess or cavitary lesion. The patient does complain of subjective fevers and chills. Fever of 101.1 F in ER. Acid-fast stain was positive. Starting treatment for tuberculosis. Noted patient refusing TB meds stating that another doctor told her she does not need them. At this point, the patient has two positive acid-fast stains from the sputum. Issues with the patient not believing her diagnosis. Multiple doctors have explained to her and she finally started taking the anti-TB medications. However, question remain whether she would continue to take medications when she is cleared for discharge. The patient still has not said that she accepts the diagnosis that she has a lung infection. No further AFB until the patient has had at least one week of anti-TB medications. The patient's daughter apparently was treated for active tuberculosis and the patient given treatment for latent infection. [facility] chest clinic was apparently here and spoke to the patient today. The patient cannot leave the hospital until three consecutive sputums are AFB negative one week after starting RIPE therapy as she is a public health risk due to potential tuberculosis. AFB culture negative at one week... note that mycobacterium are slow growing organisms and that the results are NOT finalized until 6 weeks of incubation. This amount of time must pass for incubation before one can state/read the culture is negative. 12/19/2016, 12/20/2016, and 12/21/2016 AFB sputums are still positive. Must wait for 5-7 days before taking any further AFB sputums. The patient has been nauseated and had complaints of abdominal pains with RIPE therapy. We still do not have definitive identification of which AFB organism is present. Working assumption is Tuberculosis. Noted that LFT were elevated today. Decreased dose of Rifamin for now. May need to hold INH if values continue to increase. Objective - Vital Signs/Intake and Output Vital Signs (last 24 hours): Temp Pulse Resp BP Pulse Ox 97.6 F 73 15 130/85 99 12/23/16 16:36 12/23/16 16:36 12/23/16 16:36 12/23/16 16:36 12/23/16 16:36 Intake and Output: 12/23/16 12/23/16 06:59 18:59 Intake Total 540 240 Balance 540 240 - Medications Medications: Current Medications Acetaminophen (Tylenol 325mg Tab) 650 mg PO Q6H PRN PRN Reason: Pain, moderate (4-7) Last Admin: 12/22/16 20:50 Dose: 650 mg Al Hydrox/Mg Hydrox/Simethicone (Maalox Plus 30 Ml) 30 ml PO Q4 PRN PRN Reason: Indigestion Last Admin: 12/23/16 13:58 Dose: 30 ml Albuterol Sulfate (Albuterol 0.083% Inhal Megan (2.5 Mg/3 Ml) Ud) 2.5 mg IH [id number] PRN PRN Reason: Cough and congestion Ethambutol HCl (Myambutol) 800 mg PO DAILY [facility] Last Admin: 12/23/16 10:34 Dose: 800 mg Hydrochlorothiazide (Hydrodiuril) 25 mg PO DAILY [facility] Last Admin: 12/23/16 10:34 Dose: 25 mg Potassium Chloride 40 meq/ (Sodium Chloride) 1,020 mls @ 100 mls/hr IV .[id number] [facility] Last Admin: 12/23/16 16:30 Dose: 100 mls/hr Isoniazid (Niazid) 300 mg PO DAILY [facility] PRN Reason: Protocol Last Admin: 12/23/16 10:35 Dose: 300 mg Lisinopril (Zestril) 20 mg PO DAILY [facility] Last Admin: 12/22/16 11:14 Dose: 20 mg Morphine Sulfate (Morphine) 1 mg IVP Q12H PRN PRN Reason: Pain, severe (8-10) Last Admin: 12/23/16 13:58 Dose: 1 mg Ondansetron HCl (Zofran Inj) 4 mg IVP Q4H PRN PRN Reason: Nausea/Vomiting Last Admin: 12/22/16 22:40 Dose: 4 mg Pantoprazole Sodium (Protonix Ec Tab) 40 mg PO 0600 [facility] Last Admin: 12/23/16 05:50 Dose: 40 mg Polyethylene Glycol (Miralax) 17 gm PO DAILY [facility] Last Admin: 12/23/16 10:33 Dose: 17 gm Pyrazinamide (Pyrazinamide) 1,000 mg PO DAILY [facility] Last Admin: 12/23/16 10:34 Dose: 1,000 mg Pyridoxine HCl (Vitamin B6 50 Mg Tab) 50 mg PO DAILY [facility] Last Admin: 12/23/16 10:34 Dose: 50 mg Rifampin (Rifampin Cap) 300 mg PO DAILY [facility] PRN Reason: Protocol Sucralfate (Carafate Oral Susp) 1 gm PO 0600,1600 [facility] Last Admin: 12/23/16 16:40 Dose: 1 gm Vancomycin HCl (Vancocin 25 Mg/Ml (Oral Use)) 250 mg PO QID [facility] PRN Reason: Protocol Last Admin: 12/23/16 13:59 Dose: 250 mg - Labs Labs: 12/23/16 13:53 12/23/16 13:53 PT 12.5 Seconds (9.9-11.8) H 12/07/16 19:45 INR 1.16 (0.93-1.08) H 12/07/16 19:45 APTT 31.7 Seconds (23.7-30.8) H 12/07/16 19:45 - Constitutional Appears: Non-toxic, No Acute Distress, Chronically Ill - Head Exam Head Exam: ATRAUMATIC, NORMOCEPHALIC - Eye Exam Eye Exam: EOMI, PERRL Pupil Exam: NORMAL ACCOMODATION, PERRL - ENT Exam ENT Exam: Mucous Membranes Moist, Normal External Ear Exam, TM's Normal Bilaterally - Neck Exam Neck Exam: Full ROM, Normal Inspection - Respiratory Exam Respiratory Exam: Clear to Ausculation Bilateral, NORMAL BREATHING PATTERN. absent: Rales, Rhonchi, Wheezes - Cardiovascular Exam Cardiovascular Exam: REGULAR RHYTHM, RRR, +S1, +S2 - GI/Abdominal Exam GI & Abdominal Exam: Soft, Normal Bowel Sounds. absent: Distended, Tenderness Additional comments: complaints of epigastric burning. - Neurological Exam Neurological Exam: Alert, Awake, CN II-XII Intact, Oriented x3 - Psychiatric Exam Psychiatric exam: Normal Affect, Normal Mood - Skin Skin Exam: Intact, Normal Color Assessment and Plan - Assessment and Plan (Free Text) Assessment: 61 yo female with prolonged cough for over 2 months with no improvement on antibiotics. The patient with known positive PPD. Cannot rule out tuberculosis at this point. Must also consider infections such as Staph Aureus and other acid-fast positive organisms. Start Rocephin for antibiotic coverage. Larson cultures. Obtain Acid-Fast stains and studies of sputum x 3. Patient had hemoptysis. Repeating PPD and Quantiferon will not yield additional data (both tests only show potential exposure of patient to tuberculosis during lifetime and cannot denote active disease). Await Acid- Fast stains and sputum culture results. Maintain isolation. Acid-Fast stain positive from sputum x 2. Continue treatment for tuberculosis as other tests return. Continue on Isoniazid, Rifampin, Pyrazinamide, and ethambutol. Start Vitamin B6 as well. Await PCR for identification of tuberculous strain and cultures. Supportive care. HIV test results are negative. No further AFB until patient has taken one week of anti-TB meds. Cough and hemopytsis improved. Patient does not believe her diagnosis of potential TB. First AFB cultures read currently as negative at one week of incubation. Results are finalized after 6 weeks of incubation. With the 12/19/2016 and 12/20/2016 AFB sputums being positive for AFB, would await another 5-7 days before taking another AFB sputum. 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 [facility] will reevaluate the patient early this upcoming week and would consider earlier discharge if the patient met certain conditions. Will see their recommendations after they revisit the patient. As of now, the patient needs three consecutive negative AFB sputums before she can be [place] [facility] [place]. With the LFTs greater than 7x normal, would hold Rifampin and Isoniazid for at least a day. Monitor LFTs. Supportive care. Thank you for allowing me to participate in the care of the patient, we will follow with you.
--- NOTE | 2016-12-23 19:09 | CP.PCM.PN ---
Addendum entered and electronically signed by JAY HERRERA DO 12/23/16 19:17 : Potassium noted to be 3.0 on latest CMP. Was corrected with 40meq of Klor-Con. Will continue to monitor. Original Note: <JAY HERRERA - Last Filed: 12/23/16 19:06> Subjective - Date & Time of Evaluation Date of Evaluation: 12/23/16 Time of Evaluation: 11:30 - Subjective Subjective: Medicine Progress Note: Pt seen and assessed at bedside. Pt still reporting that she gets nauseous when she takes her TB meds. The medications that are given to her when she gets nauseous resolve the nausea, according to patient. She denies headache, night sweats, fever, shortness of breath, hemoptysis, cough, chest pain, abdominal pain, diarrhea or numbness/tingling/weakness in any of her extremities. Objective - Vital Signs/Intake and Output Vital Signs (last 24 hours): Temp Pulse Resp BP Pulse Ox 97.6 F 73 15 130/85 99 12/23/16 16:36 12/23/16 16:36 12/23/16 16:36 12/23/16 16:36 12/23/16 16:36 Intake and Output: 12/23/16 12/24/16 18:59 06:59 Intake Total 240 Balance 240 - Medications Medications: Current Medications Acetaminophen (Tylenol 325mg Tab) 650 mg PO Q6H PRN PRN Reason: Pain, moderate (4-7) Last Admin: 12/22/16 20:50 Dose: 650 mg Al Hydrox/Mg Hydrox/Simethicone (Maalox Plus 30 Ml) 30 ml PO Q4 PRN PRN Reason: Indigestion Last Admin: 12/23/16 13:58 Dose: 30 ml Albuterol Sulfate (Albuterol 0.083% Inhal Megan (2.5 Mg/3 Ml) Ud) 2.5 mg IH [id number] PRN PRN Reason: Cough and congestion Ethambutol HCl (Myambutol) 800 mg PO DAILY [facility] Last Admin: 12/23/16 10:34 Dose: 800 mg Hydrochlorothiazide (Hydrodiuril) 25 mg PO DAILY [facility] Last Admin: 12/23/16 10:34 Dose: 25 mg Potassium Chloride 40 meq/ (Sodium Chloride) 1,020 mls @ 100 mls/hr IV .[id number] [facility] Last Admin: 12/23/16 16:30 Dose: 100 mls/hr Isoniazid (Niazid) 300 mg PO DAILY [facility] PRN Reason: Protocol Last Admin: 12/23/16 10:35 Dose: 300 mg Lisinopril (Zestril) 20 mg PO DAILY [facility] Last Admin: 12/23/16 10:33 Dose: Not Given Morphine Sulfate (Morphine) 1 mg IVP Q12H PRN PRN Reason: Pain, severe (8-10) Last Admin: 12/23/16 13:58 Dose: 1 mg Ondansetron HCl (Zofran Inj) 4 mg IVP Q4H PRN PRN Reason: Nausea/Vomiting Last Admin: 12/22/16 22:40 Dose: 4 mg Pantoprazole Sodium (Protonix Ec Tab) 40 mg PO 0600 [facility] Last Admin: 12/23/16 05:50 Dose: 40 mg Polyethylene Glycol (Miralax) 17 gm PO DAILY [facility] Last Admin: 12/23/16 10:33 Dose: 17 gm Pyrazinamide (Pyrazinamide) 1,000 mg PO DAILY [facility] Last Admin: 12/23/16 10:34 Dose: 1,000 mg Pyridoxine HCl (Vitamin B6 50 Mg Tab) 50 mg PO DAILY [facility] Last Admin: 12/23/16 10:34 Dose: 50 mg Rifampin (Rifampin Cap) 300 mg PO DAILY [facility] PRN Reason: Protocol Sucralfate (Carafate Oral Susp) 1 gm PO 0600,1600 [facility] Last Admin: 12/23/16 16:40 Dose: 1 gm Vancomycin HCl (Vancocin 25 Mg/Ml (Oral Use)) 250 mg PO QID [facility] PRN Reason: Protocol Last Admin: 12/23/16 18:33 Dose: 250 mg - Labs Labs: 12/23/16 13:53 12/23/16 13:53 PT 12.5 Seconds (9.9-11.8) H 12/07/16 19:45 INR 1.16 (0.93-1.08) H 12/07/16 19:45 APTT 31.7 Seconds (23.7-30.8) H 12/07/16 19:45 - Constitutional Appears: No Acute Distress - Head Exam Head Exam: NORMAL INSPECTION - Eye Exam Eye Exam: EOMI, Normal appearance - ENT Exam ENT Exam: Mucous Membranes Moist, Normal Exam - Neck Exam Neck Exam: Full ROM - Respiratory Exam Respiratory Exam: Clear to Ausculation Bilateral, NORMAL BREATHING PATTERN. absent: Rales, Rhonchi, Wheezes, Respiratory Distress - Cardiovascular Exam Cardiovascular Exam: REGULAR RHYTHM, RRR, +S1, +S2. absent: Murmur - GI/Abdominal Exam GI & Abdominal Exam: Soft, Normal Bowel Sounds. absent: Distended, Firm, Guarding, Rigid, Tenderness - Extremities Exam Extremities Exam: Normal Capillary Refill. absent: Calf Tenderness, Pedal Edema - Back Exam Back Exam: NORMAL INSPECTION - Neurological Exam Neurological Exam: Alert, Awake, Normal Gait, Oriented x3 - Psychiatric Exam Psychiatric exam: Normal Affect, Normal Mood - Skin Skin Exam: Dry, Intact, Normal Color, Warm Assessment and Plan - Assessment and Plan (Free Text) Assessment: Mrs. Machado is a 61 year old female with a past medical history of hypertension , asthma, gastric ulcer, esophagitis who was admitted for evaluation and treatment of tuberculosis Plan: 1. Tuberculosis Infection/Cavitary Lung Lesion -ID following, all recs appreciated -will hold Rifampin and Isoniazid for one day for elevated LFTS, per ID -next AFB stain to be collected on 12/24 -AFB stain post one week of RIPE therapy collected positive for AFB (+1) on -awaiting three negative AFB stains before patient can be discharged from medical center -spoke with and arranged follow-up with chest clinic for post discharge TB monitoring -Recommended all visitors wear proper isolation masks -Isolation precautions 2. Nausea/Vomiting -GI consulted, all recs appreciated -likely secondary to antituberculosis therapy -history of H. pylori treated in the past noted -cont zofran, protonix, and carafate, per GI 3. Positive Clostridium Difficile Stool Sample -started on Vancomycin 25mg/mL PO QID -will continue to monitor 4. Elevated LFT's -AST 747 and ALT 305 -will hold Rifampin and Isoniazid for one day, per ID -cont to trend LFT's and adjust RIPE therapy accordingly 5. Asthma -no complaints at this time -continue albuterol PRN -pulmonology following, all recs appreciated 6. Pneumonia -monitor clincial symptoms 7. HTN -Continue lisinopril and HCTZ 8. Constipation -miralax changed from BID to daily d/t abdominal discomfort, per GI on 12/21 -continue to monitor 9. Rib pain - continue on ibprofen PRN for pain 10. GI/DVT prophylaxis -protonix/scd's Patient seen and case discussed with attending physician, Dr. Shoemaker. <Clifford Shoemaker - Last Filed: 12/24/16 16:50> Objective - Vital Signs/Intake and Output Vital Signs (last 24 hours): Temp Pulse Resp BP Pulse Ox 97.9 F 63 18 116/83 99 12/24/16 07:47 12/24/16 07:47 12/24/16 07:47 12/24/16 07:47 12/24/16 07:47 Intake and Output: 12/24/16 12/24/16 06:59 18:59 Intake Total 2760 240 Balance 2760 240 - Medications Medications: Current Medications Al Hydrox/Mg Hydrox/Simethicone (Maalox Plus 30 Ml) 30 ml PO Q4 PRN PRN Reason: Indigestion Last Admin: 12/23/16 13:58 Dose: 30 ml Albuterol Sulfate (Albuterol 0.083% Inhal Megan (2.5 Mg/3 Ml) Ud) 2.5 mg IH [id number] PRN PRN Reason: Cough and congestion Ethambutol HCl (Myambutol) 800 mg PO DAILY [facility] Last Admin: 12/23/16 10:34 Dose: 800 mg Hydrochlorothiazide (Hydrodiuril) 25 mg PO DAILY [facility] Last Admin: 12/24/16 11:35 Dose: 25 mg Potassium Chloride 40 meq/ (Sodium Chloride) 1,020 mls @ 100 mls/hr IV .[id number] [facility] Last Admin: 12/24/16 01:14 Dose: 100 mls/hr Isoniazid (Niazid) 300 mg PO DAILY [facility] PRN Reason: Protocol Last Admin: 12/23/16 10:35 Dose: 300 mg Lisinopril (Zestril) 20 mg PO DAILY [facility] Last Admin: 12/24/16 11:35 Dose: 20 mg Morphine Sulfate (Morphine) 1 mg IVP Q12H PRN PRN Reason: Pain, severe (8-10) Last Admin: 12/23/16 13:58 Dose: 1 mg Ondansetron HCl (Zofran Inj) 4 mg IVP Q4H PRN PRN Reason: Nausea/Vomiting Last Admin: 12/22/16 22:40 Dose: 4 mg Pantoprazole Sodium (Protonix Ec Tab) 40 mg PO 0600 [facility] Last Admin: 12/24/16 06:25 Dose: 40 mg Polyethylene Glycol (Miralax) 17 gm PO DAILY [facility] Last Admin: 12/24/16 11:34 Dose: 17 gm Pyrazinamide (Pyrazinamide) 1,000 mg PO DAILY [facility] Last Admin: 12/23/16 10:34 Dose: 1,000 mg Pyridoxine HCl (Vitamin B6 50 Mg Tab) 50 mg PO DAILY [facility] Last Admin: 12/24/16 11:38 Dose: 50 mg Rifampin (Rifampin Cap) 300 mg PO DAILY [facility] PRN Reason: Protocol Sucralfate (Carafate Oral Susp) 1 gm PO 0600,1600 [facility] Last Admin: 12/24/16 06:25 Dose: 1 gm Vancomycin HCl (Vancocin 25 Mg/Ml (Oral Use)) 250 mg PO QID [facility] PRN Reason: Protocol Last Admin: 12/24/16 11:36 Dose: 250 mg - Labs Labs: 12/24/16 06:45 12/24/16 06:45 PT 12.8 Seconds (9.9-11.8) H 12/24/16 10:30 INR 1.19 (0.93-1.08) H 12/24/16 10:30 APTT 31.4 Seconds (23.7-30.8) H 12/24/16 10:30 Attending/Attestation - Attestation I have personally seen and examined this patient.: Yes I have fully participated in the care of the patient.: Yes I have reviewed all pertinent clinical information, including history, physical exam and plan: Yes Notes (Text): 12/24/16 16:48 Attending note; Patient seen and examined with resident. still on isolation. The patient is a 61-year-old female with history of asthma and positive PPD who presented with complaint of cough and hemoptysis. She was found to have cavitary lesion on CT chest and +AFB and started on RIPE therapy. repeat AFB is positive on 12/19/16. AFB X2 is negative so far. elevated LFT; secondary to INH and rifampin. INH and rifampin on hold. Repeat LFTs in a.m.. Case discussed GI/ID in detail. Abdominal discomfort; secondary to antituberculosis therapy. Continue Zofran and Protonix. Continue Carafate. GI evaluation appreciated. Upon discharge the patient will follow-up with PMD DR. Mcclure.
--- NOTE | 2016-12-24 05:33 | PN ---
DATE: 12/23/2016 REFERRING PHYSICIAN: Polo Angeles MD SUBJECTIVE: Patient lying in the bed, sleepy. Received morphine. Pain is better. No cough. No sputum production. Has loose bowel movement. No leg pain or leg swelling. PHYSICAL EXAMINATION GENERAL: In no acute distress. VITAL SIGNS: Temperature is 98, heart rate 73, respiratory rate 16, blood pressure 130/85, pulse ox 100% on room air. HEENT: Moist mucous membranes. NECK: Supple. No JVD. LUNGS: Few scattered rhonchi. HEART: S1, S2. ABDOMEN: Mild tenderness. EXTREMITIES: No edema. NEUROLOGIC: Awake. Follows simple commands. MEDICATIONS: She is on albuterol/Atrovent nebulizer q. 6 hours p.r.n., Carafate 1 g twice a day, hydrochlorothiazide 25 mg daily, Maalox p.r.n. basis, morphine 1 mg IV q. 12 hours p.r.n., vitamin B12 800 mg daily, Isoniazid 300 mg daily, IV fluid with potassium, Protonix 40 mg daily, [employer] 1000 mg daily, rifampin 300 mg daily, Tylenol p.r.n. basis, vancomycin 250 mg q.i.d., vitamin B6 50 mg daily, Zestril 10 mg daily, Zofran p.r.n. invasive. LABORATORY DATA: Shows hemoglobin 9.8, hematocrit 30.2, WBC 7.3, platelet count is 439. Sodium 33, potassium 3.0, chloride 95, bicarbonate 29, BUN 5, creatinine 0.5, AST 6747, ALT 305, alk phos is 103. Microbiology stool for C. diff is positive. IMPRESSION AND PLAN: 1. Chronic obstruction lung disease, pulmonary infiltrate, AFB positive in the sputum, though has a C. diff colitis, elevated liver enzymes. 2. From pulmonary point of view, she is doing okay. Continue p.r.n. bronchodilator. Continue TB medication as per Infectious Disease. Her liver enzyme is three times more elevated than the baseline. We may need to consider taper down medication or watch LFTs daily basis very closely. Thank you and we will follow with you. Polo Paige MD [facility] # [phone]
[2016-12-24] MEDS: Pantoprazole 40 mg EC Tab PO SCH (06:25)
[2016-12-24] MEDS: Sucralfate 1 gm/10 ml Oral Susp UD PO SCH ×2 (06:25→17:03)
[2016-12-24 07:23] LABS: BASO # 0.04 K/mm3 (0.0-2.0); BASO % 0.8 % (0.0-3.0); EOS # 0.2 (0.0-0.7); EOS % 3.2 % (1.5-5.0); GRAN % 69.4 % (50.0-68.0); HEMOGLOBIN 9.4 gm/dL (12.0-16.0); LYMPH # 0.9 (1.2-3.4); LYMPH % 16.4 % (22.0-35.0); MEAN CELL VOLUME 82.5 fL (80.0-105.0); MEAN CORPUSCULAR HEMOGLOBIN 26.5 pg (25.0-35.0); MEAN CORPUSCULAR HGB CONC 32.1 g/dl (31.0-37.0); MEAN PLATELET VOLUME 8.5 fl (7.0-11.0); MONO # 0.5 (0.1-0.6); MONO % 10.2 % (1.0-6.0); PLATELET COUNT 465 10^3/uL (120.0-450.0); RBC 3.55 10^6/uL (3.5-6.1); RED CELL DISTRIBUTION WIDTH 15.9 % (11.5-14.5); WHITE BLOOD COUNT 5.3 10^3/ul (4.5-11.0)
[2016-12-24 07:40] LABS: ALB/GLOB RATIO 0.9 (1.1-1.8); ALBUMIN 2.9 g/dL (3.0-4.8); ALT/SGPT 424 U/L (7-56); BLOOD UREA NITROGEN 4 mg/dL (7-21); CALCIUM 8.4 mg/dL (8.4-10.5); GFR AFRICAN-AMERICAN > 60; GFR NON-AFRICAN AMERICAN > 60
[2016-12-24 07:50] LABS: AST/SGOT 941 U/L (15-39)
--- NOTE | 2016-12-24 09:45 | CP.PCM.PN ---
Subjective - Date & Time of Evaluation Date of Evaluation: 12/24/16 Time of Evaluation: 08:40 - Subjective Subjective: S&E this am, chart reviewed. No N/V now, no diarrhea, last BM yesterday, none now. No fever or chills. No acute overnight events. Objective - Vital Signs/Intake and Output Vital Signs (last 24 hours): Temp Pulse Resp BP Pulse Ox 97.9 F 63 18 116/83 99 12/24/16 07:47 12/24/16 07:47 12/24/16 07:47 12/24/16 07:47 12/24/16 07:47 Intake and Output: 12/24/16 12/24/16 06:59 18:59 Intake Total 2760 Balance 2760 - Medications Medications: Current Medications Acetaminophen (Tylenol 325mg Tab) 650 mg PO Q6H PRN PRN Reason: Pain, moderate (4-7) Last Admin: 12/22/16 20:50 Dose: 650 mg Al Hydrox/Mg Hydrox/Simethicone (Maalox Plus 30 Ml) 30 ml PO Q4 PRN PRN Reason: Indigestion Last Admin: 12/23/16 13:58 Dose: 30 ml Albuterol Sulfate (Albuterol 0.083% Inhal Megan (2.5 Mg/3 Ml) Ud) 2.5 mg IH [id number] PRN PRN Reason: Cough and congestion Ethambutol HCl (Myambutol) 800 mg PO DAILY [facility] Last Admin: 12/23/16 10:34 Dose: 800 mg Hydrochlorothiazide (Hydrodiuril) 25 mg PO DAILY [facility] Last Admin: 12/23/16 10:34 Dose: 25 mg Potassium Chloride 40 meq/ (Sodium Chloride) 1,020 mls @ 100 mls/hr IV .[id number] [facility] Last Admin: 12/24/16 01:14 Dose: 100 mls/hr Isoniazid (Niazid) 300 mg PO DAILY [facility] PRN Reason: Protocol Last Admin: 12/23/16 10:35 Dose: 300 mg Lisinopril (Zestril) 20 mg PO DAILY [facility] Last Admin: 12/23/16 10:33 Dose: Not Given Morphine Sulfate (Morphine) 1 mg IVP Q12H PRN PRN Reason: Pain, severe (8-10) Last Admin: 12/23/16 13:58 Dose: 1 mg Ondansetron HCl (Zofran Inj) 4 mg IVP Q4H PRN PRN Reason: Nausea/Vomiting Last Admin: 12/22/16 22:40 Dose: 4 mg Pantoprazole Sodium (Protonix Ec Tab) 40 mg PO 0600 [facility] Last Admin: 12/24/16 06:25 Dose: 40 mg Polyethylene Glycol (Miralax) 17 gm PO DAILY [facility] Last Admin: 12/23/16 10:33 Dose: 17 gm Pyrazinamide (Pyrazinamide) 1,000 mg PO DAILY [facility] Last Admin: 12/23/16 10:34 Dose: 1,000 mg Pyridoxine HCl (Vitamin B6 50 Mg Tab) 50 mg PO DAILY [facility] Last Admin: 12/23/16 10:34 Dose: 50 mg Rifampin (Rifampin Cap) 300 mg PO DAILY [facility] PRN Reason: Protocol Sucralfate (Carafate Oral Susp) 1 gm PO 0600,1600 [facility] Last Admin: 12/24/16 06:25 Dose: 1 gm Vancomycin HCl (Vancocin 25 Mg/Ml (Oral Use)) 250 mg PO QID [facility] PRN Reason: Protocol Last Admin: 12/23/16 22:51 Dose: 250 mg - Labs Labs: 12/24/16 06:45 12/24/16 06:45 PT 12.5 Seconds (9.9-11.8) H 12/07/16 19:45 INR 1.16 (0.93-1.08) H 12/07/16 19:45 APTT 31.7 Seconds (23.7-30.8) H 12/07/16 19:45 - Constitutional Appears: No Acute Distress - Head Exam Head Exam: NORMOCEPHALIC - Eye Exam Eye Exam: Normal appearance. absent: Scleral icterus - ENT Exam ENT Exam: Mucous Membranes Moist - Neck Exam Neck Exam: Tenderness - Respiratory Exam Respiratory Exam: Decreased Breath Sounds, NORMAL BREATHING PATTERN. absent: Respiratory Distress - Cardiovascular Exam Cardiovascular Exam: +S1, +S2 - GI/Abdominal Exam GI & Abdominal Exam: Soft, Normal Bowel Sounds. absent: Guarding, Tenderness, Rebound - Extremities Exam Extremities Exam: absent: Calf Tenderness, Pedal Edema - Neurological Exam Neurological Exam: Alert, Awake, Oriented x3 - Skin Skin Exam: Dry, Warm Assessment and Plan - Assessment and Plan (Free Text) Assessment: ASSESSMENT: Elevated LFt, maybe secondary to medications ut r/o infectious hepatitis or gallstones Cavitary Lesion, (+) AFB (+) Cdiff antigen and toxin Nausea, maybe likley be secondary to multiple antibiotics treatment Pneumonia H/O PUD H/O H pylori Constipation, now diarrhea? r/o cdiff, or maybe from laxative HTN PLAN: continue PPI abdominal US hepatitis panel trend LFT continue Carafate On Iron Discuss w/ Percy RN hold TB meds, see order and speak to ID decrease Miralax from bid to daily on oral Vancomycin Seen and discussed w/ Dr. Oleary.
--- NOTE | 2016-12-24 09:47 | PN ---
DATE: 12/22/2016 REFERRING PHYSICIAN: Dr. Shoemaker. SUBJECTIVE: She is lying in the bed. No fever, no cough. No shortness of breath. Has some abdominal pain, nausea and vomiting. No dysuria. No leg pain or leg swelling. OBJECTIVE: VITAL SIGNS: Temperature 98, heart rate is 76, respiratory rate is 18, blood pressure is 132/84, pulse ox 100% on room air. HEENT: Moist mucous membranes, no oral thrush. NECK: Supple. No JVD. LUNGS: Fair air flow with rhonchi. HEART: S1 and S2. ABDOMEN: Soft. Mild tenderness in the epigastric area. EXTREMITIES: There is no edema. NEUROLOGICAL: Awake and alert. Follows simple commands. MEDICATIONS: She is on albuterol aerosol nebulizer q. 6 hours p.r.n., Carafate 1 g twice a day, Ferrex 300 mg twice a day, hydrochlorothiazide 25 mg daily, MiraLax 17 g daily, ethambutol 800 mg daily, isoniazid 300 mg daily, Protonix 40 mg daily, PZA 1000 mg daily, rifampin 600 mg daily, IV full normal saline 100 mL per hour, Tylenol p.r.n., vitamin B6 50 mg daily, Zestril 20 mg daily, Zofran p.r.n. basis. LABORATORY DATA: Reviewed. IMPRESSION AND PLAN: Chronic obstructive lung disease, has AFB positive in the sputum, may have gastritis having persistent abdominal pain with nausea and vomiting. Continue TB medications as per infectious disease. Pulmonary point of view is stable. Continue p.r.n. bronchodilators. May need a GI consult with persistent nausea and vomiting. Reviewing of the notes noted that GI consult had been called and being followed by the GI services. Closely follow LFTs. Thank you and we will follow with you. Polo Paige MD
[2016-12-24 11:08] LABS: INR 1.19 (0.93-1.08); PARTIAL THROMBOPLASTIN TIME 31.4 Seconds (23.7-30.8); PROTHROMBIN TIME 12.8 Seconds (9.9-11.8)
[2016-12-24] MEDS: POLYETHYLENE GLYCOL 3350 17 GM/Dose PACKET PO SCH (11:34)
[2016-12-24] MEDS: Vancomycin 25 MG/ML PO SCH ×4 (11:36→22:41)
[2016-12-24 12:08] LABS: HEPATITIS B SURFACE AG NEGATIVE (NEGATIVE)
[2016-12-24 12:13] LABS: HEPATITIS A IGM NEGATIVE (NEGATIVE)
[2016-12-24 12:14] LABS: HEPATITIS B CORE AB NEGATIVE (NEGATIVE)
[2016-12-24 12:26] LABS: HEPATITIS C ANTIBODY NEGATIVE (NEGATIVE)
--- NOTE | 2016-12-24 15:08 | US ---
HISTORY: Abnormal labwork COMPARISON: None. TECHNIQUE: Sonographic evaluation of the abdomen. FINDINGS: LIVER: Measures 11.2 cm. Hepatopedal blood flow. Fatty infiltration manifest ultrasonographically as increased echogenicity of the liver parenchyma. No mass. No intrahepatic bile duct dilatation. GALLBLADDER: Unremarkable. No gallstones. COMMON BILE DUCT: Measures 5.3 mm. No stones. No dilatation. PANCREAS: Unremarkable as visualized. No mass. No ductal dilatation. RIGHT KIDNEY: Measures 4.6 x 10.1cm. Normal echogenicity. No calculus, mass, or hydronephrosis. LEFT KIDNEY: Measures 5.1 x 10.6cm. Normal echogenicity. No calculus, mass, or hydronephrosis. SPLEEN: Normal in size and contour. No mass. AORTA: No aneurysmal dilatation. IVC: Unremarkable. OTHER FINDINGS: None. IMPRESSION: Hepatic steatosis common normal size liver without focal abnormality. Otherwise unremarkable study
--- NOTE | 2016-12-24 16:24 | CP.PCM.PN ---
<JAY HERRERA - Last Filed: 12/24/16 16:17> Subjective - Date & Time of Evaluation Date of Evaluation: 12/24/16 Time of Evaluation: 10:00 - Subjective Subjective: Medicine Progress Note: Pt seen and assessed at bedside. Pt currently with no new complaints. She reports that previous N/V has resolved for now. She denies headache, night sweats, fever, shortness of breath, hemoptysis, cough, chest pain, N/V, abdominal pain, or diarrhea. Objective - Vital Signs/Intake and Output Vital Signs (last 24 hours): Temp Pulse Resp BP Pulse Ox 97.9 F 63 18 116/83 99 12/24/16 07:47 12/24/16 07:47 12/24/16 07:47 12/24/16 07:47 12/24/16 07:47 Intake and Output: 12/24/16 12/24/16 06:59 18:59 Intake Total 2760 240 Balance 2760 240 - Medications Medications: Current Medications Al Hydrox/Mg Hydrox/Simethicone (Maalox Plus 30 Ml) 30 ml PO Q4 PRN PRN Reason: Indigestion Last Admin: 12/23/16 13:58 Dose: 30 ml Albuterol Sulfate (Albuterol 0.083% Inhal Megan (2.5 Mg/3 Ml) Ud) 2.5 mg IH [id number] PRN PRN Reason: Cough and congestion Ethambutol HCl (Myambutol) 800 mg PO DAILY [facility] Last Admin: 12/23/16 10:34 Dose: 800 mg Hydrochlorothiazide (Hydrodiuril) 25 mg PO DAILY [facility] Last Admin: 12/24/16 11:35 Dose: 25 mg Potassium Chloride 40 meq/ (Sodium Chloride) 1,020 mls @ 100 mls/hr IV .[id number] [facility] Last Admin: 12/24/16 01:14 Dose: 100 mls/hr Isoniazid (Niazid) 300 mg PO DAILY [facility] PRN Reason: Protocol Last Admin: 12/23/16 10:35 Dose: 300 mg Lisinopril (Zestril) 20 mg PO DAILY [facility] Last Admin: 12/24/16 11:35 Dose: 20 mg Morphine Sulfate (Morphine) 1 mg IVP Q12H PRN PRN Reason: Pain, severe (8-10) Last Admin: 12/23/16 13:58 Dose: 1 mg Ondansetron HCl (Zofran Inj) 4 mg IVP Q4H PRN PRN Reason: Nausea/Vomiting Last Admin: 12/22/16 22:40 Dose: 4 mg Pantoprazole Sodium (Protonix Ec Tab) 40 mg PO 0600 [facility] Last Admin: 12/24/16 06:25 Dose: 40 mg Polyethylene Glycol (Miralax) 17 gm PO DAILY [facility] Last Admin: 12/24/16 11:34 Dose: 17 gm Pyrazinamide (Pyrazinamide) 1,000 mg PO DAILY [facility] Last Admin: 12/23/16 10:34 Dose: 1,000 mg Pyridoxine HCl (Vitamin B6 50 Mg Tab) 50 mg PO DAILY [facility] Last Admin: 12/24/16 11:38 Dose: 50 mg Rifampin (Rifampin Cap) 300 mg PO DAILY [facility] PRN Reason: Protocol Sucralfate (Carafate Oral Susp) 1 gm PO 0600,1600 [facility] Last Admin: 12/24/16 06:25 Dose: 1 gm Vancomycin HCl (Vancocin 25 Mg/Ml (Oral Use)) 250 mg PO QID [facility] PRN Reason: Protocol Last Admin: 12/24/16 11:36 Dose: 250 mg - Labs Labs: 12/24/16 06:45 12/24/16 06:45 PT 12.8 Seconds (9.9-11.8) H 12/24/16 10:30 INR 1.19 (0.93-1.08) H 12/24/16 10:30 APTT 31.4 Seconds (23.7-30.8) H 12/24/16 10:30 - Constitutional Appears: No Acute Distress - Head Exam Head Exam: NORMAL INSPECTION - Eye Exam Eye Exam: EOMI, Normal appearance - ENT Exam ENT Exam: Mucous Membranes Moist, Normal Exam - Neck Exam Neck Exam: Full ROM - Respiratory Exam Respiratory Exam: Clear to Ausculation Bilateral, NORMAL BREATHING PATTERN. absent: Rales, Rhonchi, Wheezes, Respiratory Distress - Cardiovascular Exam Cardiovascular Exam: REGULAR RHYTHM, +S1, +S2. absent: Murmur - GI/Abdominal Exam GI & Abdominal Exam: Soft, Normal Bowel Sounds. absent: Tenderness - Extremities Exam Extremities Exam: absent: Calf Tenderness, Pedal Edema - Back Exam Back Exam: NORMAL INSPECTION - Neurological Exam Neurological Exam: Alert, Awake, Normal Gait, Oriented x3 - Psychiatric Exam Psychiatric exam: Normal Affect, Normal Mood - Skin Skin Exam: Dry, Intact, Normal Color, Warm Assessment and Plan - Assessment and Plan (Free Text) Assessment: Mrs. Machado is a 61 year old female with a past medical history of hypertension , asthma, gastric ulcer, esophagitis who was admitted for evaluation and treatment of tuberculosis. Plan: 1. Tuberculosis Infection/Cavitary Lung Lesion -ID following, all recs appreciated -held RIPE therapy today for elevated LFTS, per ID -sputum sample collected for AFB stain -AFB stain post one week of RIPE therapy collected positive for AFB (+1) on -awaiting three negative AFB stains before patient can be discharged from medical center -spoke with and arranged follow-up with chest clinic for post discharge TB monitoring -Recommended all visitors wear proper isolation masks -Isolation precautions 2. Nausea/Vomiting -GI consulted, all recs appreciated -abdominal US showed hepatic steatosis in normal size liver with no other abnormalities -likely secondary to antituberculosis therapy which was held today -history of H. pylori treated in the past noted -cont zofran PRN, protonix, maalox PRN, and carafate, per GI 3. Positive Clostridium Difficile Stool Sample -started on Vancomycin 25mg/mL PO QID -will continue to monitor 4. Elevated LFT's -AST 941 and ALT 424 -RIPE held today; plans to continue today -cont to trend LFT's and adjust RIPE therapy accordingly 5. Asthma -no complaints at this time -continue albuterol PRN -pulmonology following, all recs appreciated 6. Pneumonia -resolved -monitor clincial symptoms 7. HTN -Continue lisinopril and HCTZ 8. Constipation -cont miralax qd -continue to monitor 9. Rib pain - continue on ibprofen PRN for pain 10. GI/DVT prophylaxis -protonix/scd's Patient seen and case discussed with attending physician, Dr. Shoemaker. <Clifford Shoemaker - Last Filed: 12/24/16 16:52> Objective - Vital Signs/Intake and Output Vital Signs (last 24 hours): Temp Pulse Resp BP Pulse Ox 97.9 F 63 18 116/83 99 12/24/16 07:47 12/24/16 07:47 12/24/16 07:47 12/24/16 07:47 12/24/16 07:47 Intake and Output: 12/24/16 12/24/16 06:59 18:59 Intake Total 2760 240 Balance 2760 240 - Medications Medications: Current Medications Al Hydrox/Mg Hydrox/Simethicone (Maalox Plus 30 Ml) 30 ml PO Q4 PRN PRN Reason: Indigestion Last Admin: 12/23/16 13:58 Dose: 30 ml Albuterol Sulfate (Albuterol 0.083% Inhal Megan (2.5 Mg/3 Ml) Ud) 2.5 mg IH [id number] PRN PRN Reason: Cough and congestion Ethambutol HCl (Myambutol) 800 mg PO DAILY [facility] Last Admin: 12/23/16 10:34 Dose: 800 mg Hydrochlorothiazide (Hydrodiuril) 25 mg PO DAILY [facility] Last Admin: 12/24/16 11:35 Dose: 25 mg Potassium Chloride 40 meq/ (Sodium Chloride) 1,020 mls @ 100 mls/hr IV .[id number] [facility] Last Admin: 12/24/16 01:14 Dose: 100 mls/hr Isoniazid (Niazid) 300 mg PO DAILY [facility] PRN Reason: Protocol Last Admin: 12/23/16 10:35 Dose: 300 mg Lisinopril (Zestril) 20 mg PO DAILY [facility] Last Admin: 12/24/16 11:35 Dose: 20 mg Morphine Sulfate (Morphine) 1 mg IVP Q12H PRN PRN Reason: Pain, severe (8-10) Last Admin: 12/23/16 13:58 Dose: 1 mg Ondansetron HCl (Zofran Inj) 4 mg IVP Q4H PRN PRN Reason: Nausea/Vomiting Last Admin: 12/22/16 22:40 Dose: 4 mg Pantoprazole Sodium (Protonix Ec Tab) 40 mg PO 0600 [facility] Last Admin: 12/24/16 06:25 Dose: 40 mg Polyethylene Glycol (Miralax) 17 gm PO DAILY [facility] Last Admin: 12/24/16 11:34 Dose: 17 gm Pyrazinamide (Pyrazinamide) 1,000 mg PO DAILY [facility] Last Admin: 12/23/16 10:34 Dose: 1,000 mg Pyridoxine HCl (Vitamin B6 50 Mg Tab) 50 mg PO DAILY [facility] Last Admin: 12/24/16 11:38 Dose: 50 mg Rifampin (Rifampin Cap) 300 mg PO DAILY [facility] PRN Reason: Protocol Sucralfate (Carafate Oral Susp) 1 gm PO 0600,1600 [facility] Last Admin: 12/24/16 06:25 Dose: 1 gm Vancomycin HCl (Vancocin 25 Mg/Ml (Oral Use)) 250 mg PO QID [facility] PRN Reason: Protocol Last Admin: 12/24/16 11:36 Dose: 250 mg - Labs Labs: 12/24/16 06:45 12/24/16 06:45 PT 12.8 Seconds (9.9-11.8) H 12/24/16 10:30 INR 1.19 (0.93-1.08) H 12/24/16 10:30 APTT 31.4 Seconds (23.7-30.8) H 12/24/16 10:30 Attending/Attestation - Attestation I have personally seen and examined this patient.: Yes I have fully participated in the care of the patient.: Yes I have reviewed all pertinent clinical information, including history, physical exam and plan: Yes Notes (Text): 12/24/16 16:51 Attending note; Patient seen and examined with resident. still on isolation. The patient is a 61-year-old female with history of asthma and positive PPD who presented with complaint of cough and hemoptysis. She was found to have cavitary lesion on CT chest and +AFB and started on RIPE therapy. AFB X2 is negative so far. elevated LFT; secondary to INH and rifampin. INH and rifampin on hold. Repeat LFTs still elevated AST and ALT. Hepatitis serology ordered. Abdominal ultrasound requested. Case discussed GI/ID in detail. Abdominal discomfort; secondary to antituberculosis therapy. Continue Zofran and Protonix. Continue Carafate. case discussed with infectious disease nurse in detail. We will discuss with chest clinic for further plan. Upon discharge the patient will follow-up with PMD DR. Mcclure.
--- NOTE | 2016-12-24 16:30 | CP.PCM.PN ---
Subjective - Date & Time of Evaluation Date of Evaluation: 12/24/16 Time of Evaluation: 11:00 - Subjective Subjective: Medicine Progress Note: Pt seen and assessed at bedside. Pt reports that previous constipation has resolved and that she has had a BM since her exam yesterday. Pt continues to express that her pain isn't controlled, with sporadic crying and agitation when discussed during exam. Pt denied headache, fever, chills, palpitations, shortness of breath, chest pain, N/V, abdominal pain or constipation. Objective - Vital Signs/Intake and Output Vital Signs (last 24 hours): Temp Pulse Resp BP Pulse Ox 97.9 F 63 18 116/83 99 12/24/16 07:47 12/24/16 07:47 12/24/16 07:47 12/24/16 07:47 12/24/16 07:47 Intake and Output: 12/24/16 12/24/16 06:59 18:59 Intake Total 2760 240 Balance 2760 240 - Medications Medications: Current Medications Al Hydrox/Mg Hydrox/Simethicone (Maalox Plus 30 Ml) 30 ml PO Q4 PRN PRN Reason: Indigestion Last Admin: 12/23/16 13:58 Dose: 30 ml Albuterol Sulfate (Albuterol 0.083% Inhal Megan (2.5 Mg/3 Ml) Ud) 2.5 mg IH [id number] PRN PRN Reason: Cough and congestion Ethambutol HCl (Myambutol) 800 mg PO DAILY [facility] Last Admin: 12/23/16 10:34 Dose: 800 mg Hydrochlorothiazide (Hydrodiuril) 25 mg PO DAILY [facility] Last Admin: 12/24/16 11:35 Dose: 25 mg Potassium Chloride 40 meq/ (Sodium Chloride) 1,020 mls @ 100 mls/hr IV .[id number] [facility] Last Admin: 12/24/16 01:14 Dose: 100 mls/hr Isoniazid (Niazid) 300 mg PO DAILY [facility] PRN Reason: Protocol Last Admin: 12/23/16 10:35 Dose: 300 mg Lisinopril (Zestril) 20 mg PO DAILY [facility] Last Admin: 12/24/16 11:35 Dose: 20 mg Morphine Sulfate (Morphine) 1 mg IVP Q12H PRN PRN Reason: Pain, severe (8-10) Last Admin: 12/23/16 13:58 Dose: 1 mg Ondansetron HCl (Zofran Inj) 4 mg IVP Q4H PRN PRN Reason: Nausea/Vomiting Last Admin: 12/22/16 22:40 Dose: 4 mg Pantoprazole Sodium (Protonix Ec Tab) 40 mg PO 0600 [facility] Last Admin: 12/24/16 06:25 Dose: 40 mg Polyethylene Glycol (Miralax) 17 gm PO DAILY [facility] Last Admin: 12/24/16 11:34 Dose: 17 gm Pyrazinamide (Pyrazinamide) 1,000 mg PO DAILY [facility] Last Admin: 12/23/16 10:34 Dose: 1,000 mg Pyridoxine HCl (Vitamin B6 50 Mg Tab) 50 mg PO DAILY [facility] Last Admin: 12/24/16 11:38 Dose: 50 mg Rifampin (Rifampin Cap) 300 mg PO DAILY [facility] PRN Reason: Protocol Sucralfate (Carafate Oral Susp) 1 gm PO 0600,1600 [facility] Last Admin: 12/24/16 06:25 Dose: 1 gm Vancomycin HCl (Vancocin 25 Mg/Ml (Oral Use)) 250 mg PO QID [facility] PRN Reason: Protocol Last Admin: 12/24/16 11:36 Dose: 250 mg - Labs Labs: 12/24/16 06:45 12/24/16 06:45 PT 12.8 Seconds (9.9-11.8) H 12/24/16 10:30 INR 1.19 (0.93-1.08) H 12/24/16 10:30 APTT 31.4 Seconds (23.7-30.8) H 12/24/16 10:30 - Constitutional Appears: No Acute Distress - Head Exam Head Exam: NORMAL INSPECTION - Eye Exam Eye Exam: EOMI, Normal appearance - ENT Exam ENT Exam: Mucous Membranes Moist, Normal Exam - Neck Exam Neck Exam: Full ROM - Respiratory Exam Respiratory Exam: Clear to Ausculation Bilateral, NORMAL BREATHING PATTERN. absent: Rales, Rhonchi, Wheezes, Respiratory Distress - Cardiovascular Exam Cardiovascular Exam: REGULAR RHYTHM, +S1, +S2. absent: Murmur - GI/Abdominal Exam GI & Abdominal Exam: Normal Bowel Sounds. absent: Distended, Tenderness - Extremities Exam Extremities Exam: absent: Calf Tenderness, Pedal Edema - Neurological Exam Neurological Exam: Alert, Awake, Oriented x3 Additional comments: Pt wheelchair bound - Psychiatric Exam Psychiatric exam: Normal Affect, Normal Mood - Skin Skin Exam: Dry, Intact, Normal Color, Warm - Additional Findings Additional findings: L heel dressing clean dry and intact Assessment and Plan - Assessment and Plan (Free Text) Assessment: Ms. Perea is a 55 yo female with a past medical history of [place], hyperlipidemia, diabetes, HTN, CKD, asthma, DVT, uterine cancer, lung cancer and thromboembolic disease S/P left heel osteo debridement who was admitted for evaluation and treatment of chest pain and left heel pain. Plan: 1. S/P Left heel ulcer debridement/osteomyelitis - Zosyn and Zyvox ID- patient encouraged to stop refusing Zyvox -pain control with PO morphine and IV dilaudid -wound cultures showed MRSA and amikacin sensitive proteus mirabilis -"4-6 weeks of Zosyn and 3-4 weeks of Zyvox with weekly ESR, CRP, CBC, CMP. Would consider PO antibiotics if these trend downward", per ID -pt continues to refuse PT/OT and to wear offloading boots recommended by podiatry -podiatry and wound care on board -SW/case management working on acute care placement 2. Chronic Pancreatitis -pt refused levemir but received 3u of humulin -pain control with morphine and dilaudid -heart healthy diet with low fat -will continue to monitor 3. Agitation -PRN Geodon, PRN Risperidone and PRN Ativan -likely has schizoaffective disorder and patient started on zyprexa zydis 5mg HS , per psych -psychiatry following, all recs appreciated 4. Constipation - PRN Miralax added - scheduled colace 5. Thyroid Nodule -TSH wnl -asymptomatic at this time -will continue to monitor 6. Vision Changes -optho consulted and agreed to see as outpatient -will assist pt in scheduling upon d/c 7. Anemia -Iron studies within normal limits -B12 and Folate WNL -continuing to monitor with daily CBC's 8. Asthma -Duoneb q4 PRN 9. Medication Noncompliance - patient education provided - no refusals today, per nursing - will continue to educate patient on the importance of medication compliance 10. Patient Reports History of Heart and Uterine Cancer - no mention of heart cancer or labs/imaging documenting other malignancies/ treatment of said malignancies in review of [facility] records - no written record or means of attaining written record were provided by patient despite multiple inquiries - noncontrast CT of chest/abdomen/ pelvis showed no acute disease processes in heart or lungs 11. GI/DVT prophylaxis -protonix/ SCD Patient seen and case discussed with attending physician, Dr. Shoemaker.
--- NOTE | 2016-12-24 18:29 | CP.PCM.PN ---
Subjective - Date & Time of Evaluation Date of Evaluation: 12/24/16 Time of Evaluation: 18:20 - Subjective Subjective: Infectious Disease Follow Up: December 24, 2016 61 yo female with cough and bright red blood in sputum starting yesterday. The patient complains of persistent cough for the past 2 months without improvement. The patient placed on isolation and respiratory precautions at this time. Supportive care. Rule out TB. 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 Patient did have BCG vaccine in the past as a child. Patient was born in the [place] but moved to the [facility] [address] chest showed either abscess or cavitary lesion. The patient does complain of subjective fevers and chills. Fever of 101.1 F in ER. Acid-fast stain was positive. Starting treatment for tuberculosis. Noted patient refusing TB meds stating that another doctor told her she does not need them. At this point, the patient has two positive acid-fast stains from the sputum. Issues with the patient not believing her diagnosis. Multiple doctors have explained to her and she finally started taking the anti-TB medications. However, question remain whether she would continue to take medications when she is cleared for discharge. The patient still has not said that she accepts the diagnosis that she has a lung infection. No further AFB until the patient has had at least one week of anti-TB medications. The patient's daughter apparently was treated for active tuberculosis and the patient given treatment for latent infection. [facility] chest clinic was apparently here and spoke to the patient today. The patient cannot leave the hospital until three consecutive sputums are AFB negative one week after starting RIPE therapy as she is a public health risk due to potential tuberculosis. AFB culture negative at one week... note that mycobacterium are slow growing organisms and that the results are NOT finalized until 6 weeks of incubation. This amount of time must pass for incubation before one can state/read the culture is negative. 12/19/2016, 12/20/2016, and 12/21/2016 AFB sputums are still positive. Must wait for 5-7 days before taking any further AFB sputums. The patient has been nauseated and had complaints of abdominal pains with RIPE therapy. We still do not have definitive identification of which AFB organism is present. Working assumption is Tuberculosis. Noted that LFT were elevated the last two days. INH and Rifampin on hold. Ethambutol and Pyrazinamide on hold. It will take 48 hours at least to see reduction in the LFTs for medication induced hepatitis. The patient is also receiving treatment for C. Diff in the form of PO Vancomycin. Objective - Vital Signs/Intake and Output Vital Signs (last 24 hours): Temp Pulse Resp BP Pulse Ox 98.2 F 84 20 124/91 H 98 12/24/16 16:00 12/24/16 16:00 12/24/16 16:00 12/24/16 16:00 12/24/16 16:00 Intake and Output: 12/24/16 12/24/16 06:59 18:59 Intake Total 2760 240 Balance 2760 240 - Medications Medications: Current Medications Al Hydrox/Mg Hydrox/Simethicone (Maalox Plus 30 Ml) 30 ml PO Q4 PRN PRN Reason: Indigestion Last Admin: 12/23/16 13:58 Dose: 30 ml Albuterol Sulfate (Albuterol 0.083% Inhal Megan (2.5 Mg/3 Ml) Ud) 2.5 mg IH [id number] PRN PRN Reason: Cough and congestion Ethambutol HCl (Myambutol) 800 mg PO DAILY [facility] Last Admin: 12/23/16 10:34 Dose: 800 mg Hydrochlorothiazide (Hydrodiuril) 25 mg PO DAILY [facility] Last Admin: 12/24/16 11:35 Dose: 25 mg Potassium Chloride 40 meq/ (Sodium Chloride) 1,020 mls @ 100 mls/hr IV .[id number] [facility] Last Admin: 12/24/16 17:04 Dose: 100 mls/hr Isoniazid (Niazid) 300 mg PO DAILY [facility] PRN Reason: Protocol Last Admin: 12/23/16 10:35 Dose: 300 mg Lisinopril (Zestril) 20 mg PO DAILY [facility] Last Admin: 12/24/16 11:35 Dose: 20 mg Morphine Sulfate (Morphine) 1 mg IVP Q12H PRN PRN Reason: Pain, severe (8-10) Last Admin: 12/23/16 13:58 Dose: 1 mg Ondansetron HCl (Zofran Inj) 4 mg IVP Q4H PRN PRN Reason: Nausea/Vomiting Last Admin: 12/22/16 22:40 Dose: 4 mg Pantoprazole Sodium (Protonix Ec Tab) 40 mg PO 0600 [facility] Last Admin: 12/24/16 06:25 Dose: 40 mg Polyethylene Glycol (Miralax) 17 gm PO DAILY [facility] Last Admin: 12/24/16 11:34 Dose: 17 gm Pyrazinamide (Pyrazinamide) 1,000 mg PO DAILY [facility] Last Admin: 12/23/16 10:34 Dose: 1,000 mg Pyridoxine HCl (Vitamin B6 50 Mg Tab) 50 mg PO DAILY [facility] Last Admin: 12/24/16 11:38 Dose: 50 mg Rifampin (Rifampin Cap) 300 mg PO DAILY [facility] PRN Reason: Protocol Sucralfate (Carafate Oral Susp) 1 gm PO 0600,1600 [facility] Last Admin: 12/24/16 17:03 Dose: 1 gm Vancomycin HCl (Vancocin 25 Mg/Ml (Oral Use)) 250 mg PO QID [facility] PRN Reason: Protocol Last Admin: 12/24/16 17:03 Dose: 250 mg - Labs Labs: 12/24/16 06:45 12/24/16 06:45 PT 12.8 Seconds (9.9-11.8) H 12/24/16 10:30 INR 1.19 (0.93-1.08) H 12/24/16 10:30 APTT 31.4 Seconds (23.7-30.8) H 12/24/16 10:30 - Constitutional Appears: Non-toxic, No Acute Distress, Chronically Ill - Head Exam Head Exam: ATRAUMATIC, NORMOCEPHALIC - Eye Exam Eye Exam: EOMI, PERRL Pupil Exam: NORMAL ACCOMODATION, PERRL - ENT Exam ENT Exam: Mucous Membranes Moist, Normal External Ear Exam, TM's Normal Bilaterally - Neck Exam Neck Exam: Full ROM, Normal Inspection - Respiratory Exam Respiratory Exam: Clear to Ausculation Bilateral, NORMAL BREATHING PATTERN. absent: Rales, Rhonchi, Wheezes - Cardiovascular Exam Cardiovascular Exam: REGULAR RHYTHM, RRR, +S1, +S2 - GI/Abdominal Exam GI & Abdominal Exam: Soft, Normal Bowel Sounds. absent: Distended, Tenderness - Extremities Exam Extremities Exam: Full ROM, Normal Inspection - Neurological Exam Neurological Exam: Alert, Awake, CN II-XII Intact, Oriented x3 - Psychiatric Exam Psychiatric exam: Normal Affect, Normal Mood - Skin Skin Exam: Intact, Normal Color Assessment and Plan - Assessment and Plan (Free Text) Assessment: 61 yo female with prolonged cough for over 2 months with no improvement on antibiotics. The patient with known positive PPD. Cannot rule out tuberculosis at this point. Must also consider infections such as Staph Aureus and other acid-fast positive organisms. Start Rocephin for antibiotic coverage. Larson cultures. Obtain Acid-Fast stains and studies of sputum x 3. Patient had hemoptysis. Repeating PPD and Quantiferon will not yield additional data (both tests only show potential exposure of patient to tuberculosis during lifetime and cannot denote active disease). Await Acid- Fast stains and sputum culture results. Maintain isolation. Acid-Fast stain positive from sputum x 2. Continue treatment for tuberculosis as other tests return. Continue on Isoniazid, Rifampin, Pyrazinamide, and ethambutol. Start Vitamin B6 as well. Await PCR for identification of tuberculous strain and cultures. Supportive care. HIV test results are negative. No further AFB until patient has taken one week of anti-TB meds. Cough and hemopytsis improved. Patient does not believe her diagnosis of potential TB. First AFB cultures read currently as negative at one week of incubation. Results are finalized after 6 weeks of incubation. With the 12/19/2016 and 12/20/2016 AFB sputums being positive for AFB, would await another 5-7 days before taking another AFB sputum. When the patient is able to make sputum clear of AFB (3 consecutive times) she can be discharged with DOT supervised by Department of [facility]. [facility] will reevaluate the patient early this upcoming week and would consider earlier discharge if the patient met certain conditions. Will see their recommendations after they revisit the patient. As of now, the patient needs three consecutive negative AFB sputums before she can be discharged from [facility] as per national guidelines. With the LFTs greater than 9x normal, would hold anti-tuberculosis medications for now. Monitor LFTs. Supportive care. Will need to stop for at least 48 hours before noting a change in LFTs. Patient is receiving PO Vancomycin for positive C. Diff. Thank you for allowing me to participate in the care of the patient, we will follow with you.
--- NOTE | 2016-12-25 03:14 | PN ---
DATE: 12/24/2016 REFERRING PHYSICIAN: Clifford Shoemaker MD. SUBJECTIVE: She is out of bed to chair. Night has been unremarkable. Diarrhea is better. Still has some abdominal pain. Not much cough. No sputum production. No leg pain or leg swelling. The patient is being followed by Infectious Disease as well as Gastroenterology. OBJECTIVE: GENERAL: No acute distress. VITAL SIGNS: Temperature is 98, heart rate is 84, respiratory rate is 20, blood pressure 124/91, and pulse ox 98% on room air. HEENT: Moist mucous membranes. *------*. NECK: Supple. No JVD. LUNGS: Fair airflow with rhonchi. CARDIOPULMONARY: S1 and S2. ABDOMEN: Soft, mild tenderness in the epigastric area to palpation. EXTREMITIES: There is no edema. NEUROLOGIC: Awake, alert, follows simple command. MEDICATIONS: She is on albuterol/Atrovent nebulizer q.6 hours p.r.n., Carafate 1 g twice a day, hydrochlorothiazide 25 mg daily, MiraLax 17 g daily, morphine 1 mg q.12 hours p.r.n., ethambutol 800 mg daily, INH 300 mg daily, potassium supplements with IV fluid, PZA 1000 mg daily, rifampin 300 mg daily, vitamin B6 50 mg daily, Restoril 20 mg daily, Zofran p.r.n. basis. LABORATORY DATA: Shows hemoglobin 9.4, hematocrit 29.3, WBC 5.3, and platelet count is 465. INR is 1.19 and PTT is 31. Sodium 135, potassium 4.4, chloride 100, bicarbonate 29, BUN 4, creatinine 0.5, glucose is 90, calcium is 8.4, AST is 941, ALT is 424, albumin is 2.9. Had abdominal ultrasound done, which shows hepatic steatosis, common normal size liver without focal abnormalities. IMPRESSION AND PLAN: Chronic obstructive lung disease, pulmonary infiltrate, AFB positive in the sputum, Clostridium difficile colitis, elevated liver enzymes, which is 9 times of the baseline. Infectious Disease's note reviewed. *------* medication is being held. Continue p.r.n. bronchodilator. Still waiting further AFB culture or PCRs. Keep following LFTs closely. Thank you and we will follow with you. Polo Paige MD [facility] # [id number]
[2016-12-25] MEDS: Sucralfate 1 gm/10 ml Oral Susp UD PO SCH ×2 (05:51→16:40)
[2016-12-25] MEDS: Pantoprazole 40 mg EC Tab PO SCH ×2 (05:51→16:40)
[2016-12-25 07:48] LABS: BASO # 0.05 K/mm3 (0.0-2.0); BASO % 0.9 % (0.0-3.0); EOS # 0.3 (0.0-0.7); GRAN # 3.31 (1.4-6.5); GRAN % 61.2 % (50.0-68.0); HEMOGLOBIN 9.6 gm/dL (12.0-16.0); LYMPH # 1.1 (1.2-3.4); LYMPH % 20.9 % (22.0-35.0); MEAN CELL VOLUME 83.2 fL (80.0-105.0); MEAN CORPUSCULAR HEMOGLOBIN 27.3 pg (25.0-35.0); MEAN CORPUSCULAR HGB CONC 32.8 g/dl (31.0-37.0); MEAN PLATELET VOLUME 8.6 fl (7.0-11.0); MONO # 0.7 (0.1-0.6); PLATELET COUNT 461 10^3/uL (120.0-450.0); RBC 3.52 10^6/uL (3.5-6.1); RED CELL DISTRIBUTION WIDTH 16.5 % (11.5-14.5); WHITE BLOOD COUNT 5.4 10^3/ul (4.5-11.0)
[2016-12-25 07:58] LABS: ALBUMIN 3.1 g/dL (3.0-4.8); ALT/SGPT 600 U/L (7-56); BLOOD UREA NITROGEN < 2 mg/dL (7-21); CALCIUM 8.7 mg/dL (8.4-10.5); GFR AFRICAN-AMERICAN > 60; GFR NON-AFRICAN AMERICAN > 60
[2016-12-25 08:08] LABS: AST/SGOT 892 U/L (15-39)
[2016-12-25] MEDS: Vancomycin 25 MG/ML PO SCH ×3 (11:10→22:02)
[2016-12-25] MEDS: POLYETHYLENE GLYCOL 3350 17 GM/Dose PACKET PO SCH (11:10)
--- NOTE | 2016-12-25 15:13 | CP.PCM.PN ---
Subjective - Date & Time of Evaluation Date of Evaluation: 12/25/16 Time of Evaluation: 10:30 - Subjective Subjective: S&E, chart reviewed. Patient remains on airborne precaution, No diarrhea, have formed BM, no bleeding, Nausea better but she complains of acid reflux mostly in the evening. No acute overnight events. Objective - Vital Signs/Intake and Output Vital Signs (last 24 hours): Temp Pulse Resp BP Pulse Ox 97.9 F 72 28 H 130/92 H 99 12/25/16 07:30 12/25/16 07:30 12/25/16 07:30 12/25/16 07:30 12/25/16 07:30 Intake and Output: 12/25/16 12/25/16 06:59 18:59 Intake Total 600 480 Balance 600 480 - Medications Medications: Current Medications Al Hydrox/Mg Hydrox/Simethicone (Maalox Plus 30 Ml) 30 ml PO Q4 PRN PRN Reason: Indigestion Last Admin: 12/23/16 13:58 Dose: 30 ml Albuterol Sulfate (Albuterol 0.083% Inhal Megan (2.5 Mg/3 Ml) Ud) 2.5 mg IH [id number] PRN PRN Reason: Cough and congestion Ethambutol HCl (Myambutol) 800 mg PO DAILY [facility] Last Admin: 12/23/16 10:34 Dose: 800 mg Hydrochlorothiazide (Hydrodiuril) 25 mg PO DAILY [facility] Last Admin: 12/25/16 11:10 Dose: 25 mg Potassium Chloride 40 meq/ (Sodium Chloride) 1,020 mls @ 100 mls/hr IV .[id number] [facility] Last Admin: 12/24/16 22:35 Dose: 100 mls/hr Isoniazid (Niazid) 300 mg PO DAILY [facility] PRN Reason: Protocol Last Admin: 12/23/16 10:35 Dose: 300 mg Lisinopril (Zestril) 20 mg PO DAILY [facility] Last Admin: 12/25/16 11:15 Dose: 20 mg Morphine Sulfate (Morphine) 1 mg IVP Q12H PRN PRN Reason: Pain, severe (8-10) Last Admin: 12/23/16 13:58 Dose: 1 mg Ondansetron HCl (Zofran Inj) 4 mg IVP Q4H PRN PRN Reason: Nausea/Vomiting Last Admin: 12/22/16 22:40 Dose: 4 mg Pantoprazole Sodium (Protonix Ec Tab) 40 mg PO 0600,1600 [facility] Polyethylene Glycol (Miralax) 17 gm PO DAILY [facility] Last Admin: 12/25/16 11:10 Dose: 17 gm Pyrazinamide (Pyrazinamide) 1,000 mg PO DAILY [facility] Last Admin: 12/23/16 10:34 Dose: 1,000 mg Pyridoxine HCl (Vitamin B6 50 Mg Tab) 50 mg PO DAILY [facility] Last Admin: 12/25/16 11:10 Dose: 50 mg Rifampin (Rifampin Cap) 300 mg PO DAILY [facility] PRN Reason: Protocol Sucralfate (Carafate Oral Susp) 1 gm PO 0600,1600 [facility] Last Admin: 12/25/16 05:51 Dose: 1 gm Vancomycin HCl (Vancocin 25 Mg/Ml (Oral Use)) 250 mg PO QID [facility] PRN Reason: Protocol Last Admin: 12/25/16 11:10 Dose: 250 mg - Labs Labs: 12/25/16 07:30 12/25/16 07:30 PT 12.8 Seconds (9.9-11.8) H 12/24/16 10:30 INR 1.19 (0.93-1.08) H 12/24/16 10:30 APTT 31.4 Seconds (23.7-30.8) H 12/24/16 10:30 - Constitutional Appears: No Acute Distress - Head Exam Head Exam: NORMAL INSPECTION - Eye Exam Eye Exam: Normal appearance. absent: Scleral icterus - ENT Exam ENT Exam: Mucous Membranes Moist - Neck Exam Neck Exam: Normal Inspection - Respiratory Exam Respiratory Exam: NORMAL BREATHING PATTERN. absent: Rales, Wheezes, Respiratory Distress - Cardiovascular Exam Cardiovascular Exam: +S1, +S2 - GI/Abdominal Exam GI & Abdominal Exam: Soft, Normal Bowel Sounds. absent: Guarding, Tenderness, Rebound - Extremities Exam Extremities Exam: Pedal Edema. absent: Calf Tenderness - Neurological Exam Neurological Exam: Alert, Awake, Oriented x3 - Skin Skin Exam: Dry, Warm Assessment and Plan - Assessment and Plan (Free Text) Assessment: ASSESSMENT: Elevated LFt, maybe secondary to medications to r/o infectious hepatitis or gallstones Cavitary Lesion, (+) AFB (+) Cdiff antigen and toxin Nausea, maybe likely be secondary to multiple antibiotics treatment Pneumonia H/O PUD H/O H pylori Improved Constipation , (+) cdiff HTN PLAN: continue PPI trend LFT continue Carafate On Iron TB meds are on hold for now, ID note appreciated Miralax daily on oral Vancomycin Increase Protonix 40 mg BID medical team in touch with [employer] [facility] [employer] Seen and discussed w/ Dr. Oleary.
--- NOTE | 2016-12-25 17:05 | CP.PCM.PN ---
Subjective - Date & Time of Evaluation Date of Evaluation: 12/25/16 Time of Evaluation: 17:30 - Subjective Subjective: Infectious Disease Follow Up: December 25, 2016 61 yo female with cough and bright red blood in sputum starting yesterday. The patient complains of persistent cough for the past 2 months without improvement. The patient placed on isolation and respiratory precautions at this time. Supportive care. Rule out TB. 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 Patient did have BCG vaccine in the past as a child. Patient was born in the [place] but moved to the [facility] [address] chest showed either abscess or cavitary lesion. The patient does complain of subjective fevers and chills. Fever of 101.1 F in ER. Acid-fast stain was positive. Starting treatment for tuberculosis. Noted patient refusing TB meds stating that another doctor told her she does not need them. At this point, the patient has two positive acid-fast stains from the sputum. Issues with the patient not believing her diagnosis. Multiple doctors have explained to her and she finally started taking the anti-TB medications. However, question remain whether she would continue to take medications when she is cleared for discharge. The patient still has not said that she accepts the diagnosis that she has a lung infection. No further AFB until the patient has had at least one week of anti-TB medications. The patient's daughter apparently was treated for active tuberculosis and the patient given treatment for latent infection. [facility] chest clinic was apparently here and spoke to the patient today. The patient cannot leave the hospital until three consecutive sputums are AFB negative one week after starting RIPE therapy as she is a public health risk due to potential tuberculosis. AFB culture negative at one week... note that mycobacterium are slow growing organisms and that the results are NOT finalized until 6 weeks of incubation. This amount of time must pass for incubation before one can state/read the culture is negative. 12/19/2016, 12/20/2016, and 12/21/2016 AFB sputums are still positive. Must wait for 5-7 days before taking any further AFB sputums. The patient has been nauseated and had complaints of abdominal pains with RIPE therapy. We still do not have definitive identification of which AFB organism is present. Working assumption is Tuberculosis. Noted that LFT were elevated the last three days. INH and Rifampin on hold. Ethambutol and Pyrazinamide on hold. It will take 48 hours at least to see reduction in the LFTs for medication induced hepatitis. The patient is also receiving treatment for C. Diff in the form of PO Vancomycin. Objective - Vital Signs/Intake and Output Vital Signs (last 24 hours): Temp Pulse Resp BP Pulse Ox 97.9 F 72 28 H 130/92 H 99 12/25/16 07:30 12/25/16 07:30 12/25/16 07:30 12/25/16 07:30 12/25/16 07:30 Intake and Output: 12/25/16 12/25/16 06:59 18:59 Intake Total 600 480 Balance 600 480 - Medications Medications: Current Medications Al Hydrox/Mg Hydrox/Simethicone (Maalox Plus 30 Ml) 30 ml PO Q4 PRN PRN Reason: Indigestion Last Admin: 12/23/16 13:58 Dose: 30 ml Albuterol Sulfate (Albuterol 0.083% Inhal Megan (2.5 Mg/3 Ml) Ud) 2.5 mg IH [id number] PRN PRN Reason: Cough and congestion Ethambutol HCl (Myambutol) 800 mg PO DAILY [facility] Last Admin: 12/23/16 10:34 Dose: 800 mg Hydrochlorothiazide (Hydrodiuril) 25 mg PO DAILY [facility] Last Admin: 12/25/16 11:10 Dose: 25 mg Potassium Chloride 40 meq/ (Sodium Chloride) 1,020 mls @ 100 mls/hr IV .[id number] [facility] Last Admin: 12/25/16 16:40 Dose: 100 mls/hr Isoniazid (Niazid) 300 mg PO DAILY [facility] PRN Reason: Protocol Last Admin: 12/23/16 10:35 Dose: 300 mg Lisinopril (Zestril) 20 mg PO DAILY [facility] Last Admin: 12/25/16 11:15 Dose: 20 mg Morphine Sulfate (Morphine) 1 mg IVP Q12H PRN PRN Reason: Pain, severe (8-10) Last Admin: 12/23/16 13:58 Dose: 1 mg Ondansetron HCl (Zofran Inj) 4 mg IVP Q4H PRN PRN Reason: Nausea/Vomiting Last Admin: 12/22/16 22:40 Dose: 4 mg Pantoprazole Sodium (Protonix Ec Tab) 40 mg PO 0600,1600 [facility] Last Admin: 12/25/16 16:40 Dose: 40 mg Polyethylene Glycol (Miralax) 17 gm PO DAILY [facility] Last Admin: 12/25/16 11:10 Dose: 17 gm Pyrazinamide (Pyrazinamide) 1,000 mg PO DAILY [facility] Last Admin: 12/23/16 10:34 Dose: 1,000 mg Pyridoxine HCl (Vitamin B6 50 Mg Tab) 50 mg PO DAILY [facility] Last Admin: 12/25/16 11:10 Dose: 50 mg Rifampin (Rifampin Cap) 300 mg PO DAILY [facility] PRN Reason: Protocol Sucralfate (Carafate Oral Susp) 1 gm PO 0600,1600 [facility] Last Admin: 12/25/16 16:40 Dose: 1 gm Vancomycin HCl (Vancocin 25 Mg/Ml (Oral Use)) 250 mg PO QID [facility] PRN Reason: Protocol Last Admin: 12/25/16 14:00 Dose: 250 mg - Labs Labs: 12/25/16 07:30 12/25/16 07:30 PT 12.8 Seconds (9.9-11.8) H 12/24/16 10:30 INR 1.19 (0.93-1.08) H 12/24/16 10:30 APTT 31.4 Seconds (23.7-30.8) H 12/24/16 10:30 - Constitutional Appears: Non-toxic, No Acute Distress, Chronically Ill - Head Exam Head Exam: ATRAUMATIC, NORMOCEPHALIC - Eye Exam Eye Exam: EOMI, PERRL Pupil Exam: NORMAL ACCOMODATION, PERRL - ENT Exam ENT Exam: Mucous Membranes Moist, Normal External Ear Exam, TM's Normal Bilaterally - Neck Exam Neck Exam: Full ROM, Normal Inspection - Respiratory Exam Respiratory Exam: Clear to Ausculation Bilateral, NORMAL BREATHING PATTERN. absent: Rales, Rhonchi, Wheezes - Cardiovascular Exam Cardiovascular Exam: REGULAR RHYTHM, RRR, +S1, +S2 - GI/Abdominal Exam GI & Abdominal Exam: Soft, Normal Bowel Sounds. absent: Distended, Tenderness - Extremities Exam Extremities Exam: Full ROM, Normal Inspection - Neurological Exam Neurological Exam: Alert, Awake, CN II-XII Intact, Oriented x3 - Psychiatric Exam Psychiatric exam: Normal Affect, Normal Mood - Skin Skin Exam: Intact, Normal Color Assessment and Plan - Assessment and Plan (Free Text) Assessment: 61 yo female with prolonged cough for over 2 months with no improvement on antibiotics. The patient with known positive PPD. Cannot rule out tuberculosis at this point. Must also consider infections such as Staph Aureus and other acid-fast positive organisms. Start Rocephin for antibiotic coverage. Larson cultures. Obtain Acid-Fast stains and studies of sputum x 3. Patient had hemoptysis. Repeating PPD and Quantiferon will not yield additional data (both tests only show potential exposure of patient to tuberculosis during lifetime and cannot denote active disease). Await Acid- Fast stains and sputum culture results. Maintain isolation. Acid-Fast stain positive from sputum x 2. Continue treatment for tuberculosis as other tests return. Continue on Isoniazid, Rifampin, Pyrazinamide, and ethambutol. Start Vitamin B6 as well. Await PCR for identification of tuberculous strain and cultures. Supportive care. HIV test results are negative. No further AFB until patient has taken one week of anti-TB meds. Cough and hemopytsis improved. Patient does not believe her diagnosis of potential TB. First AFB cultures read currently as negative at one week of incubation. Results are finalized after 6 weeks of incubation. With the 12/19/2016 and 12/20/2016 AFB sputums being positive for AFB, would await another 5-7 days before taking another AFB sputum. When the patient is able to make sputum clear of AFB (3 consecutive times) she can be discharged with DOT supervised by Department of [facility]. [facility] will reevaluate the patient early this upcoming week and would consider earlier discharge if the patient met certain conditions. Will see their recommendations after they revisit the patient. As of now, the patient needs three consecutive negative AFB sputums before she can be discharged from [facility] as per national guidelines. With the LFTs greater than 9x normal, would hold anti-tuberculosis medications for now. Monitor LFTs. Supportive care. Will need to stop for at least 48 hours before noting a change in LFTs. The LFTs are still elevated at this time. Patient is receiving PO Vancomycin for positive C. Diff. Thank you for allowing me to participate in the care of the patient, we will follow with you.
[2016-12-25 17:52] VITALS: RESP 20
--- NOTE | 2016-12-25 22:02 | CP.PCM.PN ---
<JAY HERRERA - Last Filed: 12/25/16 21:57> Subjective - Date & Time of Evaluation Date of Evaluation: 12/25/16 Time of Evaluation: 13:00 - Subjective Subjective: Medicine Progress Note: Pt seen and assessed at bedside. Pt currently with no new complaints or acute events overnight. She denies headache, night sweats, fever, shortness of breath , hemoptysis, cough, chest pain, N/V, abdominal pain, or diarrhea. Objective - Vital Signs/Intake and Output Vital Signs (last 24 hours): Temp Pulse Resp BP Pulse Ox 98.0 F 84 20 127/91 H 96 12/25/16 16:00 12/25/16 16:00 12/25/16 16:00 12/25/16 16:00 12/25/16 16:00 Intake and Output: 12/25/16 12/26/16 18:59 06:59 Intake Total 480 Balance 480 - Medications Medications: Current Medications Al Hydrox/Mg Hydrox/Simethicone (Maalox Plus 30 Ml) 30 ml PO Q4 PRN PRN Reason: Indigestion Last Admin: 12/23/16 13:58 Dose: 30 ml Albuterol Sulfate (Albuterol 0.083% Inhal Megan (2.5 Mg/3 Ml) Ud) 2.5 mg IH [id number] PRN PRN Reason: Cough and congestion Ethambutol HCl (Myambutol) 800 mg PO DAILY [facility] Last Admin: 12/23/16 10:34 Dose: 800 mg Hydrochlorothiazide (Hydrodiuril) 25 mg PO DAILY [facility] Last Admin: 12/25/16 11:10 Dose: 25 mg Potassium Chloride 40 meq/ (Sodium Chloride) 1,020 mls @ 100 mls/hr IV .[id number] [facility] Last Admin: 12/25/16 16:40 Dose: 100 mls/hr Isoniazid (Niazid) 300 mg PO DAILY [facility] PRN Reason: Protocol Last Admin: 12/23/16 10:35 Dose: 300 mg Lisinopril (Zestril) 20 mg PO DAILY [facility] Last Admin: 12/25/16 11:15 Dose: 20 mg Morphine Sulfate (Morphine) 1 mg IVP Q12H PRN PRN Reason: Pain, severe (8-10) Last Admin: 12/23/16 13:58 Dose: 1 mg Ondansetron HCl (Zofran Inj) 4 mg IVP Q4H PRN PRN Reason: Nausea/Vomiting Last Admin: 12/22/16 22:40 Dose: 4 mg Pantoprazole Sodium (Protonix Ec Tab) 40 mg PO 0600,1600 [facility] Last Admin: 12/25/16 16:40 Dose: 40 mg Polyethylene Glycol (Miralax) 17 gm PO DAILY [facility] Last Admin: 12/25/16 11:10 Dose: 17 gm Pyrazinamide (Pyrazinamide) 1,000 mg PO DAILY [facility] Last Admin: 12/23/16 10:34 Dose: 1,000 mg Pyridoxine HCl (Vitamin B6 50 Mg Tab) 50 mg PO DAILY [facility] Last Admin: 12/25/16 11:10 Dose: 50 mg Rifampin (Rifampin Cap) 300 mg PO DAILY [facility] PRN Reason: Protocol Sucralfate (Carafate Oral Susp) 1 gm PO 0600,1600 [facility] Last Admin: 12/25/16 16:40 Dose: 1 gm Vancomycin HCl (Vancocin 25 Mg/Ml (Oral Use)) 250 mg PO QID [facility] PRN Reason: Protocol Last Admin: 12/25/16 14:00 Dose: 250 mg - Labs Labs: 12/25/16 07:30 12/25/16 07:30 PT 12.8 Seconds (9.9-11.8) H 12/24/16 10:30 INR 1.19 (0.93-1.08) H 12/24/16 10:30 APTT 31.4 Seconds (23.7-30.8) H 12/24/16 10:30 - Constitutional Appears: No Acute Distress - Head Exam Head Exam: NORMAL INSPECTION - Eye Exam Eye Exam: EOMI, Normal appearance - ENT Exam ENT Exam: Mucous Membranes Moist, Normal Exam - Neck Exam Neck Exam: Full ROM - Respiratory Exam Respiratory Exam: Clear to Ausculation Bilateral, NORMAL BREATHING PATTERN. absent: Rales, Rhonchi, Wheezes, Respiratory Distress - Cardiovascular Exam Cardiovascular Exam: REGULAR RHYTHM, RRR, +S1, +S2. absent: Murmur - GI/Abdominal Exam GI & Abdominal Exam: Normal Bowel Sounds. absent: Tenderness - Extremities Exam Extremities Exam: absent: Calf Tenderness, Pedal Edema - Neurological Exam Neurological Exam: Alert, Awake, Normal Gait, Oriented x3 - Psychiatric Exam Psychiatric exam: Normal Affect, Normal Mood - Skin Skin Exam: Dry, Intact, Normal Color, Warm Assessment and Plan - Assessment and Plan (Free Text) Assessment: Mrs. Machado is a 61 year old female with a past medical history of hypertension , asthma, gastric ulcer, esophagitis who was admitted for evaluation and treatment of tuberculosis. Plan: 1. Tuberculosis Infection/Cavitary Lung Lesion -ID following, all recs appreciated -hold RIPE therapy 48 hours for elevated LFTS, per ID -sputum sample collected 12/24 is negative for AFB -AFB stain post one week of RIPE therapy collected positive for AFB (+1) on -spoke with and arranged follow-up with chest clinic for post discharge TB monitoring; will discuss discharge planning with chest clinic on 12/26 -Recommended all visitors wear proper isolation masks -Isolation precautions 2. Nausea/Vomiting -GI consulted, all recs appreciated -abdominal US showed hepatic steatosis in normal size liver with no other abnormalities -likely secondary to antituberculosis therapy -history of H. pylori treated in the past noted -cont zofran PRN, protonix, maalox PRN, and carafate, per GI 3. Positive Clostridium Difficile Stool Sample -cont Vancomycin 25mg/mL PO QID -will continue to monitor 4. Elevated LFT's -AST 892 and ALT 600 -hepatitis panel negative -RIPE held for 48 hours -cont to trend LFT's and adjust RIPE therapy accordingly 5. Asthma -no complaints at this time -continue albuterol PRN -pulmonology following, all recs appreciated 6. Pneumonia -resolved -monitor clincial symptoms 7. HTN -Continue lisinopril and HCTZ 8. Constipation -cont miralax qd -continue to monitor 9. Rib pain - continue on ibprofen PRN for pain 10. GI/DVT prophylaxis -protonix/scd's Patient seen and case discussed with attending physician, Dr. Shoemaker. <Clifford Shoemaker - Last Filed: 12/29/16 11:16> Objective - Vital Signs/Intake and Output Vital Signs (last 24 hours): Temp Pulse Resp BP Pulse Ox 98.2 F 71 20 120/76 95 12/27/16 07:30 12/27/16 07:30 12/27/16 07:30 12/27/16 11:47 12/27/16 07:30 - Labs Labs: 12/27/16 07:15 12/27/16 07:15 PT 12.8 Seconds (9.9-11.8) H 12/24/16 10:30 INR 1.19 (0.93-1.08) H 12/24/16 10:30 APTT 31.4 Seconds (23.7-30.8) H 12/24/16 10:30 Attending/Attestation - Attestation I have personally seen and examined this patient.: Yes I have fully participated in the care of the patient.: Yes I have reviewed all pertinent clinical information, including history, physical exam and plan: Yes Notes (Text): 12/29/16 11:14 Attending note; Patient seen and examined with resident. still on isolation. The patient is a 61-year-old female with history of asthma and positive PPD who presented with complaint of cough and hemoptysis. She was found to have cavitary lesion on CT chest and +AFB and started on RIPE therapy. AFB X3 is negative so far. elevated LFT; secondary to INH and rifampin. INH and rifampin on hold. Repeat LFTs still elevated AST and ALT. Hepatitis serology is negative.Abdominal ultrasound showed fatty liver. Case discussed GI/ID in detail. Abdominal discomfort; secondary to antituberculosis therapy. Continue Zofran and Protonix. Continue Carafate. If LFTs improved patient can be discharged home with close follow-up with chest clinic for direct observed therapy. case discussed with infectious disease nurse in detail. Upon discharge the patient will follow-up with PMD DR. Mcclure.
[2016-12-25] MEDS: Sodium Chloride 0.9% 1,000 ML IV SCH (22:14)
--- NOTE | 2016-12-26 05:34 | PN ---
PULMONARY PROGRESS NOTE DATE: 12/25/2016 REFERRING PHYSICIAN: Dr. Shoemaker. SUBJECTIVE: She is lying on the bed. Feels okay. There is no fever, no cough,no shortness of breath. Abdominal pain is better. No dysuria. No leg pain or leg swelling. OBJECTIVE: GENERAL: No acute distress. VITAL SIGNS: Temperature is 98, heart rate is 84, respiratory rate is 20, blood pressure 127/91, and pulse ox 96% on room air. HEENT: Moist mucous membranes. No oral thrush. NECK: Supple. No JVD. HEART: S1 and S2. LUNGS: Fair airflow with rhonchi. ABDOMEN: Soft, nontender. No organomegaly. EXTREMITIES: There is no edema. NEUROLOGIC: Awake, alert, follows simple command. LABORATORY DATA: Shows hemoglobin 9.6, hematocrit 29.3, WBC 5.4, and platelet count is 461. Sodium 136, potassium 5.0, chloride 101, bicarbonate 28, BUN is less than 2, creatinine 0.5, glucose is 79, calcium 8.7, AST 892, ALT is 600, alkaline phosphatase 114, albumin is 3.1. Microbiology AFB smears positive. Blood cultures are still pending for final report. MEDICATIONS: She is on albuterol/Atrovent nebulizer q.6 hours p.r.n., Carafate 1 g twice a day, hydrochlorothiazide 25 mg daily, MiraLax 17 g daily, morphine 1 mg q.12 hours p.r.n., her ethambutol is on hold, INH is on hold, Protonix 40 mg daily, PZA is on hold, rifampin is on hold, IV fluid normal saline 100 mL per hour, vitamin B6 50 mg daily, Zestril 20 mg daily, Zofran p.r.n. basis. IMPRESSION AND PLAN: Chronic obstructive lung disease, pulmonary infiltrate, AFB positive in the sputum, Clostridium difficile colitis, elevated liver enzyme, tuberculosis medication is on hold. Enzymes are still going up. We will get liver function tests for tomorrow. Continue gastric prophylaxis and SCD lower extremity. She does not have a cough anymore. Thank you, we will follow with you. Polo Paige MD [facility] # [id number]
[2016-12-26] MEDS: Pantoprazole 40 mg EC Tab PO SCH ×2 (05:53→18:08)
[2016-12-26] MEDS: Sucralfate 1 gm/10 ml Oral Susp UD PO SCH ×2 (06:46→18:08)
[2016-12-26 07:21] LABS: BASO # 0.04 K/mm3 (0.0-2.0); BASO % 0.7 % (0.0-3.0); EOS # 0.3 (0.0-0.7); EOS % 5.1 % (1.5-5.0); GRAN # 3.51 (1.4-6.5); GRAN % 62.3 % (50.0-68.0); HEMOGLOBIN 9.5 gm/dL (12.0-16.0); LYMPH # 1.4 (1.2-3.4); LYMPH % 23.9 % (22.0-35.0); MEAN CELL VOLUME 83.9 fL (80.0-105.0); MEAN CORPUSCULAR HEMOGLOBIN 26.9 pg (25.0-35.0); MEAN CORPUSCULAR HGB CONC 32.1 g/dl (31.0-37.0); MEAN PLATELET VOLUME 8.5 fl (7.0-11.0); MONO # 0.5 (0.1-0.6); PLATELET COUNT 471 10^3/uL (120.0-450.0); RBC 3.53 10^6/uL (3.5-6.1); RED CELL DISTRIBUTION WIDTH 16.9 % (11.5-14.5); WHITE BLOOD COUNT 5.6 10^3/ul (4.5-11.0)
[2016-12-26] MEDS: Sodium Chloride 0.9% 1,000 ML IV SCH ×2 (08:41→18:56)
[2016-12-26] MEDS: POLYETHYLENE GLYCOL 3350 17 GM/Dose PACKET PO SCH (09:26)
[2016-12-26] MEDS: Vancomycin 25 MG/ML PO SCH ×4 (09:29→21:11)
[2016-12-26 11:12] LABS: ALT/SGPT 601 U/L (7-56); AST/SGOT 451 U/L (15-39); BLOOD UREA NITROGEN 2 mg/dL (7-21); CALCIUM 8.9 mg/dL (8.4-10.5); GFR AFRICAN-AMERICAN > 60; GFR NON-AFRICAN AMERICAN > 60
[2016-12-26 16:39] VITALS: PULSE 71
--- NOTE | 2016-12-26 18:22 | CP.PCM.PN ---
Subjective - Date & Time of Evaluation Date of Evaluation: 12/26/16 Time of Evaluation: 11:00 - Subjective Subjective: Medicine Progress Note: Pt seen and assessed at bedside with new attending, Dr. Pugh. Pt currently with no new complaints or any acute events overnight. She denies headache, night sweats, dizziness, fever, shortness of breath, hemoptysis, cough, chest pain, N/V, abdominal pain, or diarrhea. Objective - Vital Signs/Intake and Output Vital Signs (last 24 hours): Temp Pulse Resp BP Pulse Ox 98.4 F 71 20 106/71 98 12/26/16 16:39 12/26/16 16:39 12/26/16 16:39 12/26/16 16:39 12/26/16 16:39 Intake and Output: 12/26/16 12/26/16 06:59 18:59 Intake Total 2059 480 Balance 2059 480 - Medications Medications: Current Medications Al Hydrox/Mg Hydrox/Simethicone (Maalox Plus 30 Ml) 30 ml PO Q4 PRN PRN Reason: Indigestion Last Admin: 12/23/16 13:58 Dose: 30 ml Albuterol Sulfate (Albuterol 0.083% Inhal Megan (2.5 Mg/3 Ml) Ud) 2.5 mg IH [id number] PRN PRN Reason: Cough and congestion Ethambutol HCl (Myambutol) 800 mg PO DAILY [facility] Last Admin: 12/23/16 10:34 Dose: 800 mg Hydrochlorothiazide (Hydrodiuril) 25 mg PO DAILY [facility] Last Admin: 12/26/16 09:29 Dose: 25 mg Sodium Chloride (Sodium Chloride 0.9%) 1,000 mls @ 100 mls/hr IV .Q10H [facility] Last Admin: 12/26/16 08:41 Dose: 100 mls/hr Isoniazid (Niazid) 300 mg PO DAILY [facility] PRN Reason: Protocol Last Admin: 12/23/16 10:35 Dose: 300 mg Lisinopril (Zestril) 20 mg PO DAILY [facility] Last Admin: 12/26/16 09:26 Dose: 20 mg Morphine Sulfate (Morphine) 1 mg IVP Q12H PRN PRN Reason: Pain, severe (8-10) Last Admin: 12/23/16 13:58 Dose: 1 mg Ondansetron HCl (Zofran Inj) 4 mg IVP Q4H PRN PRN Reason: Nausea/Vomiting Last Admin: 12/22/16 22:40 Dose: 4 mg Pantoprazole Sodium (Protonix Ec Tab) 40 mg PO 0600,1600 [facility] Last Admin: 12/26/16 18:08 Dose: 40 mg Polyethylene Glycol (Miralax) 17 gm PO DAILY [facility] Last Admin: 12/26/16 09:26 Dose: 17 gm Pyrazinamide (Pyrazinamide) 1,000 mg PO DAILY [facility] Last Admin: 12/23/16 10:34 Dose: 1,000 mg Pyridoxine HCl (Vitamin B6 50 Mg Tab) 50 mg PO DAILY [facility] Last Admin: 12/26/16 09:29 Dose: 50 mg Rifampin (Rifampin Cap) 300 mg PO DAILY [facility] PRN Reason: Protocol Sucralfate (Carafate Oral Susp) 1 gm PO 0600,1600 [facility] Last Admin: 12/26/16 18:08 Dose: 1 gm Vancomycin HCl (Vancocin 25 Mg/Ml (Oral Use)) 250 mg PO QID [facility] PRN Reason: Protocol Last Admin: 12/26/16 13:43 Dose: 250 mg - Labs Labs: 12/26/16 07:00 12/26/16 10:30 PT 12.8 Seconds (9.9-11.8) H 12/24/16 10:30 INR 1.19 (0.93-1.08) H 12/24/16 10:30 APTT 31.4 Seconds (23.7-30.8) H 12/24/16 10:30 - Constitutional Appears: No Acute Distress - Head Exam Head Exam: NORMAL INSPECTION - Eye Exam Eye Exam: EOMI, Normal appearance - ENT Exam ENT Exam: Mucous Membranes Moist, Normal Exam - Neck Exam Neck Exam: Full ROM. absent: Lymphadenopathy - Respiratory Exam Respiratory Exam: Clear to Ausculation Bilateral, NORMAL BREATHING PATTERN. absent: Rales, Rhonchi, Wheezes, Respiratory Distress - Cardiovascular Exam Cardiovascular Exam: REGULAR RHYTHM, RRR, +S1, +S2. absent: Murmur - GI/Abdominal Exam GI & Abdominal Exam: Normal Bowel Sounds. absent: Distended, Tenderness - Extremities Exam Extremities Exam: absent: Calf Tenderness, Pedal Edema - Neurological Exam Neurological Exam: Alert, Awake, Normal Gait, Oriented x3 - Psychiatric Exam Psychiatric exam: Normal Affect, Normal Mood - Skin Skin Exam: Dry, Intact, Normal Color, Warm Assessment and Plan - Assessment and Plan (Free Text) Assessment: Mrs. Machado is a 61 year old female with a past medical history of hypertension , asthma, gastric ulcer, esophagitis who was admitted for evaluation and treatment of tuberculosis. Plan: 1. Tuberculosis Infection/Cavitary Lung Lesion -ID following, all recs appreciated -LFT's trending down; will discuss resuming 12/27 per ID recs -sputum sample collected 12/24 is negative for AFB -spoke with and arranged follow-up with chest clinic for post discharge TB monitoring -awaiting final discharge approval from [facility] -Recommended all visitors wear proper isolation masks -Isolation precautions 2. Nausea/Vomiting -GI consulted, all recs appreciated -abdominal US showed hepatic steatosis in normal size liver with no other abnormalities -likely secondary to RIPE therapy -cont zofran PRN, protonix, maalox PRN, and carafate, per GI recs 3. Positive Clostridium Difficile Stool Sample -cont Vancomycin 25mg/mL PO QID -will continue to monitor 4. Elevated LFT's -AST 451 and ALT 601 -downtrend since stopping RIPE; will discuss resuming 12/27 per ID recs -hepatitis panel negative -cont to trend LFT's and adjust RIPE therapy accordingly 5. Asthma -no complaints at this time -continue albuterol PRN -pulmonology following, all recs appreciated 6. Pneumonia -resolved -monitor clincial symptoms 7. HTN -Continue lisinopril and HCTZ 8. Constipation -cont miralax qd 9. Rib pain - continue on ibprofen PRN for pain 10. GI/DVT prophylaxis -protonix/scd's Patient seen and case discussed in detail with attending, Dr. Pugh.
--- NOTE | 2016-12-26 20:03 | PN ---
DATE: 12/26/2016 PULMONARY PROGRESS NOTE REFERRING PHYSICIAN: Dr. Shoemaker. SUBJECTIVE: She is lying on the bed, head up 45 degrees. No shortness of breath. No cough. No sputum production. No more abdominal pain. No leg pain or leg swelling. OBJECTIVE: GENERAL: No acute distress. VITAL SIGNS: Temperature is 98, heart rate is 70, respiratory rate is 20, blood pressure 124/79, and pulse ox 96% on room air. HEENT: Moist mucous membranes *------*. NECK: Supple. No JVD. LUNGS: Fair airflow with rhonchi. HEART: S1 and S2. ABDOMEN: Soft and nontender. No organomegaly. EXTREMITIES: No edema. NEUROLOGIC: Awake, alert, follow simple commands. MEDICATIONS: Reviewed and no new changes in medication reported since yesterday. LABORATORY DATA: Reviewed. Hemoglobin 9.5, hematocrit 29.6, WBC 5.6 and platelet count is 471. Sodium 136, potassium 5.3, chloride 102, bicarbonate 27, BUN is 2, creatinine 0.5, glucose 88, calcium 8.9, AST 451, ALT 601, alkaline phosphatase is 106, albumin is 3.0. IMPRESSION AND PLAN: Chronic obstructive lung disease, status post hemoptysis, which is resolved. No more fever. No cough. No shortness of breath. Has AFB positive in sputum, on anti-TB medication, which is on hold because of elevated liver enzyme. Follow up antibiotics and LFTs as per infectious diseases. Pulmonary point of view doing okay. Discharge planning when cleared by infectious diseases in [place] [facility]. Thank you, and we will follow with you. Polo Paige MD
--- NOTE | 2016-12-27 00:06 | CP.PCM.PN ---
Subjective - Date & Time of Evaluation Date of Evaluation: 12/26/16 Time of Evaluation: 23:15 - Subjective Subjective: Infectious Disease Follow Up: December 26, 2016 61 yo female with cough and bright red blood in sputum starting yesterday. The patient complains of persistent cough for the past 2 months without improvement. The patient placed on isolation and respiratory precautions at this time. Supportive care. Rule out TB. 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 Patient did have BCG vaccine in the past as a child. Patient was born in the [place] but moved to the [facility] [address] chest showed either abscess or cavitary lesion. The patient does complain of subjective fevers and chills. Fever of 101.1 F in ER. Acid-fast stain was positive. Starting treatment for tuberculosis. Noted patient refusing TB meds stating that another doctor told her she does not need them. At this point, the patient has two positive acid-fast stains from the sputum. Issues with the patient not believing her diagnosis. Multiple doctors have explained to her and she finally started taking the anti-TB medications. However, question remain whether she would continue to take medications when she is cleared for discharge. The patient still has not said that she accepts the diagnosis that she has a lung infection. No further AFB until the patient has had at least one week of anti-TB medications. The patient's daughter apparently was treated for active tuberculosis and the patient given treatment for latent infection. [facility] chest clinic was apparently here and spoke to the patient today. The patient cannot leave the hospital until three consecutive sputums are AFB negative one week after starting RIPE therapy as she is a public health risk due to potential tuberculosis. AFB culture negative at one week... note that mycobacterium are slow growing organisms and that the results are NOT finalized until 6 weeks of incubation. This amount of time must pass for incubation before one can state/read the culture is negative. PCR is confirming Mycobacterium tuberculosis. Medication sensitivities are pending. 12/19/2016, 12/20/2016, and 12/21/2016 AFB sputums are still positive. Must wait for 5-7 days before taking any further AFB sputums. The patient has been nauseated and had complaints of abdominal pains with RIPE therapy. We still do not have definitive identification of which AFB organism is present. Working assumption is Tuberculosis. Noted that LFT were elevated the last three days. INH and Rifampin on hold. Ethambutol and Pyrazinamide on hold. It will take 48 hours at least to see reduction in the LFTs for medication induced hepatitis. Check LFTs tomorrow. The patient is also receiving treatment for C. Diff in the form of PO Vancomycin. Objective - Vital Signs/Intake and Output Vital Signs (last 24 hours): Temp Pulse Resp BP Pulse Ox 98.4 F 71 20 106/71 98 12/26/16 16:39 12/26/16 16:39 12/26/16 16:39 12/26/16 16:39 12/26/16 16:39 Intake and Output: 12/26/16 12/27/16 18:59 06:59 Intake Total 480 Balance 480 - Medications Medications: Current Medications Al Hydrox/Mg Hydrox/Simethicone (Maalox Plus 30 Ml) 30 ml PO Q4 PRN PRN Reason: Indigestion Last Admin: 12/23/16 13:58 Dose: 30 ml Albuterol Sulfate (Albuterol 0.083% Inhal Megan (2.5 Mg/3 Ml) Ud) 2.5 mg IH [id number] PRN PRN Reason: Cough and congestion Ethambutol HCl (Myambutol) 800 mg PO DAILY [facility] Last Admin: 12/23/16 10:34 Dose: 800 mg Hydrochlorothiazide (Hydrodiuril) 25 mg PO DAILY [facility] Last Admin: 12/26/16 09:29 Dose: 25 mg Sodium Chloride (Sodium Chloride 0.9%) 1,000 mls @ 100 mls/hr IV .Q10H [facility] Last Admin: 12/26/16 18:56 Dose: 100 mls/hr Isoniazid (Niazid) 300 mg PO DAILY [facility] PRN Reason: Protocol Last Admin: 12/23/16 10:35 Dose: 300 mg Lisinopril (Zestril) 20 mg PO DAILY [facility] Last Admin: 12/26/16 09:26 Dose: 20 mg Morphine Sulfate (Morphine) 1 mg IVP Q12H PRN PRN Reason: Pain, severe (8-10) Last Admin: 12/23/16 13:58 Dose: 1 mg Ondansetron HCl (Zofran Inj) 4 mg IVP Q4H PRN PRN Reason: Nausea/Vomiting Last Admin: 12/22/16 22:40 Dose: 4 mg Pantoprazole Sodium (Protonix Ec Tab) 40 mg PO 0600,1600 [facility] Last Admin: 12/26/16 18:08 Dose: 40 mg Polyethylene Glycol (Miralax) 17 gm PO DAILY [facility] Last Admin: 12/26/16 09:26 Dose: 17 gm Pyrazinamide (Pyrazinamide) 1,000 mg PO DAILY [facility] Last Admin: 12/23/16 10:34 Dose: 1,000 mg Pyridoxine HCl (Vitamin B6 50 Mg Tab) 50 mg PO DAILY [facility] Last Admin: 12/26/16 09:29 Dose: 50 mg Rifampin (Rifampin Cap) 300 mg PO DAILY [facility] PRN Reason: Protocol Sucralfate (Carafate Oral Susp) 1 gm PO 0600,1600 [facility] Last Admin: 12/26/16 18:08 Dose: 1 gm Vancomycin HCl (Vancocin 25 Mg/Ml (Oral Use)) 250 mg PO QID [facility] PRN Reason: Protocol Last Admin: 12/26/16 21:11 Dose: 250 mg - Labs Labs: 12/26/16 07:00 12/26/16 10:30 PT 12.8 Seconds (9.9-11.8) H 12/24/16 10:30 INR 1.19 (0.93-1.08) H 12/24/16 10:30 APTT 31.4 Seconds (23.7-30.8) H 12/24/16 10:30 - Constitutional Appears: Non-toxic, No Acute Distress, Chronically Ill - Head Exam Head Exam: ATRAUMATIC, NORMOCEPHALIC - Eye Exam Eye Exam: EOMI, PERRL Pupil Exam: NORMAL ACCOMODATION, PERRL - ENT Exam ENT Exam: Mucous Membranes Moist, Normal External Ear Exam, TM's Normal Bilaterally - Neck Exam Neck Exam: Full ROM, Normal Inspection - Respiratory Exam Respiratory Exam: Clear to Ausculation Bilateral, NORMAL BREATHING PATTERN. absent: Rales, Rhonchi, Wheezes - Cardiovascular Exam Cardiovascular Exam: REGULAR RHYTHM, RRR, +S1, +S2 - GI/Abdominal Exam GI & Abdominal Exam: Soft, Normal Bowel Sounds. absent: Distended, Tenderness - Extremities Exam Extremities Exam: Full ROM, Normal Inspection - Neurological Exam Neurological Exam: Alert, Awake, CN II-XII Intact, Oriented x3 - Psychiatric Exam Psychiatric exam: Normal Affect, Normal Mood - Skin Skin Exam: Intact, Normal Color Assessment and Plan - Assessment and Plan (Free Text) Assessment: 61 yo female with prolonged cough for over 2 months with no improvement on antibiotics. The patient with known positive PPD. Cannot rule out tuberculosis at this point. Must also consider infections such as Staph Aureus and other acid-fast positive organisms. Start Rocephin for antibiotic coverage. Larson cultures. Obtain Acid-Fast stains and studies of sputum x 3. Patient had hemoptysis. Repeating PPD and Quantiferon will not yield additional data (both tests only show potential exposure of patient to tuberculosis during lifetime and cannot denote active disease). Await Acid- Fast stains and sputum culture results. Will continue on Isoniazid, Rifampin, Pyrazinamide, and ethambutol when the LFTs come closer to normal. Start Vitamin B6 as well. Supportive care. HIV test results are negative. No further AFB until patient has taken one week of anti-TB meds. Cough and hemopytsis improved. Patient does not believe her diagnosis of potential TB. First AFB cultures read currently as negative at one week of incubation. Results are finalized after 6 weeks of incubation. PCR has CONFIRMED Mycobacterium Tuberculosis complex. Medication sensitivities are still pending. With the 12/19/2016 and 12/20/2016 AFB sputums being positive for AFB, would await another 5-7 days before taking another AFB sputum. When the patient is able to make sputum clear of AFB (3 consecutive times) she can be discharged with DOT supervised by [facility] of [facility]. [facility] will reevaluate the patient early this upcoming week and would consider earlier discharge if the patient met certain conditions. Will see their recommendations after they revisit the patient. As of now, the patient needs three consecutive negative AFB sputums before she can be discharged from [facility] as per national guidelines. With the LFTs greater than 9x normal, would hold anti-tuberculosis medications for now. Monitor LFTs. Supportive care. Will need to stop for at least 48 hours before noting a change in LFTs. The LFTs are still elevated at this time but improving. Patient is receiving PO Vancomycin for positive C. Diff. Thank you for allowing me to participate in the care of the patient, we will follow with you.
[2016-12-27] MEDS: Sucralfate 1 gm/10 ml Oral Susp UD PO SCH ×2 (05:04→17:21)
[2016-12-27] MEDS: Sodium Chloride 0.9% 1,000 ML IV SCH (05:04)
[2016-12-27] MEDS: Pantoprazole 40 mg EC Tab PO SCH ×2 (06:23→17:23)
[2016-12-27 07:47] LABS: ALB/GLOB RATIO 1.1 (1.1-1.8); ALBUMIN 3.3 g/dL (3.0-4.8); BILIRUBIN,DIRECT 0.3 mg/dL (0.0-0.4)
[2016-12-27 08:07] LABS: BASO # 0.03 K/mm3 (0.0-2.0); BASO % 0.6 % (0.0-3.0); EOS # 0.2 (0.0-0.7); EOS % 3.7 % (1.5-5.0); GRAN # 2.71 (1.4-6.5); GRAN % 53.2 % (50.0-68.0); HEMOGLOBIN 9.9 gm/dL (12.0-16.0); LYMPH # 1.8 (1.2-3.4); LYMPH % 34.3 % (22.0-35.0); MEAN CELL VOLUME 85.2 fL (80.0-105.0); MEAN CORPUSCULAR HEMOGLOBIN 27.2 pg (25.0-35.0); MEAN CORPUSCULAR HGB CONC 31.9 g/dl (31.0-37.0); MEAN PLATELET VOLUME 8.9 fl (7.0-11.0); MONO # 0.4 (0.1-0.6); MONO % 8.2 % (1.0-6.0); PLATELET COUNT 520 10^3/uL (120.0-450.0); RBC 3.64 10^6/uL (3.5-6.1); RED CELL DISTRIBUTION WIDTH 17.6 % (11.5-14.5); WHITE BLOOD COUNT 5.1 10^3/ul (4.5-11.0)
[2016-12-27 08:19] LABS: ALBUMIN 3.2 g/dL (3.0-4.8); ALT/SGPT 564 U/L (7-56); AST/SGOT 221 U/L (15-39); BLOOD UREA NITROGEN 3 mg/dL (7-21); CALCIUM 8.8 mg/dL (8.4-10.5); GFR AFRICAN-AMERICAN > 60; GFR NON-AFRICAN AMERICAN > 60
--- NOTE | 2016-12-27 09:41 | CP.PCM.PN ---
Subjective - Date & Time of Evaluation Date of Evaluation: 12/26/16 Time of Evaluation: 09:00 - Subjective Subjective: S&E at bedside, chart reviewed. Remains on airborne precautions, heartburn in the evening is better, PPI was increased to BID, although her TB meds have been on hold as well. No Diarrhea, NO sob, coughing or hemoptysis. Eating well, no new complaints. Objective - Vital Signs/Intake and Output Vital Signs (last 24 hours): Temp Pulse Resp BP Pulse Ox 98.0 F 70 20 124/79 96 12/25/16 16:00 12/26/16 09:26 12/25/16 16:00 12/26/16 09:26 12/25/16 16:00 Intake and Output: 12/26/16 12/26/16 06:59 18:59 Intake Total 2059 Balance 2059 - Medications Medications: Current Medications Al Hydrox/Mg Hydrox/Simethicone (Maalox Plus 30 Ml) 30 ml PO Q4 PRN PRN Reason: Indigestion Last Admin: 12/23/16 13:58 Dose: 30 ml Albuterol Sulfate (Albuterol 0.083% Inhal Megan (2.5 Mg/3 Ml) Ud) 2.5 mg IH [id number] PRN PRN Reason: Cough and congestion Ethambutol HCl (Myambutol) 800 mg PO DAILY [facility] Last Admin: 12/23/16 10:34 Dose: 800 mg Hydrochlorothiazide (Hydrodiuril) 25 mg PO DAILY [facility] Last Admin: 12/26/16 09:29 Dose: 25 mg Sodium Chloride (Sodium Chloride 0.9%) 1,000 mls @ 100 mls/hr IV .Q10H [facility] Last Admin: 12/26/16 08:41 Dose: 100 mls/hr Isoniazid (Niazid) 300 mg PO DAILY [facility] PRN Reason: Protocol Last Admin: 12/23/16 10:35 Dose: 300 mg Lisinopril (Zestril) 20 mg PO DAILY [facility] Last Admin: 12/26/16 09:26 Dose: 20 mg Morphine Sulfate (Morphine) 1 mg IVP Q12H PRN PRN Reason: Pain, severe (8-10) Last Admin: 12/23/16 13:58 Dose: 1 mg Ondansetron HCl (Zofran Inj) 4 mg IVP Q4H PRN PRN Reason: Nausea/Vomiting Last Admin: 12/22/16 22:40 Dose: 4 mg Pantoprazole Sodium (Protonix Ec Tab) 40 mg PO 0600,1600 [facility] Last Admin: 12/26/16 05:53 Dose: 40 mg Polyethylene Glycol (Miralax) 17 gm PO DAILY [facility] Last Admin: 12/26/16 09:26 Dose: 17 gm Pyrazinamide (Pyrazinamide) 1,000 mg PO DAILY [facility] Last Admin: 12/23/16 10:34 Dose: 1,000 mg Pyridoxine HCl (Vitamin B6 50 Mg Tab) 50 mg PO DAILY [facility] Last Admin: 12/26/16 09:29 Dose: 50 mg Rifampin (Rifampin Cap) 300 mg PO DAILY [facility] PRN Reason: Protocol Sucralfate (Carafate Oral Susp) 1 gm PO 0600,1600 [facility] Last Admin: 12/26/16 06:46 Dose: 1 gm Vancomycin HCl (Vancocin 25 Mg/Ml (Oral Use)) 250 mg PO QID [facility] PRN Reason: Protocol Last Admin: 12/26/16 09:29 Dose: 250 mg - Labs Labs: 12/26/16 07:00 12/25/16 07:30 PT 12.8 Seconds (9.9-11.8) H 12/24/16 10:30 INR 1.19 (0.93-1.08) H 12/24/16 10:30 APTT 31.4 Seconds (23.7-30.8) H 12/24/16 10:30 - Constitutional Appears: No Acute Distress - Head Exam Head Exam: NORMAL INSPECTION - Eye Exam Eye Exam: Normal appearance. absent: Scleral icterus - ENT Exam ENT Exam: Mucous Membranes Moist - Neck Exam Neck Exam: Normal Inspection - Respiratory Exam Respiratory Exam: Decreased Breath Sounds, NORMAL BREATHING PATTERN. absent: Rales, Wheezes, Respiratory Distress - Cardiovascular Exam Cardiovascular Exam: +S1, +S2 - GI/Abdominal Exam GI & Abdominal Exam: Soft, Normal Bowel Sounds. absent: Guarding, Tenderness, Rebound - Extremities Exam Extremities Exam: absent: Calf Tenderness, Pedal Edema - Neurological Exam Neurological Exam: Alert, Awake, Oriented x3 - Skin Skin Exam: Dry, Warm Assessment and Plan - Assessment and Plan (Free Text) Assessment: ASSESSMENT: Elevated LFt, likley secondary to medications, improving Cavitary Lesion, (+) AFB (+) Cdiff antigen and toxin Nausea, maybe likely be secondary to multiple antibiotics treatment Pneumonia H/O PUD H/O H pylori Improved Constipation , (+) cdiff HTN PLAN: continue PPI trend LFT continue Carafate On Iron TB meds are on hold for now, ID note appreciated Miralax daily on oral Vancomycin continue Protonix 40 mg BID medical team in touch with Board of Health Seen and discussed w/ Dr. Oleary.
--- NOTE | 2016-12-27 09:42 | CP.PCM.PN ---
<Marcia Ramirez - Last Filed: 12/27/16 09:41> Subjective - Date & Time of Evaluation Date of Evaluation: 12/27/16 Time of Evaluation: 09:00 - Subjective Subjective: S&E, chart reviewed, no sob, chest pain, N/V or abdominal pain. Denies reflux at night now, improved. Eating well, had BM , no diarrhea or bleeding. No acute overnight events. LFT better, still off TB meds. Objective - Vital Signs/Intake and Output Vital Signs (last 24 hours): Temp Pulse Resp BP Pulse Ox 98.4 F 71 20 106/71 98 12/26/16 16:39 12/26/16 16:39 12/26/16 16:39 12/26/16 16:39 12/26/16 16:39 Intake and Output: 12/27/16 12/27/16 06:59 18:59 Intake Total 2160 Balance 2160 - Medications Medications: Current Medications Al Hydrox/Mg Hydrox/Simethicone (Maalox Plus 30 Ml) 30 ml PO Q4 PRN PRN Reason: Indigestion Last Admin: 12/23/16 13:58 Dose: 30 ml Albuterol Sulfate (Albuterol 0.083% Inhal Megan (2.5 Mg/3 Ml) Ud) 2.5 mg IH [id number] PRN PRN Reason: Cough and congestion Ethambutol HCl (Myambutol) 800 mg PO DAILY [facility] Last Admin: 12/23/16 10:34 Dose: 800 mg Hydrochlorothiazide (Hydrodiuril) 25 mg PO DAILY [facility] Last Admin: 12/26/16 09:29 Dose: 25 mg Sodium Chloride (Sodium Chloride 0.9%) 1,000 mls @ 100 mls/hr IV .Q10H [facility] Last Admin: 12/27/16 05:04 Dose: 100 mls/hr Isoniazid (Niazid) 300 mg PO DAILY [facility] PRN Reason: Protocol Last Admin: 12/23/16 10:35 Dose: 300 mg Lisinopril (Zestril) 20 mg PO DAILY [facility] Last Admin: 12/26/16 09:26 Dose: 20 mg Morphine Sulfate (Morphine) 1 mg IVP Q12H PRN PRN Reason: Pain, severe (8-10) Last Admin: 12/23/16 13:58 Dose: 1 mg Ondansetron HCl (Zofran Inj) 4 mg IVP Q4H PRN PRN Reason: Nausea/Vomiting Last Admin: 12/22/16 22:40 Dose: 4 mg Pantoprazole Sodium (Protonix Ec Tab) 40 mg PO 0600,1600 [facility] Last Admin: 12/27/16 06:23 Dose: 40 mg Polyethylene Glycol (Miralax) 17 gm PO DAILY [facility] Last Admin: 12/26/16 09:26 Dose: 17 gm Pyrazinamide (Pyrazinamide) 1,000 mg PO DAILY [facility] Last Admin: 12/23/16 10:34 Dose: 1,000 mg Pyridoxine HCl (Vitamin B6 50 Mg Tab) 50 mg PO DAILY [facility] Last Admin: 12/26/16 09:29 Dose: 50 mg Rifampin (Rifampin Cap) 300 mg PO DAILY [facility] PRN Reason: Protocol Sucralfate (Carafate Oral Susp) 1 gm PO 0600,1600 [facility] Last Admin: 12/27/16 05:04 Dose: 1 gm Vancomycin HCl (Vancocin 25 Mg/Ml (Oral Use)) 250 mg PO QID [facility] PRN Reason: Protocol Last Admin: 12/26/16 21:11 Dose: 250 mg - Labs Labs: 12/27/16 07:15 12/27/16 07:15 PT 12.8 Seconds (9.9-11.8) H 12/24/16 10:30 INR 1.19 (0.93-1.08) H 12/24/16 10:30 APTT 31.4 Seconds (23.7-30.8) H 12/24/16 10:30 - Constitutional Appears: No Acute Distress - Head Exam Head Exam: NORMAL INSPECTION - Eye Exam Eye Exam: Normal appearance. absent: Scleral icterus - ENT Exam ENT Exam: Mucous Membranes Moist - Neck Exam Neck Exam: Normal Inspection - Respiratory Exam Respiratory Exam: NORMAL BREATHING PATTERN. absent: Respiratory Distress - Cardiovascular Exam Cardiovascular Exam: +S1, +S2 - GI/Abdominal Exam GI & Abdominal Exam: Soft, Normal Bowel Sounds. absent: Guarding, Tenderness, Rebound - Extremities Exam Extremities Exam: absent: Calf Tenderness, Pedal Edema - Neurological Exam Neurological Exam: Alert, Awake, Oriented x3 - Psychiatric Exam Psychiatric exam: Flat Affect - Skin Skin Exam: Dry, Warm Assessment and Plan - Assessment and Plan (Free Text) Assessment: ASSESSMENT: Elevated LFt, likley secondary to medications Cavitary Lesion, (+) AFB (+) Cdiff antigen and toxin Nausea, maybe likely be secondary to multiple antibiotics treatment Pneumonia H/O PUD H/O H pylori Improved Constipation , (+) cdiff HTN PLAN: continue PPI trend LFT continue Carafate On Iron TB meds are on hold for now Miralax daily on oral Vancomycin continue Protonix 40 mg BID as per ID medical team in touch with Board of Health Seen and discussed w/ Dr. Oleary. <Lulu Oleary V - Last Filed: 12/27/16 22:09> Objective - Vital Signs/Intake and Output Vital Signs (last 24 hours): Temp Pulse Resp BP Pulse Ox 98.2 F 71 20 120/76 95 12/27/16 07:30 12/27/16 07:30 12/27/16 07:30 12/27/16 11:47 12/27/16 07:30 Intake and Output: 12/27/16 12/28/16 18:59 06:59 Intake Total 480 Balance 480 - Labs Labs: 12/27/16 07:15 12/27/16 07:15 PT 12.8 Seconds (9.9-11.8) H 12/24/16 10:30 INR 1.19 (0.93-1.08) H 12/24/16 10:30 APTT 31.4 Seconds (23.7-30.8) H 12/24/16 10:30 Attending/Attestation - Attestation I have personally seen and examined this patient.: Yes I have fully participated in the care of the patient.: Yes I have reviewed all pertinent clinical information, including history, physical exam and plan: Yes Notes (Text): this
[2016-12-27 10:10] VITALS: TEMP 98.2; O2SAT 95
[2016-12-27] MEDS: POLYETHYLENE GLYCOL 3350 17 GM/Dose PACKET PO SCH (11:47)
[2016-12-27] MEDS: Vancomycin 25 MG/ML PO SCH ×3 (12:05→17:21)
[2016-12-27 12:06] VITALS: BP 120/76
--- NOTE | 2016-12-27 17:46 | CP.PCM.PN ---
Subjective - Date & Time of Evaluation Date of Evaluation: 12/27/16 Time of Evaluation: 17:00 - Subjective Subjective: Infectious Disease Follow Up: December 27, 2016 61 yo female with cough and bright red blood in sputum starting yesterday. The patient complains of persistent cough for the past 2 months without improvement. The patient placed on isolation and respiratory precautions at this time. Supportive care. Rule out TB. 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 Patient did have BCG vaccine in the past as a child. Patient was born in the [place] but moved to the [facility] [address] chest showed either abscess or cavitary lesion. The patient does complain of subjective fevers and chills. Fever of 101.1 F in ER. Acid-fast stain was positive. Starting treatment for tuberculosis. Noted patient refusing TB meds stating that another doctor told her she does not need them. At this point, the patient has two positive acid-fast stains from the sputum. Issues with the patient not believing her diagnosis. Multiple doctors have explained to her and she finally started taking the anti-TB medications. However, question remain whether she would continue to take medications when she is cleared for discharge. The patient still has not said that she accepts the diagnosis that she has a lung infection. No further AFB until the patient has had at least one week of anti-TB medications. The patient's daughter apparently was treated for active tuberculosis and the patient given treatment for latent infection. [facility] clinic was apparently here and spoke to the patient today. The patient cannot leave the hospital until three consecutive sputums are AFB negative one week after starting RIPE therapy as she is a public health risk due to potential tuberculosis. AFB culture negative at one week... note that mycobacterium are slow growing organisms and that the results are NOT finalized until 6 weeks of incubation. This amount of time must pass for incubation before one can state/read the culture is negative. PCR is confirming Mycobacterium tuberculosis. Medication sensitivities are pending. 12/19/2016, 12/20/2016, and 12/21/2016 AFB sputums are still positive. Must wait for 5-7 days before taking any further AFB sputums. The patient has been nauseated and had complaints of abdominal pains with RIPE therapy. We still do not have definitive identification of which AFB organism is present. Working assumption is Tuberculosis. Noted that LFT were elevated the last three days. INH and Rifampin on hold. Ethambutol and Pyrazinamide on hold. It will take 48 hours at least to see reduction in the LFTs for medication induced hepatitis. Check LFTs tomorrow. LFTs slowly decreasing. The patient has had three consecutive AFBs negative. The patient is also receiving treatment for C. Diff in the form of PO Vancomycin. Objective - Vital Signs/Intake and Output Vital Signs (last 24 hours): Temp Pulse Resp BP Pulse Ox 98.2 F 71 20 120/76 95 12/27/16 07:30 12/27/16 07:30 12/27/16 07:30 12/27/16 11:47 12/27/16 07:30 Intake and Output: 12/27/16 12/27/16 06:59 18:59 Intake Total 2160 480 Balance 2160 480 - Medications Medications: Current Medications Al Hydrox/Mg Hydrox/Simethicone (Maalox Plus 30 Ml) 30 ml PO Q4 PRN PRN Reason: Indigestion Last Admin: 12/23/16 13:58 Dose: 30 ml Albuterol Sulfate (Albuterol 0.083% Inhal Megan (2.5 Mg/3 Ml) Ud) 2.5 mg IH [id number] PRN PRN Reason: Cough and congestion Ethambutol HCl (Myambutol) 800 mg PO DAILY [facility] Last Admin: 12/23/16 10:34 Dose: 800 mg Hydrochlorothiazide (Hydrodiuril) 25 mg PO DAILY [facility] Last Admin: 12/27/16 11:47 Dose: 25 mg Sodium Chloride (Sodium Chloride 0.9%) 1,000 mls @ 100 mls/hr IV .Q10H [facility] Last Admin: 12/27/16 05:04 Dose: 100 mls/hr Isoniazid (Niazid) 300 mg PO DAILY BRANDYN PRN Reason: Protocol Last Admin: 12/23/16 10:35 Dose: 300 mg Lisinopril (Zestril) 20 mg PO DAILY [facility] Last Admin: 12/27/16 11:47 Dose: 20 mg Morphine Sulfate (Morphine) 1 mg IVP Q12H PRN PRN Reason: Pain, severe (8-10) Last Admin: 12/23/16 13:58 Dose: 1 mg Ondansetron HCl (Zofran Inj) 4 mg IVP Q4H PRN PRN Reason: Nausea/Vomiting Last Admin: 12/22/16 22:40 Dose: 4 mg Pantoprazole Sodium (Protonix Ec Tab) 40 mg PO 0600,1600 [facility] Last Admin: 12/27/16 17:23 Dose: 40 mg Polyethylene Glycol (Miralax) 17 gm PO DAILY [facility] Last Admin: 12/27/16 11:47 Dose: 17 gm Pyrazinamide (Pyrazinamide) 1,000 mg PO DAILY [facility] Last Admin: 12/23/16 10:34 Dose: 1,000 mg Pyridoxine HCl (Vitamin B6 50 Mg Tab) 50 mg PO DAILY [facility] Last Admin: 12/27/16 11:52 Dose: 50 mg Rifampin (Rifampin Cap) 300 mg PO DAILY [facility] PRN Reason: Protocol Sucralfate (Carafate Oral Susp) 1 gm PO 0600,1600 [facility] Last Admin: 12/27/16 17:21 Dose: 1 gm Vancomycin HCl (Vancocin 25 Mg/Ml (Oral Use)) 250 mg PO QID [facility] PRN Reason: Protocol Last Admin: 12/27/16 17:21 Dose: 250 mg - Labs Labs: 12/27/16 07:15 12/27/16 07:15 PT 12.8 Seconds (9.9-11.8) H 12/24/16 10:30 INR 1.19 (0.93-1.08) H 12/24/16 10:30 APTT 31.4 Seconds (23.7-30.8) H 12/24/16 10:30 - Constitutional Appears: Non-toxic, No Acute Distress, Chronically Ill - Head Exam Head Exam: ATRAUMATIC, NORMOCEPHALIC - Eye Exam Eye Exam: EOMI, PERRL Pupil Exam: NORMAL ACCOMODATION, PERRL - ENT Exam ENT Exam: Mucous Membranes Moist, Normal External Ear Exam, TM's Normal Bilaterally - Neck Exam Neck Exam: Full ROM, Normal Inspection - Respiratory Exam Respiratory Exam: Clear to Ausculation Bilateral, NORMAL BREATHING PATTERN. absent: Rales, Rhonchi, Wheezes - Cardiovascular Exam Cardiovascular Exam: REGULAR RHYTHM, RRR, +S1, +S2 - GI/Abdominal Exam GI & Abdominal Exam: Soft, Normal Bowel Sounds. absent: Distended, Tenderness - Extremities Exam Extremities Exam: Full ROM, Normal Inspection - Neurological Exam Neurological Exam: Alert, Awake, CN II-XII Intact, Oriented x3 - Psychiatric Exam Psychiatric exam: Normal Affect, Normal Mood - Skin Skin Exam: Intact, Normal Color Assessment and Plan - Assessment and Plan (Free Text) Assessment: 61 yo female with prolonged cough for over 2 months with no improvement on antibiotics. The patient with known positive PPD. Cannot rule out tuberculosis at this point. Must also consider infections such as Staph Aureus and other acid-fast positive organisms. Start Rocephin for antibiotic coverage. Larson cultures. Obtain Acid-Fast stains and studies of sputum x 3. Patient had hemoptysis. Repeating PPD and Quantiferon will not yield additional data (both tests only show potential exposure of patient to tuberculosis during lifetime and cannot denote active disease). Await Acid- Fast stains and sputum culture results. Will continue on Isoniazid, Rifampin, Pyrazinamide, and ethambutol when the LFTs come closer to normal. Start Vitamin B6 as well. Supportive care. HIV test results are negative. No further AFB until patient has taken one week of anti-TB meds. Cough and hemopytsis improved. Patient does not believe her diagnosis of potential TB. First AFB cultures read currently as negative at one week of incubation. Results are finalized after 6 weeks of incubation. PCR has CONFIRMED Mycobacterium Tuberculosis complex. Medication sensitivities are still pending. With the 12/19/2016 and 12/20/2016 AFB sputums being positive for AFB, would await another 5-7 days before taking another AFB sputum. When the patient is able to make sputum clear of AFB (3 consecutive times) she can be discharged with DOT supervised by [facility]. [facility] will reevaluate the patient early this upcoming week and would consider earlier discharge if the patient met certain conditions. Will see their recommendations after they revisit the patient. As of now, the patient needs three consecutive negative AFB sputums before she can be discharged from [facility] as per national guidelines. With the LFTs greater than 9x normal, would hold anti-tuberculosis medications for now. Monitor LFTs. Supportive care. Will need to stop for at least 48 hours before noting a change in LFTs. The LFTs are still elevated at this time but improving daily. Three consecutive AFB are negative. First AFB done has confirmation of mycobacterium tuberculosis. [facility] has cleared the patient for discharge. They will follow LFTs and perform DOT. Patient is receiving PO Vancomycin for positive C. Diff. Thank you for allowing me to participate in the care of the patient, we will follow with you.
--- NOTE | 2016-12-30 16:53 | CP.PCM.DIS ---
Provider - Provider Date of Admission: 12/07/16 20:53 Attending physician: Clifford Shoemaker MD Primary care physician: Dr. Bhatit Consults: ID- Dr. Mcghee Pulmonology- Dr. Paige Gastroenterology- Dr. Oleary Time Spent in preparation of Discharge (in minutes): 69 Hospital Course - Lab Results Lab Results: Micro Results 12/20/16 06:30 Other: Please Indicate Mycobacterial Culture - Preliminary 12/19/16 23:42 Other: Please Indicate Mycobacterial Culture - Preliminary 12/13/16 08:37 Other: Please Indicate Mycobacterial Culture - Preliminary 12/19/16 10:30 Other: Please Indicate Mycobacterial Culture - Preliminary 12/09/16 08:00 Other: Please Indicate Mycobacterial Culture - Preliminary 12/08/16 07:00 Other: Please Indicate Mycobacterial Culture - Preliminary 12/24/16 19:00 Other: Please Indicate Mycobacterial Culture - Preliminary 12/22/16 12:50 Stool C. difficile Antigen & Toxin A,B (M - Final 12/08/16 07:00 Sputum Induced Gram Stain - Final 12/08/16 07:00 Sputum Induced Sputum Culture - Final NORMAL ORAL SHELIA Most Recent Lab Values WBC 5.1 10^3/ul (4.5-11.0) 12/27/16 07:15 RBC 3.64 10^6/uL (3.5-6.1) 12/27/16 07:15 Hgb 9.9 gm/dL (12.0-16.0) L 12/27/16 07:15 Hct 31.0 % (36.0-48.0) L 12/27/16 07:15 MCV 85.2 fL (80.0-105.0) 12/27/16 07:15 MCH 27.2 pg (25.0-35.0) 12/27/16 07:15 MCHC 31.9 g/dl (31.0-37.0) 12/27/16 07:15 RDW 17.6 % (11.5-14.5) H 12/27/16 07:15 Plt Count 520 10^3/uL (120.0-450.0) H 12/27/16 07:15 MPV 8.9 fl (7.0-11.0) 12/27/16 07:15 Gran % 53.2 % (50.0-68.0) 12/27/16 07:15 Lymph % (Auto) 34.3 % (22.0-35.0) 12/27/16 07:15 Gray % (Auto) 8.2 % (1.0-6.0) H 12/27/16 07:15 Eos % (Auto) 3.7 % (1.5-5.0) 12/27/16 07:15 Baso % (Auto) 0.6 % (0.0-3.0) 12/27/16 07:15 Gran # 2.71 (1.4-6.5) 12/27/16 07:15 Lymph # 1.8 (1.2-3.4) 12/27/16 07:15 Gray # 0.4 (0.1-0.6) 12/27/16 07:15 Eos # 0.2 (0.0-0.7) 12/27/16 07:15 Baso # 0.03 K/mm3 (0.0-2.0) 12/27/16 07:15 Retic Count 1.13 % (0.5-1.5) 12/08/16 06:30 PT 12.8 Seconds (9.9-11.8) H 12/24/16 10:30 INR 1.19 (0.93-1.08) H 12/24/16 10:30 APTT 31.4 Seconds (23.7-30.8) H 12/24/16 10:30 pO2 31 mm/Hg (30-55) 12/07/16 19:45 VBG pH 7.42 (7.32-7.43) 12/07/16 19:45 VBG pCO2 48.0 (40-60) 12/07/16 19:45 VBG HCO3 31.1 mmol/l (21-28) H 12/07/16 19:45 VBG Total CO2 32.6 mmol.L (22-28) H 12/07/16 19:45 VBG O2 Sat (Calc) 63.9 % (40-65) 12/07/16 19:45 VBG Base Excess 5.5 mmol/L (0.0-2.0) H 12/07/16 19:45 VBG Potassium 3.7 mmol/L (3.6-5.2) 12/07/16 19:45 Sodium 136.0 mmol/L (132-148) 12/07/16 19:45 Chloride 99.0 mmol/L (98-107) 12/07/16 19:45 Glucose 109 mg/dl (65-105) H 12/07/16 19:45 Lactate 1.0 mmol/L (0.7-2.1) 12/07/16 19:45 FiO2 21.0 % 12/07/16 19:45 Sodium 138 mmol/L (132-148) 12/27/16 07:15 Potassium 4.0 mmol/L (3.6-5.0) 12/27/16 07:15 Chloride 101 mmol/L (98-107) 12/27/16 07:15 Carbon Dioxide 29 mmol/L (21-33) 12/27/16 07:15 Anion Gap 12 (10-20) 12/27/16 07:15 BUN 3 mg/dL (7-21) L 12/27/16 07:15 Creatinine 0.5 mg/dL (0.5-1.4) 12/27/16 07:15 Est GFR ( Amer) > 60 12/27/16 07:15 Est GFR (Non-Af Amer) > 60 12/27/16 07:15 Random Glucose 84 mg/dL (70-110) 12/27/16 07:15 Calcium 8.8 mg/dL (8.4-10.5) 12/27/16 07:15 Magnesium 2.0 mg/dL (1.7-2.2) 12/07/16 19:45 Iron 16 ug/dL (45-180) L 12/08/16 07:00 TIBC 305 ug/dL (265-497) 12/08/16 07:00 % Saturation 5 % (20-55) L 12/08/16 07:00 Ferritin 67.6 ng/mL 12/08/16 07:00 Total Bilirubin 0.5 mg/dL (0.2-1.3) 12/27/16 07:15 Direct Bilirubin 0.3 mg/dL (0.0-0.4) 12/27/16 07:15 AST 221 U/L (15-39) H 12/27/16 07:15 ALT 564 U/L (7-56) H 12/27/16 07:15 Alkaline Phosphatase 105 U/L (38-133) 12/27/16 07:15 Lactate Dehydrogenase 393 U/L (333-699) 12/07/16 19:45 Total Creatine Kinase 48 U/L (35-230) 12/07/16 19:45 Troponin I < 0.01 ng/mL 12/08/16 20:50 Total Protein 6.3 g/dL (5.8-8.3) 12/27/16 07:15 Albumin 3.2 g/dL (3.0-4.8) 12/27/16 07:15 Globulin 3.1 gm/dL 12/27/16 07:15 Albumin/Globulin Ratio 1.0 (1.1-1.8) L 12/27/16 07:15 Lipase 285 U/L (23-300) 12/23/16 13:53 Vitamin B12 336 pg/mL (239-931) 12/08/16 07:00 Folate 12.5 ng/mL 12/08/16 07:00 Procalcitonin 0.11 NG/ML (0.19-0.49) L 12/08/16 07:00 Venous Blood Potassium 3.7 mmol/L (3.6-5.2) 12/07/16 19:45 Hepatitis A IgM Ab Negative (NEGATIVE) 12/24/16 06:30 Hep Bs Antigen Negative (NEGATIVE) 12/24/16 06:30 Hep B Core IgM Ab Negative (NEGATIVE) 12/24/16 06:30 Hepatitis C Antibody Negative (NEGATIVE) 12/24/16 06:30 HIV 1&2 Antibody Screen Negative (NEGATIVE) 12/08/16 07:00 TB Test (QFT) Nil 0.32 IU/mL 12/08/16 07:00 TB Test Mitogen - Nil >10.00 IU/mL 12/08/16 07:00 TB Test TB - Nil 2.43 IU/mL 12/08/16 07:00 TB Test (QFT) Positive (Negative) H 12/08/16 07:00 - Hospital Course Hospital Course: Mrs. Machado was a 61 year old female with past medical history of hypertension , asthma, gastric ulcer, and esophagitis that presented with complaints of hemoptysis and weight loss. A chest xray revealed a right upper lobe cavitary lesion suspicious for granulomatous diseases such as TB and patient was placed on airborne isolation with negative room pressure. A Chest CT revealed RUL scarring and volume loss; small RUL cavitary lesion with adjacent nodular opacities; large RLL cavitary lesion with interstitial and airspace disease; active TB could not be excluded. AFB and sputum cultures were ordered and came back positive for AFB. ID and Pulmonology were then consulted. Initially, patient was given vancomycin and rocephin but then later switched to RIPE therapy, per ID. Patient was initially skeptical and refused these medications but after two days, became compliant with RIPE therapy. Duonebs PRN and Solu- medrol were started by pulmonology for asthma as well as rocephin for a pneumonia patient was suspected to have. Patient was eventually weaned off of solu-medrol and put on prednisone taper for two days as well as completing her course of rocephin. Patient continued on RIPE therapy for 8 days before experiencing abdominal pain and diarrhea. Her LFT's were found to be 8 times the normal limits and RIPE therapy was stopped for 48 hours. An abdominal ultrasound was done and showed hepatic steatosis in a normal sized liver. A CDiff test was done for complaints of diarrhea and was found to be positive. Patient was started on PO vancomycin for C.Diff treatment. AFB sputum samples were sent on 12/19, 12/20 and 12/24 and found to be free of AFB. [facility] was contacted, came to see patient and set up extensive outpatient follow-up. [facility] and [facility] ID officials approved of patients discharge on 12/27 with extensive outpatient follow-up recommended as well as a course of PO Vancomycin. - Date & Time of H&P Date of H&P: 12/07/16 Time of H&P: 22:38 Discharge Exam - Head Exam Head Exam: ATRAUMATIC, NORMOCEPHALIC - Eye Exam Eye Exam: EOMI, Normal appearance - ENT Exam ENT Exam: Mucous Membranes Moist, Normal Exam - Neck Exam Neck exam: Full Rom, Normal Inspection - Respiratory Exam Respiratory Exam: NORMAL BREATHING PATTERN, UNREMARKABLE. absent: Accessory Muscle Use, Chest Wall Tenderness, Decreased Breath Sounds, Prolonged Expiratory Phase, Rales, Rhonchi, Wheezes, Respiratory Distress, Stridor - Cardiovascular Exam Cardiovascular Exam: REGULAR RHYTHM, RRR. absent: Bradycardia, Tachycardia, Diastolic murmur, +S1, +S2, Systolic Murmur - GI/Abdominal Exam GI & Abdominal Exam: Normal Bowel Sounds, Unremarkable. absent: Distended, Guarding, Tenderness - Extremities Exam Extremities exam: normal capillary refill, pedal pulses present Additional comments: No calf tenderness or pedal edema bilaterally - Neurological Exam Neurological exam: Alert, Normal Gait, Oriented x3 - Psychiatric Exam Psychiatric exam: Normal Affect, Normal Mood - Skin Skin Exam: Dry, Intact, Normal Color, Warm Discharge Plan - Discharge Medications Prescriptions: Vancomycin [Vancocin 25 mg/ml (Oral Use)] 250 mg PO QID #1250 ml - Follow Up Plan Condition: FAIR Disposition: HOME/ ROUTINE Instructions: Tuberculosis (DC), Clostridium Difficile Infection (GEN) Additional Instructions: 1. If your symptoms persist or worsen, please seek emergency medical attention. 2. FOLLOW UP APPOINTMENT SCHEDULED AT [facility] FOR TOMORROW, DECEMBER 28. Please call to verify appointment time. This clinic will provide all necessary follow up medical care regarding your tuberculosis diagnosis. -[facility] -[address] [place] [address] - 3. Please wear one of the masks provided to you when in the presence of others until your appointment at the [facility] tomorrow. Discuss the necessity of this and other contact precautions at your appointment. 4. Schedule a follow up visit with your primary care doctor regarding your hospital visit and all conditions addressed. Referrals: Polo Paige MD [Staff Provider] -
== END 2016-12-27 20:49 | disposition home or self-care (01) | DRG 88 ==
LOC: ED 18:32 → ERH 20:53 → 2RSO 12-08 00:39 → 5RSO 12-08 11:53
PROVIDERS: ADMIT Internal Medicine; ATTEND Internal Medicine
DX: J44.0 Chronic obstructive pulmonary disease with (acute) lower respiratory infection (principal); A04.7 Enterocolitis due to Clostridium difficile; A15.0 Tuberculosis of lung; I10 Essential (primary) hypertension; D64.9 Anemia, unspecified; J45.909 Unspecified asthma, uncomplicated; R91.1 Solitary pulmonary nodule; K21.0 Gastro-esophageal reflux disease with esophagitis; K59.00 Constipation, unspecified; K29.60 Other gastritis without bleeding; Z91.14 Patient's other noncompliance with medication regimen; Z86.19 Personal history of other infectious and parasitic diseases; Z87.11 Personal history of peptic ulcer disease

== ENCOUNTER 2018-08-28 17:01 | Outpatient (CLI) | payer MEDICAID | END 2018-08-28 17:02 | disposition home or self-care (01) | LOC: RAD 17:01 ==

== ENCOUNTER 2018-09-19 10:37 | Outpatient (CLI) | payer MEDICAID | END 2018-09-19 10:38 | disposition home or self-care (01) | LOC: RAD 10:37 ==